=== PATIENT | male | born 1970 | race African-American/Black ===

== ENCOUNTER 2020-12-27 13:45 | Emergency (ER) | payer MEDICAID, OTHER ==
[~2020-12-27] VITALS: Ht 182.9 cm; Wt 90.7 kg
[2020-12-27 16:29] VITALS: BP 162/93
== END 2020-12-27 16:58 | disposition home or self-care (01) ==
LOC: ER 13:45
DX: E11.9 Type 2 diabetes mellitus without complications (principal); I10 Essential (primary) hypertension; Z76.0 Encounter for issue of repeat prescription
CPT/HCPCS: 82962

== ENCOUNTER 2023-02-09 07:21 | Emergency (ER) | payer MEDICAID ==
[~2023-02-09] VITALS: Ht 182.9 cm; Wt 95.5 kg
[2023-02-09] MEDS ORDERED: IPRATROPIUM BROM 0.5 MG/2.5ML INH SOL NEB ONE (07:45)
[2023-02-09] MEDS ORDERED: ALBUTEROL SULF 2.5 MG/0.5ML(0.5%) NEB SOLN NEB ONE (07:45)
[2023-02-09 08:21] VITALS: BP 149/98
[2023-02-09] MEDS ORDERED: DexAMETHasone SOD PHOS 10MG/1ML VIAL INJ IM ONE (08:30)
[2023-02-09] MEDS ORDERED: PRED20TA2 PO (08:33)
[2023-02-09] MEDS ORDERED: ALBU108A5 IN (08:33)
[2023-02-09] MEDS ORDERED: AZITTAB PO (08:33)
== END 2023-02-09 09:18 | disposition home or self-care (01) ==
LOC: ER 07:21
DX: J45.901 Unspecified asthma with (acute) exacerbation (principal); J18.9 Pneumonia, unspecified organism; E11.9 Type 2 diabetes mellitus without complications; I10 Essential (primary) hypertension
CPT/HCPCS: 71046; 94640; 96372; 99283; J1100; J7644

== ENCOUNTER 2023-04-28 08:35 | Emergency (ER) | payer MEDICAID ==
[~2023-04-28] VITALS: Ht 182.9 cm; Wt 79.6 kg
[~2023-04-28 08:35] MED LIST: ALBU108A5 IN; AZITTAB PO; PRED20TA2 PO
[2023-04-28 08:47] VITALS: BP 118/76; PULSE 73; RESP 16; TEMP 98.4; O2SAT 99
[2023-04-28] MEDS ORDERED: FURO20TA3 PO (09:28)
[2023-04-28] MEDS ORDERED: CARV25TA55 PO (09:28)
[2023-04-28] MEDS ORDERED: ATOR40TA52 PO (09:28)
[2023-04-28] MEDS ORDERED: HYDR-4298 PO (09:28)
[2023-04-28] MEDS ORDERED: AMLO1TAB22 PO (09:28)
[2023-04-28] MEDS ORDERED: DAPA1TAB4 PO (09:28)
== END 2023-04-28 10:09 | disposition home or self-care (01) ==
LOC: ER 08:35
DX: I10 Essential (primary) hypertension (principal); E11.9 Type 2 diabetes mellitus without complications; Z86.73 Personal history of transient ischemic attack (TIA), and cerebral infarction without residual deficits; Z76.0 Encounter for issue of repeat prescription
CPT/HCPCS: 82962

== ENCOUNTER 2023-06-02 09:24 | Emergency (ER) | payer MEDICAID ==
[~2023-06-02] VITALS: Ht 182.9 cm; Wt 84.8 kg
[~2023-06-02 09:24] MED LIST changes: +AMLO1TAB22 PO; +ATOR40TA52 PO; +CARV25TA55 PO; +DAPA1TAB4 PO; +FURO20TA3 PO; +HYDR-4298 PO
[2023-06-02 12:05] VITALS: BP 161/96; PULSE 68; RESP 18; TEMP 98.7; O2SAT 99
[2023-06-02] MEDS ORDERED: AMLO1TAB22 PO (12:52)
[2023-06-02] MEDS ORDERED: CARV25TA55 PO (12:52)
[2023-06-02] MEDS ORDERED: FURO20TA3 PO (12:52)
[2023-06-02] MEDS ORDERED: DAPA1TAB4 PO (12:52)
[2023-06-02] MEDS ORDERED: ATOR40TA52 PO (12:52)
== END 2023-06-02 12:59 | disposition home or self-care (01) ==
LOC: ER 09:24
DX: I10 Essential (primary) hypertension (principal); E11.9 Type 2 diabetes mellitus without complications; Z76.0 Encounter for issue of repeat prescription; Z86.73 Personal history of transient ischemic attack (TIA), and cerebral infarction without residual deficits

== ENCOUNTER 2025-08-19 22:50 | Inpatient (IN) | payer MEDICAID ==
[~2025-08-19] VITALS: Ht 182.9 cm; Wt 78.1 kg
[~2025-08-19 22:50] MED LIST changes: -HYDR-4298 PO; +HYDR100T10 PO
--- NOTE | 2025-08-19 23:10 | ED.PDOC ---
SOB-HPI HPI Comments HPI: 55-year-old male who came to ER via EMS for shortness of breath. Per EMS, patient was picked up at a hotel room, where patient was said to be having shortness of breath for the past 3 hours. Saturating with 43% on room air on scene, was placed on non-rebreather and improved to 65%. Patient was then given a breathing treatment and was placed a oxygen at 6 lpm and it improved to 90%. Blood pressure on scene was systolic 200 Past Medical History: Hypertension, diabetes, CHF, COPD, asthma, CVA Past Surgical History: Denies Social History: Denies HPI: Poor Historian. Past Medical History: Past Surgical History: REVIEW OF SYSTEMS: CONSTITUTIONAL: Denies acute: fever, chills, HEAD: Denies acute: headache, photophobia Eyes: Denies acute: Double vision, vision loss, eye pain, eye discharge. EARS: Denies acute: tinnitus, hearing loss, ear discharge, ear pain, THROAT: Denies acute: sore throat, swelling, difficulty swallowing , pain with swallowing, change in voice. NECK: Denies acute: neck pain, neck swelling, stiff neck. HEART: Denies acute : chest pain, palpitations, LUNGS: Denies acute: wheezing, cough, hemoptysis ABDOMEN: Denies acute: abdominal pain, Nausea, Vomiting, diarrhea, melena , hematemesis, hematochezia SKIN: Denies acute: rash, redness, lesions, itchiness. EXTREMITIES: Denies acute: calf pain, numbness, tingling, weakness, denies pain in extremity. Denies acute: Low back pain. Neuro: Denies acute: focal neurological deficit, motor or sensory focal neurological deficit, tremors, seizure like activity, confusion, loss of bowel or bladder function, cauda equina like symptoms. : Denies acute: dysuria, hematuria, flank pain, increase in urinary frequency. PSYCH: Denies acute: hallucination, suicidal ideation, homicidal ideation. PHYSICAL EXAM: General: ----moderate to severe----acute distress, awake and alert. Appears in respiratory distress. Diaphoretic. Breathing treatment in process. Head: normocephalic, atraumatic. No raccoon's eyes, no aranda sign. Neck: supple, trachea is midline, no swelling. Throat: Normal phonation. Eyes:, no erythema, no purulent discharge, no proptosis, no icterus. Heart: regular tachycardia,, no significant murmur appreciated. Lungs: apparent respiratory distress, Bilateral rhonchi and crackles No stridors Abdomen: non tender to palpation, non distended, soft, no guarding, no rebound, + bowel sounds. Neuro: Awake, Alert, oriented to name, Skin: no petechia, no purpura, no cyanosis, non-pale, not jaundice. Lower extremities: --1/4 bilateral - Pitting edema no deformity, no focal swelling, no calf TTP. Makes eye contact. moves all four extremities. Face: no apparent facial droop. ED COURSE: DISCLAIMER: This medical document was created using an electronic medical record system with voice recognition software and computerized dictation system. Although this document has been carefully reviewed, there might still be some phonetic and typographical errors. Occasional wrong-word or "sound-alike" substitutions may have occurred due to the inherent limitations of voice recognition software. These areas are purely typographical due to imperfections of the software programs and do not reflect any compromise in the patient's medical care. Please read the chart carefully and recognize, using context, where these substitutions have occurred. 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 Was a procedure done?: No Differential Dx Differential Diagnosis: Other (DDx include ACS, unstable angina, anxiety, PE, pneumothroax, neoplasm, cardiac ischemia, COPD, asthma, CHF, pleural effusion, tobacco abuse, pneumonia, hypoxia, hypercapnia, anemia., infection/sepsis., pulmonary edema. Asthma, Cardiac tamponade, infection.) X-Ray, Labs, Meds, VS Vital Signs Date Time Temp Pulse Resp B/P (MAP) Pulse Ox O2 Delivery O2 Flow Rate FiO2 08/20/25 05:00 84 15 148/91 (110) 100 08/20/25 05:00 148/91 08/20/25 04:45 83 14 149/89 (109) 100 08/20/25 04:35 82 15 149/84 (105) 100 08/20/25 04:25 79 15 151/86 (107) 100 08/20/25 04:20 173/105 08/20/25 04:15 84 14 169/96 (120) 100 08/20/25 04:10 174/101 08/20/25 04:00 168/99 08/20/25 04:00 83 14 168/99 (122) 100 08/20/25 03:50 184/102 08/20/25 03:45 82 15 167/97 (120) 100 08/20/25 03:35 176/102 08/20/25 03:30 86 15 177/100 (125) 100 08/20/25 03:20 177/102 08/20/25 03:15 82 14 178/100 (126) 100 08/20/25 03:10 174/96 08/20/25 03:00 79 15 159/91 (113) 100 08/20/25 03:00 159/91 08/20/25 02:50 178/96 08/20/25 02:45 80 16 173/98 (123) 100 08/20/25 02:45 174/93 08/20/25 02:43 160/101 100 Facial BiPAP Mask 50 08/20/25 02:40 163/101 08/20/25 02:30 84 17 166/106 (126) 100 08/20/25 02:30 184/101 08/20/25 02:15 159/95 08/20/25 02:15 83 15 165/97 (119) 100 08/20/25 02:00 85 17 174/98 (123) 100 08/20/25 02:00 174/98 08/20/25 01:45 82 17 169/98 (121) 100 08/20/25 01:45 169/93 08/20/25 01:33 85 08/20/25 01:30 86 20 173/99 (123) 99 08/20/25 01:30 173/99 08/20/25 01:15 87 20 161/102 (121) 98 08/20/25 01:15 98.0 109 99 50 98.0 08/20/25 01:15 161/102 08/20/25 01:00 167/101 08/20/25 01:00 87 25 167/101 (123) 98 08/20/25 00:45 87 22 165/104 (124) 99 08/20/25 00:45 165/104 08/20/25 00:30 179/103 08/20/25 00:30 98 25 179/103 (128) 98 08/20/25 00:25 97.8 86 26 172/101 (124) 97 97.8 08/20/25 00:20 172/101 08/20/25 00:20 87 28 98 Bi-Pap+ 15 50 50 08/20/25 00:05 188/114 08/20/25 00:00 185/110 08/19/25 23:55 191/118 08/19/25 23:50 193/114 08/19/25 23:45 197/116 08/19/25 23:40 202/121 08/19/25 23:35 205/122 08/19/25 23:30 209/125 08/19/25 23:28 204/122 08/19/25 23:24 109 217/129 Facial BiPAP Mask 50 08/19/25 23:17 217/129 08/19/25 23:13 106 08/19/25 22:50 98.0 100 30 228/134 90 98.0 Lab Test 08/20/25 01:53 08/20/25 01:21 08/20/25 00:22 08/20/25 00:20 Range/Units Troponin I High Sensitivity 242 *H </=54 ng/L Lactic Acid Level 1.5 0.4-2.0 mmol/L POC Glucose 176 H 70-106 mg/dl Blood Gas Specimen Type Venous Blood Gas Sample Site Vbg - n/a Blood Gas Patient Temperature 37.0 Arterial Blood Date Drawn [id number] Mike Test Yes Venous Blood pH 7.259 L 7.320-7.430 Venous Blood pCO2 at Patient Temp 38.1 38.0-54.0 mmHg Venous Blood pO2 at Patient Temp 41.8 23.0-48.0 mmHg Venous Blood HCO3 16.7 L 22.0-29.0 mmol/L Venous Blood Base Excess -9.7 L -2.0-3.0 mmol/L Blood Gas Modality Mask - bipap FiO2 % 50.0 Blood Gas EPAP 5 Blood Gas IPAP 15 Test 08/20/25 00:11 08/20/25 00:06 08/19/25 23:05 Range/Units Troponin I High Sensitivity 231 *H 241 *H </=54 ng/L Urine Color Colorless Yellow Urine Clarity Clear Clear Urine pH 6.5 5.0-9.[address] 1.009 1.001-1.035 Urine Protein 2+ H Negative Urine Ketones Negative Negative Urine Blood 2+ H Negative /uL Urine Nitrite Negative Negative Urine Bilirubin Negative Negative Urine Urobilinogen Normal Negative mg/dL Urine Leukocyte Esterase Negative Negative /uL Urine RBC 2 0 - 3 /hpf Urine Microscopic WBC 1 0-3 /HPF Urine Squamous Epithelial Cells None seen <5 /hpf Urine Bacteria None seen None Seen /hpf Urine Glucose 3+ H Normal mg/dL Urine Opiates Screen Neg NEGATIVE Urine Fentanyl Screen Neg NEGATIVE Urine Barbiturates Screen Neg NEGATIVE Urine Phencyclidine Screen Neg NEGATIVE Urine Amphetamines Screen Neg NEGATIVE Urine Benzodiazepines Screen Neg NEGATIVE Urine Cocaine Screen Neg NEGATIVE Urine Cannabinoids Screen Neg NEGATIVE White Blood Count 8.8 4.4-10.8 10^3/uL Red Blood Count 3.09 L 4.5-5.90 10^6/uL Hemoglobin 9.5 L 13.5-17.5 g/dL Hematocrit 29.7 L 41.0-53.0 % Mean Corpuscular Volume 96.3 80.0-100.0 fL Mean Corpuscular Hemoglobin 30.7 28.0-32.0 pg Mean Corpuscular Hemoglobin Concent 31.9 L 32.0-36.0 g/dL Red Cell Distribution Width 15.6 H 11.8-14.3 % Platelet Count 173 140-450 10^3/uL Mean Platelet Volume 8.7 6.9-10.8 fL Neutrophils (%) (Auto) 61.7 37.0-80.0 % Lymphocytes (%) (Auto) 30.8 10.0-50.0 % Monocytes (%) (Auto) 2.3 0.0-12.0 % Eosinophils (%) (Auto) 4.3 0.0-7.0 % Basophils (%) (Auto) 0.9 0.0-2.0 % Neutrophils # (Auto) 5.4 1.6-8.6 10 ^3/uL Lymphocytes # (Auto) 2.7 0.4-5.4 10 ^3/uL Monocytes # (Auto) 0.2 0-1.3 10 ^3/uL Eosinophils # (Auto) 0.4 0-0.8 10 ^3/uL Basophils # (Auto) 0.1 0-0.2 10 ^3/uL Nucleated Red Blood Cells 0.1 % Sodium Level 143 136-145 mmol/L Potassium Level 4.7 3.5-5.1 mmol/L Chloride Level 108 H 98-107 mmol/L Carbon Dioxide Level 18 L 20-31 mmol/L Anion Gap 17 H 5-15 Blood Urea Nitrogen 49 H 9-23 mg/dL Creatinine 9.09 H 0.700-1.30 mg/dL Glomerular Filtration Rate Calc 6 >90 mL/min BUN/Creatinine Ratio 5.4 L 10.0-20.0 Serum Glucose 170 H 74-106 mg/dL Lactic Acid Level 5.3 *H 0.4-2.0 mmol/L Calcium Level 8.4 L 8.7-10.4 mg/dL Total Bilirubin 0.4 0.2-1.0 mg/dL Aspartate Amino Transferase (AST) 43 H 13-40 U/L Alanine Aminotransferase (ALT) 33 7-40 U/L Alkaline Phosphatase 43 L 46-116 U/L B-Type Natriuretic Peptide 2127.06 0-100 pg/mL Total Protein 7.1 5.7-8.2 g/dL Albumin 4.3 3.2-4.8 g/dL Microbiology Date/Time Source Procedure Growth Status 08/19/25 23:30 Blood Blood Culture - Preliminary NO GROWTH AFTER 24 HOURS OF INCUBATION. Resulted 08/19/25 23:05 Blood Blood Culture - Preliminary Resulted [address] [address] Ph: [phone] DIAGNOSTIC IMAGING Diagnostic Imaging Report : [id number] Signed PATIENT: PERICO MCDONOUGH ACCT: [id number] UNIT: [id number] : 1970 LOC: ER ROOM / BED: / AGE / SEX: 55 / M ADM STATUS: REG ER SERVICE 2303 ORDERING PHYSICIAN: KEIRY LEVY DO PROCEDURE(s): CXRP - CHEST PORTABLE REASON: SOB ORDER NUMBER(s): [id number], ACCESSION NUMBER(s): [id number] CHEST RADIOGRAPH Indication: SOB Technique: Single frontal view of the chest was obtained COMPARISON: XR CHEST 1 VIEW on DOS: 05/15/23, XY CHEST TWO VIEWS ROUTINE on DOS: 02/09/23 FINDINGS: Lines and Tubes: None Lungs: Multifocal pneumonia throughout both lungs. Pleura: No effusion. No pneumothorax. Cardiomediastinal contours: Unremarkable Bones: Unremarkable IMPRESSION: 1. Multifocal pneumonia throughout both lungs. ATED BY: STIVEN GONG MD DICTATED DATE/TIME: 08/19/252348 SIGNED BY: STIVEN GONG MD SIGNED DATE/TIME: 08/19/252348 CC: Time of 1ST Reevaluation: 23:05 Reevaluation 1ST: Unchanged Time of 2ND Reevaluation: 02:05 Reevaluation 2ND: Improved Patient Education/Counseling: Diagnosis, Treatment Family Education/Counseling: No Family Present Comments MDM: patient presented with the above HPI.---respiratory failure---workup was initiated. patient was found with the above mentioned diagnosis. the following medications were ordered: please refer to order lists of meds and tests obtained by myself Dr. Levy. Patient ED course and VS have been stabilized. Patient has been reassessed in the ED and remained in a stable condition. Pertinent incidental findings were discussed with the patient and/or family. Patient/family voices understanding and is agreeable with plan. Patient has been observed in the ED adequate length of time to insure improvement/stability. Escalation of care considered: Consideration of escalation to observation or admission Patient was evaluated immediately upon arrival. Patient was given aspirin, Zosyn four pneumonia, Rocephin, sepsis protocol was initiated. Patient was given DuoNeb treatment and magnesium for his tachycardia. Patient was given s teroids. Patient was given Lasix. Patient was started nitroglycerin drip for flash pulmonary edema. Patient was placed on BiPAP immediately upon arrival. Patient was reassessed numerous times and he started to show improvement. Patient was ADMITTED to the medicine team for further evaluation and treatment of their presentation. All the reports of any imaging studies that were ordered by myself were reviewed by myself. SEPSIS Sepsis Screen Date sepsis recognized/suspect: Aug 19, 2025 Time Sepsis recognized/suspect: 2249 Recent Procedure: No On Antibiotic Therapy: No Respiratory Rate >20: No Heart Rate >90: No Temp<36 C (96.8 F) or >38.3 C: No SBP <90 or MAP <65 mmHG: No New Acute Mental Status Change: No Is the patient on CPAP, BIPAP,: Yes Physician Orders Chest Portable (08/19/25 23:03) Nitroglycerin 50mg/250ml (Tridil) (08/19/25 23:15) Blood Culture (08/19/25 23:13) BIPAP (08/19/25 23:32) Venous Blood Gas (08/20/25 00:56) Vital Signs Date Time Temp Pulse Resp B/P (MAP) Pulse Ox O2 Delivery O2 Flow Rate FiO2 08/20/25 05:00 84 15 148/91 (110) 100 08/20/25 05:00 148/91 08/20/25 04:45 83 14 149/89 (109) 100 08/20/25 04:35 82 15 149/84 (105) 100 08/20/25 04:25 79 15 151/86 (107) 100 08/20/25 04:20 173/105 08/20/25 04:15 84 14 169/96 (120) 100 08/20/25 04:10 174/101 08/20/25 04:00 168/99 08/20/25 04:00 83 14 168/99 (122) 100 08/20/25 03:50 184/102 08/20/25 03:45 82 15 167/97 (120) 100 08/20/25 03:35 176/102 08/20/25 03:30 86 15 177/100 (125) 100 08/20/25 03:20 177/102 08/20/25 03:15 82 14 178/100 (126) 100 08/20/25 03:10 174/96 08/20/25 03:00 79 15 159/91 (113) 100 08/20/25 03:00 159/91 08/20/25 02:50 178/96 08/20/25 02:45 80 16 173/98 (123) 100 08/20/25 02:45 174/93 08/20/25 02:43 160/101 100 Facial BiPAP Mask 50 08/20/25 02:40 163/101 08/20/25 02:30 84 17 166/106 (126) 100 08/20/25 02:30 184/101 08/20/25 02:15 159/95 08/20/25 02:15 83 15 165/97 (119) 100 08/20/25 02:00 85 17 174/98 (123) 100 08/20/25 02:00 174/98 08/20/25 01:45 82 17 169/98 (121) 100 08/20/25 01:45 169/93 08/20/25 01:33 85 08/20/25 01:30 86 20 173/99 (123) 99 08/20/25 01:30 173/99 08/20/25 01:15 87 20 161/102 (121) 98 08/20/25 01:15 98.0 109 99 50 98.0 08/20/25 01:15 161/102 08/20/25 01:00 167/101 08/20/25 01:00 87 25 167/101 (123) 98 08/20/25 00:45 87 22 165/104 (124) 99 08/20/25 00:45 165/104 08/20/25 00:30 179/103 08/20/25 00:30 98 25 179/103 (128) 98 08/20/25 00:25 97.8 86 26 172/101 (124) 97 97.8 08/20/25 00:20 172/101 08/20/25 00:20 87 28 98 Bi-Pap+ 15 50 50 08/20/25 00:05 188/114 08/20/25 00:00 185/110 08/19/25 23:55 191/118 08/19/25 23:50 193/114 08/19/25 23:45 197/116 08/19/25 23:40 202/121 08/19/25 23:35 205/122 08/19/25 23:30 209/125 08/19/25 23:28 204/122 08/19/25 23:24 109 217/129 Facial BiPAP Mask 50 08/19/25 23:17 217/129 08/19/25 23:13 106 08/19/25 22:50 98.0 100 30 228/134 90 98.0 Laboratory Tests Test 08/19/25 23:05 08/20/25 01:21 Lactic Acid Level 5.3 mmol/L (0.4-2.0) *H 1.5 mmol/L (0.4-2.0) White Blood Count 8.8 10^3/uL (4.4-10.8) Departure 1 Departure Time of Disposition: 00:00 Impression: Primary Impression: CHF exacerbation Additional Impressions: Pulmonary edema Acute respiratory failure Elevated lactic acid level Elevated troponin level Multifocal pneumonia Anemia Disposition: ADMITTED INPATIENT Admit to: ICU Condition: Critical Discharged With: Self Critical Care Note Critical Care Time?: Yes (1 hr-critical care time only) Heart Score Heart Score: Heart Score Response (Comments) Value History Highly Suspicious 2 EKG Repolarization Disturb 1 Age 45-64 1 Risk Factors >3 or Hx ASHD 2 Troponin Normal limit 0 Total 6 I personally scribed for KEIRY LEVY DO ([email or web address]) on 08/19/25 at 23:10. Electronically submitted by Jesse Ramos ([email or web address]). I personally scribed for KEIRY LEVY DO ([email or web address]) on 08/20/25 at 00:18. Electronically submitted by Jesse Ramos ([email or web address]). I personally scribed for KEIRY LEVY DO ([email or web address]) on 08/20/25 at 02:01. Electronically submitted by Jesse Ramos ([email or web address]). I personally scribed for KEIRY LEVY J DO ([email or web address]) on 08/20/25 at 02:04. Electronically submitted by Jesse Ramos ([email or web address]). I personally scribed for KEIRY LEVY DO ([email or web address]) on 08/20/25 at 02:05. Electronically submitted by Jesse Ramos ([email or web address]). I personally scribed for KEIRY LEVY J DO ([email or web address]) on 08/21/25 at 04:38. Electronically submitted by Jerry Cruz ([email or web address]). KEIRY LEVY DO Aug 19, 2025 23:10
[2025-08-19] MEDS: FUROSEMIDE 100 MG/10ML VIAL IV ONE (23:17)
[2025-08-19] MEDS: methylPREDNISolone SOD SUCC 125 MG/2 ML VL IV ONE (23:20)
[2025-08-19] MEDS: ALBUTEROL SULF 2.5 MG/0.5ML(0.5%) NEB SOLN NEB ONE (23:24)
[2025-08-19] MEDS: NITROGLYCERIN 50MG/250ML 250 ML IV SCH (23:28)
[2025-08-19] MEDS: MAGNESIUM SULFATE 1GM/100ML 100 ML IV ONE (23:33)
[2025-08-19 23:48] LABS: Hematocrit 29.7 % (41.0-53.0); Hemoglobin 9.5 g/dL (13.5-17.5); Mean Corpuscular Hemoglobin 30.7 pg (28.0-32.0); Mean Corpuscular Volume 96.3 fL (80.0-100.0); Nucleated Red Blood Cells % 0.1 %
--- NOTE | 2025-08-19 23:51 | DVH ---
CHEST RADIOGRAPH Indication: SOB Technique: Single frontal view of the chest was obtained COMPARISON: XR CHEST 1 VIEW on DOS: 05/15/23, XY CHEST TWO VIEWS ROUTINE on DOS: 02/09/23 FINDINGS: Lines and Tubes: None Lungs: Multifocal pneumonia throughout both lungs. Pleura: No effusion. No pneumothorax. Cardiomediastinal contours: Unremarkable Bones: Unremarkable IMPRESSION: 1. Multifocal pneumonia throughout both lungs.
[2025-08-20] VITALS (7 sets, daily range): BP systolic 160; BP diastolic 101; PULSE 87–109; RESP 14–28; TEMP 98; O2SAT 98–100
[2025-08-20 00:03] LABS: Alanine Aminotransferase 33 U/L (7-40); Albumin 4.3 g/dL (3.2-4.8); Anion Gap 17 (5-15); BUN/Creatinine Ratio 5.4 (10.0-20.0); Potassium 4.7 mmol/L (3.5-5.1); Sodium 143 mmol/L (136-145); Total Protein 7.1 g/dL (5.7-8.2)
[2025-08-20 00:04] LABS: Bilirubin, Total 0.4 mg/dL (0.2-1.0)
[2025-08-20 00:05] LABS: Alkaline Phosphatase 43 U/L (46-116); Blood Urea Nitrogen 49 mg/dL (9-23); Calcium 8.4 mg/dL (8.7-10.4); Carbon Dioxide 18 mmol/L (20-31); Chloride 108 mmol/L (98-107); Glucose 170 mg/dL (74-106)
[2025-08-20 01:06] LABS: Lactic Acid w/Reflex 5.3 mmol/L (0.4-2.0)
[2025-08-20] MEDS: PIPERACILLIN-TAZOB 3.375GM 100 ML IV ONE (02:11)
[2025-08-20 02:30] LABS: Urine Protein, UAD 2+ (Negative)
[2025-08-20 03:05] LABS: Cannabinoid Screen, Urine Neg (NEGATIVE)
[2025-08-20 03:07] LABS: Amphetamine Screen, Urine Neg (NEGATIVE); Barbiturate Scree,Urine Neg (NEGATIVE); Benzodiazephine Screen, Urine Neg (NEGATIVE); Cocaine Screen, Urine Neg (NEGATIVE); Opiate Scree,Urine Neg (NEGATIVE); Phencyclidine Screen, Urine Neg (NEGATIVE)
--- NOTE | 2025-08-20 04:42 | ECG ---
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
--- NOTE | 2025-08-20 05:14 | DVHHP2 ---
History of Present Illness Reason for Visit: Acute respiratory failure History of Present Illness The patient is a 55-year-old male with past medical history of DM, hypertension, CHF, COPD, CVA, and asthma who presented to [facility] ED with complaint of shortness of breaths.Patient reports that he has been experiencing difficulty breathing, increased work of breathing, getting worse that EMS were called. When EMS arrived on the scene, patient was desaturating at 43% on air, placed on non-rebreather and improved to 65%, was then given breathing treatment and placed on oxygen at 6 L/min and O2 saturation improved to 90% EN route to our facility ED. Patient was seen and evaluated in the ED, laboratory data shows WBC 8.8, hemoglobin 9.5, hematocrit 29.7, platelets 173, sodium 143, potassium 4.7, BUN 49, creatinine 9.09, GFR 6, glucose 170, calcium 8.4, BNP 2127.06, troponin 241, AST 43, ALT 33, blood pressure 228/134 trending down to 149/97, heart rate 82, temperature 98.0 F, O2 saturation 99% on BiPAP. Chest x-ray revealing multifocal pneumonia throughout both lungs. Patient was started on IV antibiotic regimen azithromycin, started on nitroglycerin drip, please see medication orders section in the computer. On my assessment, patient denied chest pain, no headache, dizziness, diaphoresis, currently on BiPAP, no diarrhea , nausea, vomiting, fever, no chills. Patient was admitted for further evaluation and medical management. Past Medical History Hypertension, diabetes, CHF, COPD, asthma, CVA Past Surgical History Denies all surgeries Review of Systems Constitutional: No: Fever, Chills, Sweats, Weakness, Malaise, Other Eyes: No: Pain, Vision change, Conjunctivae inflammation, Eyelid inflammation, Other, Redness ENT: No: Ear pain, Ear discharge, Nose pain, Nose discharge, Nose congestion, Mouth pain, Mouth swelling, Throat pain, Throat swelling, Other Respiratory: Shortness of breath, Other (SOB at rest); No: Cough, Dry, SOB with excertion, Wheezing, Hemoptysis, Pleuritic Pain, Sputum, Wheezing Cardiovascular: No: Chest Pain, Palpitations, Orthopnea, Paroxysmal Noc. Dyspnea, Edema, Lt Headedness, Other Gastrointestinal: No: Nausea, Vomiting, Abdominal Pain, Diarrhea, Constipation, Melena, Hematochezia, Other Genitourinary: No Dysuria, No Frequency, No Incontinence, No Hematuria, No Retention, No Other Musculoskeletal: No: other, neck pain, shoulder pain, arm pain, back pain, hand pain, leg pain, foot pain Skin: No: Rash, Lesions, Jaundice, Bruising, Other Neurological: No: Weakness, Numbness, Incoordination, Change in speech, Confusion, Seizures, Other Allergies: Coded Allergies: NO KNOWN ALLERGIES (Unverified , 12/27/20) Medications Current Medications Medications Dose Ordered Sig/Britta Route Start Time Stop Time Status Last Admin Dose Admin Nitroglycerin 250 ml @ 1.5 mls/hr Q24H IV 08/19/25 23:15 08/19/25 23:28 1.5 MLS/HR Exam Vital Signs Vital Signs Date Time Temp Pulse Resp B/P (MAP) Pulse Ox O2 Delivery O2 Flow Rate FiO2 08/20/25 03:00 159/91 08/20/25 02:43 100 Facial BiPAP Mask 50 08/20/25 02:15 83 15 08/20/25 01:15 98.0 98.0 08/20/25 00:20 15 General Appearance: Alert, Oriented X3, Cooperative, No acute distress HEENT: Atraumatic, PERRLA, EOMI, Mucous membr. moist/pink Respiratory: Normal air movement Cardiovascular: Regular rate, Normal S1, Normal S2, No murmurs Abdominal: Normal bowel sounds, Soft, No tenderness, No hepatospenomegaly, No masses Extremities: No clubbing, No cyanosis, No edema, Normal pulses, No tenderness/swelling Skin: No rashes, No significant lesion Neuro: Normal speech, Normal tone, Sensation intact, Cranial nerves 3-12 NL, Reflexes 2+, Other (Generalized weakness) Psych/Mental Status: Mental status NL, Mood NL Labs/Xrays Labs Test 08/20/25 01:53 08/20/25 01:21 08/20/25 00:22 08/20/25 00:20 Range/Units Troponin I High Sensitivity 242 *H </=54 ng/L Lactic Acid Level 1.5 0.4-2.0 mmol/L POC Glucose 176 H 70-106 mg/dl Blood Gas Specimen Type Venous Blood Gas Sample Site Vbg - n/a Blood Gas Patient Temperature 37.0 Arterial Blood Date Drawn [id number] Mike Test Yes Venous Blood pH 7.259 L 7.320-7.430 Venous Blood pCO2 at Patient Temp 38.1 38.0-54.0 mmHg Venous Blood pO2 at Patient Temp 41.8 23.0-48.0 mmHg Venous Blood HCO3 16.7 L 22.0-29.0 mmol/L Venous Blood Base Excess -9.7 L -2.0-3.0 mmol/L Blood Gas Modality Mask - bipap FiO2 % 50.0 Blood Gas EPAP 5 Blood Gas IPAP 15 Test 08/20/25 00:06 08/19/25 23:05 Range/Units Urine Color Colorless Yellow Urine Clarity Clear Clear Urine pH 6.5 5.0-9.0 Urine Specific [place] 1.009 1.001-1.035 Urine Protein 2+ H Negative Urine Ketones Negative Negative Urine Blood 2+ H Negative /uL Urine Nitrite Negative Negative Urine Bilirubin Negative Negative Urine Urobilinogen Normal Negative mg/dL Urine Leukocyte Esterase Negative Negative /uL Urine RBC 2 0 - 3 /hpf Urine Microscopic WBC 1 0-3 /HPF Urine Squamous Epithelial Cells None seen <5 /hpf Urine Bacteria None seen None Seen /hpf Urine Glucose 3+ H Normal mg/dL Urine Opiates Screen Neg NEGATIVE Urine Fentanyl Screen Neg NEGATIVE Urine Barbiturates Screen Neg NEGATIVE Urine Phencyclidine Screen Neg NEGATIVE Urine Amphetamines Screen Neg NEGATIVE Urine Benzodiazepines Screen Neg NEGATIVE Urine Cocaine Screen Neg NEGATIVE Urine Cannabinoids Screen Neg NEGATIVE White Blood Count 8.8 4.4-10.8 10^3/uL Red Blood Count 3.09 L 4.5-5.90 10^6/uL Hemoglobin 9.5 L 13.5-17.5 g/dL Hematocrit 29.7 L 41.0-53.0 % Mean Corpuscular Volume 96.3 80.0-100.0 fL Mean Corpuscular Hemoglobin 30.7 28.0-32.0 pg Mean Corpuscular Hemoglobin Concent 31.9 L 32.0-36.0 g/dL Red Cell Distribution Width 15.6 H 11.8-14.3 % Platelet Count 173 140-450 10^3/uL Mean Platelet Volume 8.7 6.9-10.8 fL Neutrophils (%) (Auto) 61.7 37.0-80.0 % Lymphocytes (%) (Auto) 30.8 10.0-50.0 % Monocytes (%) (Auto) 2.3 0.0-12.0 % Eosinophils (%) (Auto) 4.3 0.0-7.0 % Basophils (%) (Auto) 0.9 0.0-2.0 % Neutrophils # (Auto) 5.4 1.6-8.6 10 ^3/uL Lymphocytes # (Auto) 2.7 0.4-5.4 10 ^3/uL Monocytes # (Auto) 0.2 0-1.3 10 ^3/uL Eosinophils # (Auto) 0.4 0-0.8 10 ^3/uL Basophils # (Auto) 0.1 0-0.2 10 ^3/uL Nucleated Red Blood Cells 0.1 % Sodium Level 143 136-145 mmol/L Potassium Level 4.7 3.5-5.1 mmol/L Chloride Level 108 H 98-107 mmol/L Carbon Dioxide Level 18 L 20-31 mmol/L Anion Gap 17 H 5-15 Blood Urea Nitrogen 49 H 9-23 mg/dL Creatinine 9.09 H 0.700-1.30 mg/dL Glomerular Filtration Rate Calc 6 >90 mL/min BUN/Creatinine Ratio 5.4 L 10.0-20.0 Serum Glucose 170 H 74-106 mg/dL Calcium Level 8.4 L 8.7-10.4 mg/dL Total Bilirubin 0.4 0.2-1.0 mg/dL Aspartate Amino Transferase (AST) 43 H 13-40 U/L Alanine Aminotransferase (ALT) 33 7-40 U/L Alkaline Phosphatase 43 L 46-116 U/L B-Type Natriuretic Peptide 2127.06 0-100 pg/mL Total Protein 7.1 5.7-8.2 g/dL Albumin 4.3 3.2-4.8 g/dL PATIENT: PERICO MCDONOUGH ACCT: [id number] UNIT: [id number] : 1970 LOC: ER ROOM / BED: / AGE / SEX: 55 / M ADM STATUS: REG ER SERVICE 2303 ORDERING PHYSICIAN: KEIRY LEVY DO PROCEDURE(s): CXRP - CHEST PORTABLE REASON: SOB ORDER NUMBER(s): [id number], ACCESSION NUMBER(s): [id number] CHEST RADIOGRAPH Indication: SOB Technique: Single frontal view of the chest was obtained COMPARISON: XR CHEST 1 VIEW on DOS: 05/15/23, XY CHEST TWO VIEWS ROUTINE on DOS: 02/09/23 FINDINGS: Lines and Tubes: None Lungs: Multifocal pneumonia throughout both lungs. Pleura: No effusion. No pneumothorax. Cardiomediastinal contours: Unremarkable Bones: Unremarkable IMPRESSION: 1. Multifocal pneumonia throughout both lungs. SEPSIS Sepsis Screen Date sepsis recognized/suspect: Aug 20, 2025 Time Sepsis recognized/suspect: 230 Recent Procedure: No On Antibiotic Therapy: Yes Respiratory Rate >20: No Heart Rate >90: No Temp<36 C (96.8 F) or >38.3 C: No SBP <90 or MAP <65 mmHG: No New Acute Mental Status Change: No Is the patient on CPAP, BIPAP,: Yes Physician Orders Chest Portable (08/19/25 23:03) Nitroglycerin 50mg/250ml (Tridil) (08/19/25 23:15) Blood Culture (08/19/25 23:13) BIPAP (08/19/25 23:32) Venous Blood Gas (08/20/25 00:56) Complete Blood Count (08/20/25 05:02) Comprehensive Metabolic Panel (08/20/25 05:02) Ceftriaxone Ivpb Rocephin (08/20/25 09:00) Azithromycin 500mg/ 250ml (Zithromax 50 (08/20/25 10:00) Famotidine Injection (Pepcid Injection) (08/20/25 10:00) Methylprednisolone Sod Succ (Solu Medrol (08/20/25 06:00) *[facility] (08/20/25 05:02) Glucose Blood (Accu-Chek Comfort Curve T (08/20/25 08:00) Mild Sliding Scale (08/20/25 08:00) Dextrose 50% Syringe (08/20/25 05:15) Admit (08/20/25 05:02) Allergies (08/20/25 05:02) Code Status (08/20/25 05:02) Sodium Chloride Lock (Saline Lock Ns) (08/20/25 06:00) Oxygen Per Hour (08/20/25 05:02) Ondansetron Hcl (Zofran) (08/20/25 05:15) Fall Risk Precautions In Place QSHIFT (08/20/25 05:02) Complete Blood Count (08/21/25 04:00) Comprehensive Metabolic Panel (08/21/25 04:00) Npo (Nothing By Mouth) Diet (08/20/25 Breakfast) Echo 2d Mode Cardiac Dop (08/20/25 05:02) Condition: Critical (08/20/25 05:02) Maintain Bed Rest (08/20/25 05:02) Sequential Compression Device (08/20/25 ) Nitroglycerin Sublingual (Ntrostat Subli (08/20/25 05:15) Vital Signs Date Time Temp Pulse Resp B/P (MAP) Pulse Ox O2 Delivery O2 Flow Rate FiO2 08/20/25 03:00 159/91 08/20/25 02:50 178/96 08/20/25 02:45 174/93 08/20/25 02:43 160/101 100 Facial BiPAP Mask 50 08/20/25 02:40 163/101 08/20/25 02:30 184/101 08/20/25 02:15 159/95 08/20/25 02:15 83 15 165/97 (119) 100 08/20/25 02:00 85 17 174/98 (123) 100 08/20/25 02:00 174/98 08/20/25 01:45 82 17 169/98 (121) 100 08/20/25 01:45 169/93 08/20/25 01:33 85 08/20/25 01:30 86 20 173/99 (123) 99 08/20/25 01:30 173/99 08/20/25 01:15 87 20 161/102 (121) 98 08/20/25 01:15 98.0 109 99 50 98.0 08/20/25 01:15 161/102 08/20/25 01:00 167/101 08/20/25 01:00 87 25 167/101 (123) 98 08/20/25 00:45 87 22 165/104 (124) 99 08/20/25 00:45 165/104 08/20/25 00:30 179/103 08/20/25 00:30 98 25 179/103 (128) 98 08/20/25 00:25 97.8 86 26 172/101 (124) 97 97.8 08/20/25 00:20 172/101 08/20/25 00:20 87 28 98 Bi-Pap+ 15 50 50 08/20/25 00:05 188/114 08/20/25 00:00 185/110 08/19/25 23:55 191/118 08/19/25 23:50 193/114 08/19/25 23:45 197/116 08/19/25 23:40 202/121 08/19/25 23:35 205/122 08/19/25 23:30 209/125 08/19/25 23:28 204/122 08/19/25 23:24 109 217/129 Facial BiPAP Mask 50 08/19/25 23:17 217/129 08/19/25 23:13 106 08/19/25 22:50 98.0 100 30 228/134 90 98.0 Laboratory Tests Test 08/19/25 23:05 08/20/25 01:21 Lactic Acid Level 5.3 mmol/L (0.4-2.0) *H 1.5 mmol/L (0.4-2.0) White Blood Count 8.8 10^3/uL (4.4-10.8) Medications Medications Dose Ordered Sig/Britta Route Start Time Stop Time Status Last Admin Dose Admin Albuterol 20 mg ONCE ONCE NEB 08/19/25 23:15 08/19/25 23:16 DC 08/19/25 23:24 20 MG Aspirin 325 mg ONCE ONCE PO 08/20/25 03:00 08/20/25 03:01 DC 08/20/25 02:56 325 MG Ceftriaxone Sodium 50 ml @ 100 mls/hr ONCE ONCE IV 08/20/25 00:30 08/20/25 00:59 DC 08/20/25 00:30 100 MLS/HR Furosemide 60 mg ONCE ONCE IV 08/19/25 23:15 08/19/25 23:16 DC 08/19/25 23:17 60 MG Magnesium Sulfate/ Dextrose 100 ml @ 100 mls/hr ONCE ONCE IV 08/19/25 23:15 08/20/25 00:14 DC 08/19/25 23:33 100 MLS/HR Methylprednisolone Sodium Succinate 125 mg ONCE ONCE IV 08/19/25 23:15 08/19/25 23:16 DC 08/19/25 23:20 125 MG Nitroglycerin 250 ml @ 1.5 mls/hr Q24H IV 08/19/25 23:15 08/19/25 23:28 1.5 MLS/HR Piperacillin Sod/ Tazobactam Sod 100 ml @ 100 mls/hr ONCE ONCE IV 08/20/25 02:00 08/20/25 02:59 DC 08/20/25 02:11 100 MLS/HR Assessment/Plan Assessment/Plan Acute respiratory failure Pulmonary edema Elevated troponin level Multifocal pneumonia Elevated lactic acid level Anemia, unspecified Acute exacerbation of congestive heart failure Plan 1. Admit to intensive care unit 2. Breathing treatment 3. Pain control management 4. IV antibiotic management 5. Management of fluids and electrolytes 6. Consultation for Nephrology/Cardiology 7. Diagnostic test chest x-ray 8. DVT prophylaxis-on heparin 9. Repeat labs CBC, CMP in a.m. 10. Home medication reviewed and reconciled 11. Continue with current medical management 12. Treatment plan discussed with patient and RN. Patient will need reinstatement of information given mental status. Plan discussed with: Patient, Other (RN) My Orders Orders - BRIANA ALVARADO DNP Procedure Category Date Status Time Complete Blood Count LAB 08/20/25 Verified 05:02 Comprehensive LAB 08/20/25 Verified Metabolic Panel 05:02 Ceftriaxone Ivpb PHA 08/20/25 Verified Rocephin 09:00 Azithromycin 500mg/ PHA 08/20/25 Verified 250ml (Zithromax 50 10:00 Famotidine Injection PHA 08/20/25 Verified (Pepcid Injection) 10:00 Methylprednisolone PHA 08/20/25 Verified Sod Succ (Solu Medrol 06:00 *[facility] CONS 08/20/25 Verified -[place] 05:02 Glucose Blood PHA 08/20/25 Verified (Accu-Chek Comfort 08:00 Mild Sliding Scale PHA 08/20/25 Verified 08:00 Dextrose 50% Syringe PHA 08/20/25 Verified 05:15 Admit ADMIT 08/20/25 Verified 05:02 Allergies LINNETTE 08/20/25 Verified 05:02 Code Status CODE 08/20/25 Verified 05:02 Sodium Chloride Lock PHA 08/20/25 Verified (Saline Lock Ns) 06:00 Oxygen Per Hour RT 08/20/25 Verified 05:02 Ondansetron Hcl PHA 08/20/25 Verified (Zofran) 05:15 Fall Risk Precautions LINNETTE 08/20/[address] 05:02 Complete Blood Count LAB 08/21/25 Verified 04:00 Comprehensive LAB 08/21/25 Verified Metabolic Panel 04:00 Npo (Nothing By DIET 08/20/25 Verified Mouth) Diet Breakfast Echo 2d Mode Cardiac US 08/20/25 Verified DOP 05:02 Condition: Critical LINNETTE 08/20/25 Verified 05:02 Maintain Bed Rest LINNETTE 08/20/25 Verified 05:02 Sequential LINNETTE 08/20/25 Verified Compression Device Nitroglycerin PHA 08/20/25 Verified Sublingual (Ntrostat 05:15 Problem List: (1) Acute respiratory failure (2) Pulmonary edema (3) Anemia, unspecified (4) Multifocal pneumonia (5) Elevated lactic acid level (6) Elevated troponin level (7) Acute exacerbation of congestive heart failure Date of Service: Aug 20, 2025 Billing Provider: BRIANA ALVARADO DNP Common Visit Codes: [id number] INP/OBS CARE (HIGH) BRIANA ALVARADO DNP Aug 20, 2025 05:14
[2025-08-20] MEDS ORDERED: ONDANSETRON HCL 4 MG/2 ML VIAL IV PRN (05:15)
[2025-08-20] MEDS ORDERED: NITROGLYCERIN 0.4 MG SL TAB SL PRN (05:15)
[2025-08-20] MEDS ORDERED: DEXTROSE (50%) 50ML SYRG IV PRN (05:15)
[2025-08-20] MEDS ORDERED: MORPHINE SULFATE INJ 2 MG/ml SYRG IV PRN (05:15)
[2025-08-20] MEDS: SODIUM CHLOR 0.9% PF (SALINE LOCK) 10ML VIAL/SYR IV SCH (05:52)
[2025-08-20] MEDS: methylPREDNISolone SOD SUCC 40 MG/ML VL IV SCH (05:59)
[2025-08-20] MEDS: ALBUTEROL SULF 2.5 MG/0.5ML(0.5%) NEB SOLN NEB ONE (06:22)
[2025-08-20] MEDS: IPRATROPIUM BROM 0.5 MG/2.5ML INH SOL NEB ONE (06:22)
[2025-08-20 06:31] LABS: Hematocrit 23.9 % (41.0-53.0); Hemoglobin 8.2 g/dL (13.5-17.5); Nucleated Red Blood Cells % 0.0 %
[2025-08-20 06:37] LABS: Mean Corpuscular Hemoglobin 31.4 pg (28.0-32.0); Mean Corpuscular Volume 91.6 fL (80.0-100.0)
[2025-08-20 06:45] LABS: Alanine Aminotransferase 27 U/L (7-40); Albumin 3.8 g/dL (3.2-4.8); Anion Gap 14 (5-15); BUN/Creatinine Ratio 6.2 (10.0-20.0); Bilirubin, Total 0.4 mg/dL (0.2-1.0); Chloride 107 mmol/L (98-107); Sodium 140 mmol/L (136-145); Total Protein 6.4 g/dL (5.7-8.2)
[2025-08-20 06:46] LABS: Alkaline Phosphatase 34 U/L (46-116); Blood Urea Nitrogen 56 mg/dL (9-23); Calcium 8.1 mg/dL (8.7-10.4); Carbon Dioxide 19 mmol/L (20-31); Glucose 207 mg/dL (74-106); Potassium 5.3 mmol/L (3.5-5.1)
[2025-08-20] MEDS: ACCU-CHEK COMFORT CURVE STRIP VI SCH (09:47)
[2025-08-20] MEDS: InsuLIN REG 1unit/0.01ml Soln (100units/ml) SC SCH (09:47)
[2025-08-20] MEDS: FAMOTIDINE (10MG/ML) 2ML VL IV SCH (10:13)
[2025-08-20] MEDS: FUROSEMIDE 40 MG/4 ML VIAL IV SCH (10:13)
[2025-08-20] MEDS: AZITHROMYCIN 500MG/250ML 250 ML IV SCH (10:13)
[2025-08-20] MEDS: CARVEDILOL 12.5 MG TAB NG SCH (10:14)
[2025-08-20] MEDS: HEPARIN SODIUM (PORCINE) 5000 UNITS/ML 1ML VIAL SC SCH (10:16)
--- NOTE | 2025-08-20 11:46 | DVHINCON2 ---
Date Seen: Aug 20, 2025 Referring Physician Jorge A Reason for Consultation CHF History of Present Illness 55-year-old male with PMH for HTN, HLD, CHF on as needed Lasix at home, CVA in the past, CKD presents to the hospital with worsening shortness of breath and lightheadedness. Patient states he has been having increased shortness of breath especially with exertion, feeling generalized weak the patient states attributed to not eating the day before. Patient states symptoms continued therefore decided to come to the hospital and called EMS. Upon EMS arrival on scene patient was found to be hypoxic on room air L placed on O2 supplementation, initial workup in the ER showed patient with a potassium 4.7, BUN 49, creatinine 9.09, GFR 6. BNP 2126. Troponin elevated to 141 trending 231, 242. Denies any chest pain palpitations. Patient does endorse that he has not taken his meds in the last 2 days has been on and off being compliant. States usually his blood pressures in the 130s 140s but started to note that his blood pressure was significantly elevated as well in the 180s systolic. Upon evaluation in the ER initial blood pressure was 220/134. CXR reviewed and shows multifocal pneumonia. EKG reviewed and shows sinus tachycardia 106 beats per minute, no significant ST and T-wave abnormalities, LVH. Past Medical History As stated above Past Surgical History Denies previous cardiac surgeries Social History Occasional alcoholic beverage, denies tobacco use, occasional marijuana use, no other illicit drug use. Allergies: Coded Allergies: NO KNOWN ALLERGIES (Unverified , 12/27/20) Home Meds Active Scripts Carvedilol (Carvedilol) 25 Mg Tab, 25 MG PO BID for 60 Days, #120 TAB 0 Refills Prov:JAMILA BOLIVAR NP 06/02/23 Atorvastatin Calcium (ATORVASTATIN CALCIUM) 40 Mg Tab, 40 MG PO DAILY for 60 Days, #60 TAB 0 Refills Prov:JAMILA BOLIVAR NP 06/02/23 Furosemide (Furosemide) 20 Mg Tab, 20 MG PO DAILY for 60 Days, #60 TAB 0 Refills Prov:JAMILA BOLIVAR NP 06/02/23 Dapagliflozin Propanediol (Farxiga) 10 Mg Tab, 10 MG PO DAILY for 60 Days, #60 TAB 0 Refills Prov:JAMILA BOLIVAR NP 06/02/23 Amlodipine Besylate (Amlodipine Besylate) 5 Mg Tab, 5 MG PO DAILY for 60 Days, #60 TAB 0 Refills Prov:JAMILA BOLIVAR LEADERSHIP DEVELOPMENT MANAGER 06/02/23 Hydralazine Hcl (Hydralazine Hcl) 100 Mg Tab, 100 MG PO TID for 60 Days, #180 TAB 0 Refills Prov:JAMILA BOLIVAR LEADERSHIP DEVELOPMENT MANAGER 04/28/23 Albuterol Sulfate (Albuterol Sulfate Hfa) 108 Mcg/Act Aer, 2 PUFF IN Q4HPRN PRN, #1 INHALER 1 Refill Prov:ANISH [facility]AY[facility]OR [facility] 02/09/23 Prednisone (Prednisone) 20 Mg Tab, 60 MG PO DAILY for 5 Days, #15 TAB 0 Refills Prov:JAEL TAYLORRA [place] [facility] 02/09/23 Azithromycin (Zithromax Z-Osmany) 250 Mg Tab, 250 MG PO DAILY for 5 Days, #6 TAB 0 Refills As directed Prov:JAEL TAYLORRA [place] [facility] 02/09/23 Current Medications Current Medications Medications (Trade) Dose Ordered Sig/Britta Route PRN Reason Start Time Stop Time Status Last Admin Nitroglycerin 250 ml @ 1.5 mls/hr Q24H IV 08/19/25 23:15 08/19/25 23:28 Ceftriaxone Sodium 50 ml @ 100 mls/hr Q24H IV 08/21/25 00:30 Azithromycin 250 ml @ 125 mls/hr DAILY IV 08/20/25 10:00 08/20/25 10:13 Famotidine (Pepcid Injection) 10 mg DAILY IV 08/20/25 10:00 08/20/25 10:13 Methylprednisolone Sodium Succinate (Solu Medrol) 40 mg Q8HR IV 08/20/25 06:00 08/20/25 05:59 Diagnostic Test (Pha) (Accu-Chek Comfort Curve T) 1 strip IQ4HR 08/20/25 08:00 08/20/25 09:47 Insulin Human Regular (InsuLIN R) IQ4HR SC 08/20/25 08:00 Dextrose 50 ml UD PRN IV Blood Sugar LESS THAN 60 08/20/25 05:15 Sodium Chloride (Saline Lock Ns) 10 ml Q8HR IV 08/20/25 06:00 08/20/25 05:52 Ondansetron HCl (Zofran) 4 mg Q4HP PRN IV NAUSEA / VOMITING 08/20/25 05:15 Nitroglycerin (Ntrostat Sublingual) 0.4 mg Q5MINP PRN SL FOR CHEST PAIN 08/20/25 05:15 Morphine Sulfate 2 mg Q30M PRN IV FOR CHEST PAIN 08/20/25 05:15 Furosemide (Lasix Injection) 40 mg DAILY IV 08/20/25 10:00 08/20/25 10:13 Hydralazine HCl (Apresoline Injection) 10 mg Q6HP PRN IV SBP>150 08/20/25 05:15 Carvedilol (Coreg Tablet) 12.5 mg Q12HR NG 08/20/25 10:00 08/20/25 10:14 Heparin Sodium (Porcine) 5,000 units Q12HR SC 08/20/25 10:00 08/20/25 10:16 Amlodipine Besylate (Norvasc Tablet) 10 mg DAILY PO 08/20/25 10:00 08/20/25 10:14 Review of Systems Constitutional: No: Fever, Chills, Sweats, Weakness, Malaise, Other Eyes: No: Pain, Vision change, Conjunctivae inflammation, Eyelid inflammation, Other, Redness ENT: No: Ear pain, Ear discharge, Nose pain, Nose discharge, Nose congestion, Mouth pain, Mouth swelling, Throat pain, Throat swelling, Other Respiratory: No: Cough, Dry, Shortness of breath, SOB with exertion, Wheezing, Hemoptysis, Pleuritic Pain, Sputum, Wheezing, Other Cardiovascular: ; No: Chest Pain Palpitations, Orthopnea, Paroxysmal Noc. Dyspnea, Edema, Lt Headedness, Other Gastrointestinal: No: Nausea, Vomiting, Abdominal Pain, Diarrhea, Constipation, Melena, Hematochezia, Other Genitourinary: No Dysuria, No Frequency, No Incontinence, No Hematuria, No Retention, No Other Musculoskeletal: neck pain; No: other, shoulder pain, arm pain, back pain, hand pain, leg pain, foot pain Skin: No: Rash, Lesions, Jaundice, Bruising, Other Neurological: Other (Dizziness, headache.); No: Weakness, Numbness, Incoordination, Change in speech, Confusion, Seizures Vital Signs Vital Signs Date Time Temp Pulse Resp B/P (MAP) Pulse Ox O2 Delivery O2 Flow Rate FiO2 08/20/25 11:15 165/99 08/20/25 10:14 86 08/20/25 10:00 14 100 08/20/25 07:15 Nasal Cannula* 2 28 08/20/25 07:15 98.0 98.0 Physical Exam General appearance: Patient is well-developed, well-nourished, in no acute distress. HEENT: Exam shows: Normocephalic, atraumatic, PERRLA, EOMI Neck: Supple, no bruits Chest: Equal chest excursion bilaterally. Breath sounds rhonchi/diminished Heart: Rhythm: Regular rate; no murmur or gallop Abdomen: Exam shows: Soft, nontender, nondistended Musculoskeletal: No clubbing, no cyanosis, no lower extremity edema Dermatology: Skin warm, moist. Neurological: Exam shows: Alert and oriented x4, normal speech Available prior records, labs, EKG, rhythm strips reviewed and interpreted Labs/Diagnostic Data Labs Test 08/20/25 09:41 08/20/25 05:58 08/20/25 01:53 08/20/25 01:21 Range/Units POC Glucose 204 H 70-106 mg/dl White Blood Count 6.6 4.4-10.8 10^3/uL Red Blood Count 2.62 L 4.5-5.90 10^6/uL Hemoglobin 8.2 L 13.5-17.5 g/dL Hematocrit 23.9 #L 41.0-53.0 % Mean Corpuscular Volume 91.6 # 80.0-100.0 fL Mean Corpuscular Hemoglobin 31.4 28.0-32.0 pg Mean Corpuscular Hemoglobin Concent 34.3 32.0-36.0 g/dL Red Cell Distribution Width 15.4 H 11.8-14.3 % Platelet Count 129 L 140-450 10^3/uL Mean Platelet Volume 8.7 6.9-10.8 fL Neutrophils (%) (Auto) 93.2 H 37.0-80.0 % Lymphocytes (%) (Auto) 3.3 L 10.0-50.0 % Monocytes (%) (Auto) 3.3 0.0-12.0 % Eosinophils (%) (Auto) 0.0 0.0-7.0 % Basophils (%) (Auto) 0.2 0.0-2.0 % Neutrophils # (Auto) 6.1 1.6-8.6 10 ^3/uL Lymphocytes # (Auto) 0.2 L 0.4-5.4 10 ^3/uL Monocytes # (Auto) 0.2 0-1.3 10 ^3/uL Eosinophils # (Auto) 0 0-0.8 10 ^3/uL Basophils # (Auto) 0 0-0.2 10 ^3/uL Nucleated Red Blood Cells 0.0 % Sodium Level 140 136-145 mmol/L Potassium Level 5.3 H 3.5-5.1 mmol/L Chloride Level 107 98-107 mmol/L Carbon Dioxide Level 19 L 20-31 mmol/L Anion Gap 14 5-15 Blood Urea Nitrogen 56 H 9-23 mg/dL Creatinine 9.02 H 0.700-1.30 mg/dL Glomerular Filtration Rate Calc 6 >90 mL/min BUN/Creatinine Ratio 6.2 L 10.0-20.0 Serum Glucose 207 H 74-106 mg/dL Calcium Level 8.1 L 8.7-10.4 mg/dL Total Bilirubin 0.4 0.2-1.0 mg/dL Aspartate Amino Transferase (AST) 28 13-40 U/L Alanine Aminotransferase (ALT) 27 7-40 U/L Alkaline Phosphatase 34 L 46-116 U/L Total Protein 6.4 5.7-8.2 g/dL Albumin 3.8 3.2-4.8 g/dL Troponin I High Sensitivity 242 *H </=54 ng/L Lactic Acid Level 1.5 0.4-2.0 mmol/L Test 08/20/25 00:20 08/20/25 00:06 08/19/25 23:05 Range/Units Blood Gas Specimen Type Venous Blood Gas Sample Site Vbg - n/a Blood Gas Patient Temperature 37.0 Arterial Blood Date Drawn [id number] Mike Test Yes Venous Blood pH 7.259 L 7.320-7.430 Venous Blood pCO2 at Patient Temp 38.1 38.0-54.0 mmHg Venous Blood pO2 at Patient Temp 41.8 23.0-48.0 mmHg Venous Blood HCO3 16.7 L 22.0-29.0 mmol/L Venous Blood Base Excess -9.7 L -2.0-3.0 mmol/L Blood Gas Modality Mask - bipap FiO2 % 50.0 Blood Gas EPAP 5 Blood Gas IPAP 15 Urine Color Colorless Yellow Urine Clarity Clear Clear Urine pH 6.5 5.0-9.0 Urine Specific [place] 1.009 1.001-1.035 Urine Protein 2+ H Negative Urine Ketones Negative Negative Urine Blood 2+ H Negative /uL Urine Nitrite Negative Negative Urine Bilirubin Negative Negative Urine Urobilinogen Normal Negative mg/dL Urine Leukocyte Esterase Negative Negative /uL Urine RBC 2 0 - 3 /hpf Urine Microscopic WBC 1 0-3 /HPF Urine Squamous Epithelial Cells None seen <5 /hpf Urine Bacteria None seen None Seen /hpf Urine Glucose 3+ H Normal mg/dL Urine Opiates Screen Neg NEGATIVE Urine Fentanyl Screen Neg NEGATIVE Urine Barbiturates Screen Neg NEGATIVE Urine Phencyclidine Screen Neg NEGATIVE Urine Amphetamines Screen Neg NEGATIVE Urine Benzodiazepines Screen Neg NEGATIVE Urine Cocaine Screen Neg NEGATIVE Urine Cannabinoids Screen Neg NEGATIVE B-Type Natriuretic Peptide 2127.06 0-100 pg/mL Assessment * Acute on chronic CHF- being diuresis with Lasix 40 mg IV daily. Check echocardiogram. Defer continue diuresis to Nephrology given poor kidney function. * NSTEMI likely type 2 [place].- denies chest pain. EKG negative for acute ischemic changes. Continue on aspirin. Check echocardiogram. Likely demand ischemia in setting of hyperintensity emergency, CHF exacerbation. Patient not a good candidate for ischemic workup given medication noncompliance and poor kidney function at this time. Recommend outpatient cardiology follow up. * Hypertensive emergency - on nitro drip, continue carvedilol 12.5 mg p.o. twice daily, on amlodipine started at 10 mg p.o. daily. * GISSELL on CKD - nephrology on board, follow up recs. * Medication noncompliance - advised compliance. * Acute hypoxic respiratory failure, multifocal pneumonia - on IV antibiotics, management per primary team. Case Discussed with Dr Bolanos. Given active infection with pneumonia, poor kidney function at this time, medication noncompliance, we will continue medical management for now. Recommend close outpatient cardiology follow up. BP control, titrate nitro as tolerated. Follow up echocardiogram. Critical care, time spent: 45 minutes This medical document was created using an electronic medical record system with voice recognition software and computerized dictation system. Although this document has been carefully reviewed, there might still be some phonetic and typographical errors. Occasional wrong-word or ``sound-alike substitutions may have occurred due to the inherent limitations of voice recognition software. These areas are purely typographical due to imperfections of the software programs and do not reflect any compromise in the patient's medical care. Please read the chart carefully and recognize, using context, where these substitutions have occurred. Thank you for allowing me to participate in the management of this patient. The treatment plan was discussed with and agreed upon by patient/family including requesting consultants and ordering of imaging/procedures. Plan discussed with: Patient NYHA Physical activity limitations: Class3(Marked) ordinary Date of Service: Aug 20, 2025 Billing Provider: GUSTAVO MORA Cardiology Common Codes: [id number] INP/OBS CARE (High), 32612-[id number] CARE 30-74 MIN GUSTAVO MORA Aug 20, 2025 11:46
[2025-08-20 13:19] LABS: Triglycerides 42 mg/dL (< 150)
[2025-08-20 13:21] LABS: HDL Cholesterol 45 mg/dL (40-59)
[2025-08-20 13:22] LABS: Cholesterol 141 mg/dL (< 200)
[2025-08-20] MEDS: BUMETANIDE INJECTION 12.5 MG in GIVE UN-DILUTED 0 ML IV SCH (13:47)
--- NOTE | 2025-08-20 13:53 | DVHINCON2 ---
Date Seen: Aug 20, 2025 Referring Physician Jorge A Reason for Consultation CHF History of Present Illness This is a 55-year-old male with a PMH of HTN, HLD, CHF on as needed Lasix at home, CVA in the past, CKD presents to the hospital with worsening shortness of breath and lightheadedness. Patient states he has been having increased shortness of breath especially with exertion, feeling generalized weak the patient states attributed to not eating the day before. Patient states symptoms continued therefore decided to come to the hospital and called EMS. Upon EMS arrival on scene patient was found to be hypoxic on room air L placed on O2 supplementation, initial workup in the ED showed patient with a potassium 4.7, BUN 49, creatinine 9.09, GFR 6. BNP 2126. Troponin elevated to 141 trending 231, 242. Denies any chest pain palpitations. Patient does endorse that he has not taken his meds in the last 2 days has been on and off being compliant. States usually his blood pressures in the 130s 140s but started to note that his blood pressure was significantly elevated as well in the 180s systolic. Upon evaluation in the ER initial blood pressure was 220/134. Chest x-ray shows multifocal pneumonia. EKG reviewed and shows sinus tachycardia 106 beats per minute, no significant ST and T-wave abnormalities, LVH. Patient was admitted to the hospital. I am asked to consult on this patient. Past Medical History As stated above Past Surgical History Denies previous cardiac surgeries Allergies: Coded Allergies: NO KNOWN ALLERGIES (Unverified , 12/27/20) Home Meds Active Scripts Carvedilol (Carvedilol) 25 Mg Tab, 25 MG PO BID for 60 Days, #120 TAB 0 Refills Prov:JAMILA BOLIVAR NP 06/02/23 Atorvastatin Calcium (ATORVASTATIN CALCIUM) 40 Mg Tab, 40 MG PO DAILY for 60 Days, #60 TAB 0 Refills Prov:JAMILA BOLIVAR NP 06/02/23 Furosemide (Furosemide) 20 Mg Tab, 20 MG PO DAILY for 60 Days, #60 TAB 0 Refills Prov:JAMILA BOLIVAR NP 06/02/23 Dapagliflozin Propanediol (Farxiga) 10 Mg Tab, 10 MG PO DAILY for 60 Days, #60 TAB 0 Refills Prov:JAMILA BOLIVAR NP 06/02/23 Amlodipine Besylate (Amlodipine Besylate) 5 Mg Tab, 5 MG PO DAILY for 60 Days, #60 TAB 0 Refills Prov:JAMILA BOLIVAR OLIVING MACHINE OPERATOR 06/02/23 Hydralazine Hcl (Hydralazine Hcl) 100 Mg Tab, 100 MG PO TID for 60 Days, #180 TAB 0 Refills Prov:JAMILA BOLIVAR OLIVING MACHINE OPERATOR 04/28/23 Albuterol Sulfate (Albuterol Sulfate Hfa) 108 Mcg/Act Aer, 2 PUFF IN Q4HPRN PRN, #1 INHALER 1 Refill Prov:[facility] 02/09/23 Prednisone (Prednisone) 20 Mg Tab, 60 MG PO DAILY for 5 Days, #15 TAB 0 Refills Prov:[facility] 02/09/23 Azithromycin (Zithromax Z-Osmany) 250 Mg Tab, 250 MG PO DAILY for 5 Days, #6 TAB 0 Refills As directed Prov:[facility] 02/09/23 Current Medications Current Medications Medications (Trade) Dose Ordered Sig/Britta Route PRN Reason Start Time Stop Time Status Last Admin Nitroglycerin 250 ml @ 1.5 mls/hr Q24H IV 08/19/25 23:15 08/19/25 23:28 Ceftriaxone Sodium 50 ml @ 100 mls/hr Q24H IV 08/21/25 00:30 Azithromycin 250 ml @ 125 mls/hr DAILY IV 08/20/25 10:00 08/20/25 10:13 Famotidine (Pepcid Injection) 10 mg DAILY IV 08/20/25 10:00 08/20/25 10:13 Methylprednisolone Sodium Succinate (Solu Medrol) 40 mg Q8HR IV 08/20/25 06:00 08/20/25 05:59 Diagnostic Test (Pha) (Accu-Chek Comfort Curve T) 1 strip IQ4HR 08/20/25 08:00 08/20/25 09:47 Insulin Human Regular (InsuLIN R) IQ4HR SC 08/20/25 08:00 Dextrose 50 ml UD PRN IV Blood Sugar LESS THAN 60 08/20/25 05:15 Sodium Chloride (Saline Lock Ns) 10 ml Q8HR IV 08/20/25 06:00 08/20/25 05:52 Ondansetron HCl (Zofran) 4 mg Q4HP PRN IV NAUSEA / VOMITING 08/20/25 05:15 Nitroglycerin (Ntrostat Sublingual) 0.4 mg Q5MINP PRN SL FOR CHEST PAIN 08/20/25 05:15 Morphine Sulfate 2 mg Q30M PRN IV FOR CHEST PAIN 08/20/25 05:15 Furosemide (Lasix Injection) 40 mg DAILY IV 08/20/25 10:00 08/20/25 10:13 Hydralazine HCl (Apresoline Injection) 10 mg Q6HP PRN IV SBP>150 08/20/25 05:15 Carvedilol (Coreg Tablet) 12.5 mg Q12HR NG 08/20/25 10:00 08/20/25 10:14 Heparin Sodium (Porcine) 5,000 units Q12HR SC 08/20/25 10:00 08/20/25 10:16 Amlodipine Besylate (Norvasc Tablet) 10 mg DAILY PO 08/20/25 10:00 08/20/25 10:14 Review of Systems Constitutional: No: Fever, Chills, Sweats, Weakness, Malaise, Other Eyes: No: Pain, Vision change, Conjunctivae inflammation, Eyelid inflammation, Other, Redness ENT: No: Ear pain, Ear discharge, Nose pain, Nose discharge, Nose congestion, Mouth pain, Mouth swelling, Throat pain, Throat swelling, Other Respiratory: No: Cough, Dry, Shortness of breath, SOB with exertion, Wheezing, Hemoptysis, Pleuritic Pain, Sputum, Wheezing, Other Cardiovascular: ; No: Chest Pain Palpitations, Orthopnea, Paroxysmal Noc. Dyspnea, Edema, Lt Headedness, Other Gastrointestinal: No: Nausea, Vomiting, Abdominal Pain, Diarrhea, Constipation, Melena, Hematochezia, Other Genitourinary: No Dysuria, No Frequency, No Incontinence, No Hematuria, No Retention, No Other Musculoskeletal: neck pain; No: other, shoulder pain, arm pain, back pain, hand pain, leg pain, foot pain Skin: No: Rash, Lesions, Jaundice, Bruising, Other Neurological: Other (Dizziness, headache.); No: Weakness, Numbness, Incoordination, Change in speech, Confusion, Seizures Vital Signs Vital Signs Date Time Temp Pulse Resp B/P (MAP) Pulse Ox O2 Delivery O2 Flow Rate FiO2 08/20/25 11:45 87 14 156/98 (117) 99 08/20/25 07:15 Nasal Cannula* 2 28 08/20/25 07:15 98.0 98.0 Physical Exam GENERAL: Alert and oriented x 3. No acute distress. EYES: PERRL, EOMI. Anicteric. HENT: Moist mucous membranes. LUNGS: Diminished breath sounds. CARDIOVASCULAR: Regular rate and rhythm. ABDOMEN: Soft, nontender and nondistended. EXTREMITIES: No edema. NEUROLOGIC: No focal neurological deficits. SKIN: Warm, dry. Labs/Diagnostic Data Labs Test 08/20/25 09:41 08/20/25 05:58 08/20/25 01:53 08/20/25 01:21 Range/Units POC Glucose 204 H 70-106 mg/dl White Blood Count 6.6 4.4-10.8 10^3/uL Red Blood Count 2.62 L 4.5-5.90 10^6/uL Hemoglobin 8.2 L 13.5-17.5 g/dL Hematocrit 23.9 #L 41.0-53.0 % Mean Corpuscular Volume 91.6 # 80.0-100.0 fL Mean Corpuscular Hemoglobin 31.4 28.0-32.0 pg Mean Corpuscular Hemoglobin Concent 34.3 32.0-36.0 g/dL Red Cell Distribution Width 15.4 H 11.8-14.3 % Platelet Count 129 L 140-450 10^3/uL Mean Platelet Volume 8.7 6.9-10.8 fL Neutrophils (%) (Auto) 93.2 H 37.0-80.0 % Lymphocytes (%) (Auto) 3.3 L 10.0-50.0 % Monocytes (%) (Auto) 3.3 0.0-12.0 % Eosinophils (%) (Auto) 0.0 0.0-7.0 % Basophils (%) (Auto) 0.2 0.0-2.0 % Neutrophils # (Auto) 6.1 1.6-8.6 10 ^3/uL Lymphocytes # (Auto) 0.2 L 0.4-5.4 10 ^3/uL Monocytes # (Auto) 0.2 0-1.3 10 ^3/uL Eosinophils # (Auto) 0 0-0.8 10 ^3/uL Basophils # (Auto) 0 0-0.2 10 ^3/uL Nucleated Red Blood Cells 0.0 % Sodium Level 140 136-145 mmol/L Potassium Level 5.3 H 3.5-5.1 mmol/L Chloride Level 107 98-107 mmol/L Carbon Dioxide Level 19 L 20-31 mmol/L Anion Gap 14 5-15 Blood Urea Nitrogen 56 H 9-23 mg/dL Creatinine 9.02 H 0.700-1.30 mg/dL Glomerular Filtration Rate Calc 6 >90 mL/min BUN/Creatinine Ratio 6.2 L 10.0-20.0 Serum Glucose 207 H 74-106 mg/dL Calcium Level 8.1 L 8.7-10.4 mg/dL Total Bilirubin 0.4 0.2-1.0 mg/dL Aspartate Amino Transferase (AST) 28 13-40 U/L Alanine Aminotransferase (ALT) 27 7-40 U/L Alkaline Phosphatase 34 L 46-116 U/L Total Protein 6.4 5.7-8.2 g/dL Albumin 3.8 3.2-4.8 g/dL Troponin I High Sensitivity 242 *H </=54 ng/L Lactic Acid Level 1.5 0.4-2.0 mmol/L Test 08/20/25 00:20 08/20/25 00:06 08/19/25 23:05 Range/Units Blood Gas Specimen Type Venous Blood Gas Sample Site Vbg - n/a Blood Gas Patient Temperature 37.0 Arterial Blood Date Drawn [id number] Mike Test Yes Venous Blood pH 7.259 L 7.320-7.430 Venous Blood pCO2 at Patient Temp 38.1 38.0-54.0 mmHg Venous Blood pO2 at Patient Temp 41.8 23.0-48.0 mmHg Venous Blood HCO3 16.7 L 22.0-29.0 mmol/L Venous Blood Base Excess -9.7 L -2.0-3.0 mmol/L Blood Gas Modality Mask - bipap FiO2 % 50.0 Blood Gas EPAP 5 Blood Gas IPAP 15 Urine Color Colorless Yellow Urine Clarity Clear Clear Urine pH 6.5 5.0-9.0 Urine Specific [place] 1.009 1.001-1.035 Urine Protein 2+ H Negative Urine Ketones Negative Negative Urine Blood 2+ H Negative /uL Urine Nitrite Negative Negative Urine Bilirubin Negative Negative Urine Urobilinogen Normal Negative mg/dL Urine Leukocyte Esterase Negative Negative /uL Urine RBC 2 0 - 3 /hpf Urine Microscopic WBC 1 0-3 /HPF Urine Squamous Epithelial Cells None seen <5 /hpf Urine Bacteria None seen None Seen /hpf Urine Glucose 3+ H Normal mg/dL Urine Opiates Screen Neg NEGATIVE Urine Fentanyl Screen Neg NEGATIVE Urine Barbiturates Screen Neg NEGATIVE Urine Phencyclidine Screen Neg NEGATIVE Urine Amphetamines Screen Neg NEGATIVE Urine Benzodiazepines Screen Neg NEGATIVE Urine Cocaine Screen Neg NEGATIVE Urine Cannabinoids Screen Neg NEGATIVE B-Type Natriuretic Peptide 2127.06 0-100 pg/mL Assessment Acute on chronic CHF. NSTEMI likely type 2 [place]. Hypertensive emergency. GISSELL on CKD. Medication noncompliance. Acute hypoxic respiratory failure, multifocal pneumonia. Plan/Recommendation I agree with your ongoing assessment and care of plan. Patient has been seen by Yovanny Hitchcock NP on my behalf, him and I discussed the plan with the patient. Given active infection with pneumonia, poor kidney function at this time, medication noncompliance, we will continue medical management for now. Recommend close outpatient cardiology follow up. BP control, titrate nitro as tolerated. On nitro drip, continue carvedilol 12.5 mg p.o. twice daily, on amlodipine started at 10 mg p.o. daily. Follow up echocardiogram. IV antibiotics as ordered. Additional plan as per the hospital course. Plan discussed with: Patient NYHA Physical activity limitations: Class3(Marked) ordinary Date of Service: Aug 20, 2025 Billing Provider: RAMIN OLIVIER MD Cardiology Common Codes: [id number] INP/OBS CARE (High) Cardiology Consultation Codes: [id number] CONSULT <45MIN RAMIN OLIVIER MD Aug 20, 2025 12:24
--- NOTE | 2025-08-20 14:16 | DVHINCON2 ---
Date of service: Aug 20, 2025 Reason for Consultation oscar History of Present Illness 55 years old male with past medical history of diabetes, hypertension, Congestive heart failure, COPD, saline presented with chief complaints of shortness of breath and was found to be hypoxic currently needed BiPAP on admission Denies any urinary complaints On arrival blood pressure found to be SBP greater than 200 and diastolic greater than 130 needed nicardipine drip Past Medical History As per HPI Past Surgical History As per HPI Allergies: Coded Allergies: NO KNOWN ALLERGIES (Unverified , 12/27/20) Home Meds Active Scripts Carvedilol (Carvedilol) 25 Mg Tab, 25 MG PO BID for 60 Days, #120 TAB 0 Refills Prov:JAMILA BOLIVAR NP 06/02/23 Atorvastatin Calcium (ATORVASTATIN CALCIUM) 40 Mg Tab, 40 MG PO DAILY for 60 Days, #60 TAB 0 Refills Prov:JAMILA BOLIVAR NP 06/02/23 Furosemide (Furosemide) 20 Mg Tab, 20 MG PO DAILY for 60 Days, #60 TAB 0 Refills Prov:JAMILA BOLIVAR NP 06/02/23 Dapagliflozin Propanediol (Farxiga) 10 Mg Tab, 10 MG PO DAILY for 60 Days, #60 TAB 0 Refills Prov:JAMILA BOLIVAR NP 06/02/23 Amlodipine Besylate (Amlodipine Besylate) 5 Mg Tab, 5 MG PO DAILY for 60 Days, #60 TAB 0 Refills Prov:JAMILA BOLIVAR NP 06/02/23 Hydralazine Hcl (Hydralazine Hcl) 100 Mg Tab, 100 MG PO TID for 60 Days, #180 TAB 0 Refills Prov:JAMILA BOLIVAR NP 04/28/23 Albuterol Sulfate (Albuterol Sulfate Hfa) 108 Mcg/Act Aer, 2 PUFF IN Q4HPRN PRN, #1 INHALER 1 Refill Prov:[facility] 02/09/23 Prednisone (Prednisone) 20 Mg Tab, 60 MG PO DAILY for 5 Days, #15 TAB 0 Refills Prov:[facility] [employer] 02/09/23 Azithromycin (Zithromax Z-Osmany) 250 Mg Tab, 250 MG PO DAILY for 5 Days, #6 TAB 0 Refills As directed Prov:[facility] [employer] 02/09/23 Current Medications Current Medications Medications (Trade) Dose Ordered Sig/Britta Route PRN Reason Start Time Stop Time Status Last Admin Ceftriaxone Sodium 50 ml @ 100 mls/hr Q24H IV 08/21/25 00:30 08/21/25 00:49 Linezolid 300 ml @ 150 mls/hr Q12HR IV 08/20/25 19:30 08/21/25 10:30 Carvedilol (Coreg Tablet) 25 mg Q12HR NG 08/21/25 10:00 08/21/25 10:03 Azithromycin 250 ml @ 125 mls/hr DAILY@1200 IV 08/21/25 12:00 08/21/25 12:33 Aspirin 81 mg DAILY PO 08/22/25 10:00 Atorvastatin Calcium (Lipitor) 40 mg HS PO 08/21/25 22:00 Bumetanide (Bumex Injection) 1 mg BIDD IV 08/21/25 18:00 08/21/25 18:28 Docusate Sodium (Colace Capsule) 100 mg BID PO 08/21/25 22:00 Diagnostic Test (Pha) (Accu-Chek Comfort Curve T) 1 strip Q6HR 08/21/25 18:00 08/21/25 18:28 Insulin Human Regular (InsuLIN R) Q6HR SC 08/21/25 18:00 08/21/25 18:29 Review of Systems HEENT-denies headache, denies vision changes, no hearing issue, denies neck complaints, denies throat issues Respiratory system-denies cough, + shortness of breath Cardiovascular system-denies chest pain, denies palpitations Abdomen-denies abdominal pain, denies nausea, denies vomiting, denies constipation or diarrhea Musculoskeletal-denies swelling in the legs, denies pain in the extremities Genitourinary-denies urinary symptoms like dysuria, stream issues Neuro-denies dizziness, denies seizures Psychiatric-denies psychiatric history H&P Exam Vital Signs/I&O Vital Sign Date Time Temp Pulse Resp B/P (MAP) Pulse Ox O2 Delivery O2 Flow Rate FiO2 08/21/25 18:28 155/82 08/21/25 18:00 82 08/21/25 18:00 13 100 Room Air* 0 21 08/21/25 16:00 97.8 97.8 Intake and Output 08/20/25 08/21/25 19:00 07:00 Intake Total 250 ml 350 ml Output Total 450 ml Balance -200 ml 350 ml IV Total 250 ml 350 ml Output Urine Total 450 ml Physical Exam General-not in any distress HEENT-normocephalic, no icterus, no pallor, neck supple Respiratory-fair air entry bilateral, no rhonchi, no wheeze [id number] heard, no murmurs appreciated Abdominal-soft, nontender, nondistended Musculoskeletal-no pedal edema, no calf tenderness Genitourinary-deferred Neuro-awake alert oriented x3, Psychiatric-not agitated, cooperative, Labs/Diagnostic Data Labs/Diagnostic Data Laboratory Tests Test 08/21/25 18:21 08/21/25 14:59 08/21/25 12:36 08/21/25 08:36 Range/Units POC Glucose 173 H 287 H 185 H 70-106 mg/dl Prothrombin Time 11.4 9.3-11.8 sec Prothrombin Time INR 1.08 0.9-1.15 Activated Partial Thromboplast Time 28.8 24.5-34.5 SEC Test 08/21/25 04:50 08/21/25 00:00 08/20/25 20:03 08/20/25 18:49 Range/Units White Blood Count 8.3 # 4.4-10.8 10^3/uL Red Blood Count 2.30 L 4.5-5.90 10^6/uL Hemoglobin 7.3 L 13.5-17.5 g/dL Hematocrit 20.9 #L 41.0-53.0 % Mean Corpuscular Volume 91.0 80.0-100.0 fL Mean Corpuscular Hemoglobin 31.6 28.0-32.0 pg Mean Corpuscular Hemoglobin Concent 34.7 32.0-36.0 g/dL Red Cell Distribution Width 15.1 H 11.8-14.3 % Platelet Count 115 L 140-450 10^3/uL Mean Platelet Volume 9.4 6.9-10.8 fL Neutrophils (%) (Auto) 90.2 H 37.0-80.0 % Lymphocytes (%) (Auto) 6.0 L 10.0-50.0 % Monocytes (%) (Auto) 3.7 0.0-12.0 % Eosinophils (%) (Auto) 0.0 0.0-7.0 % Basophils (%) (Auto) 0.1 0.0-2.0 % Neutrophils # (Auto) 7.5 1.6-8.6 10 ^3/uL Lymphocytes # (Auto) 0.5 0.4-5.4 10 ^3/uL Monocytes # (Auto) 0.3 0-1.3 10 ^3/uL Eosinophils # (Auto) 0 0-0.8 10 ^3/uL Basophils # (Auto) 0 0-0.2 10 ^3/uL Nucleated Red Blood Cells 0.0 % Sodium Level 139 136-145 mmol/L Potassium Level 5.0 3.5-5.1 mmol/L Chloride Level 106 98-107 mmol/L Carbon Dioxide Level 20 20-31 mmol/L Anion Gap 13 5-15 Blood Urea Nitrogen 65 H 9-23 mg/dL Creatinine 9.36 H 0.700-1.30 mg/dL Glomerular Filtration Rate Calc 6 >90 mL/min BUN/Creatinine Ratio 6.9 L 10.0-20.0 Serum Glucose 156 H 74-106 mg/dL Calcium Level 8.3 L 8.7-10.4 mg/dL Magnesium Level 2.1 1.6-2.6 mg/dL Total Bilirubin 0.4 0.2-1.0 mg/dL Aspartate Amino Transferase (AST) 18 13-40 U/L Alanine Aminotransferase (ALT) 22 7-40 U/L Alkaline Phosphatase 30 L 46-116 U/L Total Protein 6.3 5.7-8.2 g/dL Albumin 3.8 3.2-4.8 g/dL POC Glucose 224 H 178 H 70-106 mg/dl Influenza Type A Antigen Negative Negative Influenza Type B Antigen Negative Negative SARS-CoV-2 Antigen (Rapid) Negative NEGATIVE Test 08/20/25 17:13 08/20/25 16:15 08/20/25 12:20 08/20/25 09:41 Range/Units Sodium Level 139 136-145 mmol/L Potassium Level 5.0 3.5-5.1 mmol/L Chloride Level 106 98-107 mmol/L Carbon Dioxide Level 19 L 20-31 mmol/L Anion Gap 14 5-15 Blood Urea Nitrogen 74 #H 9-23 mg/dL Creatinine 9.21 H 0.700-1.30 mg/dL Glomerular Filtration Rate Calc 6 >90 mL/min BUN/Creatinine Ratio 8.0 L 10.0-20.0 Serum Glucose 201 H 74-106 mg/dL Calcium Level 8.3 L 8.7-10.4 mg/dL POC Glucose 203 H 180 H 204 H 70-106 mg/dl Test 08/20/25 05:58 08/20/25 01:53 08/20/25 01:21 08/20/25 00:22 Range/Units White Blood Count 6.6 4.4-10.8 10^3/uL Red Blood Count 2.62 L 4.5-5.90 10^6/uL Hemoglobin 8.2 L 13.5-17.5 g/dL Hematocrit 23.9 #L 41.0-53.0 % Mean Corpuscular Volume 91.6 # 80.0-100.0 fL Mean Corpuscular Hemoglobin 31.4 28.0-32.0 pg Mean Corpuscular Hemoglobin Concent 34.3 32.0-36.0 g/dL Red Cell Distribution Width 15.4 H 11.8-14.3 % Platelet Count 129 L 140-450 10^3/uL Mean Platelet Volume 8.7 6.9-10.8 fL Neutrophils (%) (Auto) 93.2 H 37.0-80.0 % Lymphocytes (%) (Auto) 3.3 L 10.0-50.0 % Monocytes (%) (Auto) 3.3 0.0-12.0 % Eosinophils (%) (Auto) 0.0 0.0-7.0 % Basophils (%) (Auto) 0.2 0.0-2.0 % Neutrophils # (Auto) 6.1 1.6-8.6 10 ^3/uL Lymphocytes # (Auto) 0.2 L 0.4-5.4 10 ^3/uL Monocytes # (Auto) 0.2 0-1.3 10 ^3/uL Eosinophils # (Auto) 0 0-0.8 10 ^3/uL Basophils # (Auto) 0 0-0.2 10 ^3/uL Nucleated Red Blood Cells 0.0 % Sodium Level 140 136-145 mmol/L Potassium Level 5.3 H 3.5-5.1 mmol/L Chloride Level 107 98-107 mmol/L Carbon Dioxide Level 19 L 20-31 mmol/L Anion Gap 14 5-15 Blood Urea Nitrogen 56 H 9-23 mg/dL Creatinine 9.02 H 0.700-1.30 mg/dL Glomerular Filtration Rate Calc 6 >90 mL/min BUN/Creatinine Ratio 6.2 L 10.0-20.0 Serum Glucose 207 H 74-106 mg/dL Calcium Level 8.1 L 8.7-10.4 mg/dL Total Bilirubin 0.4 0.2-1.0 mg/dL Aspartate Amino Transferase (AST) 28 13-40 U/L Alanine Aminotransferase (ALT) 27 7-40 U/L Alkaline Phosphatase 34 L 46-116 U/L Total Protein 6.4 5.7-8.2 g/dL Albumin 3.8 3.2-4.8 g/dL Triglycerides Level 42 < 150 mg/dL Cholesterol Level 141 < 200 mg/dL LDL Cholesterol 86 < 100 mg/dL HDL Cholesterol 45 40-59 mg/dL Troponin I High Sensitivity 242 *H </=54 ng/L Lactic Acid Level 1.5 0.4-2.0 mmol/L POC Glucose 176 H 70-106 mg/dl Test 08/20/25 00:20 08/20/25 00:11 08/20/25 00:06 08/19/25 23:05 Range/Units Blood Gas Specimen Type Venous Blood Gas Sample Site Vbg - n/a Blood Gas Patient Temperature 37.0 Arterial Blood Date Drawn [id number] Mike Test Yes Venous Blood pH 7.259 L 7.320-7.430 Venous Blood pCO2 at Patient Temp 38.1 38.0-54.0 mmHg Venous Blood pO2 at Patient Temp 41.8 23.0-48.0 mmHg Venous Blood HCO3 16.7 L 22.0-29.0 mmol/L Venous Blood Base Excess -9.7 L -2.0-3.0 mmol/L Blood Gas Modality Mask - bipap FiO2 % 50.0 Blood Gas EPAP 5 Blood Gas IPAP 15 Troponin I High Sensitivity 231 *H 241 *H </=54 ng/L Urine Color Colorless Yellow Urine Clarity Clear Clear Urine pH 6.5 5.0-9.0 Urine Specific [place] 1.009 1.001-1.035 Urine Protein 2+ H Negative Urine Ketones Negative Negative Urine Blood 2+ H Negative /uL Urine Nitrite Negative Negative Urine Bilirubin Negative Negative Urine Urobilinogen Normal Negative mg/dL Urine Leukocyte Esterase Negative Negative /uL Urine RBC 2 0 - 3 /hpf Urine Microscopic WBC 1 0-3 /HPF Urine Squamous Epithelial Cells None seen <5 /hpf Urine Bacteria None seen None Seen /hpf Urine Glucose 3+ H Normal mg/dL Urine Opiates Screen Neg NEGATIVE Urine Fentanyl Screen Neg NEGATIVE Urine Barbiturates Screen Neg NEGATIVE Urine Phencyclidine Screen Neg NEGATIVE Urine Amphetamines Screen Neg NEGATIVE Urine Benzodiazepines Screen Neg NEGATIVE Urine Cocaine Screen Neg NEGATIVE Urine Cannabinoids Screen Neg NEGATIVE White Blood Count 8.8 4.4-10.8 10^3/uL Red Blood Count 3.09 L 4.5-5.90 10^6/uL Hemoglobin 9.5 L 13.5-17.5 g/dL Hematocrit 29.7 L 41.0-53.0 % Mean Corpuscular Volume 96.3 80.0-100.0 fL Mean Corpuscular Hemoglobin 30.7 28.0-32.0 pg Mean Corpuscular Hemoglobin Concent 31.9 L 32.0-36.0 g/dL Red Cell Distribution Width 15.6 H 11.8-14.3 % Platelet Count 173 140-450 10^3/uL Mean Platelet Volume 8.7 6.9-10.8 fL Neutrophils (%) (Auto) 61.7 37.0-80.0 % Lymphocytes (%) (Auto) 30.8 10.0-50.0 % Monocytes (%) (Auto) 2.3 0.0-12.0 % Eosinophils (%) (Auto) 4.3 0.0-7.0 % Basophils (%) (Auto) 0.9 0.0-2.0 % Neutrophils # (Auto) 5.4 1.6-8.6 10 ^3/uL Lymphocytes # (Auto) 2.7 0.4-5.4 10 ^3/uL Monocytes # (Auto) 0.2 0-1.3 10 ^3/uL Eosinophils # (Auto) 0.4 0-0.8 10 ^3/uL Basophils # (Auto) 0.1 0-0.2 10 ^3/uL Nucleated Red Blood Cells 0.1 % Sodium Level 143 136-145 mmol/L Potassium Level 4.7 3.5-5.1 mmol/L Chloride Level 108 H 98-107 mmol/L Carbon Dioxide Level 18 L 20-31 mmol/L Anion Gap 17 H 5-15 Blood Urea Nitrogen 49 H 9-23 mg/dL Creatinine 9.09 H 0.700-1.30 mg/dL Glomerular Filtration Rate Calc 6 >90 mL/min BUN/Creatinine Ratio 5.4 L 10.0-20.0 Serum Glucose 170 H 74-106 mg/dL Lactic Acid Level 5.3 *H 0.4-2.0 mmol/L Calcium Level 8.4 L 8.7-10.4 mg/dL Total Bilirubin 0.4 0.2-1.0 mg/dL Aspartate Amino Transferase (AST) 43 H 13-40 U/L Alanine Aminotransferase (ALT) 33 7-40 U/L Alkaline Phosphatase 43 L 46-116 U/L B-Type Natriuretic Peptide 2127.06 0-100 pg/mL Total Protein 7.1 5.7-8.2 g/dL Albumin 4.3 3.2-4.8 g/dL Microbiology Date/Time Source Procedure Growth Status 08/20/25 18:49 Nose MRSA Screen - Final Complete Assessment Acute kidney injury in the setting of hypertensive emergency Acute hypoxic respiratory failure Uncontrolled hypertension Recommendations Blood pressure control Diuretics IV as ordered We will follow closely Plan discussed with: Patient CHARLES HERNANDES MD Aug 20, 2025 14:16
--- NOTE | 2025-08-20 16:06 | DVHSR ---
APPROVED REPORT EXAM: Two-dimensional and M-mode echocardiogram with Doppler and color Doppler. Blood Pressure: 162/94 mmHg INDICATION CHF Exacerbation unspecified RISK FACTORS Height: 5' 9", Weight: 178 DIMENSIONS LVDd 5.4 (3.8-5.7cm) LA (2D) 4.3 (1.9-4.0cm) Aortic Root 3.6 (2.0-3.7cm) LVDs 4.8 (2.5-4.0cm) LA (MM) (1.9-4.0cm) Aortic Cusp Exc 1.9 (1.5-2.0cm) EF (%) 25.0 (55-70%) Rt. Atrium 4.3 (1.9-4.0cm) Asc. Aorta cm IVSd 1.2 (0.7-1.1cm) RV (D) (1.8-2.4cm) PWd 1.2 (0.7-1.1cm) Mitral Valve Mitral Mitral Stenosis E wave 0.80m/s MV Mean GR. mmHg A wave 1.20m/s MV Peak GR. mmHg E/A ratio 0.7 2D MVA cm2 Aortic Valve Aortic Valve Aortic Stenosis V1 0.70m/s AO Mean GR. 3mmHg V2 1.00m/s AO Peak GR. 5mmHg LVOT Diameter 2.4 (1.8-2.4cm) Doppler VOLODYMYR 3.17cm2 Pulmonic Valve V2 0.70m/s Tricuspid Valve TR Velocity 3.20m/s RVSP 45mmHg Conclusion DILATED LV AND IS MODERATELY HYPOKINETIC LV EF IS ONLT 25% DYSKINESIS OF IVS NORMAL VALVES MODERATE DEGREE PULMONARY HYPERTENSION RVSP IS 45 MM OF HG AND IS MODERATELY HIGH NO EFFUSION
--- NOTE | 2025-08-20 17:08 | DVHPNRES ---
Progress Note Date Seen: Aug 20, 2025 Resident Creating Document: KIMBER MAY RESIDENT Medical Necessity Reason Pt with a Central, PICC or Fol: No Subjective Review of Systems History of Present Illness The patient is a 55-year-old male with past medical history of DM, hypertension, CHF, COPD, CVA, and asthma who presented to [facility] ED with complaint of shortness of breaths.Patient reports that he has been experiencing difficulty breathing, increased work of breathing, getting worse that EMS were called. When EMS arrived on the scene, patient was desaturating at 43% on air, placed on non-rebreather and improved to 65%, was then given breathing treatment and placed on oxygen at 6 L/min and O2 saturation improved to 90% EN route to our facility ED. Patient was seen and evaluated in the ED, laboratory data shows WBC 8.8, hemoglobin 9.5, hematocrit 29.7, platelets 173, sodium 143, potassium 4.7, BUN 49, creatinine 9.09, GFR 6, glucose 170, calcium 8.4, BNP 2127.06, troponin 241, AST 43, ALT 33, blood pressure 228/134 trending down to 149/97, heart rate 82, temperature 98.0 F, O2 saturation 99% on BiPAP. Chest x-ray revealing multifocal pneumonia throughout both lungs. Patient was started on IV antibiotic regimen azithromycin, started on nitroglycerin drip, please see medication orders section in the computer. On my assessment, patient denied chest pain, no headache, dizziness, diaphoresis, currently on BiPAP, no diarrhea, nausea, vomiting, fever, no chills. Patient was admitted for further evaluation and medical management. Past Medical History Hypertension, diabetes, CHF, COPD, asthma, CVA Past Surgical History Denies all surgeries Interval events 08/20/25 currently on 2L o2 through nasal canula still on nitroglycerine drip mentions improvement in the symptoms Objective vital signs Vital Sign Date Time Temp Pulse Resp B/P (MAP) Pulse Ox O2 Delivery O2 Flow Rate FiO2 08/20/25 16:00 88 14 151/88 (109) 98 08/20/25 12:00 98.3 98.3 08/20/25 07:15 Nasal Cannula* 2 28 medications Current Medications Medications Dose Ordered Sig/Britta Route Start Time Stop Time Status Last Admin Dose Admin Nitroglycerin 250 ml @ 1.5 mls/hr Q24H IV 08/19/25 23:15 08/20/25 13:46 49.5 MLS/HR Ceftriaxone Sodium 50 ml @ 100 mls/hr Q24H IV 08/21/25 00:30 Azithromycin 250 ml @ 125 mls/hr DAILY IV 08/20/25 10:00 08/20/25 10:13 125 MLS/HR Famotidine 10 mg DAILY IV 08/20/25 10:00 08/20/25 10:13 10 MG Methylprednisolone Sodium Succinate 40 mg Q8HR IV 08/20/25 06:00 08/20/25 13:57 40 MG Diagnostic Test (Pha) 1 strip IQ4HR 08/20/25 08:00 08/20/25 16:17 1 STRIP Insulin Human Regular IQ4HR SC 08/20/25 08:00 08/20/25 16:19 4 UNITS Dextrose 50 ml UD PRN IV 08/20/25 05:15 Sodium Chloride 10 ml Q8HR IV 08/20/25 06:00 08/20/25 13:57 10 ML Ondansetron HCl 4 mg Q4HP PRN IV 08/20/25 05:15 Nitroglycerin 0.4 mg Q5MINP PRN SL 08/20/25 05:15 Morphine Sulfate 2 mg Q30M PRN IV 08/20/25 05:15 Hydralazine HCl 10 mg Q6HP PRN IV 08/20/25 05:15 Carvedilol 12.5 mg Q12HR NG 08/20/25 10:00 08/20/25 10:14 12.5 MG Heparin Sodium (Porcine) 5,000 units Q12HR SC 08/20/25 10:00 08/20/25 10:16 5,000 UNITS Amlodipine Besylate 10 mg DAILY PO 08/20/25 10:00 08/20/25 10:14 10 MG Bumetanide 12.5 mg/Miscellaneous 50 ml @ 2 mls/hr Q24H IV 08/20/25 12:30 08/20/25 13:47 2 MLS/HR Examination Examination General Appearance: Alert, Oriented X3, Cooperative, No acute distress HEENT: EOMI Respiratory: Clear to auscultation, Normal air movement Cardiovascular: Regular rate, Normal S1, Normal S2 Abdominal: Normal bowel sounds Extremities: No cyanosis, No edema, Normal pulses, No tenderness/swelling Skin: No rashes, No breakdown Neuro: Normal gait, Normal speech, Strength at 5/5 X4 ext, Normal tone, Sensation intact, Cranial nerves 3-12 NL, Reflexes 2+ Psych/Mental Status: Mental status NL, Mood NL laboratory and microbiology Laboratory Tests 08/20/25 05:58 Test 08/20/25 05:58 Range/Units Serum Glucose 207 H 74-106 mg/dL Labs and/or images reviewed: Labs reviewed by me, Image(s) reviewed by me Problem List/Assessment/Plan Problem List/Assessment/Plan Assessment/plan # acute hypoxic respiratory failure, currently on 2 L was on BiPAP -chest x-ray Breathing treatment # ? Community-acquired pneumonia, Gram-positive/Gram-negative -on antibiotics Chest x-ray shows IMPRESSION: 1. Multifocal pneumonia throughout both lungs # acute HFrEF exacerbation # NSTEMI likely type 2 # hypertensive emergency Currently on nitroglycerin drip Lasix Cardiology on board Echo shows ejection fraction 25% # pulmonary hypertension likely group two and three Seen on echo # GISSELL -Renal diet -Avod nephrotoxic drugs # COPD, asthma, ?exacerbation on methylprednisolone # normocytic anemia Monitor # thrombocytopenia Monitor # hyperkalemia -on bicarb drip DVT prophylaxis Heparin Critical care time excluding procedures greater than 65 minutes Case discussion with Dr Ugalde Code status discussed with the patient for greater than 21 minutes, full code Plan discussed with: Patient, Other KIMBER MAY RESIDENT Aug 20, 2025 17:08
[2025-08-20 17:39] LABS: Chloride 106 mmol/L (98-107); Potassium 5.0 mmol/L (3.5-5.1); Sodium 139 mmol/L (136-145)
[2025-08-20 17:40] LABS: Anion Gap 14 (5-15)
[2025-08-20 17:44] LABS: Calcium 8.3 mg/dL (8.7-10.4); Carbon Dioxide 19 mmol/L (20-31)
[2025-08-20 17:45] LABS: BUN/Creatinine Ratio 8.0 (10.0-20.0)
[2025-08-20 17:47] LABS: Blood Urea Nitrogen 74 mg/dL (9-23); Glucose 201 mg/dL (74-106)
[2025-08-20 19:29] LABS: COVID19 ANTIGEN SOFIA FIA NEGATIVE (NEGATIVE)
[2025-08-20] MEDS: LINEZOLID 600MG/300ML 300 ML IV SCH (20:55)
[2025-08-21] VITALS (51 sets, daily range): BP systolic 112–167; BP diastolic 57–113; PULSE 68–95; RESP 10–19; TEMP 97.8–98.2; O2SAT 96–100
[2025-08-21 05:33] LABS: Nucleated Red Blood Cells % 0.0 %
[2025-08-21 05:36] LABS: Hematocrit 20.9 % (41.0-53.0); Hemoglobin 7.3 g/dL (13.5-17.5); Mean Corpuscular Hemoglobin 31.6 pg (28.0-32.0); Mean Corpuscular Volume 91.0 fL (80.0-100.0)
[2025-08-21 05:50] LABS: Alanine Aminotransferase 22 U/L (7-40); Albumin 3.8 g/dL (3.2-4.8); Anion Gap 13 (5-15); BUN/Creatinine Ratio 6.9 (10.0-20.0); Chloride 106 mmol/L (98-107); Magnesium 2.1 mg/dL (1.6-2.6); Potassium 5.0 mmol/L (3.5-5.1); Sodium 139 mmol/L (136-145); Total Protein 6.3 g/dL (5.7-8.2)
[2025-08-21 05:52] LABS: Bilirubin, Total 0.4 mg/dL (0.2-1.0)
[2025-08-21 06:02] LABS: Alkaline Phosphatase 30 U/L (46-116); Blood Urea Nitrogen 65 mg/dL (9-23); Calcium 8.3 mg/dL (8.7-10.4); Carbon Dioxide 20 mmol/L (20-31); Glucose 156 mg/dL (74-106)
--- NOTE | 2025-08-21 06:43 | DVH ---
MEDICAL RECORDS NUMBER: [id number] PROCEDURE: XY CHEST PORTABLE DATE: 08/21/2025 05:41 AM HISTORY: sob Views:1 COMPARISON: XY CHEST PORTABLE on DOS: 08/19/25, XR CHEST 1 VIEW on DOS: 05/15/23, XY CHEST TWO VIEWS ROUTINE on DOS: 02/09/23 FINDINGS/IMPRESSION: Lungs: Diffuse minor chronic changes of the lungs are noted. No acute lung pathology is seen. Mediastinum: Mediastinal structures appear unremarkable... Skeletal: The skeletal structures appear unremarkable.
[2025-08-21] MEDS: CARVEDILOL 12.5 MG TAB NG SCH (10:03)
--- NOTE | 2025-08-21 11:22 | DVHPN2 ---
Consult Progress Note Subjective Review of Systems: CVS:Normal (Denies CP, Palipations, SOB) Objective vital signs Vital Sign Date Time Temp Pulse Resp B/P (MAP) Pulse Ox O2 Delivery O2 Flow Rate FiO2 08/21/25 10:45 84 11 140/82 (101) 99 08/21/25 10:00 Room Air* 0 21 08/21/25 08:00 98.2 98.2 Total Intake and Output 08/20/25 08/20/25 08/21/25 15:00 23:00 07:00 Intake Total 250 ml 300 ml 50 ml Output Total 450 ml Balance 250 ml -150 ml 50 ml medications Current Medications Medications Dose Ordered Sig/Britta Route Start Time Stop Time Status Last Admin Dose Admin Nitroglycerin 250 ml @ 1.5 mls/hr Q24H IV 08/19/25 23:15 08/21/25 09:55 70.5 MLS/HR Ceftriaxone Sodium 50 ml @ 100 mls/hr Q24H IV 08/21/25 00:30 08/21/25 00:49 100 MLS/HR Famotidine 10 mg DAILY IV 08/20/25 10:00 08/21/25 10:03 10 MG Methylprednisolone Sodium Succinate 40 mg Q8HR IV 08/20/25 06:00 08/21/25 05:47 40 MG Diagnostic Test (Pha) 1 strip IQ4HR 08/20/25 08:00 08/21/25 08:44 1 STRIP Insulin Human Regular IQ4HR SC 08/20/25 08:00 08/21/25 08:42 3 UNITS Dextrose 50 ml UD PRN IV 08/20/25 05:15 Sodium Chloride 10 ml Q8HR IV 08/20/25 06:00 08/21/25 05:47 10 ML Ondansetron HCl 4 mg Q4HP PRN IV 08/20/25 05:15 Nitroglycerin 0.4 mg Q5MINP PRN SL 08/20/25 05:15 Morphine Sulfate 2 mg Q30M PRN IV 08/20/25 05:15 Hydralazine HCl 10 mg Q6HP PRN IV 08/20/25 05:15 Heparin Sodium (Porcine) 5,000 units Q12HR SC 08/20/25 10:00 08/21/25 10:06 5,000 UNITS Amlodipine Besylate 10 mg DAILY PO 08/20/25 10:00 08/21/25 10:04 10 MG Bumetanide 12.5 mg/Miscellaneous 50 ml @ 2 mls/hr Q24H IV 08/20/25 12:30 08/20/25 13:47 2 MLS/HR Linezolid 300 ml @ 150 mls/hr Q12HR IV 08/20/25 19:30 08/21/25 10:30 150 MLS/HR Carvedilol 25 mg Q12HR NG 08/21/25 10:00 08/21/25 10:03 25 MG Azithromycin 250 ml @ 125 mls/hr DAILY@1200 IV 08/21/25 12:00 Examination: CVS:Normal (Telemetry reviewed and consistent with sinus rhythm at 84 bpm.) laboratory and microbiology Laboratory Tests 08/21/25 04:50 Test 08/21/25 04:50 Range/Units Serum Glucose 156 H 74-106 mg/dL Problem List/Assessment/Plan Problem List/Assessment/Plan Assessment * Acute systolic HF- being diuresis with Lasix 40 mg IV daily. Echo with EF 25 %. Defer continue diuresis to Nephrology given poor kidney function. * NSTEMI likely type 2 NH.- denies chest pain. EKG negative for acute ischemic changes. Continue on aspirin. Likely demand ischemia in setting of hyperintensity emergency. EF 25%. Patient not a good candidate for ischemic workup given medication noncompliance and poor kidney function at this time. Recommend close outpatient cardiology follow up. Plan of care discussed with the patient does not want any invasive procedures as well at this time. * Hypertensive emergency - on nitro drip wean as tolerated, continue carvedilol increased to 25 mg p.o. twice daily, on amlodipine started at 10 mg p.o. daily. * GISSELL on CKD - nephrology on board, follow up recs. * Medication noncompliance - advised compliance. * Acute hypoxic respiratory failure, multifocal pneumonia - on IV antibiotics, management per primary team. * HX CVA - Continue on aspirin and statin * Cardiomyopathy - unable to start on full GDMT due to poor kidney function at this time. Continue on Coreg 25 mg p.o. twice daily. Case Discussed with Dr Bolanos. Given active infection with pneumonia, poor kidney function at this time, medication noncompliance, we will continue medical management for now. Patient also does not want any invasive procedures at this time states he has had full cardiac workup when he had stroke approximately 2 years ago that was negative though at that time only underwent stress test. Recommend close outpatient cardiology follow up. BP control, titrate nitro as tolerated. Critical care, time spent: 38 minutes This medical document was created using an electronic medical record system with voice recognition software and computerized dictation system. Although this document has been carefully reviewed, there might still be some phonetic and typographical errors. Occasional wrong-word or ``sound-alike substitutions may have occurred due to the inherent limitations of voice recognition software. These areas are purely typographical due to imperfections of the software programs and do not reflect any compromise in the patient's medical care. Please read the chart carefully and recognize, using context, where these substitutions have occurred. Thank you for allowing me to participate in the management of this patient. The treatment plan was discussed with and agreed upon by patient/family including requesting consultants and ordering of imaging/procedures. Plan discussed with: Patient Date of Service: Aug 21, 2025 Billing Provider: GUSTAVO MORA Common Visit Codes: [id number] INP/OBS CARE(HIGH) GUSTAVO MORA Aug 21, 2025 11:21
[2025-08-21] MEDS: AZITHROMYCIN 500MG/250ML 250 ML IV SCH (12:33)
--- NOTE | 2025-08-21 12:48 | DVHPN2 ---
Subjective In bed feeling well Reviewed: H&P Changes from previous H/P or p: No Changes Eyes: No Pain, No Vision change, No Conjunctivae inflammation, No Eyelid inflammation, No Other, No Redness ENT: No Ear pain, No Ear discharge, No Nose pain, No Nose discharge, No Nose congestion, No Mouth pain, No Mouth swelling, No Throat pain, No Throat swelling, No Other Cardiovascular: No Chest Pain, No Palpitations, No Orthopnea, No Paroxysmal Noc. Dyspnea, No Edema, No Lt Headedness, No Other Respiratory: No Cough, No Dry; Shortness of breath; No SOB with excertion, No Wheezing, No Hemoptysis, No Pleuritic Pain, No Sputum; Other (SOB at rest) Gastrointestinal: No Nausea, No Vomiting, No Abdominal Pain, No Diarrhea, No Constipation, No Melena, No Hematochezia, No Other Genitourinary: No Dysuria, No Frequency, No Incontinence, No Hematuria, No Retention, No Other Musculoskeletal: No other, No neck pain, No shoulder pain, No arm pain, No back pain, No hand pain, No leg pain, No foot pain Skin: No Rash, No Lesions, No Jaundice, No Bruising, No Other Objective Vitals Vital Signs Date Time Temp Pulse Resp B/P (MAP) Pulse Ox O2 Delivery O2 Flow Rate FiO2 08/21/25 12:00 80 08/21/25 11:00 133/80 08/21/25 10:45 11 99 08/21/25 10:00 Room Air* 0 21 08/21/25 08:00 98.2 98.2 Intake/Output Intake and Output 08/21/25 07:00 Intake Total 600 ml Output Total 450 ml Balance 150 ml IV Total 600 ml Output Urine Total 450 ml General Appearance: Alert, Oriented X3 Lungs: Clear to auscultation Cardiovascular: Regular rate, Normal S1, Normal S2 Abdomen: Normal bowel sounds Medications Current Medications Medications Dose Ordered Sig/Britta Route Start Time Stop Time Status Last Admin Dose Admin Nitroglycerin 250 ml @ 1.5 mls/hr Q24H IV 08/19/25 23:15 08/21/25 09:55 70.5 MLS/HR Ceftriaxone Sodium 50 ml @ 100 mls/hr Q24H IV 08/21/25 00:30 08/21/25 00:49 100 MLS/HR Famotidine 10 mg DAILY IV 08/20/25 10:00 08/21/25 10:03 10 MG Methylprednisolone Sodium Succinate 40 mg Q8HR IV 08/20/25 06:00 08/21/25 05:47 40 MG Diagnostic Test (Pha) 1 strip IQ4HR 08/20/25 08:00 08/21/25 12:34 1 STRIP Insulin Human Regular IQ4HR SC 08/20/25 08:00 08/21/25 12:40 6 UNITS Dextrose 50 ml UD PRN IV 08/20/25 05:15 Sodium Chloride 10 ml Q8HR IV 08/20/25 06:00 08/21/25 05:47 10 ML Ondansetron HCl 4 mg Q4HP PRN IV 08/20/25 05:15 Nitroglycerin 0.4 mg Q5MINP PRN SL 08/20/25 05:15 Morphine Sulfate 2 mg Q30M PRN IV 08/20/25 05:15 Hydralazine HCl 10 mg Q6HP PRN IV 08/20/25 05:15 Heparin Sodium (Porcine) 5,000 units Q12HR SC 08/20/25 10:00 08/21/25 10:06 5,000 UNITS Amlodipine Besylate 10 mg DAILY PO 08/20/25 10:00 08/21/25 10:04 10 MG Linezolid 300 ml @ 150 mls/hr Q12HR IV 08/20/25 19:30 08/21/25 10:30 150 MLS/HR Carvedilol 25 mg Q12HR NG 08/21/25 10:00 08/21/25 10:03 25 MG Azithromycin 250 ml @ 125 mls/hr DAILY@1200 IV 08/21/25 12:00 08/21/25 12:33 125 MLS/HR Aspirin 81 mg DAILY PO 08/22/25 10:00 Atorvastatin Calcium 40 mg HS PO 08/21/25 22:00 Bumetanide 1 mg BIDD IV 08/21/25 18:00 Laboratory Results Laboratory Tests 08/21/25 04:50 Chemistry Test 08/20/25 17:13 08/21/25 04:50 Calcium Level 8.3 mg/dL (8.7-10.4) L 8.3 mg/dL (8.7-10.4) L Albumin 3.8 g/dL (3.2-4.8) Magnesium Level 2.1 mg/dL (1.6-2.6) Total Protein 6.3 g/dL (5.7-8.2) LFT Test 08/21/25 04:50 Alanine Aminotransferase (ALT) 22 U/L (7-40) Alkaline Phosphatase 30 U/L (46-116) L Aspartate Amino Transferase (AST) 18 U/L (13-40) Total Bilirubin 0.4 mg/dL (0.2-1.0) Urinalysis Test 08/20/25 00:06 Urine Color Colorless (Yellow) Urine Clarity Clear (Clear) Urine pH 6.5 (5.0-9.0) Urine Specific [place] 1.009 (1.001-1.035) Urine Protein 2+ (Negative) H Urine Ketones Negative (Negative) Urine Blood 2+ /uL (Negative) H Urine Nitrite Negative (Negative) Urine Bilirubin Negative (Negative) Urine Urobilinogen Normal mg/dL (Negative) Urine Leukocyte Esterase Negative /uL (Negative) Urine RBC 2 /hpf (0 - 3) Urine Microscopic WBC 1 /HPF (0-3) Urine Squamous Epithelial Cells None seen /hpf (<5) Urine Bacteria None seen /hpf (None Seen) Urine Glucose 3+ mg/dL (Normal) H Microbiology Microbiology Date/Time Source Procedure Growth Status 08/19/25 23:30 Blood Blood Culture - Preliminary NO GROWTH AFTER 24 HOURS OF INCUBATION. Resulted Assessment/Plan Assessment/Plan Acute respiratory failure Pulmonary edema Elevated troponin level Multifocal pneumonia Elevated lactic acid level Anemia, unspecified Acute exacerbation of congestive heart failure Continue IV abx wean off oxygen IV abx azithromycin and ceftriaxone IV bumex nephrology and cardiology on consult Plan discussed with: Patient Date of Service: Aug 21, 2025 Billing Provider: EDMUNDO REYNA MD Common Visit Codes: [id number] INP/OBS CARE(HIGH) EDMUNDO REYNA MD Aug 21, 2025 12:48
[2025-08-21 15:27] LABS: INR 1.08 (0.9-1.15); Partial Thromboplastin Time 28.8 SEC (24.5-34.5); Prothrombin Time 11.4 sec (9.3-11.8)
[2025-08-21] MEDS: BUMETANIDE 1mg/4ml VIAL (0.25mg/ml) IV SCH (18:28)
[2025-08-21] MEDS: ACCU-CHEK COMFORT CURVE STRIP VI SCH (18:28)
[2025-08-21] MEDS: InsuLIN REG 1unit/0.01ml Soln (100units/ml) SC SCH (18:29)
--- NOTE | 2025-08-21 19:09 | DVHPN2 ---
Progress Note Date Seen: Aug 21, 2025 Medical Necessity Reason Pt with a Central, PICC or Fol: No Subjective Patient reports: No new complaints Review of Systems: HEENT:Normal, CVS:Normal, RESPIRATORY:Normal, GI:Normal, :Normal, MSK:Normal, NEURO:Normal Objective vital signs Vital Sign Date Time Temp Pulse Resp B/P (MAP) Pulse Ox O2 Delivery O2 Flow Rate FiO2 08/21/25 18:28 155/82 08/21/25 18:00 82 08/21/25 18:00 13 100 Room Air* 0 21 08/21/25 16:00 97.8 97.8 Total Intake and Output 08/20/25 08/20/25 08/21/25 15:00 23:00 07:00 Intake Total 250 ml 300 ml 50 ml Output Total 450 ml Balance 250 ml -150 ml 50 ml medications Current Medications Medications Dose Ordered Sig/Britta Route Start Time Stop Time Status Last Admin Dose Admin Nitroglycerin 250 ml @ 1.5 mls/hr Q24H IV 08/19/25 23:15 08/21/25 13:40 Ceftriaxone Sodium 50 ml @ 100 mls/hr Q24H IV 08/21/25 00:30 08/21/25 00:49 Famotidine 10 mg DAILY IV 08/20/25 10:00 08/21/25 10:03 Methylprednisolone Sodium Succinate 40 mg Q8HR IV 08/20/25 06:00 08/21/25 14:48 Dextrose 50 ml UD PRN IV 08/20/25 05:15 Sodium Chloride 10 ml Q8HR IV 08/20/25 06:00 08/21/25 14:48 Ondansetron HCl 4 mg Q4HP PRN IV 08/20/25 05:15 Nitroglycerin 0.4 mg Q5MINP PRN SL 08/20/25 05:15 Morphine Sulfate 2 mg Q30M PRN IV 08/20/25 05:15 Hydralazine HCl 10 mg Q6HP PRN IV 08/20/25 05:15 Heparin Sodium (Porcine) 5,000 units Q12HR SC 08/20/25 10:00 08/21/25 10:06 Amlodipine Besylate 10 mg DAILY PO 08/20/25 10:00 08/21/25 10:04 Linezolid 300 ml @ 150 mls/hr Q12HR IV 08/20/25 19:30 08/21/25 10:30 Carvedilol 25 mg Q12HR NG 08/21/25 10:00 08/21/25 10:03 Azithromycin 250 ml @ 125 mls/hr DAILY@1200 IV 08/21/25 12:00 08/21/25 12:33 Aspirin 81 mg DAILY PO 08/22/25 10:00 Atorvastatin Calcium 40 mg HS PO 08/21/25 22:00 Bumetanide 1 mg BIDD IV 08/21/25 18:00 08/21/25 18:28 Docusate Sodium 100 mg BID PO 08/21/25 22:00 Diagnostic Test (Pha) 1 strip Q6HR 08/21/25 18:00 08/21/25 18:28 Insulin Human Regular Q6HR SC 08/21/25 18:00 08/21/25 18:29 laboratory and microbiology Laboratory Tests 08/21/25 04:50 Test 08/21/25 04:50 Range/Units Serum Glucose 156 H 74-106 mg/dL Microbiology Date/Time Source Procedure Growth Status 08/20/25 18:49 Nose MRSA Screen - Final Complete 08/19/25 23:30 Blood Blood Culture - Preliminary NO GROWTH AFTER 24 HOURS OF INCUBATION. Resulted Problem List/Assessment/Plan Problem List/Assessment/Plan Acute kidney injury in the setting of hypertensive emergency Acute hypoxic respiratory failure Uncontrolled hypertension Recommendations Nicardipine drip Kidney ultrasound urine workup as ordered Blood pressure control Diuretics IV as ordered We will follow closely Plan discussed with: Patient My Orders My Orders Orders - CHARLES HERNANDES MD Procedure Category Date Status Time Bumetanide Injection PHA 08/21/25 In Process (Bumex Injection) 18:00 Communication Order ORDERS 08/21/25 Transmitted 18:43 CHARLES HERNANDES MD Aug 21, 2025 19:09
--- NOTE | 2025-08-21 19:59 | DVH ---
CT STROKE CTH INDICATION: Stroke EXAM DATE: 08/21/2025 06:58 PM COMPARISON: None TECHNIQUE: CT of the head without intravenous contrast. RADIATION DOSE: CTDIvol: 66.25 mGy, DLP: 1305.25 mGy*cm FINDINGS: Evaluation is degraded by motion artifact. There is tissue loss with gliosis/ encephalomalacia within the left parietal lobe suggesting chronic infarct. No acute territorial infarct, intracranial hemorrhage, or mass effect. There are global involutional changes with compensatory prominence of the ventricles and sulci. Patchy periventricular and subcortical white matter hypoattenuation is nonspecific but may be related to small vessel ischemic disease. Tiny chronic deep cerebral lacunar infarcts. The orbits are normal. Polyp versus retention cyst within the left sphenoid sinus. Paranasal sinuses and mastoid air cells are otherwise clear. The osseous structures are unremarkable. IMPRESSION: 1. No acute territorial infarct, intracranial hemorrhage, or mass effect. 2. Age-related involutional changes. Chronic ischemic changes as detailed. 3. If clinical symptoms persist, MRI may be beneficial in further evaluation. Critical Result: Stroke Alert Findings discussed with CRISTINE Palma at 08/21/2025 07:56 PM, and acknowledged receipt and understanding of the findings.
--- NOTE | 2025-08-21 20:51 | DVH ---
INDICATION: Acute kidney injury TECHNIQUE: Multiple real-time sonographic images of the kidneys and bladder were obtained. COMPARISON: None FINDINGS: The right kidney measures 9.1 cm in length, which is normal in size. There is normal echogenicity of the right kidney. No hydronephrosis. The left kidney measures 9.0 cm in length, which is normal in size. There is normal echogenicity of the left kidney. No hydronephrosis. No intraluminal mass is seen in the bladder. At the time of the examination, the bladder volume is approximately 316 cc. The prostate measures 4.0 x 3.6 x 4.1 cm (approximately 30 cc). IMPRESSION: Unremarkable sonographic appearance of the kidneys. No hydronephrosis of either kidney. The urinary bladder is distended at the time of the examination with volume approximately 316 cc.
--- NOTE | 2025-08-21 21:31 | DVHPN2 ---
Consult Progress Note Subjective Review of Systems: CVS:Normal (Denies CP, Palipations, SOB) Other Systems: Patient was seen and evaluated in follow up. Patient reprts feeling better since admission. HGB 7.3, HCT 20.9, BUN 65, [employer] 9.36, GLUC 287, CA 8.3. Chest x-ray shows diffuse minor chronic changes of the lungs are noted. No acute lung pathology is seen. Objective vital signs Vital Sign Date Time Temp Pulse Resp B/P (MAP) Pulse Ox O2 Delivery O2 Flow Rate FiO2 08/21/25 13:40 144/85 08/21/25 13:00 79 13 98 08/21/25 12:00 98.2 98.2 08/21/25 12:00 Room Air* 0 21 Total Intake and Output 08/20/25 08/20/25 08/21/25 15:00 23:00 07:00 Intake Total 250 ml 300 ml 50 ml Output Total 450 ml Balance 250 ml -150 ml 50 ml medications Current Medications Medications Dose Ordered Sig/Britta Route Start Time Stop Time Status Last Admin Dose Admin Nitroglycerin 250 ml @ 1.5 mls/hr Q24H IV 08/19/25 23:15 08/21/25 13:40 72 MLS/HR Ceftriaxone Sodium 50 ml @ 100 mls/hr Q24H IV 08/21/25 00:30 08/21/25 00:49 100 MLS/HR Famotidine 10 mg DAILY IV 08/20/25 10:00 08/21/25 10:03 10 MG Methylprednisolone Sodium Succinate 40 mg Q8HR IV 08/20/25 06:00 08/21/25 05:47 40 MG Diagnostic Test (Pha) 1 strip IQ4HR 08/20/25 08:00 08/21/25 12:34 1 STRIP Insulin Human Regular IQ4HR SC 08/20/25 08:00 08/21/25 12:40 6 UNITS Dextrose 50 ml UD PRN IV 08/20/25 05:15 Sodium Chloride 10 ml Q8HR IV 08/20/25 06:00 08/21/25 05:47 10 ML Ondansetron HCl 4 mg Q4HP PRN IV 08/20/25 05:15 Nitroglycerin 0.4 mg Q5MINP PRN SL 08/20/25 05:15 Morphine Sulfate 2 mg Q30M PRN IV 08/20/25 05:15 Hydralazine HCl 10 mg Q6HP PRN IV 08/20/25 05:15 Heparin Sodium (Porcine) 5,000 units Q12HR SC 08/20/25 10:00 08/21/25 10:06 5,000 UNITS Amlodipine Besylate 10 mg DAILY PO 08/20/25 10:00 08/21/25 10:04 10 MG Linezolid 300 ml @ 150 mls/hr Q12HR IV 08/20/25 19:30 08/21/25 10:30 150 MLS/HR Carvedilol 25 mg Q12HR NG 08/21/25 10:00 08/21/25 10:03 25 MG Azithromycin 250 ml @ 125 mls/hr DAILY@1200 IV 08/21/25 12:00 08/21/25 12:33 125 MLS/HR Aspirin 81 mg DAILY PO 08/22/25 10:00 Atorvastatin Calcium 40 mg HS PO 08/21/25 22:00 Bumetanide 1 mg BIDD IV 08/21/25 18:00 Examination: GENERAL:Normal, HEENT:Normal, NECK:Normal, LUNGS:Normal, CVS:Normal, ABDOMEN:Normal, MSK:Normal laboratory and microbiology Laboratory Tests 08/21/25 04:50 Test 08/21/25 04:50 Range/Units Serum Glucose 156 H 74-106 mg/dL Problem List/Assessment/Plan Problem List/Assessment/Plan Assessment Acute on chronic CHF. NSTEMI likely type 2 MS. Hypertensive emergency. GISSELL on CKD. Medication noncompliance. Acute hypoxic respiratory failure, multifocal pneumonia. HX CVA. Cardiomyopathy. Plan/Recommendation Continued all current supportive medical care. Patient has been seen by Yovanny Hitchcock NP on my behalf, him and I discussed the plan with the patient. Given active infection with pneumonia, poor kidney function at this time, medication noncompliance, we will continue medical management for now. Patient also does not want any invasive procedures at this time states he has had full cardiac workup when he had stroke approximately 2 years ago that was negative though at that time only underwent stress test. Recommend close outpatient cardiology follow up. BP control, titrate nitro as tolerated. IV antibiotics as ordered. On nitro drip wean as tolerated, continue carvedilol increased to 25 mg p.o. twice daily, on amlodipine started at 10 mg p.o. daily. EKG negative for acute ischemic changes. Continue on aspirin. Likely demand ischemia in setting of hyperintensity emergency. EF 25%. Being diuresis with Lasix 40 mg IV daily. Additional plan as per the hospital course. Plan discussed with: Patient Date of Service: Aug 21, 2025 Billing Provider: RAMIN OLIVIER MD Cardiology Common Codes: [id number] HOSP CARE(High RAMIN OLIVIER MD Aug 21, 2025 13:53
[2025-08-21] MEDS: DOCUSATE SOD 100 MG CAP PO SCH (22:05)
[2025-08-21] MEDS: ATORVASTATIN 20 MG TAB PO SCH (22:06)
[2025-08-22] VITALS (45 sets, daily range): BP systolic 145–182; BP diastolic 76–104; PULSE 69–88; RESP 11–18; TEMP 98.3–98.9; O2SAT 93–100
--- NOTE | 2025-08-22 10:38 | DVHPN2 ---
Progress Note Date Seen: Aug 22, 2025 Medical Necessity Reason Pt with a Central, PICC or Fol: No Subjective Changes from previous H/P or p: Changes (refused labs, SBP 180s) Objective vital signs Vital Sign Date Time Temp Pulse Resp B/P (MAP) Pulse Ox O2 Delivery O2 Flow Rate FiO2 08/22/25 10:00 Room Air* 0 21 08/22/25 10:00 77 12 178/100 (126) 96 08/22/25 08:15 98.3 98.3 Total Intake and Output 08/21/25 08/21/25 08/22/25 15:00 23:00 07:00 Intake Total 1105 ml 1147.5 ml 352.5 ml Output Total 675 ml Balance 1105 ml 472.5 ml 352.5 ml medications Current Medications Medications Dose Ordered Sig/Britta Route Start Time Stop Time Status Last Admin Dose Admin Nitroglycerin 250 ml @ 1.5 mls/hr Q24H IV 08/19/25 23:15 08/21/25 13:40 72 MLS/HR Ceftriaxone Sodium 50 ml @ 100 mls/hr Q24H IV 08/21/25 00:30 08/22/25 01:51 100 MLS/HR Famotidine 10 mg DAILY IV 08/20/25 10:00 08/21/25 10:03 10 MG Methylprednisolone Sodium Succinate 40 mg Q8HR IV 08/20/25 06:00 08/21/25 22:06 40 MG Dextrose 50 ml UD PRN IV 08/20/25 05:15 Sodium Chloride 10 ml Q8HR IV 08/20/25 06:00 08/21/25 22:11 10 ML Ondansetron HCl 4 mg Q4HP PRN IV 08/20/25 05:15 Nitroglycerin 0.4 mg Q5MINP PRN SL 08/20/25 05:15 Morphine Sulfate 2 mg Q30M PRN IV 08/20/25 05:15 Hydralazine HCl 10 mg Q6HP PRN IV 08/20/25 05:15 Heparin Sodium (Porcine) 5,000 units Q12HR SC 08/20/25 10:00 08/21/25 22:09 5,000 UNITS Amlodipine Besylate 10 mg DAILY PO 08/20/25 10:00 08/22/25 09:26 10 MG Linezolid 300 ml @ 150 mls/hr Q12HR IV 08/20/25 19:30 08/21/25 22:05 150 MLS/HR Carvedilol 25 mg Q12HR NG 08/21/25 10:00 08/22/25 09:26 25 MG Azithromycin 250 ml @ 125 mls/hr DAILY@1200 IV 08/21/25 12:00 08/21/25 12:33 125 MLS/HR Atorvastatin Calcium 40 mg HS PO 08/21/25 22:00 08/21/25 22:06 40 MG Bumetanide 1 mg BIDD IV 08/21/25 18:00 08/21/25 18:28 1 MG Docusate Sodium 100 mg BID PO 08/21/25 22:00 08/22/25 09:26 100 MG Diagnostic Test (Pha) 1 strip Q6HR 08/21/25 18:00 08/22/25 00:25 1 STRIP Insulin Human Regular Q6HR SC 08/21/25 18:00 08/22/25 00:24 3 UNITS Hydralazine HCl 25 mg Q6HR PO 08/22/25 10:30 UNV Examination: GENERAL:Abnormal, CVS:Abnormal, NEURO:Abnormal laboratory and microbiology Laboratory Tests 08/21/25 04:50 Test 08/21/25 04:50 Range/Units Serum Glucose 156 H 74-106 mg/dL Microbiology Date/Time Source Procedure Growth Status 08/20/25 18:49 Nose MRSA Screen - Final Complete 08/19/25 23:30 Blood Blood Culture - Preliminary NO GROWTH AFTER 48 HOURS OF INCUBATION. 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 Change diet to renal diet We will continue to require daily monitoring Outside records obtained from [facility] in February and April showed a GFR of 8-9% with a creatinine > 6.0 this indicates patient has chronic kidney disease stage 5 Hypertension with hypertensive emergency; uncontrolled P.o. medications Coreg, amlodipine, start p.o. hydralazine today Metabolic acidosis secondary to kidney disease Start p.o. sodium bicarbonate, renal diet Anemia due to chronic kidney disease we will obtain iron panel and start ALEXANDRU agents NSTEMI with congestive heart failure EF of 25% pulm htn Diuretic therapy Cardiology Recommend obtain negative daily fluid balance, fluid and sodium restriction Facial asymmetry with left-sided weakness indicative of previous cerebral event Baseline is unclear to me, recommend stroke precautions and continue management as per primary medical team Patient is high-risk for morbidity mortality due to refusal medical therapy Rest of care as per primary medical physician and recommend case management involvement Plan discussed with: Patient My Orders My Orders Orders - CYNTHIA ORDAZ MD Procedure Category Date Status Time Hydralazine Hcl PHA 08/22/25 Logged Tablet (Apresoline 10:30 Cardiac DIET 08/22/25 Verified Diet-2gna,Lofat,Lochol Lunch Sodium Bicarb Tab PHA 08/22/25 Verified 14:00 Iron Panel LAB 08/22/25 Verified 10:25 Ferritin LAB 08/22/25 Verified 10:25 Basic Metabolic Panel LAB 08/22/25 Verified 10:25 Phosphorus LAB 08/22/25 Verified 10:25 CYNTHIA ORDAZ MD Aug 22, 2025 10:38
--- NOTE | 2025-08-22 11:57 | DVH ---
PROCEDURE: MRI BRAIN HEAD WO CONTRAST Indication: CHANGE IN MENTATION COMPARISON: 08/21/2025 TECHNIQUE: Multiplanar multisequence images of the brain are obtained. FINDINGS: There is diffusion restriction within the right kuldip measuring 1.6 x 2.1 cm. Mild periventricular and subcortical white matter T2 and FLAIR hyperintense changes. Left parietal encephalomalacia. There is no intracranial hemorrhage. No extra-axial fluid collection, mass effect or midline shift. The ventricles are midline and normal in size. The cisterns are patent. Normal intracranial flow voids are preserved. Susceptibility signal within the old left parietal infarct consistent with old hemorrhage changes. Small bilateral mastoid effusions. Mucosal thickening of the ethmoids The visualized orbits are unremarkable. IMPRESSION: Acute infarct right kuldip measuring 2.1 cm[address] Findings communicated to Dr. Holloway at 11:55 a.m. on 08/22/2025. Mild chronic microvascular ischemic changes. Left parietal encephalomalacia.
--- NOTE | 2025-08-22 12:51 | DVHPN2 ---
Subjective I am assuming the care of the patient from today onwards who was under the care of the hospitalist team. Chart reviewed consultants notes reviewed. This is a follow up on 55-year-old male who is homeless with a known history of diabetes mellitus type 2, hypertension, congestive heart failure, previous history of CVA with a mild weakness on the left side presented to the hospital with a initially with the increasing shortness of breaths found to have 43% saturation on room air, eventually requiring BiPAP currently off of O2 supplementation. Yesterday patient's has a change in mental status CT head was done which shows no evidence of acute infarct, MRI showed evidence of infarct in the right kuldip. Patient is currently denies any weakness. Reviewed: H&P Changes from previous H/P or p: Changes (Patient's has a mental status change, MRI showed evidence of right kuldip infarct.) Eyes: No Pain, No Vision change, No Conjunctivae inflammation, No Eyelid inflammation, No Other, No Redness ENT: No Ear pain, No Ear discharge, No Nose pain, No Nose discharge, No Nose congestion, No Mouth pain, No Mouth swelling, No Throat pain, No Throat swelling, No Other Cardiovascular: No Chest Pain, No Palpitations, No Orthopnea, No Paroxysmal Noc. Dyspnea, No Edema, No Lt Headedness, No Other Respiratory: No Cough, No Dry; Shortness of breath; No SOB with excertion, No Wheezing, No Hemoptysis, No Pleuritic Pain, No Sputum; Other (SOB at rest) Gastrointestinal: No Nausea, No Vomiting, No Abdominal Pain, No Diarrhea, No Constipation, No Melena, No Hematochezia, No Other Genitourinary: No Dysuria, No Frequency, No Incontinence, No Hematuria, No Retention, No Other Musculoskeletal: No other, No neck pain, No shoulder pain, No arm pain, No back pain, No hand pain, No leg pain, No foot pain Skin: No Rash, No Lesions, No Jaundice, No Bruising, No Other Objective Vitals Vital Signs Date Time Temp Pulse Resp B/P (MAP) Pulse Ox O2 Delivery O2 Flow Rate FiO2 08/22/25 10:26 78 170/89 08/22/25 10:00 Room Air* 0 21 08/22/25 10:00 12 96 08/22/25 08:15 98.3 98.3 Intake/Output Intake and Output 08/22/25 07:00 Intake Total 2605.0 ml Output Total 675 ml Balance 1930.0 ml Intake Oral 1200 ml IV Total 1405.0 ml Output Urine Total 675 ml # Voids 2 Exam HEENT pupils are reactive Neck is supple CV is S1-S2 regular rate and rhythm Respiratory diminished breath sounds bilateral bases GI positive bowel sound Extremity no edema [employer] no motor deficit General Appearance: Alert, Oriented X3 Lungs: Clear to auscultation Cardiovascular: Regular rate, Normal S1, Normal S2 Abdomen: Normal bowel sounds Medications Current Medications Medications Dose Ordered Sig/Britta Route Start Time Stop Time Status Last Admin Dose Admin Nitroglycerin 250 ml @ 1.5 mls/hr Q24H IV 08/19/25 23:15 08/21/25 13:40 72 MLS/HR Ceftriaxone Sodium 50 ml @ 100 mls/hr Q24H IV 08/21/25 00:30 08/22/25 01:51 100 MLS/HR Famotidine 10 mg DAILY IV 08/20/25 10:00 08/21/25 10:03 10 MG Methylprednisolone Sodium Succinate 40 mg Q8HR IV 08/20/25 06:00 08/21/25 22:06 40 MG Dextrose 50 ml UD PRN IV 08/20/25 05:15 Sodium Chloride 10 ml Q8HR IV 08/20/25 06:00 08/21/25 22:11 10 ML Ondansetron HCl 4 mg Q4HP PRN IV 08/20/25 05:15 Nitroglycerin 0.4 mg Q5MINP PRN SL 08/20/25 05:15 Morphine Sulfate 2 mg Q30M PRN IV 08/20/25 05:15 Hydralazine HCl 10 mg Q6HP PRN IV 08/20/25 05:15 Heparin Sodium (Porcine) 5,000 units Q12HR SC 08/20/25 10:00 08/22/25 12:12 5,000 UNITS Amlodipine Besylate 10 mg DAILY PO 08/20/25 10:00 08/22/25 09:26 10 MG Linezolid 300 ml @ 150 mls/hr Q12HR IV 08/20/25 19:30 08/21/25 22:05 150 MLS/HR Carvedilol 25 mg Q12HR NG 08/21/25 10:00 08/22/25 09:26 25 MG Azithromycin 250 ml @ 125 mls/hr DAILY@1200 IV 08/21/25 12:00 08/21/25 12:33 125 MLS/HR Atorvastatin Calcium 40 mg HS PO 08/21/25 22:00 08/21/25 22:06 40 MG Bumetanide 1 mg BIDD IV 08/21/25 18:00 08/21/25 18:28 1 MG Docusate Sodium 100 mg BID PO 08/21/25 22:00 08/22/25 09:26 100 MG Diagnostic Test (Pha) 1 strip Q6HR 08/21/25 18:00 08/22/25 12:13 1 STRIP Insulin Human Regular Q6HR SC 08/21/25 18:00 08/22/25 12:13 3 UNITS Hydralazine HCl 25 mg Q6HR PO 08/22/25 10:30 UNV Sodium Bicarbonate 650 mg TID PO 08/22/25 14:00 UNV Ferrous Sulfate 325 mg BIDWM PO 08/22/25 18:00 UNV Epoetin Andrew-epbx 10,000 unit MWF [place] 08/22/25 13:00 Aspirin 81 mg DAILY PO 08/23/25 10:00 Clopidogrel Bisulfate 75 mg DAILY PO 08/22/25 12:00 Laboratory Results Laboratory Tests 08/21/25 04:50 Coagulation Test 08/21/25 14:59 Prothrombin Time 11.4 sec (9.3-11.8) Prothrombin Time INR 1.08 (0.9-1.15) Activated Partial Thromboplast Time 28.8 SEC (24.5-34.5) Urinalysis Test 08/20/25 00:06 08/22/25 12:21 Urine Color Colorless (Yellow) Urine Clarity Clear (Clear) Urine pH 6.5 (5.0-9.0) Urine Specific [place] 1.009 (1.001-1.035) Urine Protein 2+ (Negative) H Urine Ketones Negative (Negative) Urine Blood 2+ /uL (Negative) H Urine Nitrite Negative (Negative) Urine Bilirubin Negative (Negative) Urine Urobilinogen Normal mg/dL (Negative) Urine Leukocyte Esterase Negative /uL (Negative) Urine RBC 2 /hpf (0 - 3) Urine Microscopic WBC 1 /HPF (0-3) Urine Squamous Epithelial Cells None seen /hpf (<5) Urine Bacteria None seen /hpf (None Seen) Urine Glucose 3+ mg/dL (Normal) H Urine Creatinine Pending Urine Sodium Pending Urine Total Protein Pending Microbiology Microbiology Date/Time Source Procedure Growth Status 08/20/25 18:49 Nose MRSA Screen - Final Complete 08/19/25 23:30 Blood Blood Culture - Preliminary NO GROWTH AFTER 48 HOURS OF INCUBATION. Resulted Assessment/Plan Assessment/Plan 55-year-old male with a known history of congestive heart failure with systolic dysfunction, diabetes mellitus type 2, hypertension, dyslipidemia, homelessness who initially presented to the hospital with a respiratory distress found to have acute hypoxic respiratory failure suspected secondary to congestive heart failure with systolic dysfunction/multifocal pneumonia. Patient's hospital course was eventful for acute CVA with a MRI evidence of infarct in the right kuldip. 1. Acute hypoxic respiratory failure secondary to acute CHF exacerbation with systolic dysfunction as well as multifocal pneumonia 2. Acute CHF exacerbation with systolic dysfunction with the EF of 25% 3. Multifocal pneumonia 4. Moderate/severe pulmonary hypertension 5. Acute CVA with a evidence infarct in the right-sided kuldip 6. AKA with a underlying CKD 7. Previous history of CVA with a mild left residual deficit 8. NSTEMI type 2 suspect secondary to acute CHF exacerbation 9. 1/2 Gram-negative bacteremia with coag-negative staph, suspect contamination 10. Hypertensive urgency, currently off of nitroglycerin drip -and aspirin, Plavix, continue IV diuretics, continue IV antibiotics, discontinue Zyvox -repeat blood cultures, strict I&Os, daily weight. Plan discussed with: Patient, Other (Patient's bedside RN.) My Orders Orders - HIRAL AUSTIN MD Procedure Category Date Status Time Blood Culture JOSE 08/22/25 Logged 11:48 Aspirin Tablet PHA 08/23/25 In Process 10:00 Clopidogrel Bisulfate PHA 08/22/25 In Process (Plavix) 12:00 Date of Service: Aug 22, 2025 Billing Provider: HIRAL AUSTIN MD Common Visit Codes: [id number] INP/OBS CARE(HIGH) HIRAL AUSTIN MD Aug 22, 2025 12:51
[2025-08-22] MEDS: CLOPIDOGREL BISULFATE 75 MG TAB PO SCH (13:00)
[2025-08-22 13:07] LABS: Protein, Urine 229.4 mg/dL (1-14)
[2025-08-22] MEDS: EPOETIN ALFA-EPBX 10,000 UNIT/1ML VIAL SC SCH (13:10)
[2025-08-22 14:12] LABS: Chloride 103 mmol/L (98-107); Potassium 4.6 mmol/L (3.5-5.1); Sodium 138 mmol/L (136-145)
[2025-08-22 14:13] LABS: Anion Gap 15 (5-15); Calcium 8.8 mg/dL (8.7-10.4)
[2025-08-22 14:18] LABS: BUN/Creatinine Ratio 9.8 (10.0-20.0); Carbon Dioxide 20 mmol/L (20-31); Glucose 199 mg/dL (74-106); Iron 127.0 ug/dL (65-175)
[2025-08-22 14:20] LABS: Blood Urea Nitrogen 94 mg/dL (9-23)
[2025-08-22 14:25] LABS: Total Iron Binding Capacity 243.0 ug/dL (250-425)
[2025-08-22] MEDS: SODIUM BICARBONATE 650 MG TAB PO SCH (14:38)
[2025-08-22] MEDS ORDERED: EPOETIN ALFA-EPBX 10,000 UNIT/1ML VIAL SC SCH (15:45)
[2025-08-22] MEDS: FERROUS SULFATE 325mg EC TAB PO SCH (18:07)
[2025-08-22] MEDS: SEVELAMER 800 MG TAB PO SCH (18:07)
[2025-08-23] VITALS (12 sets, daily range): BP systolic 149–171; BP diastolic 85–101; PULSE 68–79; RESP 16–20; TEMP 97.8–98.9; O2SAT 95–99
--- NOTE | 2025-08-23 00:29 | DVHPN2 ---
Progress Note - Dictate Date Seen: Aug 22, 2025 Medical Necessity Reason Pt with a Central, PICC or Fol: No Subjective Patient was seen and evaluated in follow up. No overnight events. The patient is resting in bed. HGB 7.3, HCT 20.9. Hepatitis B antigen is negative. MRSA is negative. Telemetry reviewed. vital signs Vital Sign Date Time Temp Pulse Resp B/P (MAP) Pulse Ox O2 Delivery O2 Flow Rate FiO2 08/22/25 22:35 78 179/89 08/22/25 20:59 98.3 17 98 98.3 08/22/25 19:30 Room Air* 0 21 Total Intake and Output 08/22/25 08/22/25 08/23/25 15:00 23:00 07:00 Output Total 420 ml Balance -420 ml medications Current Medications Medications Dose Ordered Sig/Britta Route Start Time Stop Time Status Last Admin Dose Admin Ceftriaxone Sodium 50 ml @ 100 mls/hr Q24H IV 08/21/25 00:30 08/22/25 01:51 100 MLS/HR Famotidine 10 mg DAILY IV 08/20/25 10:00 08/21/25 10:03 10 MG Methylprednisolone Sodium Succinate 40 mg Q8HR IV 08/20/25 06:00 08/22/25 22:34 40 MG Dextrose 50 ml UD PRN IV 08/20/25 05:15 Sodium Chloride 10 ml Q8HR IV 08/20/25 06:00 08/22/25 22:48 10 ML Ondansetron HCl 4 mg Q4HP PRN IV 08/20/25 05:15 Nitroglycerin 0.4 mg Q5MINP PRN SL 08/20/25 05:15 Morphine Sulfate 2 mg Q30M PRN IV 08/20/25 05:15 Hydralazine HCl 10 mg Q6HP PRN IV 08/20/25 05:15 Heparin Sodium (Porcine) 5,000 units Q12HR SC 08/20/25 10:00 08/22/25 22:37 5,000 UNITS Amlodipine Besylate 10 mg DAILY PO 08/20/25 10:00 08/22/25 09:26 10 MG Carvedilol 25 mg Q12HR NG 08/21/25 10:00 08/22/25 22:35 25 MG Azithromycin 250 ml @ 125 mls/hr DAILY@1200 IV 08/21/25 12:00 08/21/25 12:33 125 MLS/HR Atorvastatin Calcium 40 mg HS PO 08/21/25 22:00 08/22/25 22:34 40 MG Bumetanide 1 mg BIDD IV 08/21/25 18:00 08/22/25 18:07 1 MG Docusate Sodium 100 mg BID PO 08/21/25 22:00 08/22/25 22:33 100 MG Diagnostic Test (Pha) 1 strip Q6HR 08/21/25 18:00 08/22/25 18:08 1 STRIP Insulin Human Regular Q6HR SC 08/21/25 18:00 08/22/25 18:09 3 UNITS Hydralazine HCl 25 mg Q6HR PO 08/22/25 12:00 08/22/25 18:08 25 MG Sodium Bicarbonate 650 mg TID PO 08/22/25 14:00 08/22/25 22:34 650 MG Ferrous Sulfate 325 mg BIDWM PO 08/22/25 18:00 08/22/25 18:07 325 MG Epoetin Andrew-epbx 10,000 unit MWF [place] 08/22/25 13:00 08/22/25 13:10 10,000 UNIT Aspirin 81 mg DAILY PO 08/23/25 10:00 Clopidogrel Bisulfate 75 mg DAILY PO 08/22/25 12:00 08/22/25 13:00 75 MG Epoetin Andrew-epbx 10,000 unit MWF [place] 08/22/25 15:45 UNV Sevelamer HCl 800 mg TIDWM PO 08/22/25 18:00 08/22/25 18:07 800 MG objective GENERAL: Alert and oriented x 3. No acute distress. EYES: PERRL, EOMI. Anicteric. HENT: Moist mucous membranes. LUNGS: Clear to auscultation bilaterally. CARDIOVASCULAR: Regular rate and rhythm. ABDOMEN: Soft, non-tender and non-distended. EXTREMITIES: No edema. NEUROLOGIC: No focal neurological deficits. SKIN: Warm, dry. laboratory and microbiology Laboratory Tests 08/22/25 13:29 08/21/25 04:50 Test 08/22/25 13:29 Range/Units Serum Glucose 199 H 74-106 mg/dL Problem List Acute on chronic CHF. NSTEMI likely type 2 UT. Hypertensive emergency. GISSELL on CKD. Medication noncompliance. Acute hypoxic respiratory failure, multifocal pneumonia. HX CVA. Cardiomyopathy. Assessment/Plan Continued all current supportive medical care. Continue medical management for now. Patient also does not want any invasive procedures at this time states he has had full cardiac workup when he had stroke approximately 2 years ago that was negative though at that time only underwent stress test. Amlodipine, Coreg. Aspirin, Lipitor, Plavix. IV antibiotics as ordered. Diuretics with Bumex. IV Hydralazine for SBP >150. Hydralazine. Morphine for pain management. Additional plan as per the hospital course. Plan discussed with: Patient RAMIN OLIVIER MD Aug 23, 2025 00:29
[2025-08-23] MEDS: hydrALAZINE HCL 20 MG/ML VL IV PRN (02:10)
[2025-08-23 07:31] LABS: Hematocrit 24.7 % (41.0-53.0); Hemoglobin 8.6 g/dL (13.5-17.5); Mean Corpuscular Hemoglobin 31.3 pg (28.0-32.0); Mean Corpuscular Volume 90.2 fL (80.0-100.0); Nucleated Red Blood Cells % 0.1 %
--- NOTE | 2025-08-23 07:33 | ECG ---
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
[2025-08-23 07:45] LABS: Anion Gap 16 (5-15); Chloride 105 mmol/L (98-107); Potassium 4.5 mmol/L (3.5-5.1); Sodium 140 mmol/L (136-145)
[2025-08-23 07:46] LABS: Calcium 8.5 mg/dL (8.7-10.4); Carbon Dioxide 19 mmol/L (20-31)
[2025-08-23 07:51] LABS: BUN/Creatinine Ratio 9.5 (10.0-20.0)
[2025-08-23 08:05] LABS: Glucose 128 mg/dL (74-106)
[2025-08-23 08:10] LABS: Blood Urea Nitrogen 93 mg/dL (9-23)
--- NOTE | 2025-08-23 12:18 | DVHPN2 ---
Progress Note Date Seen: Aug 23, 2025 Medical Necessity Reason Pt with a Central, PICC or Fol: No Objective vital signs Vital Sign Date Time Temp Pulse Resp B/P (MAP) Pulse Ox O2 Delivery O2 Flow Rate FiO2 08/23/25 09:30 98.0 74 18 159/85 (109) 98 98.0 08/23/25 06:00 Room Air* 0 21 Total Intake and Output 08/22/25 08/22/25 08/23/25 14:59 22:59 06:59 Intake Total 300 ml Output Total 420 ml 600 ml Balance -420 ml -300 ml medications Current Medications Medications Dose Ordered Sig/Britta Route Start Time Stop Time Status Last Admin Dose Admin Ceftriaxone Sodium 50 ml @ 100 mls/hr Q24H IV 08/21/25 00:30 08/23/25 00:42 100 MLS/HR Famotidine 10 mg DAILY IV 08/20/25 10:00 08/23/25 09:13 10 MG Methylprednisolone Sodium Succinate 40 mg Q8HR IV 08/20/25 06:00 08/23/25 06:19 40 MG Dextrose 50 ml UD PRN IV 08/20/25 05:15 Sodium Chloride 10 ml Q8HR IV 08/20/25 06:00 08/23/25 06:20 10 ML Ondansetron HCl 4 mg Q4HP PRN IV 08/20/25 05:15 Nitroglycerin 0.4 mg Q5MINP PRN SL 08/20/25 05:15 Morphine Sulfate 2 mg Q30M PRN IV 08/20/25 05:15 Hydralazine HCl 10 mg Q6HP PRN IV 08/20/25 05:15 08/23/25 02:10 10 MG Heparin Sodium (Porcine) 5,000 units Q12HR SC 08/20/25 10:00 08/23/25 09:16 5,000 UNITS Amlodipine Besylate 10 mg DAILY PO 08/20/25 10:00 08/23/25 09:09 10 MG Carvedilol 25 mg Q12HR NG 08/21/25 10:00 08/22/25 22:35 25 MG Azithromycin 250 ml @ 125 mls/hr DAILY@1200 IV 08/21/25 12:00 08/21/25 12:33 125 MLS/HR Atorvastatin Calcium 40 mg HS PO 08/21/25 22:00 08/22/25 22:34 40 MG Bumetanide 1 mg BIDD IV 08/21/25 18:00 08/23/25 06:19 1 MG Docusate Sodium 100 mg BID PO 08/21/25 22:00 08/23/25 09:10 100 MG Diagnostic Test (Pha) 1 strip Q6HR 08/21/25 18:00 08/23/25 06:20 1 STRIP Insulin Human Regular Q6HR SC 08/21/25 18:00 08/23/25 06:12 2 UNITS Hydralazine HCl 25 mg Q6HR PO 08/22/25 12:00 08/23/25 06:19 25 MG Sodium Bicarbonate 650 mg TID PO 08/22/25 14:00 08/23/25 06:20 650 MG Ferrous Sulfate 325 mg BIDWM PO 08/22/25 18:00 08/23/25 09:11 325 MG Epoetin Andrew-epbx 10,000 unit MWF [place] 08/22/25 13:00 08/22/25 13:10 10,000 UNIT Aspirin 81 mg DAILY PO 08/23/25 10:00 08/23/25 09:12 81 MG Clopidogrel Bisulfate 75 mg DAILY PO 08/22/25 12:00 08/23/25 09:07 75 MG Epoetin Andrew-epbx 10,000 unit MWF [place] 08/22/25 15:45 UNV Sevelamer HCl 800 mg TIDWM PO 08/22/25 18:00 08/23/25 09:05 800 MG Examination: GENERAL:Abnormal, CVS:Normal, NEURO:Abnormal laboratory and microbiology Laboratory Tests 08/23/25 04:40 Test 08/23/25 04:40 Range/Units Serum Glucose 128 H 74-106 mg/dL Microbiology Date/Time Source Procedure Growth Status 08/20/25 18:49 Nose MRSA Screen - Final Complete 08/19/25 23:30 Blood Blood Culture - Preliminary NO GROWTH AFTER 72 HOURS OF INCUBATION. 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 renal diet We will continue to require daily monitoring Outside records obtained from [employer] [facility] in February and April showed a GFR of 8-9% with a creatinine > 6.0 this indicates patient has chronic kidney disease stage 5 Hypertension with hypertensive emergency; uncontrolled P.o. medications Coreg, amlodipine, start p.o. hydralazine today Metabolic acidosis secondary to kidney disease increase p.o. sodium bicarbonate, renal diet Anemia due to chronic kidney disease we will obtain iron panel and start ALEXANDRU agents NSTEMI with congestive heart failure EF of 25% pulm htn Diuretic therapy Cardiology Recommend obtain negative daily fluid balance, fluid and sodium restriction Facial asymmetry with left-sided weakness indicative of previous cerebral event Baseline is unclear to me, recommend stroke precautions and continue management as per primary medical team Patient is high-risk for morbidity mortality due to refusal medical therapy SW case management to determine placement Rest of care as per primary medical physician and recommend case management involvement Plan discussed with: Patient My Orders My Orders Orders - CYNTHIA ORDAZ MD Procedure Category Date Status Time Communication Order ORDERS 08/22/25 Transmitted 15:34 Sevelamer (Renagel) PHA 08/22/25 In Process 18:00 CYNTHIA ORDAZ MD Aug 23, 2025 12:18
--- NOTE | 2025-08-23 14:06 | DVHPN2 ---
Subjective This is a follow up on 55-year-old male who is homeless with a known history of diabetes mellitus type 2, hypertension, congestive heart failure, previous history of CVA with a mild weakness on the left side presented to the hospital with a initially with the increasing shortness of breaths found to have 43% saturation on room air, eventually requiring BiPAP currently off of O2 supplementation. Yesterday patient's has a change in mental status CT head was done which shows no evidence of acute infarct, MRI showed evidence of infarct in the right kuldip. Patient's has a left-sided weakness. Reviewed: H&P Changes from previous H/P or p: No Changes Eyes: No Pain, No Vision change, No Conjunctivae inflammation, No Eyelid inflammation, No Other, No Redness ENT: No Ear pain, No Ear discharge, No Nose pain, No Nose discharge, No Nose congestion, No Mouth pain, No Mouth swelling, No Throat pain, No Throat swelling, No Other Cardiovascular: No Chest Pain, No Palpitations, No Orthopnea, No Paroxysmal Noc. Dyspnea, No Edema, No Lt Headedness, No Other Respiratory: No Cough, No Dry; Shortness of breath; No SOB with excertion, No Wheezing, No Hemoptysis, No Pleuritic Pain, No Sputum; Other (SOB at rest) Gastrointestinal: No Nausea, No Vomiting, No Abdominal Pain, No Diarrhea, No Constipation, No Melena, No Hematochezia, No Other Genitourinary: No Dysuria, No Frequency, No Incontinence, No Hematuria, No Retention, No Other Musculoskeletal: No other, No neck pain, No shoulder pain, No arm pain, No back pain, No hand pain, No leg pain, No foot pain Skin: No Rash, No Lesions, No Jaundice, No Bruising, No Other Objective Vitals Vital Signs Date Time Temp Pulse Resp B/P (MAP) Pulse Ox O2 Delivery O2 Flow Rate FiO2 08/23/25 12:42 98.0 72 20 171/97 (121) 99 98.0 08/23/25 08:00 Room Air* 0 21 Intake/Output Intake and Output 08/23/25 07:00 Intake Total 300 ml Output Total 1020 ml Balance -720 ml Intake Oral 250 ml IV Total 50 ml Output Urine Total 1020 ml Exam HEENT pupils are reactive Neck is supple CV is S1-S2 regular rate and rhythm Respiratory diminished breath sounds bilateral bases GI positive bowel sound Extremity no edema [employer] left-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 General Appearance: Alert, Oriented X3 Lungs: Clear to auscultation Cardiovascular: Regular rate, Normal S1, Normal S2 Abdomen: Normal bowel sounds Medications Current Medications Medications Dose Ordered Sig/Britta Route Start Time Stop Time Status Last Admin Dose Admin Ceftriaxone Sodium 50 ml @ 100 mls/hr Q24H IV 08/21/25 00:30 08/23/25 00:42 100 MLS/HR Famotidine 10 mg DAILY IV 08/20/25 10:00 08/23/25 09:13 10 MG Dextrose 50 ml UD PRN IV 08/20/25 05:15 Sodium Chloride 10 ml Q8HR IV 08/20/25 06:00 08/23/25 06:20 10 ML Ondansetron HCl 4 mg Q4HP PRN IV 08/20/25 05:15 Nitroglycerin 0.4 mg Q5MINP PRN SL 08/20/25 05:15 Morphine Sulfate 2 mg Q30M PRN IV 08/20/25 05:15 Hydralazine HCl 10 mg Q6HP PRN IV 08/20/25 05:15 08/23/25 12:35 10 MG Heparin Sodium (Porcine) 5,000 units Q12HR SC 08/20/25 10:00 08/23/25 09:16 5,000 UNITS Amlodipine Besylate 10 mg DAILY PO 08/20/25 10:00 08/23/25 09:09 10 MG Carvedilol 25 mg Q12HR NG 08/21/25 10:00 08/22/25 22:35 25 MG Azithromycin 250 ml @ 125 mls/hr DAILY@1200 IV 08/21/25 12:00 08/21/25 12:33 125 MLS/HR Atorvastatin Calcium 40 mg HS PO 08/21/25 22:00 08/22/25 22:34 40 MG Bumetanide 1 mg BIDD IV 08/21/25 18:00 08/23/25 06:19 1 MG Docusate Sodium 100 mg BID PO 08/21/25 22:00 08/23/25 09:10 100 MG Diagnostic Test (Pha) 1 strip Q6HR 08/21/25 18:00 08/23/25 12:25 1 STRIP Insulin Human Regular Q6HR SC 08/21/25 18:00 08/23/25 12:33 4 UNITS Hydralazine HCl 25 mg Q6HR PO 08/22/25 12:00 08/23/25 06:19 25 MG Ferrous Sulfate 325 mg BIDWM PO 08/22/25 18:00 08/23/25 09:11 325 MG Epoetin Andrew-epbx 10,000 unit MWF [place] 08/22/25 13:00 08/22/25 13:10 10,000 UNIT Aspirin 81 mg DAILY PO 08/23/25 10:00 08/23/25 09:12 81 MG Clopidogrel Bisulfate 75 mg DAILY PO 08/22/25 12:00 08/23/25 09:07 75 MG [facility]etin [facility] [place] 08/22/25 15:45 UNV Sevelamer HCl 800 mg TIDWM PO 08/22/25 18:00 08/23/25 12:00 800 MG Sodium Bicarbonate 1,300 mg TID PO 08/23/25 14:00 Laboratory Results Laboratory Tests 08/23/25 04:40 Chemistry Test 08/23/25 04:40 Calcium Level 8.5 mg/dL (8.7-10.4) L Urinalysis Test 08/20/25 00:06 08/22/25 12:21 Urine Color Colorless (Yellow) Urine Clarity Clear (Clear) Urine pH 6.5 (5.0-9.0) Urine Specific [place] 1.009 (1.001-1.035) Urine Protein 2+ (Negative) H Urine Ketones Negative (Negative) Urine Blood 2+ /uL (Negative) H Urine Nitrite Negative (Negative) Urine Bilirubin Negative (Negative) Urine Urobilinogen Normal mg/dL (Negative) Urine Leukocyte Esterase Negative /uL (Negative) Urine RBC 2 /hpf (0 - 3) Urine Microscopic WBC 1 /HPF (0-3) Urine Squamous Epithelial Cells None seen /hpf (<5) Urine Bacteria None seen /hpf (None Seen) Urine Glucose 3+ mg/dL (Normal) H Urine Creatinine 91.09 mg/dL (30.0-125.0) Urine Sodium 34 mmol/L (40-220) L Urine Total Protein 229.4 mg/dL (1-14) H Microbiology Microbiology Date/Time Source Procedure Growth Status 08/22/25 13:29 Blood Blood Culture - Preliminary NO GROWTH AFTER 24 HOURS OF INCUBATION. Resulted 08/20/25 18:49 Nose MRSA Screen - Final Complete Assessment/Plan Assessment/Plan 55-year-old male with a known history of congestive heart failure with systolic dysfunction, diabetes mellitus type 2, hypertension, dyslipidemia, homelessness who initially presented to the hospital with a respiratory distress found to have acute hypoxic respiratory failure suspected secondary to congestive heart failure with systolic dysfunction/multifocal pneumonia. Patient's hospital course was eventful for acute CVA with a MRI evidence of infarct in the right kuldip. 1. Acute hypoxic respiratory failure secondary to acute CHF exacerbation with systolic dysfunction as well as multifocal pneumonia 2. Acute CHF exacerbation with systolic dysfunction with the EF of 25% 3. Multifocal pneumonia 4. Moderate/severe pulmonary hypertension 5. Acute CVA with a evidence infarct in the right-sided kuldip, with a left-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 6. AKA with a underlying CKD 7. Previous history of CVA with a mild left residual deficit 8. NSTEMI type 2 suspect secondary to acute CHF exacerbation 9. 1/2 Gram-negative bacteremia with coag-negative staph, suspect contamination 10. Hypertensive urgency, currently off of nitroglycerin drip -and aspirin, Plavix, statin, continue IV diuretics, continue IV antibiotics, discontinue Zyvox -repeat blood cultures, strict I&Os, daily weight. Plan discussed with: Patient My Orders Orders - HIRAL AUSTIN MD Procedure Category Date Status Time Transfer Orders XFER 08/22/25 Transmitted 14:59 Date of Service: Aug 23, 2025 Billing Provider: HIRAL AUSTIN MD Common Visit Codes: [id number] INP/OBS CARE(HIGH) HIRAL AUSTIN MD Aug 23, 2025 14:06
[2025-08-23] MEDS: SODIUM BICARBONATE 650 MG TAB PO SCH (14:42)
[2025-08-23] MEDS: CARVEDILOL 12.5 MG TAB PO SCH (22:35)
--- NOTE | 2025-08-23 23:39 | DVHPN2 ---
Progress Note - Dictate Date Seen: Aug 23, 2025 Medical Necessity Reason Pt with a Central, PICC or Fol: No Subjective Patient was seen and evaluated in follow up. Patient complains of left-sided weakness. The patient had a change in mental status CT head was done which shows no evidence of acute infarct, MRI showed evidence of infarct in the right kuldip. HGB 8.6, HCT 24.7, BUN 93, SECURITY SERVICES SPECIALIST 9.80, CA 8.5. Telemetry reviewed. vital signs Vital Sign Date Time Temp Pulse Resp B/P (MAP) Pulse Ox O2 Delivery O2 Flow Rate FiO2 08/23/25 12:42 98.0 72 20 171/97 (121) 99 98.0 08/23/25 08:00 Room Air* 0 21 Total Intake and Output 08/22/25 08/22/25 08/23/25 15:00 23:00 07:00 Intake Total 300 ml Output Total 420 ml 600 ml Balance -420 ml -300 ml medications Current Medications Medications Dose Ordered Sig/Britta Route Start Time Stop Time Status Last Admin Dose Admin Ceftriaxone Sodium 50 ml @ 100 mls/hr Q24H IV 08/21/25 00:30 08/23/25 00:42 100 MLS/HR Famotidine 10 mg DAILY IV 08/20/25 10:00 08/23/25 09:13 10 MG Dextrose 50 ml UD PRN IV 08/20/25 05:15 Sodium Chloride 10 ml Q8HR IV 08/20/25 06:00 08/23/25 14:23 10 ML Ondansetron HCl 4 mg Q4HP PRN IV 08/20/25 05:15 Nitroglycerin 0.4 mg Q5MINP PRN SL 08/20/25 05:15 Morphine Sulfate 2 mg Q30M PRN IV 08/20/25 05:15 Hydralazine HCl 10 mg Q6HP PRN IV 08/20/25 05:15 08/23/25 12:35 10 MG Heparin Sodium (Porcine) 5,000 units Q12HR SC 08/20/25 10:00 08/23/25 09:16 5,000 UNITS Amlodipine Besylate 10 mg DAILY PO 08/20/25 10:00 08/23/25 09:09 10 MG Azithromycin 250 ml @ 125 mls/hr DAILY@1200 IV 08/21/25 12:00 08/23/25 12:00 125 MLS/HR Atorvastatin Calcium 40 mg HS PO 08/21/25 22:00 08/22/25 22:34 40 MG Bumetanide 1 mg BIDD IV 08/21/25 18:00 08/23/25 06:19 1 MG Docusate Sodium 100 mg BID PO 08/21/25 22:00 08/23/25 09:10 100 MG Diagnostic Test (Pha) 1 strip Q6HR 08/21/25 18:00 08/23/25 12:25 1 STRIP Insulin Human Regular Q6HR SC 08/21/25 18:00 08/23/25 12:33 4 UNITS Hydralazine HCl 25 mg Q6HR PO 08/22/25 12:00 08/23/25 06:19 25 MG Ferrous Sulfate 325 mg BIDWM PO 08/22/25 18:00 08/23/25 09:11 325 MG Epoetin Andrew-epbx 10,000 unit MWF [place] 08/22/25 13:00 08/22/25 13:10 10,000 UNIT Aspirin 81 mg DAILY PO 08/23/25 10:00 08/23/25 09:12 81 MG Clopidogrel Bisulfate 75 mg DAILY PO 08/22/25 12:00 08/23/25 09:07 75 MG Epoetin Andrew-epbx 10,000 unit MWF [place] 08/22/25 15:45 UNV Sevelamer HCl 800 mg TIDWM PO 08/22/25 18:00 08/23/25 12:00 800 MG Sodium Bicarbonate 1,300 mg TID PO 08/23/25 14:00 Carvedilol 25 mg Q12HR PO 08/23/25 22:00 UNV objective GENERAL: Alert and oriented x 3. No acute distress. EYES: PERRL, EOMI. Anicteric. HENT: Moist mucous membranes. LUNGS: Clear to auscultation bilaterally. CARDIOVASCULAR: Regular rate and rhythm. ABDOMEN: Soft, non-tender and non-distended. EXTREMITIES: No edema. NEUROLOGIC: No focal neurological deficits. SKIN: Warm, dry. laboratory and microbiology Laboratory Tests 08/23/25 04:40 Test 08/23/25 04:40 Range/Units Serum Glucose 128 H 74-106 mg/dL Problem List Acute on chronic CHF. NSTEMI likely type 2 [place]. Hypertensive emergency. GISSELL on CKD. Medication noncompliance. Acute hypoxic respiratory failure, multifocal pneumonia. HX CVA. Cardiomyopathy. Assessment/Plan Continued all current supportive medical care. Amlodipine. Aspirin, Plavix. IV antibiotics as ordered. Diuretics with Bumex. IV Hydralazine for SBP >150. Hydralazine. Morphine for pain management. Additional plan as per the hospital course. Plan discussed with: Patient RAMIN OLIVIER MD Aug 23, 2025 14:31
[2025-08-24] VITALS (8 sets, daily range): BP systolic 137–176; BP diastolic 71–99; PULSE 65–112; RESP 18–20; TEMP 97.9–98.9; O2SAT 91–100
[2025-08-24 10:55] LABS: Chloride 105 mmol/L (98-107); Potassium 4.1 mmol/L (3.5-5.1); Sodium 140 mmol/L (136-145)
[2025-08-24 10:57] LABS: Anion Gap 15 (5-15)
[2025-08-24 11:02] LABS: BUN/Creatinine Ratio 9.5 (10.0-20.0)
[2025-08-24 11:09] LABS: Carbon Dioxide 20 mmol/L (20-31); Glucose 139 mg/dL (74-106)
[2025-08-24 11:11] LABS: Calcium 8.4 mg/dL (8.7-10.4)
[2025-08-24 11:19] LABS: Blood Urea Nitrogen 95 mg/dL (9-23)
--- NOTE | 2025-08-24 14:50 | DVHPN2 ---
Progress Note Date Seen: Aug 24, 2025 Medical Necessity Reason Pt with a Central, PICC or Fol: No Objective vital signs Vital Sign Date Time Temp Pulse Resp B/P (MAP) Pulse Ox O2 Delivery O2 Flow Rate FiO2 08/24/25 13:00 98.9 71 20 176/96 (122) 98 98.9 08/24/25 08:00 Room Air* 0 21 Total Intake and Output 08/23/25 08/23/25 08/24/25 15:00 23:00 07:00 Intake Total 250 ml 0 ml 950 ml Output Total 200 ml 400 ml Balance 250 ml -200 ml 550 ml medications Current Medications Medications Dose Ordered Sig/Britta Route Start Time Stop Time Status Last Admin Dose Admin Ceftriaxone Sodium 50 ml @ 100 mls/hr Q24H IV 08/21/25 00:30 08/24/25 00:35 100 MLS/HR Famotidine 10 mg DAILY IV 08/20/25 10:00 08/24/25 09:07 10 MG Dextrose 50 ml UD PRN IV 08/20/25 05:15 Sodium Chloride 10 ml Q8HR IV 08/20/25 06:00 08/24/25 13:38 10 ML Ondansetron HCl 4 mg Q4HP PRN IV 08/20/25 05:15 Nitroglycerin 0.4 mg Q5MINP PRN SL 08/20/25 05:15 Morphine Sulfate 2 mg Q30M PRN IV 08/20/25 05:15 Hydralazine HCl 10 mg Q6HP PRN IV 08/20/25 05:15 08/24/25 09:07 10 MG Heparin Sodium (Porcine) 5,000 units Q12HR SC 08/20/25 10:00 08/24/25 09:06 5,000 UNITS Amlodipine Besylate 10 mg DAILY PO 08/20/25 10:00 08/24/25 09:08 10 MG Azithromycin 250 ml @ 125 mls/hr DAILY@1200 IV 08/21/25 12:00 08/24/25 11:17 125 MLS/HR Atorvastatin Calcium 40 mg HS PO 08/21/25 22:00 08/23/25 22:34 40 MG Bumetanide 1 mg BIDD IV 08/21/25 18:00 08/24/25 05:40 1 MG Docusate Sodium 100 mg BID PO 08/21/25 22:00 08/24/25 09:09 100 MG Diagnostic Test (Pha) 1 strip Q6HR 08/21/25 18:00 08/24/25 11:08 1 STRIP Insulin Human Regular Q6HR SC 08/21/25 18:00 08/24/25 11:08 2 UNITS Hydralazine HCl 25 mg Q6HR PO 08/22/25 12:00 08/24/25 11:16 25 MG Ferrous Sulfate 325 mg BIDWM PO 08/22/25 18:00 08/24/25 08:00 325 MG Epoetin Andrew-epbx 10,000 unit MWF [place] 08/22/25 13:00 08/24/25 12:00 10,000 UNIT Aspirin 81 mg DAILY PO 08/23/25 10:00 08/24/25 09:09 81 MG Clopidogrel Bisulfate 75 mg DAILY PO 08/22/25 12:00 08/24/25 09:09 75 MG Epoetin Andrew-epbx 10,000 unit [facility] [place] 08/22/25 15:45 UNV Sevelamer HCl 800 mg TIDWM PO 08/22/25 18:00 08/24/25 11:16 800 MG Sodium Bicarbonate 1,300 mg TID PO 08/23/25 14:00 08/24/25 13:38 1,300 MG Carvedilol 25 mg Q12HR PO 08/23/25 22:00 08/24/25 09:10 25 MG Examination: GENERAL:Abnormal, CVS:Normal, NEURO:Abnormal laboratory and microbiology Laboratory Tests 08/24/25 10:10 08/23/25 04:40 Test 08/24/25 10:10 Range/Units Serum Glucose 139 H 74-106 mg/dL Microbiology Date/Time Source Procedure Growth Status 08/22/25 13:29 Blood Blood Culture - Preliminary NO GROWTH AFTER 48 HOURS OF INCUBATION. Resulted 08/20/25 18:49 Nose MRSA Screen - Final Complete Problem List/Assessment/Plan Problem List/Assessment/Plan Acute kidney injury hemodynamically mediated in the setting of hypertensive emergency CKD 5 with progression to ESRD agrees to dialysis, will order tunnel HD catheter HD after placement of catheter Hypertension with hypertensive emergency; uncontrolled P.o. medications Coreg, amlodipine, start p.o. hydralazine Metabolic acidosis secondary to kidney disease increase p.o. sodium bicarbonate, renal diet phosphate binder with each meal Anemia due to chronic kidney disease we will obtain iron panel and start ALEXANDRU agents NSTEMI with congestive heart failure EF of 25% pulm htn Diuretic therapy Cardiology Recommend obtain negative daily fluid balance, fluid and sodium restriction Facial asymmetry with left-sided weakness indicative of previous cerebral event Baseline is unclear to me, recommend stroke precautions and continue management as per primary medical team SW case management to determine placement Rest of care as per primary medical physician and recommend case management involvement Plan discussed with: Patient My Orders My Orders Orders - CYNTHIA ORDAZ MD Procedure Category Date Status Time * Radiologist Consult CONS 08/24/25 Verified 14:46 Complete Blood Count LAB 08/25/25 Verified 04:00 Phosphorus LAB 08/25/25 Verified 04:00 CYNTHIA ORDAZ MD Aug 24, 2025 14:50
--- NOTE | 2025-08-24 16:24 | DVHPN2 ---
Subjective This is a follow up on 55-year-old male who is homeless with a known history of diabetes mellitus type 2, hypertension, congestive heart failure, previous history of CVA with a mild weakness on the left side presented to the hospital with a initially with the increasing shortness of breaths found to have 43% saturation on room air, eventually requiring BiPAP currently off of O2 supplementation. Yesterday patient's has a change in mental status CT head was done which shows no evidence of acute infarct, MRI showed evidence of infarct in the right kuldip. Patient's has a left-sided weakness. Patient is agreeable to have tunneled dialysis catheter placement. Reviewed: H&P Changes from previous H/P or p: No Changes Eyes: No Pain, No Vision change, No Conjunctivae inflammation, No Eyelid inflammation, No Other, No Redness ENT: No Ear pain, No Ear discharge, No Nose pain, No Nose discharge, No Nose congestion, No Mouth pain, No Mouth swelling, No Throat pain, No Throat swelling, No Other Cardiovascular: No Chest Pain, No Palpitations, No Orthopnea, No Paroxysmal Noc. Dyspnea, No Edema, No Lt Headedness, No Other Respiratory: No Cough, No Dry; Shortness of breath; No SOB with excertion, No Wheezing, No Hemoptysis, No Pleuritic Pain, No Sputum; Other (SOB at rest) Gastrointestinal: No Nausea, No Vomiting, No Abdominal Pain, No Diarrhea, No Constipation, No Melena, No Hematochezia, No Other Genitourinary: No Dysuria, No Frequency, No Incontinence, No Hematuria, No Retention, No Other Musculoskeletal: No other, No neck pain, No shoulder pain, No arm pain, No back pain, No hand pain, No leg pain, No foot pain Skin: No Rash, No Lesions, No Jaundice, No Bruising, No Other Objective Vitals Vital Signs Date Time Temp Pulse Resp B/P (MAP) Pulse Ox O2 Delivery O2 Flow Rate FiO2 08/24/25 13:00 98.0 65 20 158/75 (102) 99 98.0 08/24/25 08:00 Room Air* 0 21 Intake/Output Intake and Output 08/24/25 07:00 Intake Total 1200 ml Output Total 600 ml Balance 600 ml Intake Oral 900 ml IV Total 300 ml Output Urine Total 600 ml # Voids 1 Exam HEENT pupils are reactive Neck is supple CV is S1-S2 regular rate and rhythm Respiratory diminished breath sounds bilateral bases GI positive bowel sound Extremity no edema HR INTERN left-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 General Appearance: Alert, Oriented X3 Lungs: Clear to auscultation Cardiovascular: Regular rate, Normal S1, Normal S2 Abdomen: Normal bowel sounds Medications Current Medications Medications Dose Ordered Sig/Britta Route Start Time Stop Time Status Last Admin Dose Admin Ceftriaxone Sodium 50 ml @ 100 mls/hr Q24H IV 08/21/25 00:30 08/24/25 00:35 100 MLS/HR Famotidine 10 mg DAILY IV 08/20/25 10:00 08/24/25 09:07 10 MG Dextrose 50 ml UD PRN IV 08/20/25 05:15 Sodium Chloride 10 ml Q8HR IV 08/20/25 06:00 08/24/25 13:38 10 ML Ondansetron HCl 4 mg Q4HP PRN IV 08/20/25 05:15 Nitroglycerin 0.4 mg Q5MINP PRN SL 08/20/25 05:15 Morphine Sulfate 2 mg Q30M PRN IV 08/20/25 05:15 Hydralazine HCl 10 mg Q6HP PRN IV 08/20/25 05:15 08/24/25 09:07 10 MG Heparin Sodium (Porcine) 5,000 units Q12HR SC 08/20/25 10:00 08/24/25 09:06 5,000 UNITS Amlodipine Besylate 10 mg DAILY PO 08/20/25 10:00 08/24/25 09:08 10 MG Azithromycin 250 ml @ 125 mls/hr DAILY@1200 IV 08/21/25 12:00 08/24/25 11:17 125 MLS/HR Atorvastatin Calcium 40 mg HS PO 08/21/25 22:00 08/23/25 22:34 40 MG Bumetanide 1 mg BIDD IV 08/21/25 18:00 08/24/25 05:40 1 MG Docusate Sodium 100 mg BID PO 08/21/25 22:00 08/24/25 09:09 100 MG Diagnostic Test (Pha) 1 strip Q6HR 08/21/25 18:00 08/24/25 11:08 1 STRIP Insulin Human Regular Q6HR SC 08/21/25 18:00 08/24/25 11:08 2 UNITS Hydralazine HCl 25 mg Q6HR PO 08/22/25 12:00 08/24/25 11:16 25 MG Ferrous Sulfate 325 mg BIDWM PO 08/22/25 18:00 08/24/25 08:00 325 MG Epoetin Andrew-epbx 10,000 unit MWF [place] 08/22/25 13:00 08/24/25 12:00 10,000 UNIT Aspirin 81 mg DAILY PO 08/23/25 10:00 08/24/25 09:09 81 MG Clopidogrel Bisulfate 75 mg DAILY PO 08/22/25 12:00 08/24/25 09:09 75 MG Epoetin Andrew-epbx 10,000 unit [facility] [place] 08/22/25 15:45 UNV Sevelamer HCl 800 mg TIDWM PO 08/22/25 18:00 08/24/25 11:16 800 MG Sodium Bicarbonate 1,300 mg TID PO 08/23/25 14:00 08/24/25 13:38 1,300 MG Carvedilol 25 mg Q12HR PO 08/23/25 22:00 08/24/25 09:10 25 MG Laboratory Results Laboratory Tests 08/23/25 04:40 08/24/25 10:10 Chemistry Test 08/24/25 10:10 Calcium Level 8.4 mg/dL (8.7-10.4) L Urinalysis Test 08/20/25 00:06 08/22/25 12:21 Urine Color Colorless (Yellow) Urine Clarity Clear (Clear) Urine pH 6.5 (5.0-9.0) Urine Specific [place] 1.009 (1.001-1.035) Urine Protein 2+ (Negative) H Urine Ketones Negative (Negative) Urine Blood 2+ /uL (Negative) H Urine Nitrite Negative (Negative) Urine Bilirubin Negative (Negative) Urine Urobilinogen Normal mg/dL (Negative) Urine Leukocyte Esterase Negative /uL (Negative) Urine RBC 2 /hpf (0 - 3) Urine Microscopic WBC 1 /HPF (0-3) Urine Squamous Epithelial Cells None seen /hpf (<5) Urine Bacteria None seen /hpf (None Seen) Urine Glucose 3+ mg/dL (Normal) H Urine Creatinine 91.09 mg/dL (30.0-125.0) Urine Sodium 34 mmol/L (40-220) L Urine Total Protein 229.4 mg/dL (1-14) H Microbiology Microbiology Date/Time Source Procedure Growth Status 08/22/25 13:29 Blood Blood Culture - Preliminary NO GROWTH AFTER 48 HOURS OF INCUBATION. Resulted 08/20/25 18:49 Nose MRSA Screen - Final Complete Assessment/Plan Assessment/Plan 55-year-old male with a known history of congestive heart failure with systolic dysfunction, diabetes mellitus type 2, hypertension, dyslipidemia, homelessness who initially presented to the hospital with a respiratory distress found to have acute hypoxic respiratory failure suspected secondary to congestive heart failure with systolic dysfunction/multifocal pneumonia. Patient's hospital course was eventful for acute CVA with a MRI evidence of infarct in the right kuldip. 1. Acute hypoxic respiratory failure secondary to acute CHF exacerbation with systolic dysfunction as well as multifocal pneumonia 2. Acute CHF exacerbation with systolic dysfunction with the EF of 25% 3. Multifocal pneumonia 4. Moderate/severe pulmonary hypertension 5. Acute CVA with a evidence infarct in the right-sided kuldip, with a left-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 6. AKA with a underlying CKD, progressing to end-stage renal disease, tunneled dialysis catheter will be placed 7. Previous history of CVA with a mild left residual deficit 8. NSTEMI type 2 suspect secondary to acute CHF exacerbation 9. 1/2 Gram-negative bacteremia with coag-negative staph, suspect contamination 10. Hypertensive urgency, currently off of nitroglycerin drip -and aspirin, Plavix, statin, continue IV diuretics, continue IV antibiotics, discontinue Zyvox -repeat blood cultures, strict I&Os, daily weight. -please place tunneled dialysis catheter for starting hemodialysis as per Nephrology recommendations. Plan discussed with: Patient My Orders Orders - HIRAL AUSTIN MD Procedure Category Date Status Time Pt Request For Service PT 08/23/25 Logged 18:18 Date of Service: Aug 24, 2025 Billing Provider: HIRAL AUSTIN MD Common Visit Codes: [id number] INP/OBS CARE(HIGH) HIRAL AUSTIN MD Aug 24, 2025 16:24
--- NOTE | 2025-08-24 16:29 | DVHPN2 ---
Progress Note - Dictate Date Seen: Aug 24, 2025 Medical Necessity Reason Pt with a Central, PICC or Fol: No Subjective Patient was seen and evaluated in follow up. Patient complains of left-sided weakness. BUN 95, MAIL OPENER 10.2, CA 8.4. Telemetry reviewed. vital signs Vital Sign Date Time Temp Pulse Resp B/P (MAP) Pulse Ox O2 Delivery O2 Flow Rate FiO2 08/24/25 11:16 154/82 08/24/25 09:15 98.9 71 20 98 98.9 08/23/25 20:00 Room Air* 0 21 Total Intake and Output 08/23/25 08/23/25 08/24/25 15:00 23:00 07:00 Intake Total 250 ml 0 ml 950 ml Output Total 200 ml 400 ml Balance 250 ml -200 ml 550 ml medications Current Medications Medications Dose Ordered Sig/Britta Route Start Time Stop Time Status Last Admin Dose Admin Ceftriaxone Sodium 50 ml @ 100 mls/hr Q24H IV 08/21/25 00:30 08/24/25 00:35 100 MLS/HR Famotidine 10 mg DAILY IV 08/20/25 10:00 08/24/25 09:07 10 MG Dextrose 50 ml UD PRN IV 08/20/25 05:15 Sodium Chloride 10 ml Q8HR IV 08/20/25 06:00 08/24/25 05:41 10 ML Ondansetron HCl 4 mg Q4HP PRN IV 08/20/25 05:15 Nitroglycerin 0.4 mg Q5MINP PRN SL 08/20/25 05:15 Morphine Sulfate 2 mg Q30M PRN IV 08/20/25 05:15 Hydralazine HCl 10 mg Q6HP PRN IV 08/20/25 05:15 08/24/25 09:07 10 MG Heparin Sodium (Porcine) 5,000 units Q12HR SC 08/20/25 10:00 08/24/25 09:06 5,000 UNITS Amlodipine Besylate 10 mg DAILY PO 08/20/25 10:00 08/24/25 09:08 10 MG Azithromycin 250 ml @ 125 mls/hr DAILY@1200 IV 08/21/25 12:00 08/24/25 11:17 125 MLS/HR Atorvastatin Calcium 40 mg HS PO 08/21/25 22:00 08/23/25 22:34 40 MG Bumetanide 1 mg BIDD IV 08/21/25 18:00 08/24/25 05:40 1 MG Docusate Sodium 100 mg BID PO 08/21/25 22:00 08/24/25 09:09 100 MG Diagnostic Test (Pha) 1 strip Q6HR 08/21/25 18:00 08/24/25 11:08 1 STRIP Insulin Human Regular Q6HR SC 08/21/25 18:00 08/24/25 11:08 2 UNITS Hydralazine HCl 25 mg Q6HR PO 08/22/25 12:00 08/24/25 11:16 25 MG Ferrous Sulfate 325 mg BIDWM PO 08/22/25 18:00 08/24/25 08:00 325 MG Epoetin Andrew-epbx 10,000 unit MWF [place] 08/22/25 13:00 08/24/25 12:00 10,000 UNIT Aspirin 81 mg DAILY PO 08/23/25 10:00 08/24/25 09:09 81 MG Clopidogrel Bisulfate 75 mg DAILY PO 08/22/25 12:00 08/24/25 09:09 75 MG Epoetin Andrew-epbx 10,000 unit MWF [place] 08/22/25 15:45 UNV Sevelamer HCl 800 mg TIDWM PO 08/22/25 18:00 08/24/25 11:16 800 MG Sodium Bicarbonate 1,300 mg TID PO 08/23/25 14:00 08/24/25 05:40 1,300 MG Carvedilol 25 mg Q12HR PO 08/23/25 22:00 08/24/25 09:10 25 MG objective GENERAL: Alert and oriented x 3. No acute distress. EYES: PERRL, EOMI. Anicteric. HENT: Moist mucous membranes. LUNGS: Clear to auscultation bilaterally. CARDIOVASCULAR: Regular rate and rhythm. ABDOMEN: Soft, non-tender and non-distended. EXTREMITIES: No edema. NEUROLOGIC: No focal neurological deficits. SKIN: Warm, dry. laboratory and microbiology Laboratory Tests 08/24/25 10:10 08/23/25 04:40 Test 08/24/25 10:10 Range/Units Serum Glucose 139 H 74-106 mg/dL Problem List Acute on chronic CHF. NSTEMI likely type 2 [place]. Hypertensive emergency. GISSELL on CKD. Medication noncompliance. Acute hypoxic respiratory failure, multifocal pneumonia. HX CVA. Cardiomyopathy. Assessment/Plan Continued all current supportive medical care. Amlodipine,Coreg. Aspirin, Plavix. IV antibiotics as ordered. Diuretics with Bumex. IV Hydralazine for SBP >150. Hydralazine. Morphine for pain management. Additional plan as per the hospital course. Plan discussed with: Patient RAMIN OLIVIER MD Aug 24, 2025 13:06
[2025-08-25] VITALS (8 sets, daily range): BP systolic 147–169; BP diastolic 75–104; PULSE 62–78; RESP 16–20; TEMP 98.2–98.5; O2SAT 95–100
[2025-08-25 05:27] LABS: Hematocrit 28.4 % (41.0-53.0); Hemoglobin 9.5 g/dL (13.5-17.5); Mean Corpuscular Hemoglobin 30.6 pg (28.0-32.0); Mean Corpuscular Volume 91.4 fL (80.0-100.0); Nucleated Red Blood Cells % 0.2 %
[2025-08-25 05:40] LABS: Anion Gap 16 (5-15); Carbon Dioxide 22 mmol/L (20-31); Chloride 106 mmol/L (98-107); Potassium 4.1 mmol/L (3.5-5.1); Sodium 144 mmol/L (136-145)
[2025-08-25 05:46] LABS: BUN/Creatinine Ratio 11.1 (10.0-20.0)
[2025-08-25 05:47] LABS: Calcium 8.3 mg/dL (8.7-10.4); Glucose 118 mg/dL (74-106)
[2025-08-25 05:52] LABS: Blood Urea Nitrogen 106 mg/dL (9-23)
--- NOTE | 2025-08-25 15:33 | DVHPN2 ---
Progress Note Date Seen: Aug 25, 2025 Medical Necessity Reason Pt with a Central, PICC or Fol: No Subjective Changes from previous H/P or p: No Changes Objective vital signs Vital Sign Date Time Temp Pulse Resp B/P (MAP) Pulse Ox O2 Delivery O2 Flow Rate FiO2 08/25/25 14:06 75 165/84 (111) 08/25/25 09:00 98.4 20 98 98.4 08/24/25 20:00 Room Air* 0 21 Total Intake and Output 08/24/25 08/24/25 08/25/25 15:00 23:00 07:00 Intake Total 250 ml 700 ml 500 ml Output Total 850 ml 350 ml Balance 250 ml -150 ml 150 ml medications Current Medications Medications Dose Ordered Sig/Britta Route Start Time Stop Time Status Last Admin Dose Admin Ceftriaxone Sodium 50 ml @ 100 mls/hr Q24H IV 08/21/25 00:30 08/24/25 23:31 100 MLS/HR Famotidine 10 mg DAILY IV 08/20/25 10:00 08/25/25 09:59 10 MG Dextrose 50 ml UD PRN IV 08/20/25 05:15 Sodium Chloride 10 ml Q8HR IV 08/20/25 06:00 08/25/25 12:24 10 ML Ondansetron HCl 4 mg Q4HP PRN IV 08/20/25 05:15 Nitroglycerin 0.4 mg Q5MINP PRN SL 08/20/25 05:15 Morphine Sulfate 2 mg Q30M PRN IV 08/20/25 05:15 Hydralazine HCl 10 mg Q6HP PRN IV 08/20/25 05:15 08/25/25 12:26 10 MG Amlodipine Besylate 10 mg DAILY PO 08/20/25 10:00 08/25/25 10:00 10 MG Azithromycin 250 ml @ 125 mls/hr DAILY@1200 IV 08/21/25 12:00 08/25/25 12:22 125 MLS/HR Atorvastatin Calcium 40 mg HS PO 08/21/25 22:00 08/24/25 21:32 40 MG Bumetanide 1 mg BIDD IV 08/21/25 18:00 08/25/25 05:31 1 MG Docusate Sodium 100 mg BID PO 08/21/25 22:00 08/24/25 21:30 100 MG Diagnostic Test (Pha) 1 strip Q6HR 08/21/25 18:00 08/25/25 12:23 1 STRIP Insulin Human Regular Q6HR SC 08/21/25 18:00 08/24/25 16:47 2 UNITS Hydralazine HCl 25 mg Q6HR PO 08/22/25 12:00 08/25/25 12:23 25 MG Ferrous Sulfate 325 mg BIDWM PO 08/22/25 18:00 08/24/25 17:11 325 MG Epoetin Andrew-epbx 10,000 unit MWF [place] 08/22/25 13:00 08/24/25 12:00 10,000 UNIT Aspirin 81 mg DAILY PO 08/23/25 10:00 08/24/25 09:09 81 MG Epoetin Andrew-epbx 10,000 unit MWF [place] 08/22/25 15:45 UNV Sevelamer HCl 800 mg TIDWM PO 08/22/25 18:00 08/25/25 12:23 800 MG Sodium Bicarbonate 1,300 mg TID PO 08/23/25 14:00 08/25/25 05:31 1,300 MG Carvedilol 25 mg Q12HR PO 08/23/25 22:00 08/25/25 10:00 25 MG Enoxaparin Sodium 90 mg BID SC 08/25/25 22:00 UNV Clonidine HCl 0.1 mg BID PO 08/25/25 22:00 UNV Examination: GENERAL:Abnormal, NECK:Normal, CVS:Normal, ABDOMEN:Normal, NEURO:Abnormal laboratory and microbiology Laboratory Tests 08/25/25 04:55 Test 08/25/25 04:55 Range/Units Serum Glucose 118 H 74-106 mg/dL Microbiology Date/Time Source Procedure Growth Status 08/22/25 13:29 Blood Blood Culture - Preliminary NO GROWTH AFTER 72 HOURS OF INCUBATION. Resulted 08/20/25 18:49 Nose MRSA Screen - Final Complete Problem List/Assessment/Plan Problem List/Assessment/Plan Acute kidney injury hemodynamically mediated in the setting of hypertensive emergency CKD 5 with progression to ESRD Acute CVA w/ new deficits hypertensive emergency HTN NSTEMI with congestive heart failure EF of 25% Anemia due to chronic kidney disease HD after placement of catheter P.o. medications Coreg, amlodipine, start p.o. hydralazine ALEXANDRU agents Diuretic therapy Cardiology will need tunnel HD catheter after IR Alonzo cruz ordered for today SW case management to determine placement Rest of care as per primary medical physician and recommend case management involvement Plan discussed with: Patient My Orders My Orders Orders - CYNTHIA ORDAZ MD Procedure Category Date Status Time Renal DIET 08/25/25 Transmitted Standard(2gna,3gk,Lopho) Breakfast * Neurology Consult CONS 08/25/25 Transmitted 13:10 * Batter Out CONS 08/25/25 Transmitted Consult CYNTHIA ORDAZ MD Aug 25, 2025 15:33
[2025-08-25] MEDS: HEPARIN 1,000 UNITS/ml 1ML VIAL IV ONE (15:45)
--- NOTE | 2025-08-25 15:53 | DVHPN2 ---
Subjective This is a follow up on 55-year-old male who is homeless with a known history of diabetes mellitus type 2, hypertension, congestive heart failure, previous history of CVA with a mild weakness on the left side presented to the hospital with a initially with the increasing shortness of breaths found to have 43% saturation on room air, eventually requiring BiPAP currently off of O2 supplementation. Yesterday patient's has a change in mental status CT head was done which shows no evidence of acute infarct, MRI showed evidence of infarct in the right kuldip. Patient's has a left-sided weakness. Patient is agreeable to have tunneled dialysis catheter placement. Reviewed: H&P Changes from previous H/P or p: No Changes Eyes: No Pain, No Vision change, No Conjunctivae inflammation, No Eyelid inflammation, No Other, No Redness ENT: No Ear pain, No Ear discharge, No Nose pain, No Nose discharge, No Nose congestion, No Mouth pain, No Mouth swelling, No Throat pain, No Throat swelling, No Other Cardiovascular: No Chest Pain, No Palpitations, No Orthopnea, No Paroxysmal Noc. Dyspnea, No Edema, No Lt Headedness, No Other Respiratory: No Cough, No Dry; Shortness of breath; No SOB with excertion, No Wheezing, No Hemoptysis, No Pleuritic Pain, No Sputum; Other (SOB at rest) Gastrointestinal: No Nausea, No Vomiting, No Abdominal Pain, No Diarrhea, No Constipation, No Melena, No Hematochezia, No Other Genitourinary: No Dysuria, No Frequency, No Incontinence, No Hematuria, No Retention, No Other Musculoskeletal: No other, No neck pain, No shoulder pain, No arm pain, No back pain, No hand pain, No leg pain, No foot pain Skin: No Rash, No Lesions, No Jaundice, No Bruising, No Other Objective Vitals Vital Signs Date Time Temp Pulse Resp B/P (MAP) Pulse Ox O2 Delivery O2 Flow Rate FiO2 08/25/25 14:06 75 165/84 (111) 08/25/25 09:00 98.4 20 98 98.4 08/24/25 20:00 Room Air* 0 21 Intake/Output Intake and Output 08/25/25 07:00 Intake Total 1450 ml Output Total 1200 ml Balance 250 ml Intake Oral 1150 ml IV Total 300 ml Output Urine Total 1200 ml Exam HEENT pupils are reactive Neck is supple CV is S1-S2 regular rate and rhythm Respiratory diminished breath sounds bilateral bases GI positive bowel sound 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 no 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 General Appearance: Alert, Oriented X3 Lungs: Clear to auscultation Cardiovascular: Regular rate, Normal S1, Normal S2 Abdomen: Normal bowel sounds Medications Current Medications Medications Dose Ordered Sig/Britta Route Start Time Stop Time Status Last Admin Dose Admin Ceftriaxone Sodium 50 ml @ 100 mls/hr Q24H IV 08/21/25 00:30 08/24/25 23:31 100 MLS/HR Famotidine 10 mg DAILY IV 08/20/25 10:00 08/25/25 09:59 10 MG Dextrose 50 ml UD PRN IV 08/20/25 05:15 Sodium Chloride 10 ml Q8HR IV 08/20/25 06:00 08/25/25 12:24 10 ML Ondansetron HCl 4 mg Q4HP PRN IV 08/20/25 05:15 Nitroglycerin 0.4 mg Q5MINP PRN SL 08/20/25 05:15 Morphine Sulfate 2 mg Q30M PRN IV 08/20/25 05:15 Hydralazine HCl 10 mg Q6HP PRN IV 08/20/25 05:15 08/25/25 12:26 10 MG Amlodipine Besylate 10 mg DAILY PO 08/20/25 10:00 08/25/25 10:00 10 MG Azithromycin 250 ml @ 125 mls/hr DAILY@1200 IV 08/21/25 12:00 08/25/25 12:22 125 MLS/HR Atorvastatin Calcium 40 mg HS PO 08/21/25 22:00 08/24/25 21:32 40 MG Bumetanide 1 mg BIDD IV 08/21/25 18:00 08/25/25 05:31 1 MG Docusate Sodium 100 mg BID PO 08/21/25 22:00 08/24/25 21:30 100 MG Diagnostic Test (Pha) 1 strip Q6HR 08/21/25 18:00 08/25/25 12:23 1 STRIP Insulin Human Regular Q6HR SC 08/21/25 18:00 08/24/25 16:47 2 UNITS Hydralazine HCl 25 mg Q6HR PO 08/22/25 12:00 08/25/25 12:23 25 MG Ferrous Sulfate 325 mg BIDWM PO 08/22/25 18:00 08/24/25 17:11 325 MG Epoetin Andrew-epbx 10,000 unit MWF SC 08/22/25 13:00 08/24/25 12:00 10,000 UNIT Aspirin 81 mg DAILY PO 08/23/25 10:00 08/24/25 09:09 81 MG Epoetin Andrew-epbx 10,000 unit MWF [place] 08/22/25 15:45 UNV Sevelamer HCl 800 mg TIDWM PO 08/22/25 18:00 08/25/25 12:23 800 MG Sodium Bicarbonate 1,300 mg TID PO 08/23/25 14:00 08/25/25 05:31 1,300 MG Carvedilol 25 mg Q12HR PO 08/23/25 22:00 08/25/25 10:00 25 MG Enoxaparin Sodium 90 mg BID SC 08/25/25 22:00 UNV Clonidine HCl 0.1 mg BID PO 08/25/25 22:00 UNV Laboratory Results Laboratory Tests 08/25/25 04:55 Chemistry Test 08/25/25 04:55 Calcium Level 8.3 mg/dL (8.7-10.4) L Phosphorus Level 5.8 mg/dL (2.4-5.1) H Urinalysis Test 08/20/25 00:06 08/22/25 12:21 Urine Color Colorless (Yellow) Urine Clarity Clear (Clear) Urine pH 6.5 (5.0-9.0) Urine Specific [place] 1.009 (1.001-1.035) Urine Protein 2+ (Negative) H Urine Ketones Negative (Negative) Urine Blood 2+ /uL (Negative) H Urine Nitrite Negative (Negative) Urine Bilirubin Negative (Negative) Urine Urobilinogen Normal mg/dL (Negative) Urine Leukocyte Esterase Negative /uL (Negative) Urine RBC 2 /hpf (0 - 3) Urine Microscopic WBC 1 /HPF (0-3) Urine Squamous Epithelial Cells None seen /hpf (<5) Urine Bacteria None seen /hpf (None Seen) Urine Glucose 3+ mg/dL (Normal) H Urine Creatinine 91.09 mg/dL (30.0-125.0) Urine Sodium 34 mmol/L (40-220) L Urine Total Protein 229.4 mg/dL (1-14) H Microbiology Microbiology Date/Time Source Procedure Growth Status 08/22/25 13:29 Blood Blood Culture - Preliminary NO GROWTH AFTER 72 HOURS OF INCUBATION. Resulted 08/20/25 18:49 Nose MRSA Screen - Final Complete Assessment/Plan Assessment/Plan 55-year-old male with a known history of congestive heart failure with systolic dysfunction, diabetes mellitus type 2, hypertension, dyslipidemia, homelessness who initially presented to the hospital with a respiratory distress found to have acute hypoxic respiratory failure suspected secondary to congestive heart failure with systolic dysfunction/multifocal pneumonia. Patient's hospital course was eventful for acute CVA with a MRI evidence of infarct in the right kuldip. 1. Acute hypoxic respiratory failure secondary to acute CHF exacerbation with systolic dysfunction as well as multifocal pneumonia 2. Acute CHF exacerbation with systolic dysfunction with the EF of 25% 3. Multifocal pneumonia 4. Moderate/severe pulmonary hypertension 5. Acute CVA with a evidence infarct in the right-sided kuldip, with a left-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 6. AKA with a underlying CKD, progressing to end-stage renal disease, tunneled dialysis catheter will be placed 7. Previous history of CVA with a mild left residual deficit 8. NSTEMI type 2 suspect secondary to acute CHF exacerbation 9. 1/2 Gram-negative bacteremia with coag-negative staph, suspect contamination 10. Hypertension, stable - consult Dr. Mckinley for dialysis catheter placement -aspirin, Plavix, statin, continue IV diuretics, continue IV antibiotics, hemodialysis catheter placement -repeat blood cultures, strict I&Os, daily weight. - Plan discussed with: Patient My Orders Orders - HIRAL AUSTIN MD Procedure Category Date Status Time Enoxaparin Sodium PHA 08/25/25 Logged (Lovenox) 22:00 Clonidine Hcl Tablet PHA 08/25/25 Logged (Catapres Tablet) 14:45 Clonidine Hcl Tablet PHA 08/25/25 Logged (Catapres Tablet) 22:00 Date of Service: Aug 25, 2025 Billing Provider: HIRAL AUSTIN MD Common Visit Codes: [id number] INP/OBS CARE(HIGH) HIRAL AUSTIN MD Aug 25, 2025 15:53
--- NOTE | 2025-08-25 16:52 | DVHNC2 ---
Procedure - ULTRASOUND-GUIDED RIGHT INTERNAL JUGULAR CENTRAL VENOUS CANNULATION for Alonzo (Large Bore) Catheter placement CPT Codes: 26907 (ultrasound guidance) 23932 (insertion of non-tunneled centrally inserted central venous catheter) 15486 (CXR interpretation) DATE: August 25, 2025 Time out: Assistance: CRISTINE Mota PHYSICIAN: Vitaliy Mckinley PREOPERATIVE DIAGNOSIS: Acute renal failure, requiring hemodialysis POSTOPERATIVE DIAGNOSIS: Acute renal failure, requiring hemodialysis PROCEDURE PERFORMED: Limited Ultrasound-guided Right internal jugular large-bore central line (Alonzo) placement. ANESTHESIA: 2 mL of 1% lidocaine plain. ESTIMATED BLOOD LOSS: less than 5 mL. SPECIMENS: None. COMPLICATIONS: None. INDICATIONS FOR PROCEDURE: The patient is in need of large bore IV access for hemodialysis due to acute renal failure DESCRIPTION OF PROCEDURE IN DETAIL: The patient was lying in the Trendelenburg position with head turned 30 degrees away from the insertion site. The skin was thoroughly sponged with chlorhexidine and allowed to dry. All persons involved were shielded with hair nets, face masks and sterile gowns. With sterile-gloved hands the right neck area was draped with the large disposable sterile field provided in the pre-manufactured kit. The skin and subcutaneous tissues superficial to the RIGHT internal jugular vein were anesthetized with 2 mL of 1% lidocaine. The RIGHT internal jugular vein was identified on ultrasound from the angle of the mandible down into the supraclavicular fossa using the linear ultrasound probe in the transverse orientation. The carotid artery was identified and avoided utilizing color-flow. The internal jugular vein was then placed in the center of the ultrasound field and compressed for patency. A movement artifact was identified as the needle was advanced through the skin and advanced toward the vessel. A real time hyperechoic signal revealed visualization of vascular needle entry into the lumen as blood was noted to flashback in the syringe. The needle was then held in place while the guide wire was advanced. The needle was then removed. Direct visualization of guide wire location within the vein was noted on ultrasound indicating proper placement and was documented in the [facility] medical record chart. A skin dilator was advanced over the guidewire and removed. A larger bore skin dilator was advanced over the guidewire and removed. The double-lumen Alonzo catheter was then advanced over the guide wire into proper position. The guide wire was removed and discarded. The ports were aspirated which showed good blood return and then carefully flushed with normal saline. Heparin 1.2 mL were placed into each port. The catheter was stabilized and sutured to the skin with 2-0 Prolene at 2 anchor points. A sterile bio-patch and dressing was placed over the catheter, including the insertion site. The patient tolerated the procedure well. A chest x-ray was ordered for position confirmation. It is pending at the time of writing this note. An image print out of the guidewire within the lumen of the right internal jugular vein accompanies the chart. Visit Coding Pulmonary Billing Provider: VITALIY MCKINLEY MD Date of Service if different f: Aug 25, 2025 Common Visit Codes: PROCEDURE ONLY Procedure Codes: [id number] NON-TUNNEL CV CATH, 66805-HC GUIDE VASCULAR ACCESS VITALIY MCKINLEY MD Aug 25, 2025 16:52
--- NOTE | 2025-08-25 17:35 | DVH ---
CHEST RADIOGRAPH Indication: Status post right IJ Alonzo catheter placement rule out ptx Technique: XY CHEST XRAY 1 VIEW Comparison: None FINDINGS: Right IJ Alonzo catheter tip projects over the SVC. The cardiac silhouette is unremarkable. The lungs demonstrate patchy right lung airspace opacities. The pulmonary vasculature is prominent. There is no pleural effusion. There is no pneumothorax. IMPRESSION: As above
[2025-08-25 18:24] LABS: Hematocrit 31.0 % (41.0-53.0); Hemoglobin 10.5 g/dL (13.5-17.5); Mean Corpuscular Hemoglobin 30.6 pg (28.0-32.0); Mean Corpuscular Volume 91.0 fL (80.0-100.0); Nucleated Red Blood Cells % 0.3 %
[2025-08-25 18:48] LABS: INR 0.99 (0.9-1.15); Partial Thromboplastin Time 27.4 SEC (24.5-34.5); Prothrombin Time 10.5 sec (9.3-11.8)
[2025-08-25] MEDS: HEPARIN DRIP/D5W 100UNITS/ML 250 ML IV SCH (21:14)
--- NOTE | 2025-08-25 21:56 | DVHPN2 ---
Progress Note - Dictate Date Seen: Aug 25, 2025 Medical Necessity Reason Pt with a Central, PICC or Fol: No Subjective Patient was seen and evaluated in follow up. Patient complains of left-sided weakness. 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 Telemetry reviewed. vital signs Vital Sign Date Time Temp Pulse Resp B/P (MAP) Pulse Ox O2 Delivery O2 Flow Rate FiO2 08/25/25 10:00 69 162/96 08/25/25 09:00 98.4 20 98 98.4 08/24/25 20:00 Room Air* 0 21 Total Intake and Output 08/24/25 08/24/25 08/25/25 15:00 23:00 07:00 Intake Total 250 ml 700 ml 500 ml Output Total 850 ml 350 ml Balance 250 ml -150 ml 150 ml medications Current Medications Medications Dose Ordered Sig/Britta Route Start Time Stop Time Status Last Admin Dose Admin Ceftriaxone Sodium 50 ml @ 100 mls/hr Q24H IV 08/21/25 00:30 08/24/25 23:31 100 MLS/HR Famotidine 10 mg DAILY IV 08/20/25 10:00 08/25/25 09:59 10 MG Dextrose 50 ml UD PRN IV 08/20/25 05:15 Sodium Chloride 10 ml Q8HR IV 08/20/25 06:00 08/25/25 05:31 10 ML Ondansetron HCl 4 mg Q4HP PRN IV 08/20/25 05:15 Nitroglycerin 0.4 mg Q5MINP PRN SL 08/20/25 05:15 Morphine Sulfate 2 mg Q30M PRN IV 08/20/25 05:15 Hydralazine HCl 10 mg Q6HP PRN IV 08/20/25 05:15 08/24/25 09:07 10 MG Heparin Sodium (Porcine) 5,000 units Q12HR SC 08/20/25 10:00 08/24/25 21:37 5,000 UNITS Amlodipine Besylate 10 mg DAILY PO 08/20/25 10:00 08/25/25 10:00 10 MG Azithromycin 250 ml @ 125 mls/hr DAILY@1200 IV 08/21/25 12:00 08/24/25 11:17 125 MLS/HR Atorvastatin Calcium 40 mg HS PO 08/21/25 22:00 08/24/25 21:32 40 MG Bumetanide 1 mg BIDD IV 08/21/25 18:00 08/25/25 05:31 1 MG Docusate Sodium 100 mg BID PO 08/21/25 22:00 08/24/25 21:30 100 MG Diagnostic Test (Pha) 1 strip Q6HR 08/21/25 18:00 08/25/25 05:32 1 STRIP Insulin Human Regular Q6HR SC 08/21/25 18:00 08/24/25 16:47 2 UNITS Hydralazine HCl 25 mg Q6HR PO 08/22/25 12:00 08/25/25 05:31 25 MG Ferrous Sulfate 325 mg BIDWM PO 08/22/25 18:00 08/24/25 17:11 325 MG Epoetin Andrew-epbx 10,000 unit MWF [place] 08/22/25 13:00 08/24/25 12:00 10,000 UNIT Aspirin 81 mg DAILY PO 08/23/25 10:00 08/24/25 09:09 81 MG Clopidogrel Bisulfate 75 mg DAILY PO 08/22/25 12:00 08/24/25 09:09 75 MG Epoetin Andrew-epbx 10,000 unit MWF [place] 08/22/25 15:45 UNV Sevelamer HCl 800 mg TIDWM PO 08/22/25 18:00 08/25/25 10:02 800 MG Sodium Bicarbonate 1,300 mg TID PO 08/23/25 14:00 08/25/25 05:31 1,300 MG Carvedilol 25 mg Q12HR PO 08/23/25 22:00 08/25/25 10:00 25 MG objective GENERAL: Alert and oriented x 3. No acute distress. EYES: PERRL, EOMI. Anicteric. HENT: Moist mucous membranes. LUNGS: Clear to auscultation bilaterally. CARDIOVASCULAR: Regular rate and rhythm. ABDOMEN: Soft, non-tender and non-distended. EXTREMITIES: No edema. NEUROLOGIC: No focal neurological deficits. SKIN: Warm, dry. laboratory and microbiology Laboratory Tests 08/25/25 04:55 Test 08/25/25 04:55 Range/Units Serum Glucose 118 H 74-106 mg/dL Problem List Acute on chronic CHF. NSTEMI likely type 2 ME. Hypertensive emergency. GISSELL on CKD. Medication noncompliance. Acute hypoxic respiratory failure, multifocal pneumonia. HX CVA. Cardiomyopathy. Assessment/Plan Continued all current supportive medical care. Amlodipine, Coreg. IV antibiotics as ordered. Diuretics with Bumex. Hydralazine. Morphine for pain management. Additional plan as per the hospital course. Plan discussed with: Patient RAMIN OLIVIER MD Aug 25, 2025 12:13
[2025-08-25] MEDS ORDERED: ENOXAPARIN SOD 100 MG/1 ML SYRINGE SC SCH (22:00)
--- NOTE | 2025-08-25 23:34 | DVHINCON2 ---
Date of service: Aug 25, [address] Lizarraga Reason for Consultation Stroke History of Present Illness Mr. Thomas is a 55 years old right-handed gentleman with a history of hypertension, diabetes, congestive heart failure, COPD, asthma, the patient was admitted on 08/19/2025 with a chief complaint of shortness breath, but he was has other complaints Around 08/18/2025, he developed slurred speech, left-sided weakness, his MR brain scan obtained on 08/22 25 confirmed acute right pontine stroke In 2021, he developed mild right-sided weakness, the patient was seen in the local hospital and was said to have acute stroke, the patient is discharged with aspirin but he discontinue sometimes later He has had loud snoring, but his sleep is refreshing, he denies excessive daytime sleepiness, has not had sleep medicine evaluation yet UDS, 08/20/2025: Negative WBC/HB/PLT/MCV, 08/25/2025: 5.2/10.5/160/91 BUN/CR, 08/19/2025: 49/9.09, 08/21/2025: 65/9.36, 08/25/2025: 106/9.55 HCO3, 08/19/2025:18 , 08/20/2025: 19. Lactic acid, 08/19/2025: 5.3 Liver function tests, 08/21/2025: Unremarkable TG/HDL/LDL/HDL, 08/20/2025: 42/141/86/35 Chest x-ray, 08/19/2025: Multifocal pneumonia throughout both lungs CT head, 08/21/2025: 1. No acute territorial infarct, intracranial hemorrhage, or mass effect. 2. Age-related involutional changes. Chronic ischemic changes as detailed. 3. If clinical symptoms persist, MRI may be beneficial in further evaluation MRI head, 08/22/2025: Acute infarct right kuldip measuring 2.1 cm. Left parietal encephalomalacia Past Medical History Hypertension, diabetes, congestive heart failure, stroke, COPD, asthma Past Surgical History None Family History Diabetes Social History He smokes marijuana, but no history of tobacco smoking, alcohol or drug abuse Allergies: Coded Allergies: NO KNOWN ALLERGIES (Unverified , 12/27/20) Home Meds Active Scripts Carvedilol (Carvedilol) 25 Mg Tab, 25 MG PO BID for 60 Days, #120 TAB 0 Refills Prov:[employer] 06/02/23 Atorvastatin Calcium (ATORVASTATIN CALCIUM) 40 Mg Tab, 40 MG PO DAILY for 60 Days, #60 TAB 0 Refills Prov:J[employer] 06/02/23 Furosemide (Furosemide) 20 Mg Tab, 20 MG PO DAILY for 60 Days, #60 TAB 0 Refills Prov:J[employer] 06/02/23 Dapagliflozin Propanediol (Farxiga) 10 Mg Tab, 10 MG PO DAILY for 60 Days, #60 TAB 0 Refills Prov:J[employer] 06/02/23 Amlodipine Besylate (Amlodipine Besylate) 5 Mg Tab, 5 MG PO DAILY for 60 Days, #60 TAB 0 Refills Prov:[employer] 06/02/23 Hydralazine Hcl (Hydralazine Hcl) 100 Mg Tab, 100 MG PO TID for 60 Days, #180 TAB 0 Refills Prov:JAM[employer] 04/28/23 Albuterol Sulfate (Albuterol Sulfate Hfa) 108 Mcg/Act Aer, 2 PUFF IN Q4HPRN PRN, #1 INHALER 1 Refill Prov:[facility] 02/09/23 Prednisone (Prednisone) 20 Mg Tab, 60 MG PO DAILY for 5 Days, #15 TAB 0 Refills Prov:[facility] 02/09/23 Azithromycin (Zithromax Z-Osmany) 250 Mg Tab, 250 MG PO DAILY for 5 Days, #6 TAB 0 Refills As directed Prov:[facility] 02/09/23 Current Medications Current Medications Medications (Trade) Dose Ordered Sig/Britta Route PRN Reason Start Time Stop Time Status Last Admin Enoxaparin Sodium (Lovenox) 90 mg BID SC 08/25/25 22:00 08/25/25 17:33 DC Clonidine HCl (Catapres Tablet) 0.1 mg BID PO 08/25/25 22:00 08/25/25 16:57 DC Clonidine HCl (Catapres Tablet) 0.1 mg BID PRN PO SBP>160 or DBP>105 08/25/25 22:00 Heparin Sodium/ Dextrose 250 ml @ 10 mls/hr Q24H IV 08/25/25 17:30 08/25/25 21:14 Review of Systems As above, the other systems are negative Vital Signs Vital Signs Date Time Temp Pulse Resp B/P (MAP) Pulse Ox O2 Delivery O2 Flow Rate FiO2 08/25/25 23:00 149/69 08/25/25 22:57 78 08/25/25 21:00 98.2 18 100 98.2 08/25/25 08:00 Room Air* 0 21 Physical Exam GENERAL EXAM: General: the patient is well developed and nourished. No acute distress. HEENT: Normocephalic, neck is supple, no carotid bruits. No mass. RESPIRATORY: Normal respiratory effort with symmetrical lung expansion. Lungs clear to auscultation. CARDIOVASCULAR: Regular rate and rhythm with no murmurs. S1, S2. ABDOMEN: Soft, nontender, normal bowel sound NEUROLOGICAL: MENTAL STATUS: Awake and alert. Oriented to person, place, time and general circumstances. Able to give personal history SPEECH, LANGUAGE, HIGHER CORTICAL FUNCTION: no aphasia he has has mild dysarthria CRANIAL NERVES: #2: Intact visual alex to confrontation. The optic discs were sharp. #3,4,6: Pupils are equal, round and reactive. EOMs full and conjugate. #5: Facial sensation intact in all three divisions bilaterally. Mandibular strength intact. #7: Left facial weakness of upper motor neuron pattern #8: Hearing grossly normal to voice. #9,10: Uvula and soft palate rise in the midline. Swallow and voice are normal. #11: Trapezius and sternomastoid strength intact bilaterally. #12: Tongue midline. No fasciculations or atrophy. SENSATION: Sensation to touch and pinprick is normal. MOTOR: Normal tone in the upper and lower extremity. Normal muscle bulk. No fasciculations. No abnormal movements or posturing. Muscle strength of the major groups in the right extremities is 5/5. Muscle strength of the major groups in the lower extremities is: Arm: 0/5, le/5. REFLEXES: Deep tendon reflexes are symmetrical. No pathological reflexes. CEREBELLAR/COORDINATION: Finger to nose is normal in the right hand GAIT/STATION: deferred. Labs/Diagnostic Data Labs Test 08/25/25 23:03 08/25/25 18:06 08/25/25 04:55 08/22/25 13:29 Range/Units POC Glucose 202 H 70-106 mg/dl White Blood Count 5.2 4.4-10.8 10^3/uL Red Blood Count 3.41 L 4.5-5.90 10^6/uL Hemoglobin 10.5 L 13.5-17.5 g/dL Hematocrit 31.0 L 41.0-53.0 % Mean Corpuscular Volume 91.0 80.0-100.0 fL Mean Corpuscular Hemoglobin 30.6 28.0-32.0 pg Mean Corpuscular Hemoglobin Concent 33.7 32.0-36.0 g/dL Red Cell Distribution Width 14.9 H 11.8-14.3 % Platelet Count 160 140-450 10^3/uL Mean Platelet Volume 8.6 6.9-10.8 fL Neutrophils (%) (Auto) 71.8 37.0-80.0 % Lymphocytes (%) (Auto) 16.7 10.0-50.0 % Monocytes (%) (Auto) 10.2 0.0-12.0 % Eosinophils (%) (Auto) 0.8 0.0-7.0 % Basophils (%) (Auto) 0.5 0.0-2.0 % Neutrophils # (Auto) 3.7 1.6-8.6 10 ^3/uL Lymphocytes # (Auto) 0.9 0.4-5.4 10 ^3/uL Monocytes # (Auto) 0.5 0-1.3 10 ^3/uL Eosinophils # (Auto) 0 0-0.8 10 ^3/uL Basophils # (Auto) 0 0-0.2 10 ^3/uL Nucleated Red Blood Cells 0.3 % Prothrombin Time 10.5 9.3-11.8 sec Prothrombin Time INR 0.99 0.9-1.15 Activated Partial Thromboplast Time 27.4 24.5-34.5 SEC Sodium Level 144 136-145 mmol/L Potassium Level 4.1 3.5-5.1 mmol/L Chloride Level 106 98-107 mmol/L Carbon Dioxide Level 22 20-31 mmol/L Anion Gap 16 H 5-15 Blood Urea Nitrogen 106 #*H 9-23 mg/dL Creatinine 9.55 H 0.700-1.30 mg/dL Glomerular Filtration Rate Calc 6 >90 mL/min BUN/Creatinine Ratio 11.1 10.0-20.0 Serum Glucose 118 H 74-106 mg/dL Calcium Level 8.3 L 8.7-10.4 mg/dL Phosphorus Level 5.8 H 2.4-5.1 mg/dL Iron Level 127 65-175 ug/dL Total Iron Binding Capacity 243 L 250-425 ug/dL Percent Iron Saturation 52.3 20-55 % Ferritin 192.5 22-322 ng/mL Hepatitis B Surface Antigen Negative Negative Test 08/22/25 12:21 08/21/25 04:50 08/20/25 18:49 08/20/25 05:58 Range/Units Urine Creatinine 91.09 30.0-125.0 mg/dL Urine Sodium 34 L 40-220 mmol/L Urine Total Protein 229.4 H 1-14 mg/dL Magnesium Level 2.1 1.6-2.6 mg/dL Total Bilirubin 0.4 0.2-1.0 mg/dL Aspartate Amino Transferase (AST) 18 13-40 U/L Alanine Aminotransferase (ALT) 22 7-40 U/L Alkaline Phosphatase 30 L 46-116 U/L Total Protein 6.3 5.7-8.2 g/dL Albumin 3.8 3.2-4.8 g/dL Influenza Type A Antigen Negative Negative Influenza Type B Antigen Negative Negative SARS-CoV-2 Antigen (Rapid) Negative NEGATIVE Triglycerides Level 42 < 150 mg/dL Cholesterol Level 141 < 200 mg/dL LDL Cholesterol 86 < 100 mg/dL HDL Cholesterol 45 40-59 mg/dL Test 08/20/25 01:53 08/20/25 01:21 08/20/25 00:20 08/20/25 00:06 Range/Units Troponin I High Sensitivity 242 *H </=54 ng/L Lactic Acid Level 1.5 0.4-2.0 mmol/L Blood Gas Specimen Type Venous Blood Gas Sample Site Vbg - n/a Blood Gas Patient Temperature 37.0 Arterial Blood Date Drawn [id number] Mike Test Yes Venous Blood pH 7.259 L 7.320-7.430 Venous Blood pCO2 at Patient Temp 38.1 38.0-54.0 mmHg Venous Blood pO2 at Patient Temp 41.8 23.0-48.0 mmHg Venous Blood HCO3 16.7 L 22.0-29.0 mmol/L Venous Blood Base Excess -9.7 L -2.0-3.0 mmol/L Blood Gas Modality Mask - bipap FiO2 % 50.0 Blood Gas EPAP 5 Blood Gas IPAP 15 Urine Color Colorless Yellow Urine Clarity Clear Clear Urine pH 6.5 5.0-9.0 Urine Specific [place] 1.009 1.001-1.035 Urine Protein 2+ H Negative Urine Ketones Negative Negative Urine Blood 2+ H Negative /uL Urine Nitrite Negative Negative Urine Bilirubin Negative Negative Urine Urobilinogen Normal Negative mg/dL Urine Leukocyte Esterase Negative Negative /uL Urine RBC 2 0 - 3 /hpf Urine Microscopic WBC 1 0-3 /HPF Urine Squamous Epithelial Cells None seen <5 /hpf Urine Bacteria None seen None Seen /hpf Urine Glucose 3+ H Normal mg/dL Urine Opiates Screen Neg NEGATIVE Urine Fentanyl Screen Neg NEGATIVE Urine Barbiturates Screen Neg NEGATIVE Urine Phencyclidine Screen Neg NEGATIVE Urine Amphetamines Screen Neg NEGATIVE Urine Benzodiazepines Screen Neg NEGATIVE Urine Cocaine Screen Neg NEGATIVE Urine Cannabinoids Screen Neg NEGATIVE Test 08/19/25 23:05 Range/Units B-Type Natriuretic Peptide 2127.06 0-100 pg/mL Microbiology Date/Time Source Procedure Growth Status 08/22/25 13:29 Blood Blood Culture - Preliminary NO GROWTH AFTER 72 HOURS OF INCUBATION. Resulted 08/20/25 18:49 Nose MRSA Screen - Final Complete Assessment Acute pontine stroke with dysarthria, left facial weakness, left hemiplegia Chronic left hemispheres stroke Sleep-related breathing disorder Kidney failure Acute respiratory failure Plan/Recommendation Monitoring Supportive treatment Telemetry AMANDA Carotid Doppler Aspirin 81 mg daily Plavix 75 mg daily for 21 days Lipitor 40 mg daily Oxygen Nephrology on case Cardiology on case Address sleep-related breathing disorder later I have discussed with him about stroke risk facts, secondary stroke prevention Prognosis: poor This medical document was created using an electronic medical record system with [employer] dictation system. Although this document has been carefully reviewed, there may still be some phonetic and typographical errors. These areas are purely typographical due to imperfections of the software programs, and do not reflect any compromise in the patient's medical care. Plan discussed with: Patient, Other CORAZON ALVARADO MD Aug 25, 2025 23:34
[2025-08-26] VITALS (8 sets, daily range): BP systolic 159–173; BP diastolic 86–97; PULSE 68–77; RESP 18–20; TEMP 97.4–98; O2SAT 96–99
[2025-08-26] MEDS: CLOPIDOGREL BISULFATE 75 MG TAB PO ONE
[2025-08-26 04:02] LABS: Hematocrit 27.9 % (41.0-53.0); Hemoglobin 9.7 g/dL (13.5-17.5)
[2025-08-26 04:22] LABS: INR 1.03 (0.9-1.15); Partial Thromboplastin Time 39.3 SEC (24.5-34.5); Prothrombin Time 10.9 sec (9.3-11.8)
[2025-08-26 04:23] LABS: Anion Gap 15 (5-15); Carbon Dioxide 23 mmol/L (20-31); Chloride 106 mmol/L (98-107); Potassium 4.1 mmol/L (3.5-5.1); Sodium 144 mmol/L (136-145)
[2025-08-26 04:29] LABS: BUN/Creatinine Ratio 11.5 (10.0-20.0)
[2025-08-26 04:30] LABS: Calcium 8.2 mg/dL (8.7-10.4); Glucose 145 mg/dL (74-106)
[2025-08-26 04:33] LABS: Blood Urea Nitrogen 109 mg/dL (9-23); Iron 48.0 ug/dL (65-175)
[2025-08-26 04:36] LABS: Total Iron Binding Capacity 211.0 ug/dL (250-425)
[2025-08-26] MEDS: HEPARIN DRIP/D5W 100UNITS/ML 250 ML IV SCH ×2 (05:23→13:26)
--- NOTE | 2025-08-26 08:57 | DVH ---
LEFT Upper Extremity Venous Duplex Clinical History: left arm swelling Comparison: None Findings: Duplex Doppler evaluation of the venous system of the LEFT lower neck and upper extremity including color Doppler and spectral/pulsed waveform analysis was performed. The internal jugular vein demonstrates appropriate compressibility and waveform variability. The subclavian vein is patent on color Doppler evaluation without intraluminal thrombus and demonstrates waveform variability. The visualized portion of the brachiocephalic vein is patent on color Doppler evaluation without intraluminal thrombus and demonstrates waveform variability. The axillary vein demonstrates appropriate compressibility and waveform variability. The brachial veins demonstrate appropriate compressibility and patency on Doppler evaluation. The basilic vein demonstrates thrombus. The cephalic vein demonstartes thrombus. Impression: Thrombus basilic vein and cephalic vein. If clinical concern/symptoms persist or worsen, short-interval follow-up study is suggested.
--- NOTE | 2025-08-26 09:03 | DVH ---
CLINICAL HISTORY: cva TECHNIQUE: Burrows-scale, Color and Duplex Doppler imaging of the bilateral carotid systems was performed. COMPARISON: None Findings: Right Carotid system: Can not be evaluated due to overlying bandaging and line. Left Carotid system: There is plaque present in the left carotid system. The following flow velocities were obtained (cm/sec). Right Carotid System: Not seen due to bandaging and IJ line. Left Carotid System: ICA PSV: 51 cm/sec ICA PDV: 18 cm/sec ICA/CCA Ratio: 5 The left common carotid and external carotid arteries are patent. There is antegrade flow in the left vertebral and external carotid arteries. IMPRESSION: Right carotid system not evaluated due to overlying bandaging and IJ line. Left carotid system demonstrates no hemodynamically significant stenosis.
[2025-08-26] MEDS: CLOPIDOGREL BISULFATE 75 MG TAB PO SCH (10:00)
[2025-08-26 11:57] LABS: INR 1.03 (0.9-1.15); Prothrombin Time 10.9 sec (9.3-11.8)
[2025-08-26 12:09] LABS: Partial Thromboplastin Time 116.1 SEC (24.5-34.5)
[2025-08-26] MEDS ORDERED: HEPARIN DRIP/D5W 100UNITS/ML 250 ML IV SCH (12:15)
--- NOTE | 2025-08-26 12:18 | CONS ---
Pharmacy Clinical Information: DECREASE HEPARIN RATE TO 9 ML/HR DUE TO APTT OF 116.1 PER RX PROTOCOL. NEXT APTT ON 08/26 AT 1830. CRISTINE MENDOSA CONFIRMED AND READ BACK HERMILA ORTIZ PHARMACIST Aug 26, 2025 12:18
--- NOTE | 2025-08-26 14:11 | DVHPN2 ---
Progress Note - Dictate Date Seen: Aug 26, 2025 Medical Necessity Reason Pt with a Central, PICC or Fol: No Subjective Patient was seen and evaluated in follow up. Patient is complaining of left- sided weakness. Per RN, patient is refusing to eat. HGB 9.7, HCT 27.9, BUN 109, MSWS 9.44. Cartoid Doppler showed right carotid system not evaluated due to overlying bandaging and IJ line. Left carotid system demonstrates no hemodynamically significant stenosis. LUE Duplex showed a thrombus basilic vein and cephalic vein, patient was started on Heparin drip. Telemetry reviewed. vital signs Vital Sign Date Time Temp Pulse Resp B/P (MAP) Pulse Ox O2 Delivery O2 Flow Rate FiO2 08/26/25 12:29 167/96 08/26/25 11:51 70 08/26/25 08:56 97.5 20 97 97.5 08/25/25 20:20 Room Air* 0 21 Total Intake and Output 08/25/25 08/25/25 08/26/25 15:00 23:00 07:00 Intake Total 800 ml 480 ml Output Total 950 ml 450 ml Balance -150 ml 30 ml medications Current Medications Medications Dose Ordered Sig/Britta Route Start Time Stop Time Status Last Admin Dose Admin Ceftriaxone Sodium 50 ml @ 100 mls/hr Q24H IV 08/21/25 00:30 08/24/25 23:31 100 MLS/HR Famotidine 10 mg DAILY IV 08/20/25 10:00 08/26/25 10:47 10 MG Dextrose 50 ml UD PRN IV 08/20/25 05:15 Sodium Chloride 10 ml Q8HR IV 08/20/25 06:00 08/26/25 05:38 10 ML Ondansetron HCl 4 mg Q4HP PRN IV 08/20/25 05:15 Nitroglycerin 0.4 mg Q5MINP PRN SL 08/20/25 05:15 Morphine Sulfate 2 mg Q30M PRN IV 08/20/25 05:15 Hydralazine HCl 10 mg Q6HP PRN IV 08/20/25 05:15 08/26/25 06:58 10 MG Amlodipine Besylate 10 mg DAILY PO 08/20/25 10:00 08/26/25 10:51 10 MG Azithromycin 250 ml @ 125 mls/hr DAILY@1200 IV 08/21/25 12:00 08/26/25 12:29 125 MLS/HR Atorvastatin Calcium 40 mg HS PO 08/21/25 22:00 08/25/25 22:56 40 MG Bumetanide 1 mg BIDD IV 08/21/25 18:00 08/26/25 05:37 1 MG Docusate Sodium 100 mg BID PO 08/21/25 22:00 08/26/25 10:49 100 MG Diagnostic Test (Pha) 1 strip Q6HR 08/21/25 18:00 08/26/25 12:34 1 STRIP Insulin Human Regular Q6HR SC 08/21/25 18:00 08/26/25 05:38 2 UNITS Hydralazine HCl 25 mg Q6HR PO 08/22/25 12:00 08/26/25 12:29 25 MG Ferrous Sulfate 325 mg BIDWM PO 08/22/25 18:00 08/26/25 09:14 325 MG Epoetin Andrew-epbx 10,000 unit MWF LA 08/22/25 13:00 08/26/25 11:10 10,000 UNIT Aspirin 81 mg DAILY PO 08/23/25 10:00 08/26/25 10:48 81 MG Epoetin Andrew-epbx 10,000 unit MWF LA 08/22/25 15:45 UNV Sevelamer HCl 800 mg TIDWM PO 08/22/25 18:00 08/26/25 12:29 800 MG Sodium Bicarbonate 1,300 mg TID PO 08/23/25 14:00 08/26/25 05:36 1,300 MG Carvedilol 25 mg Q12HR PO 08/23/25 22:00 08/26/25 10:51 25 MG Clonidine HCl 0.1 mg BID PRN PO 08/25/25 22:00 08/26/25 02:10 0.1 MG Clopidogrel Bisulfate 75 mg DAILY PO 08/26/25 10:00 09/14/25 23:00 Heparin Sodium/ Dextrose 250 ml @ 9 mls/hr Q24H IV 08/26/25 12:15 objective GENERAL: Alert and oriented x 3. No acute distress. EYES: PERRL, EOMI. Anicteric. HENT: Moist mucous membranes. LUNGS: Clear to auscultation bilaterally. CARDIOVASCULAR: Regular rate and rhythm. ABDOMEN: Soft, non-tender and non-distended. EXTREMITIES: No edema. NEUROLOGIC: No focal neurological deficits. SKIN: Warm, dry. laboratory and microbiology Laboratory Tests 08/26/25 02:55 08/25/25 18:06 Test 08/26/25 02:55 Range/Units Serum Glucose 145 H 74-106 mg/dL Problem List Acute on chronic CHF. NSTEMI likely type 2 NE. Hypertensive emergency. GISSELL on CKD. Medication noncompliance. Acute hypoxic respiratory failure, multifocal pneumonia. Cardiomyopathy. Acute pontine stroke with dysarthria, left facial weakness, left hemiplegia. Chronic left hemispheres stroke. Assessment/Plan Continued all current supportive medical care. Amlodipine, Coreg, Clonidine, Hydralazine. Aspirin, Lipitor, Plavix. IV antibiotics as ordered. Diuretics with Bumex. Heparin drip per pharmacy. Morphine for pain management. Additional plan as per the hospital course. Plan discussed with: Patient RAMIN OLIVIER MD Aug 26, 2025 12:39
--- NOTE | 2025-08-26 15:58 | DVHPN2 ---
Subjective This is a follow up on 55-year-old male who is homeless with a known history of diabetes mellitus type 2, hypertension, congestive heart failure, previous history of CVA with a mild weakness on the left side presented to the hospital with a initially with the increasing shortness of breaths found to have 43% saturation on room air, eventually requiring BiPAP currently off of O2 supplementation. Yesterday patient's has a change in mental status CT head was done which shows no evidence of acute infarct, MRI showed evidence of infarct in the right kuldip. Patient's has a left-sided weakness. Patient is agreeable to have tunneled dialysis catheter placement. Reviewed: H&P Changes from previous H/P or p: No Changes Eyes: No Pain, No Vision change, No Conjunctivae inflammation, No Eyelid inflammation, No Other, No Redness ENT: No Ear pain, No Ear discharge, No Nose pain, No Nose discharge, No Nose congestion, No Mouth pain, No Mouth swelling, No Throat pain, No Throat swelling, No Other Cardiovascular: No Chest Pain, No Palpitations, No Orthopnea, No Paroxysmal Noc. Dyspnea, No Edema, No Lt Headedness, No Other Respiratory: No Cough, No Dry; Shortness of breath; No SOB with excertion, No Wheezing, No Hemoptysis, No Pleuritic Pain, No Sputum; Other (SOB at rest) Gastrointestinal: No Nausea, No Vomiting, No Abdominal Pain, No Diarrhea, No Constipation, No Melena, No Hematochezia, No Other Genitourinary: No Dysuria, No Frequency, No Incontinence, No Hematuria, No Retention, No Other Musculoskeletal: No other, No neck pain, No shoulder pain, No arm pain, No back pain, No hand pain, No leg pain, No foot pain Skin: No Rash, No Lesions, No Jaundice, No Bruising, No Other Objective Vitals Vital Signs Date Time Temp Pulse Resp B/P (MAP) Pulse Ox O2 Delivery O2 Flow Rate FiO2 08/26/25 12:38 97.8 68 20 167/96 (119) 98 97.8 08/25/25 20:20 Room Air* 0 21 Intake/Output Intake and Output 08/26/25 07:00 Intake Total 1280 ml Output Total 1400 ml Balance -120 ml Intake Oral 1200 ml IV Total 80 ml Output Urine Total 1400 ml # Voids 1 Exam HEENT pupils are reactive Neck is supple CV is S1-S2 regular rate and rhythm Respiratory diminished breath sounds bilateral bases GI positive bowel sound Extremity no edema PICKER/PULLER left-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 General Appearance: Alert, Oriented X3 Lungs: Clear to auscultation Cardiovascular: Regular rate, Normal S1, Normal S2 Abdomen: Normal bowel sounds Medications Current Medications Medications Dose Ordered Sig/Britta Route Start Time Stop Time Status Last Admin Dose Admin Ceftriaxone Sodium 50 ml @ 100 mls/hr Q24H IV 08/21/25 00:30 08/24/25 23:31 100 MLS/HR Famotidine 10 mg DAILY IV 08/20/25 10:00 08/26/25 10:47 10 MG Dextrose 50 ml UD PRN IV 08/20/25 05:15 Sodium Chloride 10 ml Q8HR IV 08/20/25 06:00 08/26/25 13:54 10 ML Ondansetron HCl 4 mg Q4HP PRN IV 08/20/25 05:15 Nitroglycerin 0.4 mg Q5MINP PRN SL 08/20/25 05:15 Morphine Sulfate 2 mg Q30M PRN IV 08/20/25 05:15 Hydralazine HCl 10 mg Q6HP PRN IV 08/20/25 05:15 08/26/25 06:58 10 MG Amlodipine Besylate 10 mg DAILY PO 08/20/25 10:00 08/26/25 10:51 10 MG Azithromycin 250 ml @ 125 mls/hr DAILY@1200 IV 08/21/25 12:00 08/26/25 12:29 125 MLS/HR Atorvastatin Calcium 40 mg HS PO 08/21/25 22:00 08/25/25 22:56 40 MG Bumetanide 1 mg BIDD IV 08/21/25 18:00 08/26/25 05:37 1 MG Docusate Sodium 100 mg BID PO 08/21/25 22:00 08/26/25 10:49 100 MG Diagnostic Test (Pha) 1 strip Q6HR 08/21/25 18:00 08/26/25 12:34 1 STRIP Insulin Human Regular Q6HR SC 08/21/25 18:00 08/26/25 05:38 2 UNITS Hydralazine HCl 25 mg Q6HR PO 08/22/25 12:00 08/26/25 12:29 25 MG Ferrous Sulfate 325 mg BIDWM PO 08/22/25 18:00 08/26/25 09:14 325 MG Epoetin Andrew-epbx 10,000 unit MWF SC 08/22/25 13:00 08/26/25 11:10 10,000 UNIT Aspirin 81 mg DAILY PO 08/23/25 10:00 08/26/25 10:48 81 MG Epoetin Andrew-epbx 10,000 unit MWF SC 08/22/25 15:45 UNV Sevelamer HCl 800 mg TIDWM PO 08/22/25 18:00 08/26/25 12:29 800 MG Sodium Bicarbonate 1,300 mg TID PO 08/23/25 14:00 08/26/25 13:50 1,300 MG Carvedilol 25 mg Q12HR PO 08/23/25 22:00 08/26/25 10:51 25 MG Clonidine HCl 0.1 mg BID PRN PO 08/25/25 22:00 08/26/25 02:10 0.1 MG Clopidogrel Bisulfate 75 mg DAILY PO 08/26/25 10:00 09/14/25 23:00 Heparin Sodium/ Dextrose 250 ml @ 9 mls/hr Q24H IV 08/26/25 13:00 08/26/25 13:26 9 MLS/HR Laboratory Results Laboratory Tests 08/25/25 18:06 08/26/25 02:55 Chemistry Test 08/26/25 02:55 Calcium Level 8.2 mg/dL (8.7-10.4) L Coagulation Test 08/25/25 18:06 08/26/25 02:55 08/26/25 10:53 Prothrombin Time 10.5 sec (9.3-11.8) 10.9 sec (9.3-11.8) 10.9 sec (9.3-11.8) Prothrombin Time INR 0.99 (0.9-1.15) 1.03 (0.9-1.15) 1.03 (0.9-1.15) Activated Partial Thromboplast Time 27.4 SEC (24.5-34.5) 39.3 SEC (24.5-34.5) H 116.1 SEC (24.5-34.5) *H Urinalysis Test 08/20/25 00:06 08/22/25 12:21 Urine Color Colorless (Yellow) Urine Clarity Clear (Clear) Urine pH 6.5 (5.0-9.0) Urine Specific Bunn 1.009 (1.001-1.035) Urine Protein 2+ (Negative) H Urine Ketones Negative (Negative) Urine Blood 2+ /uL (Negative) H Urine Nitrite Negative (Negative) Urine Bilirubin Negative (Negative) Urine Urobilinogen Normal mg/dL (Negative) Urine Leukocyte Esterase Negative /uL (Negative) Urine RBC 2 /hpf (0 - 3) Urine Microscopic WBC 1 /HPF (0-3) Urine Squamous Epithelial Cells None seen /hpf (<5) Urine Bacteria None seen /hpf (None Seen) Urine Glucose 3+ mg/dL (Normal) H Urine Creatinine 91.09 mg/dL (30.0-125.0) Urine Sodium 34 mmol/L (40-220) L Urine Total Protein 229.4 mg/dL (1-14) H Microbiology Microbiology Date/Time Source Procedure Growth Status 08/22/25 13:29 Blood Blood Culture - Preliminary NO GROWTH AFTER 72 HOURS OF INCUBATION. Resulted 08/20/25 18:49 Nose MRSA Screen - Final Complete Assessment/Plan Assessment/Plan 55-year-old male with a known history of congestive heart failure with systolic dysfunction, diabetes mellitus type 2, hypertension, dyslipidemia, homelessness who initially presented to the hospital with a respiratory distress found to have acute hypoxic respiratory failure suspected secondary to congestive heart failure with systolic dysfunction/multifocal pneumonia. Patient's hospital course was eventful for acute CVA with a MRI evidence of infarct in the right kuldip. 1. Acute hypoxic respiratory failure secondary to acute CHF exacerbation with systolic dysfunction as well as multifocal pneumonia 2. Acute CHF exacerbation with systolic dysfunction with the EF of 25% 3. Multifocal pneumonia 4. Moderate/severe pulmonary hypertension 5. Acute CVA with a evidence infarct in the right-sided kuldip, with a left-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 6. AKA with a underlying CKD, progressing to end-stage renal disease, tunneled dialysis catheter will be placed 7. Previous history of CVA with a mild left residual deficit 8. NSTEMI type 2 suspect secondary to acute CHF exacerbation 9. 1/2 Gram-negative bacteremia with coag-negative staph, suspect contamination 10. Hypertension, stable - consult Dr. Mckinley for dialysis catheter placement -aspirin, statin, continue IV diuretics, continue IV antibiotics, hemodialysis catheter placement -repeat blood cultures, strict I&Os, daily weight. --hold Plavix, continue heparin drip for bridging until the dialysis catheter is done. Plan discussed with: Patient My Orders Orders - HIRAL AUSTIN MD Procedure Category Date Status Time Clonidine Hcl Tablet [facility] 08/25/25 In Process (Catapres Tablet) 22:00 Platelet Monitoring [facility] 08/25/25 In Process 17:29 Heparin Per [facility] 08/25/25 In Process Standardized Proce 17:29 Discontinue All Im [facility] 08/25/25 In Process Injections 17:29 Stat Ekg For Chest [facility] 08/25/25 In Process Pain 17:29 Lt Upper Dvt US 08/25/25 Resulted 19:20 Heparin Per Pharmacy [facility] 08/25/25 In Process Protocol 21:27 PTPTT LAB 08/26/25 Logged 18:30 Heparin Drip/D5w PHA 08/26/25 In Process 100units/Ml 13:00 Heparin Per Pharmacy [facility] 08/26/25 In Process Protocol 12:40 Date of Service: Aug 26, 2025 Billing Provider: HIRAL AUSTIN MD Common Visit Codes: [id number] INP/OBS CARE(HIGH) HIRAL AUSTIN MD Aug 26, 2025 15:57
--- NOTE | 2025-08-26 16:50 | DVHPN2 ---
Progress Note - Dictate Date Seen: Aug 26, 2025 Medical Necessity Reason Pt with a Central, PICC or Fol: No Subjective Patient awake and alert, sitter at bedside vital signs Vital Sign Date Time Temp Pulse Resp B/P (MAP) Pulse Ox O2 Delivery O2 Flow Rate FiO2 08/26/25 12:38 97.8 68 20 167/96 (119) 98 97.8 08/25/25 20:20 Room Air* 0 21 Total Intake and Output 08/25/25 08/25/25 08/26/25 15:00 23:00 07:00 Intake Total 800 ml 480 ml Output Total 950 ml 450 ml Balance -150 ml 30 ml medications Current Medications Medications Dose Ordered Sig/Britta Route Start Time Stop Time Status Last Admin Dose Admin Ceftriaxone Sodium 50 ml @ 100 mls/hr Q24H IV 08/21/25 00:30 08/24/25 23:31 100 MLS/HR Famotidine 10 mg DAILY IV 08/20/25 10:00 08/26/25 10:47 10 MG Dextrose 50 ml UD PRN IV 08/20/25 05:15 Sodium Chloride 10 ml Q8HR IV 08/20/25 06:00 08/26/25 13:54 10 ML Ondansetron HCl 4 mg Q4HP PRN IV 08/20/25 05:15 Nitroglycerin 0.4 mg Q5MINP PRN SL 08/20/25 05:15 Morphine Sulfate 2 mg Q30M PRN IV 08/20/25 05:15 Hydralazine HCl 10 mg Q6HP PRN IV 08/20/25 05:15 08/26/25 06:58 10 MG Amlodipine Besylate 10 mg DAILY PO 08/20/25 10:00 08/26/25 10:51 10 MG Azithromycin 250 ml @ 125 mls/hr DAILY@1200 IV 08/21/25 12:00 08/26/25 12:29 125 MLS/HR Atorvastatin Calcium 40 mg HS PO 08/21/25 22:00 08/25/25 22:56 40 MG Bumetanide 1 mg BIDD IV 08/21/25 18:00 08/26/25 05:37 1 MG Docusate Sodium 100 mg BID PO 08/21/25 22:00 08/26/25 10:49 100 MG Diagnostic Test (Pha) 1 strip Q6HR 08/21/25 18:00 08/26/25 12:34 1 STRIP Insulin Human Regular Q6HR SC 08/21/25 18:00 08/26/25 05:38 2 UNITS Hydralazine HCl 25 mg Q6HR PO 08/22/25 12:00 08/26/25 12:29 25 MG Ferrous Sulfate 325 mg BIDWM PO 08/22/25 18:00 08/26/25 09:14 325 MG Epoetin Andrew-epbx 10,000 unit MWF SC 08/22/25 13:00 08/26/25 11:10 10,000 UNIT Aspirin 81 mg DAILY PO 08/23/25 10:00 08/26/25 10:48 81 MG Epoetin Andrew-epbx 10,000 unit MWF SC 08/22/25 15:45 UNV Sevelamer HCl 800 mg TIDWM PO 08/22/25 18:00 08/26/25 12:29 800 MG Sodium Bicarbonate 1,300 mg TID PO 08/23/25 14:00 08/26/25 13:50 1,300 MG Carvedilol 25 mg Q12HR PO 08/23/25 22:00 08/26/25 10:51 25 MG Clonidine HCl 0.1 mg BID PRN PO 08/25/25 22:00 08/26/25 02:10 0.1 MG Clopidogrel Bisulfate 75 mg DAILY PO 08/26/25 10:00 09/14/25 23:00 Heparin Sodium/ Dextrose 250 ml @ 9 mls/hr Q24H IV 08/26/25 13:00 08/26/25 13:26 9 MLS/HR objective Gen: nad heent: nc/at, mmm lungs: cta anteriorly cvs: no rub abd: soft, bowel sounds audible ext: no edema skin: no rash neuro: alert and oriented laboratory and microbiology Laboratory Tests 08/26/25 02:55 08/25/25 18:06 Test 08/26/25 02:55 Range/Units Serum Glucose 145 H 74-106 mg/dL Assessment/Plan Acute kidney injury hemodynamically mediated in the setting of hypertensive emergency CKD 5 with progression to ESRD Acute CVA w/ new deficits hypertensive emergency HTN NSTEMI with congestive heart failure EF of 25% Anemia due to chronic kidney disease - we will continue to evaluate daily for kidney replacement therapy needs - discussed with Mr. Thomas Plan discussed with: Patient KIM WARNER MD Aug 26, 2025 16:50
[2025-08-26 20:35] LABS: INR 1.02 (0.9-1.15); Prothrombin Time 10.8 sec (9.3-11.8)
[2025-08-26 20:51] LABS: Partial Thromboplastin Time 75.7 SEC (24.5-34.5)
--- NOTE | 2025-08-26 21:41 | DVHPN2 ---
Progress Note - Dictate Date Seen: Aug 26, 2025 Medical Necessity Reason Pt with a Central, PICC or Fol: No Subjective Mr. Thomas is a 55 years old right-handed gentleman with a history of hypertension, diabetes, congestive heart failure, COPD, asthma, the patient was admitted on 08/19/2025 with a chief complaint of shortness breath, but he was has other complaints I have seen and examined the patient, talked to his nurse, he is doing better, voices better, hemiparesis is improving UDS, 08/20/2025: Negative WBC/HB/PLT/MCV, 08/25/2025: 5.2/10.5/160/91 BUN/CR, 08/19/2025: 49/9.09, 08/21/2025: 65/9.36, 08/25/2025: 106/9.55 HCO3, 08/19/2025:18 , 08/20/2025: 19. Lactic acid, 08/19/2025: 5.3 Liver function tests, 08/21/2025: Unremarkable TG/HDL/LDL/HDL, 08/20/2025: 42/141/86/35 Extremity Venous study, 08/25/2025: Thrombus basilic vein and cephalic vein. Carotid Doppler, 08/25/2025: Right carotid system not evaluated due to overlying bandaging and IJ line. Left carotid system demonstrates no hemodynamically significant stenosis. Chest x-ray, 08/19/2025: Multifocal pneumonia throughout both lungs CT head, 08/21/2025: 1. No acute territorial infarct, intracranial hemorrhage, or mass effect. 2. Age-related involutional changes. Chronic ischemic changes as detailed. 3. If clinical symptoms persist, MRI may be beneficial in further evaluation MRI head, 08/22/2025: Acute infarct right kuldip measuring 2.1 cm. Left parietal encephalomalacia vital signs Vital Sign Date Time Temp Pulse Resp B/P (MAP) Pulse Ox O2 Delivery O2 Flow Rate FiO2 08/26/25 17:39 148/80 08/26/25 16:50 97.4 70 20 97 97.4 08/26/25 08:00 Room Air* 0 21 Total Intake and Output 08/25/25 08/25/25 08/26/25 15:00 23:00 07:00 Intake Total 800 ml 480 ml Output Total 950 ml 450 ml Balance -150 ml 30 ml medications Current Medications Medications Dose Ordered Sig/Britta Route Start Time Stop Time Status Last Admin Dose Admin Ceftriaxone Sodium 50 ml @ 100 mls/hr Q24H IV 08/21/25 00:30 08/24/25 23:31 100 MLS/HR Famotidine 10 mg DAILY IV 08/20/25 10:00 08/26/25 10:47 10 MG Dextrose 50 ml UD PRN IV 08/20/25 05:15 Sodium Chloride 10 ml Q8HR IV 08/20/25 06:00 08/26/25 13:54 10 ML Ondansetron HCl 4 mg Q4HP PRN IV 08/20/25 05:15 Nitroglycerin 0.4 mg Q5MINP PRN SL 08/20/25 05:15 Morphine Sulfate 2 mg Q30M PRN IV 08/20/25 05:15 Hydralazine HCl 10 mg Q6HP PRN IV 08/20/25 05:15 08/26/25 06:58 10 MG Amlodipine Besylate 10 mg DAILY PO 08/20/25 10:00 08/26/25 10:51 10 MG Azithromycin 250 ml @ 125 mls/hr DAILY@1200 IV 08/21/25 12:00 08/26/25 12:29 125 MLS/HR Atorvastatin Calcium 40 mg HS PO 08/21/25 22:00 08/25/25 22:56 40 MG Bumetanide 1 mg BIDD IV 08/21/25 18:00 08/26/25 17:38 1 MG Docusate Sodium 100 mg BID PO 08/21/25 22:00 08/26/25 10:49 100 MG Diagnostic Test (Pha) 1 strip Q6HR 08/21/25 18:00 08/26/25 17:39 1 STRIP Insulin Human Regular Q6HR SC 08/21/25 18:00 08/26/25 05:38 2 UNITS Hydralazine HCl 25 mg Q6HR PO 08/22/25 12:00 08/26/25 17:39 25 MG Ferrous Sulfate 325 mg BIDWM PO 08/22/25 18:00 08/26/25 17:38 325 MG Epoetin Andrew-epbx 10,000 unit MWF SC 08/22/25 13:00 08/26/25 11:10 10,000 UNIT Aspirin 81 mg DAILY PO 08/23/25 10:00 08/26/25 10:48 81 MG Epoetin Andrew-epbx 10,000 unit MWF NC 08/22/25 15:45 UNV Sevelamer HCl 800 mg TIDWM PO 08/22/25 18:00 08/26/25 17:39 800 MG Sodium Bicarbonate 1,300 mg TID PO 08/23/25 14:00 08/26/25 13:50 1,300 MG Carvedilol 25 mg Q12HR PO 08/23/25 22:00 08/26/25 10:51 25 MG Clonidine HCl 0.1 mg BID PRN PO 08/25/25 22:00 08/26/25 02:10 0.1 MG Clopidogrel Bisulfate 75 mg DAILY PO 08/26/25 10:00 09/14/25 23:00 Heparin Sodium/ Dextrose 250 ml @ 9 mls/hr Q24H IV 08/26/25 13:00 08/26/25 13:26 9 MLS/HR objective General: the patient is well developed and nourished. No acute distress. MENTAL STATUS: Awake and alert. Oriented to person, place, time and general circumstances. Able to give personal history SPEECH, LANGUAGE, HIGHER CORTICAL FUNCTION: no aphasia he has has mild dysarthria CRANIAL NERVES: Pupils are equal, round and reactive. EOMs full and conjugate. Facial sensation intact in all three divisions bilaterally. Mandibular strength intact. Left facial weakness of upper motor neuron pattern SENSATION: Sensation to touch and pinprick is normal. MOTOR: Normal tone in the upper and lower extremity. Normal muscle bulk. No fasciculations. No abnormal movements or posturing. Muscle strength of the major groups in the right extremities is 5/5. Muscle strength of the major groups in the lower extremities is: Arm: 3/5, le/5. REFLEXES: Deep tendon reflexes are symmetrical. No pathological reflexes. CEREBELLAR/COORDINATION: Finger to nose is normal in the right hand GAIT/STATION: deferred laboratory and microbiology Laboratory Tests 08/26/25 02:55 08/25/25 18:06 Test 08/26/25 02:55 Range/Units Serum Glucose 145 H 74-106 mg/dL Problem List Acute pontine stroke with dysarthria, left facial weakness, left hemiplegia Chronic left hemispheres stroke Sleep-related breathing disorder Kidney failure Acute respiratory failure Assessment/Plan Monitoring Supportive treatment Telemetry AMANDA Aspirin 81 mg daily Plavix 75 mg daily for 21 days (on hold) Lipitor 40 mg daily Oxygen Nephrology on case Cardiology on case Address sleep-related breathing disorder later I have discussed with him about stroke risk facts, secondary stroke prevention This medical document was created using an electronic medical record system with [employer] dictation system. Althoug Prognosis poor Plan discussed with: Patient, Other Total Time (mins): 38 CORAZON ALVARADO MD Aug 26, 2025 21:41
[2025-08-27] VITALS (9 sets, daily range): BP systolic 140–183; BP diastolic 81–96; PULSE 70–78; RESP 14–19; TEMP 97.5–99.3; O2SAT 92–99
[2025-08-27 06:13] LABS: INR 1.04 (0.9-1.15); Partial Thromboplastin Time 66.1 SEC (24.5-34.5); Prothrombin Time 11.0 sec (9.3-11.8)
[2025-08-27 06:15] LABS: Chloride 103 mmol/L (98-107); Potassium 4.1 mmol/L (3.5-5.1); Sodium 143 mmol/L (136-145)
[2025-08-27 06:16] LABS: Anion Gap 15 (5-15); Carbon Dioxide 25 mmol/L (20-31)
[2025-08-27 06:21] LABS: BUN/Creatinine Ratio 9.7 (10.0-20.0); Glucose 99 mg/dL (74-106)
[2025-08-27 06:23] LABS: Blood Urea Nitrogen 73 mg/dL (9-23); Calcium 8.3 mg/dL (8.7-10.4)
[2025-08-27 13:29] LABS: INR 1.03 (0.9-1.15); Partial Thromboplastin Time 26.9 SEC (24.5-34.5); Prothrombin Time 10.9 sec (9.3-11.8)
--- NOTE | 2025-08-27 14:23 | CONS ---
Pharmacy Clinical Information: 1 TIME DOSE OF HEPARIN 5000 UNITS AND INCREASE HEPARIN RATE TO 12 ML/HR DUE TO APTT OF 26.9 ON 08/27 1245 PER RX PROTOCOL. NEXT APTT 6 HOURS FROM THE START OF NEW HEPARIN RATE. CRISTINE MACDONALD CONFIRMED AND READ BACK HERMILA ORTIZ PHARMACIST Aug 27, 2025 14:23
[2025-08-27] MEDS: HEPARIN DRIP/D5W 100UNITS/ML 250 ML IV SCH (14:30)
[2025-08-27] MEDS: HEPARIN SODIUM (PORCINE) 5000 UNITS/ML 1ML VIAL IV ONE (15:07)
--- NOTE | 2025-08-27 16:05 | DVHPN2 ---
Subjective This is a follow up on 55-year-old male who is homeless with a known history of diabetes mellitus type 2, hypertension, congestive heart failure, previous history of CVA with a mild weakness on the left side presented to the hospital with a initially with the increasing shortness of breaths found to have 43% saturation on room air, eventually requiring BiPAP currently off of O2 supplementation. Yesterday patient's has a change in mental status CT head was done which shows no evidence of acute infarct, MRI showed evidence of infarct in the right kuldip. Patient's has a left-sided weakness. Patient is agreeable to have tunneled dialysis catheter placement. Reviewed: H&P Changes from previous H/P or p: No Changes Eyes: No Pain, No Vision change, No Conjunctivae inflammation, No Eyelid inflammation, No Other, No Redness ENT: No Ear pain, No Ear discharge, No Nose pain, No Nose discharge, No Nose congestion, No Mouth pain, No Mouth swelling, No Throat pain, No Throat swelling, No Other Cardiovascular: No Chest Pain, No Palpitations, No Orthopnea, No Paroxysmal Noc. Dyspnea, No Edema, No Lt Headedness, No Other Respiratory: No Cough, No Dry; Shortness of breath; No SOB with excertion, No Wheezing, No Hemoptysis, No Pleuritic Pain, No Sputum; Other (SOB at rest) Gastrointestinal: No Nausea, No Vomiting, No Abdominal Pain, No Diarrhea, No Constipation, No Melena, No Hematochezia, No Other Genitourinary: No Dysuria, No Frequency, No Incontinence, No Hematuria, No Retention, No Other Musculoskeletal: No other, No neck pain, No shoulder pain, No arm pain, No back pain, No hand pain, No leg pain, No foot pain Skin: No Rash, No Lesions, No Jaundice, No Bruising, No Other Objective Vitals Vital Signs Date Time Temp Pulse Resp B/P (MAP) Pulse Ox O2 Delivery O2 Flow Rate FiO2 08/27/25 13:09 156/82 08/27/25 10:22 75 08/27/25 09:00 99.3 18 92 99.3 08/27/25 08:00 Room Air* 0 21 Intake/Output Intake and Output 08/27/25 07:00 Intake Total 1482 ml Output Total 950 ml Balance 532 ml Intake Oral 1050 ml IV Total 432 ml Output Urine Total 950 ml Exam HEENT pupils are reactive Neck is supple CV is S1-S2 regular rate and rhythm Respiratory diminished breath sounds bilateral bases GI positive bowel sound Extremity no edema 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 General Appearance: Alert, Oriented X3 Lungs: Clear to auscultation Cardiovascular: Regular rate, Normal S1, Normal S2 Abdomen: Normal bowel sounds Medications Current Medications Medications Dose Ordered Sig/Britta Route Start Time Stop Time Status Last Admin Dose Admin Ceftriaxone Sodium 50 ml @ 100 mls/hr Q24H IV 08/21/25 00:30 08/27/25 00:40 100 MLS/HR Famotidine 10 mg DAILY IV 08/20/25 10:00 08/27/25 10:20 10 MG Dextrose 50 ml UD PRN IV 08/20/25 05:15 Sodium Chloride 10 ml Q8HR IV 08/20/25 06:00 08/27/25 14:00 10 ML Ondansetron HCl 4 mg Q4HP PRN IV 08/20/25 05:15 Nitroglycerin 0.4 mg Q5MINP PRN SL 08/20/25 05:15 Morphine Sulfate 2 mg Q30M PRN IV 08/20/25 05:15 Hydralazine HCl 10 mg Q6HP PRN IV 08/20/25 05:15 08/26/25 06:58 10 MG Amlodipine Besylate 10 mg DAILY PO 08/20/25 10:00 08/27/25 10:21 10 MG Azithromycin 250 ml @ 125 mls/hr DAILY@1200 IV 08/21/25 12:00 08/27/25 10:22 125 MLS/HR Atorvastatin Calcium 40 mg HS PO 08/21/25 22:00 08/26/25 22:20 40 MG Bumetanide 1 mg BIDD IV 08/21/25 18:00 08/27/25 05:57 1 MG Docusate Sodium 100 mg BID PO 08/21/25 22:00 08/27/25 10:20 100 MG Diagnostic Test (Pha) 1 strip Q6HR 08/21/25 18:00 08/27/25 12:00 1 STRIP Insulin Human Regular Q6HR SC 08/21/25 18:00 08/26/25 05:38 2 UNITS Hydralazine HCl 25 mg Q6HR PO 08/22/25 12:00 08/27/25 13:09 25 MG Ferrous Sulfate 325 mg BIDWM PO 08/22/25 18:00 08/27/25 10:20 325 MG Epoetin Andrew-epbx 10,000 unit MWF SC 08/22/25 13:00 08/26/25 11:10 10,000 UNIT Aspirin 81 mg DAILY PO 08/23/25 10:00 08/27/25 10:20 81 MG Epoetin Andrew-epbx 10,000 unit MWF SC 08/22/25 15:45 UNV Sevelamer HCl 800 mg TIDWM PO 08/22/25 18:00 08/27/25 13:09 800 MG Sodium Bicarbonate 1,300 mg TID PO 08/23/25 14:00 08/27/25 14:59 1,300 MG Carvedilol 25 mg Q12HR PO 08/23/25 22:00 08/27/25 10:22 25 MG Clonidine HCl 0.1 mg BID PRN PO 08/25/25 22:00 08/27/25 05:56 0.1 MG Clopidogrel Bisulfate 75 mg DAILY PO 08/26/25 10:00 09/14/25 23:00 Heparin Sodium/ Dextrose 250 ml @ 12 mls/hr [id number] IV 08/27/25 14:30 08/27/25 14:30 12 MLS/HR Laboratory Results Laboratory Tests 08/25/25 18:06 08/26/25 02:55 08/27/25 05:39 Chemistry Test 08/27/25 05:39 Calcium Level 8.3 mg/dL (8.7-10.4) L Coagulation Test 08/26/25 19:49 08/27/25 05:39 08/27/25 12:45 Prothrombin Time 10.8 sec (9.3-11.8) 11.0 sec (9.3-11.8) 10.9 sec (9.3-11.8) Prothrombin Time INR 1.02 (0.9-1.15) 1.04 (0.9-1.15) 1.03 (0.9-1.15) Activated Partial Thromboplast Time 75.7 SEC (24.5-34.5) *H 66.1 SEC (24.5-34.5) H 26.9 SEC (24.5-34.5) Urinalysis Test 08/20/25 00:06 08/22/25 12:21 Urine Color Colorless (Yellow) Urine Clarity Clear (Clear) Urine pH 6.5 (5.0-9.0) Urine Specific West 1.009 (1.001-1.035) Urine Protein 2+ (Negative) H Urine Ketones Negative (Negative) Urine Blood 2+ /uL (Negative) H Urine Nitrite Negative (Negative) Urine Bilirubin Negative (Negative) Urine Urobilinogen Normal mg/dL (Negative) Urine Leukocyte Esterase Negative /uL (Negative) Urine RBC 2 /hpf (0 - 3) Urine Microscopic WBC 1 /HPF (0-3) Urine Squamous Epithelial Cells None seen /hpf (<5) Urine Bacteria None seen /hpf (None Seen) Urine Glucose 3+ mg/dL (Normal) H Urine Creatinine 91.09 mg/dL (30.0-125.0) Urine Sodium 34 mmol/L (40-220) L Urine Total Protein 229.4 mg/dL (1-14) H Microbiology Microbiology Date/Time Source Procedure Growth Status 08/22/25 13:29 Blood Blood Culture - Final NO GROWTH AFTER 5 DAYS OF INCUBATION. Complete 08/20/25 18:49 Nose MRSA Screen - Final Complete Assessment/Plan Assessment/Plan 55-year-old male with a known history of congestive heart failure with systolic dysfunction, diabetes mellitus type 2, hypertension, dyslipidemia, homelessness who initially presented to the hospital with a respiratory distress found to have acute hypoxic respiratory failure suspected secondary to congestive heart failure with systolic dysfunction/multifocal pneumonia. Patient's hospital course was eventful for acute CVA with a MRI evidence of infarct in the right kuldip. 1. Acute hypoxic respiratory failure secondary to acute CHF exacerbation with systolic dysfunction as well as multifocal pneumonia 2. Acute CHF exacerbation with systolic dysfunction with the EF of 25% 3. Multifocal pneumonia 4. Moderate/severe pulmonary hypertension 5. Acute CVA with a evidence infarct in the right-sided kuldip, with a left-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 6. AKA with a underlying CKD, progressing to end-stage renal disease, tunneled dialysis catheter will be placed 7. Previous history of CVA with a mild left residual deficit 8. NSTEMI type 2 suspect secondary to acute CHF exacerbation 9. 1/2 Gram-negative bacteremia with coag-negative staph, suspect contamination 10. Hypertension, stable - consult Dr. Mckinley for dialysis catheter placement -aspirin, statin, continue IV diuretics, continue IV antibiotics, hemodialysis catheter placement -repeat blood cultures, strict I&Os, daily weight. --hold Plavix, continue heparin drip for bridging until the dialysis catheter is done. Plan discussed with: Patient My Orders Orders - HIRAL AUSTIN MD Procedure Category Date Status Time Heparin Drip/D5w PHA 08/27/25 In Process 100units/Ml 14:30 Heparin Per Pharmacy LINNETTE 08/27/25 In Process Protocol 14:16 PTPTT LAB 08/27/25 Logged 20:30 Communication Order ORDERS 08/27/25 Transmitted 14:25 Date of Service: Aug 27, 2025 Billing Provider: HIRAL AUSTIN MD Common Visit Codes: [id number] INP/OBS CARE(HIGH) HIRAL AUSTIN MD Aug 27, 2025 16:05
--- NOTE | 2025-08-27 16:33 | DVHPN2 ---
Progress Note Date Seen: Aug 27, 2025 Medical Necessity Reason Pt with a Central, PICC or Fol: No Subjective Review of Systems Pt states he had dialysis yesterday and tolerated well. Patient reports: No new complaints, Feels better Objective vital signs Vital Sign Date Time Temp Pulse Resp B/P (MAP) Pulse Ox O2 Delivery O2 Flow Rate FiO2 08/27/25 13:09 156/82 08/27/25 10:22 75 08/27/25 09:00 99.3 18 92 99.3 08/27/25 08:00 Room Air* 0 21 Total Intake and Output 08/26/25 08/26/25 08/27/25 15:00 23:00 07:00 Intake Total 274 ml 250 ml 958 ml Output Total 600 ml 350 ml Balance 274 ml -350 ml 608 ml medications Current Medications Medications Dose Ordered Sig/Britta Route Start Time Stop Time Status Last Admin Dose Admin Ceftriaxone Sodium 50 ml @ 100 mls/hr Q24H IV 08/21/25 00:30 08/27/25 00:40 100 MLS/HR Famotidine 10 mg DAILY IV 08/20/25 10:00 08/27/25 10:20 10 MG Dextrose 50 ml UD PRN IV 08/20/25 05:15 Sodium Chloride 10 ml Q8HR IV 08/20/25 06:00 08/27/25 14:00 10 ML Ondansetron HCl 4 mg Q4HP PRN IV 08/20/25 05:15 Nitroglycerin 0.4 mg Q5MINP PRN SL 08/20/25 05:15 Morphine Sulfate 2 mg Q30M PRN IV 08/20/25 05:15 Hydralazine HCl 10 mg Q6HP PRN IV 08/20/25 05:15 08/26/25 06:58 10 MG Amlodipine Besylate 10 mg DAILY PO 08/20/25 10:00 08/27/25 10:21 10 MG Azithromycin 250 ml @ 125 mls/hr DAILY@1200 IV 08/21/25 12:00 08/27/25 10:22 125 MLS/HR Atorvastatin Calcium 40 mg HS PO 08/21/25 22:00 08/26/25 22:20 40 MG Bumetanide 1 mg BIDD IV 08/21/25 18:00 08/27/25 05:57 1 MG Docusate Sodium 100 mg BID PO 08/21/25 22:00 08/27/25 10:20 100 MG Diagnostic Test (Pha) 1 strip Q6HR 08/21/25 18:00 08/27/25 12:00 1 STRIP Insulin Human Regular Q6HR SC 08/21/25 18:00 08/26/25 05:38 2 UNITS Hydralazine HCl 25 mg Q6HR PO 08/22/25 12:00 08/27/25 13:09 25 MG Ferrous Sulfate 325 mg BIDWM PO 08/22/25 18:00 08/27/25 10:20 325 MG Epoetin Andrew-epbx 10,000 unit MWF [place] 08/22/25 13:00 08/26/25 11:10 10,000 UNIT Aspirin 81 mg DAILY PO 08/23/25 10:00 08/27/25 10:20 81 MG Epoetin Andrew-epbx 10,000 unit MWF [place] 08/22/25 15:45 UNV Sevelamer HCl 800 mg TIDWM PO 08/22/25 18:00 08/27/25 13:09 800 MG Sodium Bicarbonate 1,300 mg TID PO 08/23/25 14:00 08/27/25 14:59 1,300 MG Carvedilol 25 mg Q12HR PO 08/23/25 22:00 08/27/25 10:22 25 MG Clonidine HCl 0.1 mg BID PRN PO 08/25/25 22:00 08/27/25 05:56 0.1 MG Clopidogrel Bisulfate 75 mg DAILY PO 08/26/25 10:00 09/14/25 23:00 Heparin Sodium/ Dextrose 250 ml @ 12 mls/hr [id number] IV 08/27/25 14:30 08/27/25 14:30 12 MLS/HR Examination Gen: Appears stated age. NAD Lungs: Bilateral air entry, no rales Heart: RRR. normal S1 and S2 Ext: No edema Neuro: Alert and oriented x 4 laboratory and microbiology Laboratory Tests 08/27/25 05:39 08/26/25 02:55 08/25/25 18:06 Test 08/27/25 05:39 Range/Units Serum Glucose 99 74-106 mg/dL Microbiology Date/Time Source Procedure Growth Status 08/22/25 13:29 Blood Blood Culture - Final NO GROWTH AFTER 5 DAYS OF INCUBATION. Complete 08/20/25 18:49 Nose MRSA Screen - Final Complete Labs and/or images reviewed: Labs reviewed by me Problem List/Assessment/Plan Problem List/Assessment/Plan IMP Acute kidney injury hemodynamically mediated in the setting of hypertensive emergency CKD 5 with progression to ESRD Acute CVA w/ new deficits hypertensive emergency HTN NSTEMI with congestive heart failure EF of 25% Anemia due to chronic kidney disease REC -BMP in am -Will reassess daily for SEAFOOD SPECIALIST needs -Blood pressure control -Strict I&Os -We will continue to follow Case discussed with Dr. Hilario Bishop Plan discussed with: Patient, Spouse LARISSA FIGUEROA CONTACT LENS TECHNICIAN Aug 27, 2025 16:33
--- NOTE | 2025-08-27 20:51 | DVHPN2 ---
Progress Note - Dictate Date Seen: Aug 27, 2025 Medical Necessity Reason Pt with a Central, PICC or Fol: No Subjective Mr. Thomas is a 55 years old right-handed gentleman with a history of hypertension, diabetes, congestive heart failure, COPD, asthma, the patient was admitted on 08/19/2025 with a chief complaint of shortness breath, but he was has other complaints I have seen and examined the patient, talked to his nurse, he is doing okay, no new complaints Talked to cardiology service Re: AMANDA UDS, 08/20/2025: Negative WBC/HB/PLT/MCV, 08/25/2025: 5.2/10.5/160/91 BUN/CR, 08/19/2025: 49/9.09, 08/21/2025: 65/9.36, 08/25/2025: 106/9.55 HCO3, 08/19/2025:18 , 08/20/2025: 19. Lactic acid, 08/19/2025: 5.3 Liver function tests, 08/21/2025: Unremarkable TG/HDL/LDL/HDL, 08/20/2025: 42/141/86/35 Echocardiogram, 08/20/2025: DILATED LV AND IS MODERATELY HYPOKINETIC LV EF IS ONLT 25% DYSKINESIS OF IVS NORMAL VALVES MODERATE DEGREE PULMONARY HYPERTENSION RVSP IS 45 MM OF HG AND IS MODERATELY HIGH NO EFFUSION Extremity Venous study, 08/25/2025: Thrombus basilic vein and cephalic vein Carotid Doppler, 08/26/2025: Right carotid system not evaluated due to overlying bandaging and IJ line. Left carotid system demonstrates no hemodynamically significant stenosis. Chest x-ray, 08/19/2025: Multifocal pneumonia throughout both lungs CT head, 08/21/2025: 1. No acute territorial infarct, intracranial hemorrhage, or mass effect. 2. Age-related involutional changes. Chronic ischemic changes as detailed. 3. If clinical symptoms persist, MRI may be beneficial in further evaluation MRI head, 08/22/2025: Acute infarct right kuldip measuring 2.1 cm. Left parietal encephalomalacia vital signs Vital Sign Date Time Temp Pulse Resp B/P (MAP) Pulse Ox O2 Delivery O2 Flow Rate FiO2 08/27/25 17:00 98.1 73 19 155/96 (115) 98 98.1 08/27/25 08:00 Room Air* 0 21 Total Intake and Output 08/26/25 08/26/25 08/27/25 15:00 23:00 07:00 Intake Total 274 ml 250 ml 958 ml Output Total 600 ml 350 ml Balance 274 ml -350 ml 608 ml medications Current Medications Medications Dose Ordered Sig/Britta Route Start Time Stop Time Status Last Admin Dose Admin Ceftriaxone Sodium 50 ml @ 100 mls/hr Q24H IV 08/21/25 00:30 08/27/25 00:40 100 MLS/HR Famotidine 10 mg DAILY IV 08/20/25 10:00 08/27/25 10:20 10 MG Dextrose 50 ml UD PRN IV 08/20/25 05:15 Sodium Chloride 10 ml Q8HR IV 08/20/25 06:00 08/27/25 14:00 10 ML Ondansetron HCl 4 mg Q4HP PRN IV 08/20/25 05:15 Nitroglycerin 0.4 mg Q5MINP PRN SL 08/20/25 05:15 Morphine Sulfate 2 mg Q30M PRN IV 08/20/25 05:15 Hydralazine HCl 10 mg Q6HP PRN IV 08/20/25 05:15 08/26/25 06:58 10 MG Amlodipine Besylate 10 mg DAILY PO 08/20/25 10:00 08/27/25 10:21 10 MG Azithromycin 250 ml @ 125 mls/hr DAILY@1200 IV 08/21/25 12:00 08/27/25 10:22 125 MLS/HR Atorvastatin Calcium 40 mg HS PO 08/21/25 22:00 08/26/25 22:20 40 MG Bumetanide 1 mg BIDD IV 08/21/25 18:00 08/27/25 05:57 1 MG Docusate Sodium 100 mg BID PO 08/21/25 22:00 08/27/25 10:20 100 MG Diagnostic Test (Pha) 1 strip Q6HR 08/21/25 18:00 08/27/25 12:00 1 STRIP Insulin Human Regular Q6HR SC 08/21/25 18:00 08/26/25 05:38 2 UNITS Hydralazine HCl 25 mg Q6HR PO 08/22/25 12:00 08/27/25 13:09 25 MG Ferrous Sulfate 325 mg BIDWM PO 08/22/25 18:00 08/27/25 10:20 325 MG Epoetin Andrew-epbx 10,000 unit MWF [place] 08/22/25 13:00 08/26/25 11:10 10,000 UNIT Aspirin 81 mg DAILY PO 08/23/25 10:00 08/27/25 10:20 81 MG Epoetin Andrew-epbx 10,000 unit MWF [place] 08/22/25 15:45 UNV Sevelamer HCl 800 mg TIDWM PO 08/22/25 18:00 08/27/25 13:09 800 MG Sodium Bicarbonate 1,300 mg TID PO 08/23/25 14:00 08/27/25 14:59 1,300 MG Carvedilol 25 mg Q12HR PO 08/23/25 22:00 08/27/25 10:22 25 MG Clonidine HCl 0.1 mg BID PRN PO 08/25/25 22:00 08/27/25 05:56 0.1 MG Clopidogrel Bisulfate 75 mg DAILY PO 08/26/25 10:00 09/14/25 23:00 Heparin Sodium/ Dextrose 250 ml @ 12 mls/hr [id number] IV 08/27/25 14:30 08/27/25 14:30 12 MLS/HR objective General: the patient is well developed and nourished. No acute distress. MENTAL STATUS: Awake and alert. Oriented to person, place, time and general circumstances. Able to give personal history SPEECH, LANGUAGE, HIGHER CORTICAL FUNCTION: no aphasia he has has mild dysarthria CRANIAL NERVES: Pupils are equal, round and reactive. EOMs full and conjugate. Facial sensation intact in all three divisions bilaterally. Mandibular strength intact. Left facial weakness of upper motor neuron pattern SENSATION: Sensation to touch and pinprick is normal. MOTOR: Normal tone in the upper and lower extremity. Normal muscle bulk. No fasciculations. No abnormal movements or posturing. Muscle strength of the major groups in the right extremities is 5/5. Muscle strength of the major groups in the lower extremities is: Arm: 3/5, le/5. REFLEXES: Deep tendon reflexes are symmetrical. No pathological reflexes. CEREBELLAR/COORDINATION: Finger to nose is normal in the right hand GAIT/STATION: deferred laboratory and microbiology Laboratory Tests 08/27/25 05:39 08/26/25 02:55 08/25/25 18:06 Test 08/27/25 05:39 Range/Units Serum Glucose 99 74-106 mg/dL Problem List Acute pontine stroke with dysarthria, left facial weakness, left hemiplegia Chronic left hemispheres stroke Sleep-related breathing disorder Kidney failure Acute respiratory failure Congestive heart failure Assessment/Plan Monitoring Supportive treatment Telemetry AMANDA Aspirin 81 mg daily Plavix 75 mg daily for 21 days (on hold) Lipitor 40 mg daily Oxygen Nephrology on case Cardiology on case Address sleep-related breathing disorder later I have discussed with him about stroke risk facts, secondary stroke prevention This medical document was created using an electronic medical record system with [employer] dictation system. Althoug Prognosis poor Dietary Evaluation Review Comments: Nutrition Recommendation: 1) CCHO 75gm + renal standard diet 2) Nephro-marcial 1 tab daily 3) Monitor PO intake, lab values, weight trend, and I/O Expected Outcomes/Goals: Intake to meet >75% estimated needs Lab values to improve FU 3-5 days Plan discussed with: Patient, Other Total Time (mins): 35 CORAZON ALVARADO MD Aug 27, 2025 20:51
--- NOTE | 2025-08-27 21:21 | DVHPN2 ---
Progress Note - Dictate Date Seen: Aug 27, 2025 Medical Necessity Reason Pt with a Central, PICC or Fol: No Subjective Patient was seen and evaluated in follow up. Sitter is at bedside. Patient is complaining of left-sided weakness. BUN 73, DIGITAL PHOTOGRAPHER 7.54, CA 8.3. Telemetry reviewed. vital signs Vital Sign Date Time Temp Pulse Resp B/P (MAP) Pulse Ox O2 Delivery O2 Flow Rate FiO2 08/27/25 10:22 75 156/81 08/27/25 09:00 99.3 18 92 99.3 08/27/25 08:00 Room Air* 0 21 Total Intake and Output 08/26/25 08/26/25 08/27/25 15:00 23:00 07:00 Intake Total 274 ml 250 ml 958 ml Output Total 600 ml 350 ml Balance 274 ml -350 ml 608 ml medications Current Medications Medications Dose Ordered Sig/Britta Route Start Time Stop Time Status Last Admin Dose Admin Ceftriaxone Sodium 50 ml @ 100 mls/hr Q24H IV 08/21/25 00:30 08/27/25 00:40 100 MLS/HR Famotidine 10 mg DAILY IV 08/20/25 10:00 08/27/25 10:20 10 MG Dextrose 50 ml UD PRN IV 08/20/25 05:15 Sodium Chloride 10 ml Q8HR IV 08/20/25 06:00 08/27/25 06:03 10 ML Ondansetron HCl 4 mg Q4HP PRN IV 08/20/25 05:15 Nitroglycerin 0.4 mg Q5MINP PRN SL 08/20/25 05:15 Morphine Sulfate 2 mg Q30M PRN IV 08/20/25 05:15 Hydralazine HCl 10 mg Q6HP PRN IV 08/20/25 05:15 08/26/25 06:58 10 MG Amlodipine Besylate 10 mg DAILY PO 08/20/25 10:00 08/27/25 10:21 10 MG Azithromycin 250 ml @ 125 mls/hr DAILY@1200 IV 08/21/25 12:00 08/27/25 10:22 125 MLS/HR Atorvastatin Calcium 40 mg HS PO 08/21/25 22:00 08/26/25 22:20 40 MG Bumetanide 1 mg BIDD IV 08/21/25 18:00 08/27/25 05:57 1 MG Docusate Sodium 100 mg BID PO 08/21/25 22:00 08/27/25 10:20 100 MG Diagnostic Test (Pha) 1 strip Q6HR 08/21/25 18:00 08/27/25 06:04 1 STRIP Insulin Human Regular Q6HR SC 08/21/25 18:00 08/26/25 05:38 2 UNITS Hydralazine HCl 25 mg Q6HR PO 08/22/25 12:00 08/27/25 05:57 25 MG Ferrous Sulfate 325 mg BIDWM PO 08/22/25 18:00 08/27/25 10:20 325 MG Epoetin Andrew-epbx 10,000 unit MWF SC 08/22/25 13:00 08/26/25 11:10 10,000 UNIT Aspirin 81 mg DAILY PO 08/23/25 10:00 08/27/25 10:20 81 MG Epoetin Andrew-epbx 10,000 unit MWF [place] 08/22/25 15:45 UNV Sevelamer HCl 800 mg TIDWM PO 08/22/25 18:00 08/27/25 10:20 800 MG Sodium Bicarbonate 1,300 mg TID PO 08/23/25 14:00 08/27/25 05:55 1,300 MG Carvedilol 25 mg Q12HR PO 08/23/25 22:00 08/27/25 10:22 25 MG Clonidine HCl 0.1 mg BID PRN PO 08/25/25 22:00 08/27/25 05:56 0.1 MG Clopidogrel Bisulfate 75 mg DAILY PO 08/26/25 10:00 09/14/25 23:00 Heparin Sodium/ Dextrose 250 ml @ 9 mls/hr Q24H IV 08/26/25 13:00 08/26/25 13:26 9 MLS/HR objective GENERAL: Alert and oriented x 3. No acute distress. EYES: PERRL, EOMI. Anicteric. HENT: Moist mucous membranes. LUNGS: Clear to auscultation bilaterally. CARDIOVASCULAR: Regular rate and rhythm. ABDOMEN: Soft, non-tender and non-distended. EXTREMITIES: No edema. NEUROLOGIC: No focal neurological deficits. SKIN: Warm, dry. laboratory and microbiology Laboratory Tests 08/27/25 05:39 08/26/25 02:55 08/25/25 18:06 Test 08/27/25 05:39 Range/Units Serum Glucose 99 74-106 mg/dL Problem List Acute on chronic CHF. NSTEMI likely type 2 [place]. Hypertensive emergency. GISSELL on CKD. Medication noncompliance. Acute hypoxic respiratory failure, multifocal pneumonia. Cardiomyopathy. Acute pontine stroke with dysarthria, left facial weakness, left hemiplegia. Chronic left hemispheres stroke. Assessment/Plan Continued all current supportive medical care. Amlodipine, Coreg, Clonidine, Hydralazine. Aspirin, Lipitor, Plavix. IV antibiotics as ordered. Diuretics with Bumex. Heparin drip per pharmacy. Morphine for pain management. Additional plan as per the hospital course. Plan discussed with: Patient RAMIN OLIVIER MD Aug 27, 2025 11:36
[2025-08-27 21:31] LABS: INR 1.03 (0.9-1.15); Partial Thromboplastin Time 58.7 SEC (24.5-34.5); Prothrombin Time 10.9 sec (9.3-11.8)
[2025-08-28] VITALS (8 sets, daily range): BP systolic 158–170; BP diastolic 81–96; PULSE 69–78; RESP 16–19; TEMP 97.5–98.7; O2SAT 97–100
[2025-08-28 07:44] LABS: Anion Gap 13 (5-15); Carbon Dioxide 27 mmol/L (20-31); Chloride 103 mmol/L (98-107); Potassium 3.9 mmol/L (3.5-5.1); Sodium 143 mmol/L (136-145)
[2025-08-28 07:50] LABS: BUN/Creatinine Ratio 10.0 (10.0-20.0); INR 1.02 (0.9-1.15); Prothrombin Time 10.8 sec (9.3-11.8)
[2025-08-28 07:53] LABS: Blood Urea Nitrogen 79 mg/dL (9-23); Calcium 8.6 mg/dL (8.7-10.4); Glucose 115 mg/dL (74-106)
[2025-08-28 07:59] LABS: Partial Thromboplastin Time 117.5 SEC (24.5-34.5)
--- NOTE | 2025-08-28 09:08 | CONS ---
Pharmacy Clinical Information: DECREASE HEPARIN RATE TO 9 ML/HR DUE TO APTT OF 117.5 ON 08/28 AT 0611 PER RX PROTOCOL. NEXT APTT 6 HOURS FROM THE START OF NEW HEPARIN RATE. CRISTINE MCELROY CONFIRMED AND READ BACK HERMILA ORTIZ PHARMACIST Aug 28, 2025 09:08
[2025-08-28] MEDS: HEPARIN DRIP/D5W 100UNITS/ML 250 ML IV SCH (09:28)
--- NOTE | 2025-08-28 14:16 | DVHPN2 ---
Progress Note Date Seen: Aug 28, 2025 Medical Necessity Reason Pt with a Central, PICC or Fol: No Subjective Patient reports: No new complaints, Feels better Objective vital signs Vital Sign Date Time Temp Pulse Resp B/P (MAP) Pulse Ox O2 Delivery O2 Flow Rate FiO2 08/28/25 12:26 170/96 08/28/25 12:00 98.2 69 19 97 98.2 08/28/25 08:00 Room Air* 0 21 Total Intake and Output 08/27/25 08/27/25 08/28/25 15:00 23:00 07:00 Intake Total 0 ml 1110 ml 450 ml Output Total 950 ml 650 ml Balance 0 ml 160 ml -200 ml medications Current Medications Medications Dose Ordered Sig/Britta Route Start Time Stop Time Status Last Admin Dose Admin Ceftriaxone Sodium 50 ml @ 100 mls/hr Q24H IV 08/21/25 00:30 08/28/25 00:44 100 MLS/HR Famotidine 10 mg DAILY IV 08/20/25 10:00 08/28/25 09:44 10 MG Dextrose 50 ml UD PRN IV 08/20/25 05:15 Sodium Chloride 10 ml Q8HR IV 08/20/25 06:00 08/28/25 14:12 10 ML Ondansetron HCl 4 mg Q4HP PRN IV 08/20/25 05:15 Nitroglycerin 0.4 mg Q5MINP PRN SL 08/20/25 05:15 Morphine Sulfate 2 mg Q30M PRN IV 08/20/25 05:15 Hydralazine HCl 10 mg Q6HP PRN IV 08/20/25 05:15 08/26/25 06:58 10 MG Amlodipine Besylate 10 mg DAILY PO 08/20/25 10:00 08/28/25 09:40 10 MG Azithromycin 250 ml @ 125 mls/hr DAILY@1200 IV 08/21/25 12:00 08/28/25 12:27 125 MLS/HR Atorvastatin Calcium 40 mg HS PO 08/21/25 22:00 08/27/25 22:36 40 MG Bumetanide 1 mg BIDD IV 08/21/25 18:00 08/28/25 05:54 1 MG Docusate Sodium 100 mg BID PO 08/21/25 22:00 08/28/25 09:45 100 MG Diagnostic Test (Pha) 1 strip Q6HR 08/21/25 18:00 08/28/25 12:17 1 STRIP Insulin Human Regular Q6HR SC 08/21/25 18:00 08/28/25 00:00 2 UNITS Hydralazine HCl 25 mg Q6HR PO 08/22/25 12:00 08/28/25 12:26 25 MG Ferrous Sulfate 325 mg BIDWM PO 08/22/25 18:00 08/28/25 09:37 325 MG Epoetin Andrew-epbx 10,000 unit MWF SC 08/22/25 13:00 08/26/25 11:10 10,000 UNIT Aspirin 81 mg DAILY PO 08/23/25 10:00 08/28/25 09:38 81 MG Epoetin Andrew-epbx 10,000 unit MWF [place] 08/22/25 15:45 UNV Sevelamer HCl 800 mg TIDWM PO 08/22/25 18:00 08/28/25 12:25 800 MG Sodium Bicarbonate 1,300 mg TID PO 08/23/25 14:00 08/28/25 14:12 1,300 MG Carvedilol 25 mg Q12HR PO 08/23/25 22:00 08/28/25 09:39 25 MG Clonidine HCl 0.1 mg BID PRN PO 08/25/25 22:00 08/27/25 05:56 0.1 MG Clopidogrel Bisulfate 75 mg DAILY PO 08/26/25 10:00 09/14/25 23:00 08/28/25 09:40 75 MG Heparin Sodium/ Dextrose 250 ml @ 9 mls/hr Q24H IV 08/28/25 09:15 08/28/25 09:28 9 MLS/HR Examination Gen: Appears stated age. NAD Heart: RRR, normal S1 and S2 Lungs: Bilateral air entry, no rales Ext: No edema Neuro: Alert and oriented x 4 laboratory and microbiology Laboratory Tests 08/28/25 06:11 08/26/25 02:55 08/25/25 18:06 Test 08/28/25 06:11 Range/Units Serum Glucose 115 H 74-106 mg/dL Microbiology Date/Time Source Procedure Growth Status 08/22/25 13:29 Blood Blood Culture - Final NO GROWTH AFTER 5 DAYS OF INCUBATION. Complete 08/20/25 18:49 Nose MRSA Screen - Final Complete Labs and/or images reviewed: Labs reviewed by me Problem List/Assessment/Plan Problem List/Assessment/Plan IMP Acute kidney injury hemodynamically mediated in the setting of hypertensive emergency CKD 5 with progression to ESRD Acute CVA w/ new deficits hypertensive emergency HTN NSTEMI with congestive heart failure EF of 25% Anemia due to chronic kidney disease REC -HD tentatively 08/29 -BMP in am -Blood pressure control -Strict I&Os -We will continue to follow Case discussed with Dr. Hilario Bishop Plan discussed with: Patient, Spouse Dietary Evaluation Review Comments: Nutrition Recommendation: 1) CCHO 75gm + renal standard diet 2) Nephro-marcial 1 tab daily 3) Monitor PO intake, lab values, weight trend, and I/O Expected Outcomes/Goals: Intake to meet >75% estimated needs Lab values to improve FU 3-5 days LARISSA FIGUEROA Aug 28, 2025 14:16
[2025-08-28 15:38] LABS: INR 1.04 (0.9-1.15); Partial Thromboplastin Time 61.0 SEC (24.5-34.5); Prothrombin Time 11.0 sec (9.3-11.8)
--- NOTE | 2025-08-28 15:56 | DVHPN2 ---
Subjective This is a follow up on 55-year-old male who is homeless with a known history of diabetes mellitus type 2, hypertension, congestive heart failure, previous history of CVA with a mild weakness on the left side presented to the hospital with a initially with the increasing shortness of breaths found to have 43% saturation on room air, eventually requiring BiPAP currently off of O2 supplementation. Yesterday patient's has a change in mental status CT head was done which shows no evidence of acute infarct, MRI showed evidence of infarct in the right kuldip. Patient's has a left-sided weakness. Patient is agreeable to have tunneled dialysis catheter placement. Reviewed: H&P Changes from previous H/P or p: No Changes Eyes: No Pain, No Vision change, No Conjunctivae inflammation, No Eyelid inflammation, No Other, No Redness ENT: No Ear pain, No Ear discharge, No Nose pain, No Nose discharge, No Nose congestion, No Mouth pain, No Mouth swelling, No Throat pain, No Throat swelling, No Other Cardiovascular: No Chest Pain, No Palpitations, No Orthopnea, No Paroxysmal Noc. Dyspnea, No Edema, No Lt Headedness, No Other Respiratory: No Cough, No Dry; Shortness of breath; No SOB with excertion, No Wheezing, No Hemoptysis, No Pleuritic Pain, No Sputum; Other (SOB at rest) Gastrointestinal: No Nausea, No Vomiting, No Abdominal Pain, No Diarrhea, No Constipation, No Melena, No Hematochezia, No Other Genitourinary: No Dysuria, No Frequency, No Incontinence, No Hematuria, No Retention, No Other Musculoskeletal: No other, No neck pain, No shoulder pain, No arm pain, No back pain, No hand pain, No leg pain, No foot pain Skin: No Rash, No Lesions, No Jaundice, No Bruising, No Other Objective Vitals Vital Signs Date Time Temp Pulse Resp B/P (MAP) Pulse Ox O2 Delivery O2 Flow Rate FiO2 08/28/25 12:26 170/96 08/28/25 12:00 98.2 69 19 97 98.2 08/28/25 08:00 Room Air* 0 21 Intake/Output Intake and Output 08/28/25 07:00 Intake Total 1560 ml Output Total 1600 ml Balance -40 ml Intake Oral 1200 ml IV Total 360 ml Output Urine Total 1600 ml # Bowel Movements 1 Exam HEENT pupils are reactive Neck is supple CV is S1-S2 regular rate and rhythm Respiratory diminished breath sounds bilateral bases GI positive bowel sound Extremity no edema [employer] OPER[employer] left-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 General Appearance: Alert, Oriented X3 Lungs: Clear to auscultation Cardiovascular: Regular rate, Normal S1, Normal S2 Abdomen: Normal bowel sounds Medications Current Medications Medications Dose Ordered Sig/Britta Route Start Time Stop Time Status Last Admin Dose Admin Ceftriaxone Sodium 50 ml @ 100 mls/hr Q24H IV 08/21/25 00:30 08/28/25 00:44 100 MLS/HR Famotidine 10 mg DAILY IV 08/20/25 10:00 08/28/25 09:44 10 MG Dextrose 50 ml UD PRN IV 08/20/25 05:15 Sodium Chloride 10 ml Q8HR IV 08/20/25 06:00 08/28/25 14:12 10 ML Ondansetron HCl 4 mg Q4HP PRN IV 08/20/25 05:15 Nitroglycerin 0.4 mg Q5MINP PRN SL 08/20/25 05:15 Morphine Sulfate 2 mg Q30M PRN IV 08/20/25 05:15 Hydralazine HCl 10 mg Q6HP PRN IV 08/20/25 05:15 08/26/25 06:58 10 MG Amlodipine Besylate 10 mg DAILY PO 08/20/25 10:00 08/28/25 09:40 10 MG Azithromycin 250 ml @ 125 mls/hr DAILY@1200 IV 08/21/25 12:00 08/28/25 12:27 125 MLS/HR Atorvastatin Calcium 40 mg HS PO 08/21/25 22:00 08/27/25 22:36 40 MG Bumetanide 1 mg BIDD IV 08/21/25 18:00 08/28/25 05:54 1 MG Docusate Sodium 100 mg BID PO 08/21/25 22:00 08/28/25 09:45 100 MG Diagnostic Test (Pha) 1 strip Q6HR 08/21/25 18:00 08/28/25 12:17 1 STRIP Insulin Human Regular Q6HR SC 08/21/25 18:00 08/28/25 00:00 2 UNITS Hydralazine HCl 25 mg Q6HR PO 08/22/25 12:00 08/28/25 12:26 25 MG Ferrous Sulfate 325 mg BIDWM PO 08/22/25 18:00 08/28/25 09:37 325 MG Epoetin Andrew-epbx 10,000 unit MWF SC 08/22/25 13:00 08/26/25 11:10 10,000 UNIT Aspirin 81 mg DAILY PO 08/23/25 10:00 08/28/25 09:38 81 MG Epoetin Andrew-epbx 10,000 unit MWF SC 08/22/25 15:45 UNV Sevelamer HCl 800 mg TIDWM PO 08/22/25 18:00 08/28/25 12:25 800 MG Sodium Bicarbonate 1,300 mg TID PO 08/23/25 14:00 08/28/25 14:12 1,300 MG Carvedilol 25 mg Q12HR PO 08/23/25 22:00 08/28/25 09:39 25 MG Clonidine HCl 0.1 mg BID PRN PO 08/25/25 22:00 08/27/25 05:56 0.1 MG Clopidogrel Bisulfate 75 mg DAILY PO 08/26/25 10:00 09/14/25 23:00 08/28/25 09:40 75 MG Heparin Sodium/ Dextrose 250 ml @ 9 mls/hr Q24H IV 08/28/25 09:15 08/28/25 09:28 9 MLS/HR Laboratory Results Laboratory Tests 08/25/25 18:06 08/26/25 02:55 08/28/25 06:11 Chemistry Test 08/28/25 06:11 Calcium Level 8.6 mg/dL (8.7-10.4) L Coagulation Test 08/27/25 21:00 08/28/25 06:11 08/28/25 14:50 Prothrombin Time 10.9 sec (9.3-11.8) 10.8 sec (9.3-11.8) 11.0 sec (9.3-11.8) Prothrombin Time INR 1.03 (0.9-1.15) 1.02 (0.9-1.15) 1.04 (0.9-1.15) Activated Partial Thromboplast Time 58.7 SEC (24.5-34.5) H 117.5 SEC (24.5-34.5) *H 61.0 SEC (24.5-34.5) H Urinalysis Test 08/20/25 00:06 08/22/25 12:21 Urine Color Colorless (Yellow) Urine Clarity Clear (Clear) Urine pH 6.5 (5.0-9.0) Urine Specific [place] 1.009 (1.001-1.035) Urine Protein 2+ (Negative) H Urine Ketones Negative (Negative) Urine Blood 2+ /uL (Negative) H Urine Nitrite Negative (Negative) Urine Bilirubin Negative (Negative) Urine Urobilinogen Normal mg/dL (Negative) Urine Leukocyte Esterase Negative /uL (Negative) Urine RBC 2 /hpf (0 - 3) Urine Microscopic WBC 1 /HPF (0-3) Urine Squamous Epithelial Cells None seen /hpf (<5) Urine Bacteria None seen /hpf (None Seen) Urine Glucose 3+ mg/dL (Normal) H Urine Creatinine 91.09 mg/dL (30.0-125.0) Urine Sodium 34 mmol/L (40-220) L Urine Total Protein 229.4 mg/dL (1-14) H Microbiology Microbiology Date/Time Source Procedure Growth Status 08/22/25 13:29 Blood Blood Culture - Final NO GROWTH AFTER 5 DAYS OF INCUBATION. Complete 08/20/25 18:49 Nose MRSA Screen - Final Complete Assessment/Plan Assessment/Plan 55-year-old male with a known history of congestive heart failure with systolic dysfunction, diabetes mellitus type 2, hypertension, dyslipidemia, homelessness who initially presented to the hospital with a respiratory distress found to have acute hypoxic respiratory failure suspected secondary to congestive heart failure with systolic dysfunction/multifocal pneumonia. Patient's hospital course was eventful for acute CVA with a MRI evidence of infarct in the right kuldip. 1. Acute hypoxic respiratory failure secondary to acute CHF exacerbation with systolic dysfunction as well as multifocal pneumonia 2. Acute CHF exacerbation with systolic dysfunction with the EF of 25% 3. Multifocal pneumonia 4. Moderate/severe pulmonary hypertension 5. Acute CVA with a evidence infarct in the right-sided kuldip, with a left-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 6. AKA with a underlying CKD, progressing to end-stage renal disease, tunneled dialysis catheter will be placed, currently hemodialysis via [place] catheter 7. Previous history of CVA with a mild left residual deficit 8. NSTEMI type 2 suspect secondary to acute CHF exacerbation 9. 1/2 Gram-negative bacteremia with coag-negative staph, suspect contamination 10. Hypertension, stable - consult Dr. Mckinley for dialysis catheter placement -aspirin, statin, continue IV diuretics, continue IV antibiotics, hemodialysis catheter placement -repeat blood cultures, strict I&Os, daily weight. --hold Plavix, continue heparin drip for bridging until the dialysis catheter is done. Plan discussed with: Patient My Orders Orders - HIRAL AUSTIN MD Procedure Category Date Status Time Heparin Per Pharmacy [facility] 08/27/25 In Process Protocol 22:00 Heparin Drip/D5w [facility] 08/28/25 In Process 100units/Ml 09:15 Heparin Per Pharmacy [facility] 08/28/25 In Process Protocol 09:05 Date of Service: Aug 28, 2025 Billing Provider: HIRAL AUSTIN MD Common Visit Codes: 70501-[id number] INP/OBS CARE(HIGH) HIRAL AUSTIN MD Aug 28, 2025 15:56
--- NOTE | 2025-08-28 18:33 | DVHPN2 ---
Progress Note - Dictate Date Seen: Aug 28, 2025 Medical Necessity Reason Pt with a Central, PICC or Fol: No Subjective Patient was seen and evaluated in follow up. Sitter is present at bedside. Patient is complaining of left-sided weakness. BUN 79, FAMILY ENGAGEMENT SPECIALIST 7.93, [place] 8.6. Telemetry reviewed. vital signs Vital Sign Date Time Temp Pulse Resp B/P (MAP) Pulse Ox O2 Delivery O2 Flow Rate FiO2 08/28/25 12:26 170/96 08/28/25 12:00 98.2 69 19 97 98.2 08/28/25 08:00 Room Air* 0 21 Total Intake and Output 08/27/25 08/27/25 08/28/25 14:59 22:59 06:59 Intake Total 0 ml 1110 ml 450 ml Output Total 950 ml 650 ml Balance 0 ml 160 ml -200 ml medications Current Medications Medications Dose Ordered Sig/Britta Route Start Time Stop Time Status Last Admin Dose Admin Ceftriaxone Sodium 50 ml @ 100 mls/hr Q24H IV 08/21/25 00:30 08/28/25 00:44 100 MLS/HR Famotidine 10 mg DAILY IV 08/20/25 10:00 08/28/25 09:44 10 MG Dextrose 50 ml UD PRN IV 08/20/25 05:15 Sodium Chloride 10 ml Q8HR IV 08/20/25 06:00 08/28/25 05:41 10 ML Ondansetron HCl 4 mg Q4HP PRN IV 08/20/25 05:15 Nitroglycerin 0.4 mg Q5MINP PRN SL 08/20/25 05:15 Morphine Sulfate 2 mg Q30M PRN IV 08/20/25 05:15 Hydralazine HCl 10 mg Q6HP PRN IV 08/20/25 05:15 08/26/25 06:58 10 MG Amlodipine Besylate 10 mg DAILY PO 08/20/25 10:00 08/28/25 09:40 10 MG Azithromycin 250 ml @ 125 mls/hr DAILY@1200 IV 08/21/25 12:00 08/28/25 12:27 125 MLS/HR Atorvastatin Calcium 40 mg HS PO 08/21/25 22:00 08/27/25 22:36 40 MG Bumetanide 1 mg BIDD IV 08/21/25 18:00 08/28/25 05:54 1 MG Docusate Sodium 100 mg BID PO 08/21/25 22:00 08/28/25 09:45 100 MG Diagnostic Test (Pha) 1 strip Q6HR 08/21/25 18:00 08/28/25 12:17 1 STRIP Insulin Human Regular Q6HR SC 08/21/25 18:00 08/28/25 00:00 2 UNITS Hydralazine HCl 25 mg Q6HR PO 08/22/25 12:00 08/28/25 12:26 25 MG Ferrous Sulfate 325 mg BIDWM PO 08/22/25 18:00 08/28/25 09:37 325 MG Epoetin Andrew-epbx 10,000 unit MWF SC 08/22/25 13:00 08/26/25 11:10 10,000 UNIT Aspirin 81 mg DAILY PO 08/23/25 10:00 08/28/25 09:38 81 MG Epoetin Andrew-epbx 10,000 unit MWF [place] 08/22/25 15:45 UNV Sevelamer HCl 800 mg TIDWM PO 08/22/25 18:00 08/28/25 12:25 800 MG Sodium Bicarbonate 1,300 mg TID PO 08/23/25 14:00 08/28/25 05:53 1,300 MG Carvedilol 25 mg Q12HR PO 08/23/25 22:00 08/28/25 09:39 25 MG Clonidine HCl 0.1 mg BID PRN PO 08/25/25 22:00 08/27/25 05:56 0.1 MG Clopidogrel Bisulfate 75 mg DAILY PO 08/26/25 10:00 09/14/25 23:00 08/28/25 09:40 75 MG Heparin Sodium/ Dextrose 250 ml @ 9 mls/hr Q24H IV 08/28/25 09:15 08/28/25 09:28 9 MLS/HR objective GENERAL: Alert and oriented x 3. No acute distress. EYES: PERRL, EOMI. Anicteric. HENT: Moist mucous membranes. LUNGS: Clear to auscultation bilaterally. CARDIOVASCULAR: Regular rate and rhythm. ABDOMEN: Soft, non-tender and non-distended. EXTREMITIES: No edema. NEUROLOGIC: No focal neurological deficits. SKIN: Warm, dry. laboratory and microbiology Laboratory Tests 08/28/25 06:11 08/26/25 02:55 08/25/25 18:06 Test 08/28/25 06:11 Range/Units Serum Glucose 115 H 74-106 mg/dL Problem List Acute on chronic CHF. NSTEMI likely type 2 IA. Hypertensive emergency. GISSELL on CKD. Medication noncompliance. Acute hypoxic respiratory failure, multifocal pneumonia. Cardiomyopathy. Acute pontine stroke with dysarthria, left facial weakness, left hemiplegia. Chronic left hemispheres stroke. Assessment/Plan Continued all current supportive medical care. Amlodipine, Coreg, Hydralazine. Aspirin, Plavix. IV antibiotics as ordered. Diuretics with Bumex. Heparin drip per pharmacy. Morphine for pain management. Additional plan as per the hospital course. Dietary Evaluation Review Comments: Nutrition Recommendation: 1) CCHO 75gm + renal standard diet 2) Nephro-marcial 1 tab daily 3) Monitor PO intake, lab values, weight trend, and I/O Expected Outcomes/Goals: Intake to meet >75% estimated needs Lab values to improve FU 3-5 days Plan discussed with: Patient RAMIN OLIVIER MD Aug 28, 2025 13:38
[2025-08-28 22:18] LABS: INR 1.03 (0.9-1.15); Partial Thromboplastin Time 59.0 SEC (24.5-34.5); Prothrombin Time 10.9 sec (9.3-11.8)
[2025-08-29] VITALS (12 sets, daily range): BP systolic 143–169; BP diastolic 74–96; PULSE 59–82; RESP 11–19; TEMP 97.3–99.5; O2SAT 95–100
[2025-08-29 04:17] LABS: Chloride 102 mmol/L (98-107); Hematocrit 24.7 % (41.0-53.0); Hemoglobin 8.5 g/dL (13.5-17.5); Mean Corpuscular Hemoglobin 31.6 pg (28.0-32.0); Mean Corpuscular Volume 91.4 fL (80.0-100.0); Nucleated Red Blood Cells % 0.2 %; Potassium 4.1 mmol/L (3.5-5.1); Sodium 142 mmol/L (136-145)
[2025-08-29 04:18] LABS: Anion Gap 11 (5-15); Carbon Dioxide 29 mmol/L (20-31)
[2025-08-29 04:23] LABS: BUN/Creatinine Ratio 9.4 (10.0-20.0)
[2025-08-29 04:27] LABS: Blood Urea Nitrogen 77 mg/dL (9-23); Calcium 8.4 mg/dL (8.7-10.4); Glucose 126 mg/dL (74-106)
[2025-08-29 04:45] LABS: INR 1.05 (0.9-1.15); Partial Thromboplastin Time 59.8 SEC (24.5-34.5); Prothrombin Time 11.1 sec (9.3-11.8)
--- NOTE | 2025-08-29 10:39 | DVHPN2 ---
Progress Note - Dictate Date Seen: Aug 29, 2025 Medical Necessity Reason Pt with a Central, PICC or Fol: No Subjective Mr. Thomas is a 55 years old right-handed gentleman with a history of hypertension, diabetes, congestive heart failure, COPD, asthma, the patient was admitted on 08/19/2025 with a chief complaint of shortness breath, but he was has other complaints I have seen and examined the patient, talked to his nurse, he is doing okay, no new complaints He is NPO today for Hemodialysis access UDS, 08/20/2025: Negative WBC/HB/PLT/MCV, 08/25/2025: 5.2/10.5/160/91 BUN/CR, 08/19/2025: 49/9.09, 08/21/2025: 65/9.36, 08/25/2025: 106/9.55 HCO3, 08/19/2025:18 , 08/20/2025: 19. Lactic acid, 08/19/2025: 5.3 Liver function tests, 08/21/2025: Unremarkable TG/HDL/LDL/HDL, 08/20/2025: 42/141/86/35 Echocardiogram, 08/20/2025: DILATED LV AND IS MODERATELY HYPOKINETIC LV EF IS ONLT 25% DYSKINESIS OF IVS NORMAL VALVES MODERATE DEGREE PULMONARY HYPERTENSION RVSP IS 45 MM OF HG AND IS MODERATELY HIGH NO EFFUSION Extremity Venous study, 08/25/2025: Thrombus basilic vein and cephalic vein Carotid Doppler, 08/26/2025: Right carotid system not evaluated due to overlying bandaging and IJ line. Left carotid system demonstrates no hemodynamically significant stenosis. Chest x-ray, 08/19/2025: Multifocal pneumonia throughout both lungs CT head, 08/21/2025: 1. No acute territorial infarct, intracranial hemorrhage, or mass effect. 2. Age-related involutional changes. Chronic ischemic changes as detailed. 3. If clinical symptoms persist, MRI may be beneficial in further evaluation MRI head, 08/22/2025: Acute infarct right kuldip measuring 2.1 cm. Left parietal encephalomalacia vital signs Vital Sign Date Time Temp Pulse Resp B/P (MAP) Pulse Ox O2 Delivery O2 Flow Rate FiO2 08/29/25 09:20 65 165/89 08/29/25 09:00 98.9 19 98 98.9 08/29/25 08:00 Room Air* 0 21 Total Intake and Output 08/28/25 08/28/25 08/29/25 15:00 23:00 07:00 Intake Total 150 ml 1600 ml Output Total 150 ml 700 ml Balance 0 ml 900 ml medications Current Medications Medications Dose Ordered Sig/Britta Route Start Time Stop Time Status Last Admin Dose Admin Ceftriaxone Sodium 50 ml @ 100 mls/hr Q24H IV 08/21/25 00:30 08/28/25 23:57 100 MLS/HR Famotidine 10 mg DAILY IV 08/20/25 10:00 08/29/25 09:17 10 MG Dextrose 50 ml UD PRN IV 08/20/25 05:15 Sodium Chloride 10 ml Q8HR IV 08/20/25 06:00 08/29/25 05:59 10 ML Ondansetron HCl 4 mg Q4HP PRN IV 08/20/25 05:15 Nitroglycerin 0.4 mg Q5MINP PRN SL 08/20/25 05:15 Hydralazine HCl 10 mg Q6HP PRN IV 08/20/25 05:15 08/26/25 06:58 10 MG Amlodipine Besylate 10 mg DAILY PO 08/20/25 10:00 08/29/25 09:18 10 MG Azithromycin 250 ml @ 125 mls/hr DAILY@1200 IV 08/21/25 12:00 08/28/25 12:27 125 MLS/HR Atorvastatin Calcium 40 mg HS PO 08/21/25 22:00 08/28/25 21:28 40 MG Bumetanide 1 mg BIDD IV 08/21/25 18:00 08/29/25 05:59 1 MG Docusate Sodium 100 mg BID PO 08/21/25 22:00 08/29/25 09:19 100 MG Diagnostic Test (Pha) 1 strip Q6HR 08/21/25 18:00 08/29/25 05:59 1 STRIP Insulin Human Regular Q6HR SC 08/21/25 18:00 08/29/25 00:10 4 UNITS Hydralazine HCl 25 mg Q6HR PO 08/22/25 12:00 08/29/25 05:59 25 MG Ferrous Sulfate 325 mg BIDWM PO 08/22/25 18:00 08/29/25 08:11 325 MG Epoetin Andrew-epbx 10,000 unit MWF [place] 08/22/25 13:00 08/29/25 09:21 10,000 UNIT Aspirin 81 mg DAILY PO 08/23/25 10:00 08/29/25 09:17 81 MG Epoetin Andrew-epbx 10,000 unit MWF [place] 08/22/25 15:45 UNV Sevelamer HCl 800 mg TIDWM PO 08/22/25 18:00 08/29/25 08:11 800 MG Sodium Bicarbonate 1,300 mg TID PO 08/23/25 14:00 08/29/25 05:58 1,300 MG Carvedilol 25 mg Q12HR PO 08/23/25 22:00 08/29/25 09:20 25 MG Clonidine HCl 0.1 mg BID PRN PO 08/25/25 22:00 08/27/25 05:56 0.1 MG Clopidogrel Bisulfate 75 mg DAILY PO 08/26/25 10:00 09/14/25 23:00 08/28/25 09:40 75 MG Heparin Sodium/ Dextrose 250 ml @ 9 mls/hr Q24H IV 08/28/25 09:15 08/29/25 09:31 9 MLS/HR objective General: the patient is well developed and nourished. No acute distress. MENTAL STATUS: Awake and alert. Oriented to person, place, time SPEECH, LANGUAGE, HIGHER CORTICAL FUNCTION: no aphasia he has has mild dysarthria CRANIAL NERVES: Pupils are equal, round and reactive. EOMs full and conjugate. Facial sensation intact in all three divisions bilaterally. Mandibular strength intact. Left facial weakness of upper motor neuron pattern SENSATION: Sensation to touch and pinprick is normal. MOTOR: Normal tone in the upper and lower extremity. Normal muscle bulk. No fasciculations. No abnormal movements or posturing. Muscle strength of the major groups in the right extremities is 5/5. Muscle strength of the major groups in the lower extremities is: Arm: 3/5, le/5. REFLEXES: Deep tendon reflexes are symmetrical. No pathological reflexes. CEREBELLAR/COORDINATION: Finger to nose is normal in the right hand GAIT/STATION: deferred laboratory and microbiology Laboratory Tests 08/29/25 03:54 Test 08/29/25 03:54 Range/Units Serum Glucose 126 H 74-106 mg/dL Problem List Acute pontine stroke with dysarthria, left facial weakness, left hemiplegia Chronic left hemispheres stroke Sleep-related breathing disorder Kidney failure Acute respiratory failure Congestive heart failure Assessment/Plan Monitoring Supportive treatment Telemetry AMANDA Aspirin 81 mg daily Plavix 75 mg daily for 21 days (on hold) Lipitor 40 mg daily Oxygen Nephrology on case Cardiology on case Address sleep-related breathing disorder later I have discussed with him about stroke risk facts, secondary stroke prevention This medical document was created using an electronic medical record system with [employer] dictation system. Although this document has been carefully reviewed, there may still be some phonetic and typographical errors. These areas are purely typographical due to imperfections of the software programs, and do not reflect any compromise in the patient's medical care. Prognosis poor Dietary Evaluation Review Comments: Nutrition Recommendation: 1) CCHO 75gm + renal standard diet 2) Nephro-marcial 1 tab daily 3) Monitor PO intake, lab values, weight trend, and I/O Expected Outcomes/Goals: Intake to meet >75% estimated needs Lab values to improve FU 3-5 days Plan discussed with: Patient, Other CORAZON ALVARADO MD Aug 29, 2025 10:39
--- NOTE | 2025-08-29 11:46 | DVHPN2 ---
Progress Note Date Seen: Aug 29, 2025 Medical Necessity Reason Pt with a Central, PICC or Fol: No Subjective Patient reports: No new complaints Other Systems: Patient seen and examined by myself today in follow-up Objective vital signs Vital Sign Date Time Temp Pulse Resp B/P (MAP) Pulse Ox O2 Delivery O2 Flow Rate FiO2 08/29/25 09:20 65 165/89 08/29/25 09:00 98.9 19 98 98.9 08/29/25 08:00 Room Air* 0 21 Total Intake and Output 08/28/25 08/28/25 08/29/25 15:00 23:00 07:00 Intake Total 150 ml 1600 ml Output Total 150 ml 700 ml Balance 0 ml 900 ml medications Current Medications Medications Dose Ordered Sig/Britta Route Start Time Stop Time Status Last Admin Dose Admin Ceftriaxone Sodium 50 ml @ 100 mls/hr Q24H IV 08/21/25 00:30 08/28/25 23:57 Famotidine 10 mg DAILY IV 08/20/25 10:00 08/29/25 09:17 Dextrose 50 ml UD PRN IV 08/20/25 05:15 Sodium Chloride 10 ml Q8HR IV 08/20/25 06:00 08/29/25 05:59 Ondansetron HCl 4 mg Q4HP PRN IV 08/20/25 05:15 Nitroglycerin 0.4 mg Q5MINP PRN SL 08/20/25 05:15 Hydralazine HCl 10 mg Q6HP PRN IV 08/20/25 05:15 08/26/25 06:58 Amlodipine Besylate 10 mg DAILY PO 08/20/25 10:00 08/29/25 09:18 Azithromycin 250 ml @ 125 mls/hr DAILY@1200 IV 08/21/25 12:00 08/28/25 12:27 Atorvastatin Calcium 40 mg HS PO 08/21/25 22:00 08/28/25 21:28 Bumetanide 1 mg BIDD IV 08/21/25 18:00 08/29/25 05:59 Docusate Sodium 100 mg BID PO 08/21/25 22:00 08/29/25 09:19 Diagnostic Test (Pha) 1 strip Q6HR 08/21/25 18:00 08/29/25 11:34 Insulin Human Regular Q6HR SC 08/21/25 18:00 08/29/25 00:10 Hydralazine HCl 25 mg Q6HR PO 08/22/25 12:00 08/29/25 05:59 Ferrous Sulfate 325 mg BIDWM PO 08/22/25 18:00 08/29/25 08:11 Epoetin Andrew-epbx 10,000 unit MWF [place] 08/22/25 13:00 08/29/25 09:21 Aspirin 81 mg DAILY PO 08/23/25 10:00 08/29/25 09:17 Epoetin Andrew-epbx 10,000 unit MWF [place] 08/22/25 15:45 UNV Sevelamer HCl 800 mg TIDWM PO 08/22/25 18:00 08/29/25 08:11 Sodium Bicarbonate 1,300 mg TID PO 08/23/25 14:00 08/29/25 05:58 Carvedilol 25 mg Q12HR PO 08/23/25 22:00 08/29/25 09:20 Clonidine HCl 0.1 mg BID PRN PO 08/25/25 22:00 08/27/25 05:56 Clopidogrel Bisulfate 75 mg DAILY PO 08/26/25 10:00 09/14/25 23:00 08/28/25 09:40 Heparin Sodium/ Dextrose 250 ml @ 9 mls/hr Q24H IV 08/28/25 09:15 08/29/25 09:31 Examination: LUNGS:Normal, CVS:Normal, MSK:Normal laboratory and microbiology Laboratory Tests 08/29/25 03:54 Test 08/29/25 03:54 Range/Units Serum Glucose 126 H 74-106 mg/dL Microbiology Date/Time Source Procedure Growth Status 08/22/25 13:29 Blood Blood Culture - Final NO GROWTH AFTER 5 DAYS OF INCUBATION. 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 at [facility] We will continue to follow up Plan discussed with: Patient My Orders My Orders Orders - TC AMATO MD Procedure Category Date Status Time Hemodialysis Orders ORDERS 08/30/25 Transmitted 07:00 Dialysis Nursing LINNETTE 08/30/25 In Process Message 07:00 Heparin Sodium PHA 08/30/25 Logged (Porcine) 07:00 Heparin Sodium PHA 08/30/25 Transmitted (Porcine) 07:00 Sodium Chloride 0.9% PHA 08/30/25 Transmitted 07:00 Document Fluid Input LINNETTE 08/30/25 In Process And Outpu 07:00 Retacrit 10,000unit PHA 08/30/25 Transmitted Sc Xone 21:00 * Marketing Systems Analyst CONS 08/29/25 Transmitted Consult Dietary Evaluation Review Comments: Nutrition Recommendation: 1) CCHO 75gm + renal standard diet 2) Nephro-marcial 1 tab daily 3) Monitor PO intake, lab values, weight trend, and I/O Expected Outcomes/Goals: Intake to meet >75% estimated needs Lab values to improve FU 3-5 days TC AMATO MD Aug 29, 2025 11:46
[2025-08-29] MEDS: LIDOCAINE 2%HCL (LOCAL ANESTH.) INJ 20ML MDV ONE (12:58)
[2025-08-29] MEDS: fentaNYL CITRATE 100 MCG/2 ML VL ONE (13:00)
[2025-08-29] MEDS: HEPARIN SODIUM (PORCINE) 5000 UNITS/ML 1ML VIAL ONE (13:00)
[2025-08-29] MEDS: MIDAZOLAM HCL 2MG/2ML 2ml VIAL (1mg/ml) ONE (13:00)
--- NOTE | 2025-08-29 14:20 | DVH ---
XY Insertion of Venous Cath, HISTORY: HD CATH PL PROCEDURE: Informed consent was obtained. The patient was placed supine on the interventional table. A limited localization ultrasound of the right neck base was obtained. The right neck base and upper chest were prepped with chlorhexidine which was allowed to dry and draped in the usual sterile fashion. Time out was performed. IV sedation was administered. The skin and the soft tissues were infiltrated with 1% Lidocaine. With real-time ultrasound guidance, the internal jugular vein was accessed with a micropuncture kit, and an image documenting patency was recorded to PACS. A subcutaneous tunneled tract was created from the right upper chest to the venotomy site. A 14.5 [place] Path, 23 cm long hemodialysis catheter was advanced through the tunneled tract. Fluoroscopy was used to advance a guidewire through the internal jugular vein into the inferior vena cava. Following serial dilatation, a 15 Danish peel-away sheath was introduced, though which was advanced the catheter into the right atrium. The catheter tip position was confirmed with fluoroscopy. There was satisfactory flow in both lumens. The catheter lumens were flushed with saline and heparin was left indwelling in the catheter. A post-procedure image of the chest was obtained. The neck incision site was closed with a Vicryl suture and dressed sterilely. The catheter was sutured at the skin surface and exit site also dressed sterilely. No immediate complication was identified. [id number] FLUOROSCOPY TIME: 1.8 minutes. SEDATION: Dr. Yany Luis was personally responsible for the administration of moderate sedation during the procedure performed, including the use of an independent trained observer who had no other duties during the procedure. The drugs utilized were IV fentanyl and versed (see nursing log for details). The total time of supervision by the attending physician was approximately 20 minutes. FINDINGS: Widely patent right IJV. Post procedure image demonstrates smooth course of the hemodialysis catheter with the tip in the right atrium. IMPRESSION: Successful placement of 14.5 [place] Path, 23 cm long hemodialysis catheter through right internal jugular vein. Plan: Please contact IR for removal when no longer needed.
--- NOTE | 2025-08-29 16:16 | DVHPN2 ---
Subjective This is a follow up on 55-year-old male who is homeless with a known history of diabetes mellitus type 2, hypertension, congestive heart failure, previous history of CVA with a mild weakness on the left side presented to the hospital with a initially with the increasing shortness of breaths found to have 43% saturation on room air, eventually requiring BiPAP currently off of O2 supplementation. Yesterday patient's has a change in mental status CT head was done which shows no evidence of acute infarct, MRI showed evidence of infarct in the right kuldip. Patient's has a left-sided weakness. Patient is agreeable to have tunneled dialysis catheter placement. Reviewed: H&P Changes from previous H/P or p: No Changes Eyes: No Pain, No Vision change, No Conjunctivae inflammation, No Eyelid inflammation, No Other, No Redness ENT: No Ear pain, No Ear discharge, No Nose pain, No Nose discharge, No Nose congestion, No Mouth pain, No Mouth swelling, No Throat pain, No Throat swelling, No Other Cardiovascular: No Chest Pain, No Palpitations, No Orthopnea, No Paroxysmal Noc. Dyspnea, No Edema, No Lt Headedness, No Other Respiratory: No Cough, No Dry; Shortness of breath; No SOB with excertion, No Wheezing, No Hemoptysis, No Pleuritic Pain, No Sputum; Other (SOB at rest) Gastrointestinal: No Nausea, No Vomiting, No Abdominal Pain, No Diarrhea, No Constipation, No Melena, No Hematochezia, No Other Genitourinary: No Dysuria, No Frequency, No Incontinence, No Hematuria, No Retention, No Other Musculoskeletal: No other, No neck pain, No shoulder pain, No arm pain, No back pain, No hand pain, No leg pain, No foot pain Skin: No Rash, No Lesions, No Jaundice, No Bruising, No Other Objective Vitals Vital Signs Date Time Temp Pulse Resp B/P (MAP) Pulse Ox O2 Delivery O2 Flow Rate FiO2 08/29/25 14:45 69 15 143/87 (105) 97 08/29/25 12:46 98.6 98.6 08/29/25 08:00 Room Air* 0 21 Intake/Output Intake and Output 08/29/25 07:00 Intake Total 1750 ml Output Total 850 ml Balance 900 ml Intake Oral 1750 ml Output Urine Total 850 ml # Voids 4 Exam HEENT pupils are reactive Neck is supple CV is S1-S2 regular rate and rhythm Respiratory diminished breath sounds bilateral bases GI positive bowel sound Extremity no edema 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 General Appearance: Alert, Oriented X3 Lungs: Clear to auscultation Cardiovascular: Regular rate, Normal S1, Normal S2 Abdomen: Normal bowel sounds Medications Current Medications Medications Dose Ordered Sig/Britta Route Start Time Stop Time Status Last Admin Dose Admin Ceftriaxone Sodium 50 ml @ 100 mls/hr Q24H IV 08/21/25 00:30 08/28/25 23:57 100 MLS/HR Famotidine 10 mg DAILY IV 08/20/25 10:00 08/29/25 09:17 10 MG Dextrose 50 ml UD PRN IV 08/20/25 05:15 Sodium Chloride 10 ml Q8HR IV 08/20/25 06:00 08/29/25 14:00 10 ML Ondansetron HCl 4 mg Q4HP PRN IV 08/20/25 05:15 Nitroglycerin 0.4 mg Q5MINP PRN SL 08/20/25 05:15 Hydralazine HCl 10 mg Q6HP PRN IV 08/20/25 05:15 08/26/25 06:58 10 MG Amlodipine Besylate 10 mg DAILY PO 08/20/25 10:00 08/29/25 09:18 10 MG Azithromycin 250 ml @ 125 mls/hr DAILY@1200 IV 08/21/25 12:00 08/29/25 11:41 125 MLS/HR Atorvastatin Calcium 40 mg HS PO 08/21/25 22:00 08/28/25 21:28 40 MG Bumetanide 1 mg BIDD IV 08/21/25 18:00 08/29/25 05:59 1 MG Docusate Sodium 100 mg BID PO 08/21/25 22:00 08/29/25 09:19 100 MG Diagnostic Test (Pha) 1 strip Q6HR 08/21/25 18:00 08/29/25 11:34 1 STRIP Insulin Human Regular Q6HR SC 08/21/25 18:00 08/29/25 00:10 4 UNITS Hydralazine HCl 25 mg Q6HR PO 08/22/25 12:00 08/29/25 11:41 25 MG Ferrous Sulfate 325 mg BIDWM PO 08/22/25 18:00 08/29/25 08:11 325 MG Epoetin Andrew-epbx 10,000 unit MWF [place] 08/22/25 13:00 08/29/25 09:21 10,000 UNIT Aspirin 81 mg DAILY PO 08/23/25 10:00 08/29/25 09:17 81 MG Epoetin Andrew-epbx 10,000 unit MWF [place] 08/22/25 15:45 UNV Sevelamer HCl 800 mg TIDWM PO 08/22/25 18:00 08/29/25 11:41 800 MG Sodium Bicarbonate 1,300 mg TID PO 08/23/25 14:00 08/29/25 05:58 1,300 MG Carvedilol 25 mg Q12HR PO 08/23/25 22:00 08/29/25 09:20 25 MG Clonidine HCl 0.1 mg BID PRN PO 08/25/25 22:00 08/27/25 05:56 0.1 MG Clopidogrel Bisulfate 75 mg DAILY PO 08/26/25 10:00 09/14/25 23:00 08/28/25 09:40 75 MG Heparin Sodium/ Dextrose 250 ml @ 9 mls/hr Q24H IV 08/28/25 09:15 08/29/25 09:31 9 MLS/HR Laboratory Results Laboratory Tests 08/29/25 03:54 Chemistry Test 08/29/25 03:54 Calcium Level 8.4 mg/dL (8.7-10.4) L Coagulation Test 08/28/25 21:47 08/29/25 03:54 Prothrombin Time 10.9 sec (9.3-11.8) 11.1 sec (9.3-11.8) Prothrombin Time INR 1.03 (0.9-1.15) 1.05 (0.9-1.15) Activated Partial Thromboplast Time 59.0 SEC (24.5-34.5) H 59.8 SEC (24.5-34.5) H Urinalysis Test 08/20/25 00:06 08/22/25 12:21 Urine Color Colorless (Yellow) Urine Clarity Clear (Clear) Urine pH 6.5 (5.0-9.0) Urine Specific [place] 1.009 (1.001-1.035) Urine Protein 2+ (Negative) H Urine Ketones Negative (Negative) Urine Blood 2+ /uL (Negative) H Urine Nitrite Negative (Negative) Urine Bilirubin Negative (Negative) Urine Urobilinogen Normal mg/dL (Negative) Urine Leukocyte Esterase Negative /uL (Negative) Urine RBC 2 /hpf (0 - 3) Urine Microscopic WBC 1 /HPF (0-3) Urine Squamous Epithelial Cells None seen /hpf (<5) Urine Bacteria None seen /hpf (None Seen) Urine Glucose 3+ mg/dL (Normal) H Urine Creatinine 91.09 mg/dL (30.0-125.0) Urine Sodium 34 mmol/L (40-220) L Urine Total Protein 229.4 mg/dL (1-14) H Microbiology Microbiology Date/Time Source Procedure Growth Status 08/22/25 13:29 Blood Blood Culture - Final NO GROWTH AFTER 5 DAYS OF INCUBATION. Complete 08/20/25 18:49 Nose MRSA Screen - Final Complete Assessment/Plan Assessment/Plan 55-year-old male with a known history of congestive heart failure with systolic dysfunction, diabetes mellitus type 2, hypertension, dyslipidemia, homelessness who initially presented to the hospital with a respiratory distress found to have acute hypoxic respiratory failure suspected secondary to congestive heart failure with systolic dysfunction/multifocal pneumonia. Patient's hospital course was eventful for acute CVA with a MRI evidence of infarct in the right kuldip. 1. Acute hypoxic respiratory failure secondary to acute CHF exacerbation with systolic dysfunction as well as multifocal pneumonia 2. Acute CHF exacerbation with systolic dysfunction with the EF of 25% 3. Multifocal pneumonia 4. Moderate/severe pulmonary hypertension 5. Acute CVA with a evidence infarct in the right-sided kuldip, with a left-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 6. AKA with a underlying CKD, progressing to end-stage renal disease, tunneled dialysis catheter will be placed, currently hemodialysis via [place] catheter 7. Previous history of CVA with a mild left residual deficit 8. NSTEMI type 2 suspect secondary to acute CHF exacerbation 9. 1/2 Gram-negative bacteremia with coag-negative staph, suspect contamination 10. Hypertension, stable - consult Dr. Mckinley for dialysis catheter placement -aspirin, statin, continue IV diuretics, continue IV antibiotics, hemodialysis catheter placement -repeat blood cultures, strict I&Os, daily weight. --hold Plavix, continue heparin drip for bridging until the dialysis catheter is done. Plan discussed with: Patient My Orders Orders - HIRAL AUSTIN MD Procedure Category Date Status Time PTPTT LAB 08/30/25 Verified 04:00 Complete Blood Count LAB 08/30/25 Verified 04:00 Insertion Of Venous XY 08/29/25 Resulted Cath 14:06 Date of Service: Aug 29, 2025 Billing Provider: HIRAL AUSTIN MD Common Visit Codes: [id number] INP/OBS CARE(HIGH) HIRAL AUSTIN MD Aug 29, 2025 16:16
--- NOTE | 2025-08-29 17:44 | DVHPN2 ---
Progress Note - Dictate Date Seen: Aug 29, 2025 Medical Necessity Reason Pt with a Central, PICC or Fol: No Subjective Patient was seen and evaluated in follow up. HGB 8.5, HCT 24.7, BUN 77, Electronics Tester 8.20, CA 8.4. Patient underwent successful placement of 14.5 [place] Path, 23 cm long hemodialysis catheter through right internal jugular vein. Telemetry reviewed. vital signs Vital Sign Date Time Temp Pulse Resp B/P (MAP) Pulse Ox O2 Delivery O2 Flow Rate FiO2 08/29/25 17:03 98.6 64 18 167/96 (119) 99 98.6 08/29/25 08:00 Room Air* 0 21 Total Intake and Output 08/28/25 08/28/25 08/29/25 15:00 23:00 07:00 Intake Total 150 ml 1600 ml Output Total 150 ml 700 ml Balance 0 ml 900 ml medications Current Medications Medications Dose Ordered Sig/Britta Route Start Time Stop Time Status Last Admin Dose Admin Ceftriaxone Sodium 50 ml @ 100 mls/hr Q24H IV 08/21/25 00:30 08/28/25 23:57 100 MLS/HR Famotidine 10 mg DAILY IV 08/20/25 10:00 08/29/25 09:17 10 MG Dextrose 50 ml UD PRN IV 08/20/25 05:15 Sodium Chloride 10 ml Q8HR IV 08/20/25 06:00 08/29/25 14:00 10 ML Ondansetron HCl 4 mg Q4HP PRN IV 08/20/25 05:15 Nitroglycerin 0.4 mg Q5MINP PRN SL 08/20/25 05:15 Hydralazine HCl 10 mg Q6HP PRN IV 08/20/25 05:15 08/26/25 06:58 10 MG Amlodipine Besylate 10 mg DAILY PO 08/20/25 10:00 08/29/25 09:18 10 MG Azithromycin 250 ml @ 125 mls/hr DAILY@1200 IV 08/21/25 12:00 08/29/25 11:41 125 MLS/HR Atorvastatin Calcium 40 mg HS PO 08/21/25 22:00 08/28/25 21:28 40 MG Bumetanide 1 mg BIDD IV 08/21/25 18:00 08/29/25 05:59 1 MG Docusate Sodium 100 mg BID PO 08/21/25 22:00 08/29/25 09:19 100 MG Diagnostic Test (Pha) 1 strip Q6HR 08/21/25 18:00 08/29/25 11:34 1 STRIP Insulin Human Regular Q6HR SC 08/21/25 18:00 08/29/25 00:10 4 UNITS Hydralazine HCl 25 mg Q6HR PO 08/22/25 12:00 08/29/25 11:41 25 MG Ferrous Sulfate 325 mg BIDWM PO 08/22/25 18:00 08/29/25 08:11 325 MG Epoetin Andrew-epbx 10,000 unit MWF [place] 08/22/25 13:00 08/29/25 09:21 10,000 UNIT Aspirin 81 mg DAILY PO 08/23/25 10:00 08/29/25 09:17 81 MG Epoetin Andrew-epbx 10,000 unit MWF [place] 08/22/25 15:45 UNV Sevelamer HCl 800 mg TIDWM PO 08/22/25 18:00 08/29/25 11:41 800 MG Sodium Bicarbonate 1,300 mg TID PO 08/23/25 14:00 08/29/25 05:58 1,300 MG Carvedilol 25 mg Q12HR PO 08/23/25 22:00 08/29/25 09:20 25 MG Clonidine HCl 0.1 mg BID PRN PO 08/25/25 22:00 08/27/25 05:56 0.1 MG Clopidogrel Bisulfate 75 mg DAILY PO 08/26/25 10:00 09/14/25 23:00 08/28/25 09:40 75 MG Heparin Sodium/ Dextrose 250 ml @ 9 mls/hr Q24H IV 08/28/25 09:15 08/29/25 09:31 9 MLS/HR objective GENERAL: Alert and oriented x 3. No acute distress. EYES: PERRL, EOMI. Anicteric. HENT: Moist mucous membranes. LUNGS: Clear to auscultation bilaterally. CARDIOVASCULAR: Regular rate and rhythm. ABDOMEN: Soft, non-tender and non-distended. EXTREMITIES: No edema. NEUROLOGIC: No focal neurological deficits. SKIN: Warm, dry. laboratory and microbiology Laboratory Tests 08/29/25 03:54 Test 08/29/25 03:54 Range/Units Serum Glucose 126 H 74-106 mg/dL Problem List Acute on chronic CHF. NSTEMI likely type 2 HI. Hypertensive emergency. GISSELL on CKD. Medication noncompliance. Acute hypoxic respiratory failure, multifocal pneumonia. Cardiomyopathy. Acute pontine stroke with dysarthria, left facial weakness, left hemiplegia. Chronic left hemispheres stroke. Assessment/Plan Continued all current supportive medical care. Amlodipine, Coreg, Hydralazine. Aspirin, Plavix. IV antibiotics as ordered. Diuretics with Bumex. Heparin drip per pharmacy. IV Hydralazine for SBP >150. Morphine for pain management. Additional plan as per the hospital course. Dietary Evaluation Review Comments: Nutrition Recommendation: 1) CCHO 75gm + renal standard diet 2) Nephro-marcial 1 tab daily 3) Monitor PO intake, lab values, weight trend, and I/O Expected Outcomes/Goals: Intake to meet >75% estimated needs Lab values to improve FU 3-5 days Plan discussed with: Patient RAMIN OLIVIER MD Aug 29, 2025 17:44
[2025-08-30] VITALS (8 sets, daily range): BP systolic 126–164; BP diastolic 82–88; PULSE 67–83; RESP 16–18; TEMP 97.8–98.5; O2SAT 95–99
[2025-08-30 04:28] LABS: Hematocrit 26.0 % (41.0-53.0); Hemoglobin 8.8 g/dL (13.5-17.5); Mean Corpuscular Hemoglobin 31.0 pg (28.0-32.0); Mean Corpuscular Volume 91.2 fL (80.0-100.0); Nucleated Red Blood Cells % 0.1 %
[2025-08-30 04:41] LABS: INR 1.08 (0.9-1.15); Partial Thromboplastin Time 29.1 SEC (24.5-34.5); Prothrombin Time 11.4 sec (9.3-11.8)
[2025-08-30] MEDS: HEPARIN DRIP/D5W 100UNITS/ML 250 ML IV SCH (05:15)
[2025-08-30] MEDS: HEPARIN SODIUM (PORCINE) 5000 UNITS/ML 1ML VIAL ONE (07:58)
[2025-08-30] MEDS: SODIUM CHL 0.9% 1000 ML BAG XX ONE (07:58)
[2025-08-30] MEDS: PIPERACILLIN-TAZOB 3.375GM 100 ML IV ONE (07:59)
--- NOTE | 2025-08-30 10:52 | DVHPN2 ---
Progress Note - Dictate Date Seen: Aug 30, 2025 Medical Necessity Reason Pt with a Central, PICC or Fol: No Subjective Mr. Thomas is a 55 years old right-handed gentleman with a history of hypertension, diabetes, congestive heart failure, COPD, asthma, the patient was admitted on 08/19/2025 with a chief complaint of shortness breath, but he was has other complaints I have seen and examined the patient, talked to his nurse, his ex- and daughter are in the room him. He is doing better today, happy, he is oriented, but left hemiparesis remained about the same UDS, 08/20/2025: Negative WBC/HB/PLT/MCV, 08/25/2025: 5.2/10.5/160/91 BUN/CR, 08/19/2025: 49/9.09, 08/21/2025: 65/9.36, 08/25/2025: 106/9.55 HCO3, 08/19/2025:18 , 08/20/2025: 19. Lactic acid, 08/19/2025: 5.3 Liver function tests, 08/21/2025: Unremarkable TG/HDL/LDL/HDL, 08/20/2025: 42/141/86/35 Echocardiogram, 08/20/2025: DILATED LV AND IS MODERATELY HYPOKINETIC LV EF IS ONLT 25% DYSKINESIS OF IVS NORMAL VALVES MODERATE DEGREE PULMONARY HYPERTENSION RVSP IS 45 MM OF HG AND IS MODERATELY HIGH NO EFFUSION Extremity Venous study, 08/25/2025: Thrombus basilic vein and cephalic vein Carotid Doppler, 08/26/2025: Right carotid system not evaluated due to overlying bandaging and IJ line. Left carotid system demonstrates no hemodynamically significant stenosis. Chest x-ray, 08/19/2025: Multifocal pneumonia throughout both lungs CT head, 08/21/2025: 1. No acute territorial infarct, intracranial hemorrhage, or mass effect. 2. Age-related involutional changes. Chronic ischemic changes as detailed. 3. If clinical symptoms persist, MRI may be beneficial in further evaluation MRI head, 08/22/2025: Acute infarct right kuldip measuring 2.1 cm. Left parietal encephalomalacia vital signs Vital Sign Date Time Temp Pulse Resp B/P (MAP) Pulse Ox O2 Delivery O2 Flow Rate FiO2 08/30/25 09:27 69 146/85 08/30/25 08:56 98.0 18 96 98.0 08/29/25 20:00 Room Air* 0 21 Total Intake and Output 08/29/25 08/29/25 08/30/25 15:00 23:00 07:00 Intake Total 0 ml 470 ml Output Total 0 ml 1125 ml Balance 0 ml -655 ml medications Current Medications Medications Dose Ordered Sig/Britta Route Start Time Stop Time Status Last Admin Dose Admin Ceftriaxone Sodium 50 ml @ 100 mls/hr Q24H IV 08/21/25 00:30 08/30/25 00:43 100 MLS/HR Famotidine 10 mg DAILY IV 08/20/25 10:00 08/29/25 09:17 10 MG Dextrose 50 ml UD PRN IV 08/20/25 05:15 Sodium Chloride 10 ml Q8HR IV 08/20/25 06:00 08/30/25 06:06 10 ML Ondansetron HCl 4 mg Q4HP PRN IV 08/20/25 05:15 Nitroglycerin 0.4 mg Q5MINP PRN SL 08/20/25 05:15 Hydralazine HCl 10 mg Q6HP PRN IV 08/20/25 05:15 08/29/25 20:44 10 MG Amlodipine Besylate 10 mg DAILY PO 08/20/25 10:00 08/30/25 09:27 10 MG Azithromycin 250 ml @ 125 mls/hr DAILY@1200 IV 08/21/25 12:00 08/29/25 11:41 125 MLS/HR Atorvastatin Calcium 40 mg HS PO 08/21/25 22:00 08/29/25 22:04 40 MG Bumetanide 1 mg BIDD IV 08/21/25 18:00 08/30/25 06:12 1 MG Docusate Sodium 100 mg BID PO 08/21/25 22:00 08/30/25 09:26 100 MG Diagnostic Test (Pha) 1 strip Q6HR 08/21/25 18:00 08/30/25 06:07 1 STRIP Insulin Human Regular Q6HR SC 08/21/25 18:00 08/30/25 06:12 2 UNITS Hydralazine HCl 25 mg Q6HR PO 08/22/25 12:00 08/30/25 06:07 25 MG Ferrous Sulfate 325 mg BIDWM PO 08/22/25 18:00 08/30/25 09:26 325 MG Epoetin Andrew-epbx 10,000 unit MWF MA 08/22/25 13:00 08/29/25 09:21 10,000 UNIT Aspirin 81 mg DAILY PO 08/23/25 10:00 08/30/25 09:26 81 MG Epoetin Andrew-epbx 10,000 unit MWF MA 08/22/25 15:45 UNV Sevelamer HCl 800 mg TIDWM PO 08/22/25 18:00 08/30/25 09:26 800 MG Sodium Bicarbonate 1,300 mg TID PO 08/23/25 14:00 08/30/25 06:06 1,300 MG Carvedilol 25 mg Q12HR PO 08/23/25 22:00 08/29/25 22:18 25 MG Clonidine HCl 0.1 mg BID PRN PO 08/25/25 22:00 08/29/25 22:21 0.1 MG Clopidogrel Bisulfate 75 mg DAILY PO 08/26/25 10:00 09/14/25 23:00 08/30/25 09:26 75 MG Heparin Sodium/ Dextrose 250 ml @ 12 mls/hr [id number] IV 08/30/25 05:15 objective General: the patient is well developed and nourished. No acute distress. MENTAL STATUS: Awake and alert. Oriented to person, place, time SPEECH, LANGUAGE, HIGHER CORTICAL FUNCTION: no aphasia he has has mild dysarthria CRANIAL NERVES: Pupils are equal, round and reactive. EOMs full and conjugate. Facial sensation intact in all three divisions bilaterally. Mandibular strength intact. Left facial weakness of upper motor neuron pattern SENSATION: Sensation to touch and pinprick is normal. MOTOR: Normal tone in the upper and lower extremity. Normal muscle bulk. No fasciculations. No abnormal movements or posturing. Muscle strength of the major groups in the right extremities is 5/5. Muscle strength of the major groups in the lower extremities is: Arm: 3/5, le/5. REFLEXES: Deep tendon reflexes are symmetrical. No pathological reflexes. CEREBELLAR/COORDINATION: Finger to nose is normal in the right hand GAIT/STATION: deferred laboratory and microbiology Laboratory Tests 08/30/25 04:00 08/29/25 03:54 Test 08/29/25 03:54 Range/Units Serum Glucose 126 H 74-106 mg/dL Problem List Acute pontine stroke with dysarthria, left facial weakness, left hemiplegia Chronic left hemispheres stroke Sleep-related breathing disorder Kidney failure Acute respiratory failure Congestive heart failure Assessment/Plan Monitoring Supportive treatment Telemetry AMANDA, talked to Dr. Bolanos Aspirin 81 mg daily Plavix 75 mg daily for 21 days (on hold) Lipitor 40 mg daily Oxygen Nephrology on case Cardiology on case Address sleep-related breathing disorder later I have discussed with him about stroke risk facts, secondary stroke prevention This medical document was created using an electronic medical record system with [employer] dictation system. Although this document has been carefully reviewed, there may still be some phonetic and typographical errors. These areas are purely typographical due to imperfections of the software programs, and do not reflect any compromise in the patient's medical care. Prognosis poor Dietary Evaluation Review Comments: Nutrition Recommendation: 1) CCHO 75gm + renal standard diet 2) Nephro-marcial 1 tab daily 3) Monitor PO intake, lab values, weight trend, and I/O Expected Outcomes/Goals: Intake to meet >75% estimated needs Lab values to improve FU 3-5 days Plan discussed with: Patient, Spouse, Daughter, Other CORAZON ALVARADO MD Aug 30, 2025 10:52
--- NOTE | 2025-08-30 12:21 | DVHPN2 ---
Progress Note Date Seen: Aug 30, 2025 Medical Necessity Reason Pt with a Central, PICC or Fol: No Subjective Patient reports: No new complaints Other Systems: Patient seen and examined by myself today in follow-up Patient examined hemodialysis, blood pressure stable Objective vital signs Vital Sign Date Time Temp Pulse Resp B/P (MAP) Pulse Ox O2 Delivery O2 Flow Rate FiO2 08/30/25 09:27 69 146/85 08/30/25 08:56 98.0 18 96 98.0 08/29/25 20:00 Room Air* 0 21 Total Intake and Output 08/29/25 08/29/25 08/30/25 15:00 23:00 07:00 Intake Total 0 ml 470 ml Output Total 0 ml 1125 ml Balance 0 ml -655 ml medications Current Medications Medications Dose Ordered Sig/Britta Route Start Time Stop Time Status Last Admin Dose Admin Ceftriaxone Sodium 50 ml @ 100 mls/hr Q24H IV 08/21/25 00:30 08/30/25 00:43 100 MLS/HR Famotidine 10 mg DAILY IV 08/20/25 10:00 08/30/25 10:00 10 MG Dextrose 50 ml UD PRN IV 08/20/25 05:15 Sodium Chloride 10 ml Q8HR IV 08/20/25 06:00 08/30/25 06:06 10 ML Ondansetron HCl 4 mg Q4HP PRN IV 08/20/25 05:15 Nitroglycerin 0.4 mg Q5MINP PRN SL 08/20/25 05:15 Hydralazine HCl 10 mg Q6HP PRN IV 08/20/25 05:15 08/29/25 20:44 10 MG Amlodipine Besylate 10 mg DAILY PO 08/20/25 10:00 08/30/25 09:27 10 MG Azithromycin 250 ml @ 125 mls/hr DAILY@1200 IV 08/21/25 12:00 08/30/25 11:56 125 MLS/HR Atorvastatin Calcium 40 mg HS PO 08/21/25 22:00 08/29/25 22:04 40 MG Bumetanide 1 mg BIDD IV 08/21/25 18:00 08/30/25 06:12 1 MG Docusate Sodium 100 mg BID PO 08/21/25 22:00 08/30/25 09:26 100 MG Diagnostic Test (Pha) 1 strip Q6HR 08/21/25 18:00 08/30/25 11:56 1 STRIP Insulin Human Regular Q6HR SC 08/21/25 18:00 08/30/25 11:58 2 UNITS Hydralazine HCl 25 mg Q6HR PO 08/22/25 12:00 08/30/25 06:07 25 MG Ferrous Sulfate 325 mg BIDWM PO 08/22/25 18:00 08/30/25 09:26 325 MG Epoetin Andrew-epbx 10,000 unit MWF SC 08/22/25 13:00 08/29/25 09:21 10,000 UNIT Aspirin 81 mg DAILY PO 08/23/25 10:00 08/30/25 09:26 81 MG Epoetin Andrew-epbx 10,000 unit MWF SC 08/22/25 15:45 UNV Sevelamer HCl 800 mg TIDWM PO 08/22/25 18:00 08/30/25 11:56 800 MG Sodium Bicarbonate 1,300 mg TID PO 08/23/25 14:00 08/30/25 06:06 1,300 MG Carvedilol 25 mg Q12HR PO 08/23/25 22:00 08/29/25 22:18 25 MG Clonidine HCl 0.1 mg BID PRN PO 08/25/25 22:00 08/29/25 22:21 0.1 MG Clopidogrel Bisulfate 75 mg DAILY PO 08/26/25 10:00 09/14/25 23:00 08/30/25 09:26 75 MG Heparin Sodium/ Dextrose 250 ml @ 12 mls/hr [id number] IV 08/30/25 05:15 Examination: LUNGS:Normal, CVS:Normal, MSK:Abnormal laboratory and microbiology Laboratory Tests 08/30/25 04:00 08/29/25 03:54 Test 08/29/25 03:54 Range/Units Serum Glucose 126 H 74-106 mg/dL Microbiology Date/Time Source Procedure Growth Status 08/22/25 13:29 Blood Blood Culture - Final NO GROWTH AFTER 5 DAYS OF INCUBATION. 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
--- NOTE | 2025-08-30 14:48 | DVHPN2 ---
Subjective This is a follow up on 55-year-old male who is homeless with a known history of diabetes mellitus type 2, hypertension, congestive heart failure, previous history of CVA with a mild weakness on the left side presented to the hospital with a initially with the increasing shortness of breaths found to have 43% saturation on room air, eventually requiring BiPAP currently off of O2 supplementation. Yesterday patient's has a change in mental status CT head was done which shows no evidence of acute infarct, MRI showed evidence of infarct in the right kuldip. Patient's has a left-sided weakness. Patient is agreeable to have tunneled dialysis catheter placement. Reviewed: H&P Changes from previous H/P or p: No Changes Eyes: No Pain, No Vision change, No Conjunctivae inflammation, No Eyelid inflammation, No Other, No Redness ENT: No Ear pain, No Ear discharge, No Nose pain, No Nose discharge, No Nose congestion, No Mouth pain, No Mouth swelling, No Throat pain, No Throat swelling, No Other Cardiovascular: No Chest Pain, No Palpitations, No Orthopnea, No Paroxysmal Noc. Dyspnea, No Edema, No Lt Headedness, No Other Respiratory: No Cough, No Dry; Shortness of breath; No SOB with excertion, No Wheezing, No Hemoptysis, No Pleuritic Pain, No Sputum; Other (SOB at rest) Gastrointestinal: No Nausea, No Vomiting, No Abdominal Pain, No Diarrhea, No Constipation, No Melena, No Hematochezia, No Other Genitourinary: No Dysuria, No Frequency, No Incontinence, No Hematuria, No Retention, No Other Musculoskeletal: No other, No neck pain, No shoulder pain, No arm pain, No back pain, No hand pain, No leg pain, No foot pain Skin: No Rash, No Lesions, No Jaundice, No Bruising, No Other Objective Vitals Vital Signs Date Time Temp Pulse Resp B/P (MAP) Pulse Ox O2 Delivery O2 Flow Rate FiO2 08/30/25 13:28 98.2 68 16 164/88 (113) 97 98.2 08/30/25 08:00 Room Air* 0 21 Intake/Output Intake and Output 08/30/25 07:00 Intake Total 470 ml Output Total 1125 ml Balance -655 ml Intake Oral 420 ml IV Total 50 ml Output Urine Total 1125 ml Exam HEENT pupils are reactive Neck is supple CV is S1-S2 regular rate and rhythm Respiratory diminished breath sounds bilateral bases GI positive bowel sound Extremity no edema SAMPLE EXAMINER left-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 General Appearance: Alert, Oriented X3 Lungs: Clear to auscultation Cardiovascular: Regular rate, Normal S1, Normal S2 Abdomen: Normal bowel sounds Medications Current Medications Medications Dose Ordered Sig/Britta Route Start Time Stop Time Status Last Admin Dose Admin Ceftriaxone Sodium 50 ml @ 100 mls/hr Q24H IV 08/21/25 00:30 08/30/25 00:43 100 MLS/HR Famotidine 10 mg DAILY IV 08/20/25 10:00 08/30/25 10:00 10 MG Dextrose 50 ml UD PRN IV 08/20/25 05:15 Sodium Chloride 10 ml Q8HR IV 08/20/25 06:00 08/30/25 06:06 10 ML Ondansetron HCl 4 mg Q4HP PRN IV 08/20/25 05:15 Nitroglycerin 0.4 mg Q5MINP PRN SL 08/20/25 05:15 Hydralazine HCl 10 mg Q6HP PRN IV 08/20/25 05:15 08/29/25 20:44 10 MG Amlodipine Besylate 10 mg DAILY PO 08/20/25 10:00 08/30/25 09:27 10 MG Azithromycin 250 ml @ 125 mls/hr DAILY@1200 IV 08/21/25 12:00 08/30/25 11:56 125 MLS/HR Atorvastatin Calcium 40 mg HS PO 08/21/25 22:00 08/29/25 22:04 40 MG Bumetanide 1 mg BIDD IV 08/21/25 18:00 08/30/25 06:12 1 MG Docusate Sodium 100 mg BID PO 08/21/25 22:00 08/30/25 09:26 100 MG Diagnostic Test (Pha) 1 strip Q6HR 08/21/25 18:00 08/30/25 11:56 1 STRIP Insulin Human Regular Q6HR SC 08/21/25 18:00 08/30/25 11:58 2 UNITS Hydralazine HCl 25 mg Q6HR PO 08/22/25 12:00 08/30/25 06:07 25 MG Ferrous Sulfate 325 mg BIDWM PO 08/22/25 18:00 08/30/25 09:26 325 MG Epoetin Adnrew-epbx 10,000 unit MWF [place] 08/22/25 13:00 08/29/25 09:21 10,000 UNIT Aspirin 81 mg DAILY PO 08/23/25 10:00 08/30/25 09:26 81 MG Epoetin Andrew-epbx 10,000 unit MWF [place] 08/22/25 15:45 UNV Sevelamer HCl 800 mg TIDWM PO 08/22/25 18:00 08/30/25 11:56 800 MG Sodium Bicarbonate 1,300 mg TID PO 08/23/25 14:00 08/30/25 06:06 1,300 MG Carvedilol 25 mg Q12HR PO 08/23/25 22:00 08/29/25 22:18 25 MG Clonidine HCl 0.1 mg BID PRN PO 08/25/25 22:00 08/29/25 22:21 0.1 MG Clopidogrel Bisulfate 75 mg DAILY PO 08/26/25 10:00 09/14/25 23:00 08/30/25 09:26 75 MG Laboratory Results Laboratory Tests 08/29/25 03:54 08/30/25 04:00 Coagulation Test 08/30/25 04:00 Prothrombin Time 11.4 sec (9.3-11.8) Prothrombin Time INR 1.08 (0.9-1.15) Activated Partial Thromboplast Time 29.1 SEC (24.5-34.5) Urinalysis Test 08/20/25 00:06 08/22/25 12:21 Urine Color Colorless (Yellow) Urine Clarity Clear (Clear) Urine pH 6.5 (5.0-9.0) Urine Specific Elizabeth 1.009 (1.001-1.035) Urine Protein 2+ (Negative) H Urine Ketones Negative (Negative) Urine Blood 2+ /uL (Negative) H Urine Nitrite Negative (Negative) Urine Bilirubin Negative (Negative) Urine Urobilinogen Normal mg/dL (Negative) Urine Leukocyte Esterase Negative /uL (Negative) Urine RBC 2 /hpf (0 - 3) Urine Microscopic WBC 1 /HPF (0-3) Urine Squamous Epithelial Cells None seen /hpf (<5) Urine Bacteria None seen /hpf (None Seen) Urine Glucose 3+ mg/dL (Normal) H Urine Creatinine 91.09 mg/dL (30.0-125.0) Urine Sodium 34 mmol/L (40-220) L Urine Total Protein 229.4 mg/dL (1-14) H Microbiology Microbiology Date/Time Source Procedure Growth Status 08/22/25 13:29 Blood Blood Culture - Final NO GROWTH AFTER 5 DAYS OF INCUBATION. Complete 08/20/25 18:49 Nose MRSA Screen - Final Complete Assessment/Plan Assessment/Plan 55-year-old male with a known history of congestive heart failure with systolic dysfunction, diabetes mellitus type 2, hypertension, dyslipidemia, homelessness who initially presented to the hospital with a respiratory distress found to have acute hypoxic respiratory failure suspected secondary to congestive heart failure with systolic dysfunction/multifocal pneumonia. Patient's hospital course was eventful for acute CVA with a MRI evidence of infarct in the right kuldip. 1. Acute hypoxic respiratory failure secondary to acute CHF exacerbation with systolic dysfunction as well as multifocal pneumonia 2. Acute CHF exacerbation with systolic dysfunction with the EF of 25% 3. Multifocal pneumonia 4. Moderate/severe pulmonary hypertension 5. Acute CVA with a evidence infarct in the right-sided kuldip, with a left-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 6. AKA with a underlying CKD, progressing to end-stage renal disease, tunneled dialysis catheter will be placed, currently hemodialysis via [place] catheter 7. Previous history of CVA with a mild left residual deficit 8. NSTEMI type 2 suspect secondary to acute CHF exacerbation 9. 1/2 Gram-negative bacteremia with coag-negative staph, suspect contamination 10. Hypertension, stable - consult Dr. Mckinley for dialysis catheter placement -aspirin, statin, continue IV diuretics, continue IV antibiotics, hemodialysis catheter placement -repeat blood cultures, strict I&Os, daily weight. --hold Plavix, continue heparin drip for bridging until the dialysis catheter is done. Plan discussed with: Patient My Orders Orders - HIRAL AUSTIN MD Procedure Category Date Status Time Heparin Per Pharmacy LINNETTE 08/30/25 In Process Protocol 05:07 Date of Service: Aug 30, 2025 Billing Provider: HIRAL AUSTIN MD Common Visit Codes: [id number] INP/OBS CARE(HIGH) HIRAL AUSTIN MD Aug 30, 2025 14:48
[2025-08-30] MEDS: EPOETIN ALFA-EPBX 10,000 UNIT/1ML VIAL SC ONE (21:20)
[2025-08-31] VITALS (8 sets, daily range): BP systolic 126–156; BP diastolic 76–93; PULSE 67–79; RESP 15–18; TEMP 97.7–99.2; O2SAT 94–97
--- NOTE | 2025-08-31 00:13 | DVHPN2 ---
Progress Note - Dictate Date Seen: Aug 30, 2025 Medical Necessity Reason Pt with a Central, PICC or Fol: No Subjective Patient was seen and evaluated in follow up. Patient is doing better today, happy, he is oriented, but left hemiparesis remained about the same. Patient is refusing turns/repositioning. HGB 8.8, HCT 26. Telemetry reviewed. vital signs Vital Sign Date Time Temp Pulse Resp B/P (MAP) Pulse Ox O2 Delivery O2 Flow Rate FiO2 08/30/25 13:28 98.2 68 16 164/88 (113) 97 98.2 08/29/25 20:00 Room Air* 0 21 Total Intake and Output 08/29/25 08/29/25 08/30/25 15:00 23:00 07:00 Intake Total 0 ml 470 ml Output Total 0 ml 1125 ml Balance 0 ml -655 ml medications Current Medications Medications Dose Ordered Sig/Britta Route Start Time Stop Time Status Last Admin Dose Admin Ceftriaxone Sodium 50 ml @ 100 mls/hr Q24H IV 08/21/25 00:30 08/30/25 00:43 100 MLS/HR Famotidine 10 mg DAILY IV 08/20/25 10:00 08/30/25 10:00 10 MG Dextrose 50 ml UD PRN IV 08/20/25 05:15 Sodium Chloride 10 ml Q8HR IV 08/20/25 06:00 08/30/25 06:06 10 ML Ondansetron HCl 4 mg Q4HP PRN IV 08/20/25 05:15 Nitroglycerin 0.4 mg Q5MINP PRN SL 08/20/25 05:15 Hydralazine HCl 10 mg Q6HP PRN IV 08/20/25 05:15 08/29/25 20:44 10 MG Amlodipine Besylate 10 mg DAILY PO 08/20/25 10:00 08/30/25 09:27 10 MG Azithromycin 250 ml @ 125 mls/hr DAILY@1200 IV 08/21/25 12:00 08/30/25 11:56 125 MLS/HR Atorvastatin Calcium 40 mg HS PO 08/21/25 22:00 08/29/25 22:04 40 MG Bumetanide 1 mg BIDD IV 08/21/25 18:00 08/30/25 06:12 1 MG Docusate Sodium 100 mg BID PO 08/21/25 22:00 11/25/25 09:26 100 MG Diagnostic Test (Pha) 1 strip Q6HR 08/21/25 18:00 08/30/25 11:56 1 STRIP Insulin Human Regular Q6HR SC 08/21/25 18:00 08/30/25 11:58 2 UNITS Hydralazine HCl 25 mg Q6HR PO 08/22/25 12:00 08/30/25 06:07 25 MG Ferrous Sulfate 325 mg BIDWM PO 08/22/25 18:00 08/30/25 09:26 325 MG Epoetin Andrew-epbx 10,000 unit MWF [place] 08/22/25 13:00 08/29/25 09:21 10,000 UNIT Aspirin 81 mg DAILY PO 08/23/25 10:00 08/30/25 09:26 81 MG Epoetin Andrew-epbx 10,000 unit MWF NM 08/22/25 15:45 UNV Sevelamer HCl 800 mg TIDWM PO 08/22/25 18:00 08/30/25 11:56 800 MG Sodium Bicarbonate 1,300 mg TID PO 08/23/25 14:00 08/30/25 06:06 1,300 MG Carvedilol 25 mg Q12HR PO 08/23/25 22:00 08/29/25 22:18 25 MG Clonidine HCl 0.1 mg BID PRN PO 08/25/25 22:00 08/29/25 22:21 0.1 MG Clopidogrel Bisulfate 75 mg DAILY PO 08/26/25 10:00 09/14/25 23:00 08/30/25 09:26 75 MG objective GENERAL: Alert and oriented x 3. No acute distress. EYES: PERRL, EOMI. Anicteric. HENT: Moist mucous membranes. LUNGS: Clear to auscultation bilaterally. CARDIOVASCULAR: Regular rate and rhythm. ABDOMEN: Soft, non-tender and non-distended. EXTREMITIES: No edema. NEUROLOGIC: No focal neurological deficits. SKIN: Warm, dry. laboratory and microbiology Laboratory Tests 08/30/25 04:00 08/29/25 03:54 Test 08/29/25 03:54 Range/Units Serum Glucose 126 H 74-106 mg/dL Problem List Acute on chronic CHF. NSTEMI likely type 2 DC. Hypertensive emergency. GISSELL on CKD. Medication noncompliance. Acute hypoxic respiratory failure, multifocal pneumonia. Cardiomyopathy. Acute pontine stroke with dysarthria, left facial weakness, left hemiplegia. Chronic left hemispheres stroke. Assessment/Plan Continued all current supportive medical care. Amlodipine. Aspirin, Lipitor, Plavix. IV antibiotics as ordered. Diuretics with Bumex. Morphine for pain management. Additional plan as per the hospital course. Dietary Evaluation Review Comments: Nutrition Recommendation: 1) CCHO 75gm + renal standard diet 2) Nephro-marcial 1 tab daily 3) Monitor PO intake, lab values, weight trend, and I/O Expected Outcomes/Goals: Intake to meet >75% estimated needs Lab values to improve FU 3-5 days Plan discussed with: Patient RAMIN OLIVIER MD Aug 30, 2025 14:02
--- NOTE | 2025-08-31 06:07 | DVH ---
CHEST RADIOGRAPH Indication: PRE PROCEDURE Technique: Single frontal view of the chest was obtained Comparison: XY CHEST XRAY 1 VIEW on DOS: 08/25/25. FINDINGS: Lines and Tubes: There is a right central venous catheter with its tip terminating in the superior vena cava. Lungs: No focal consolidation. Pleura: No effusion. No pneumothorax. Cardiomediastinal contours: Unremarkable Bones: No acute osseous abnormality. IMPRESSION: 1. No acute cardiopulmonary disease.
--- NOTE | 2025-08-31 15:14 | DVHPN2 ---
Subjective PATIENT ALREADY GOT TUNNELED DIALYSIS CATHETER WAS DIALYZED YESTERDAY WE WILL BE DIALYSIS AGAIN TODAY. Reviewed: H&P Changes from previous H/P or p: No Changes Eyes: No Pain, No Vision change, No Conjunctivae inflammation, No Eyelid inflammation, No Other, No Redness ENT: No Ear pain, No Ear discharge, No Nose pain, No Nose discharge, No Nose congestion, No Mouth pain, No Mouth swelling, No Throat pain, No Throat swelling, No Other Cardiovascular: No Chest Pain, No Palpitations, No Orthopnea, No Paroxysmal Noc. Dyspnea, No Edema, No Lt Headedness, No Other Respiratory: No Cough, No Dry; Shortness of breath; No SOB with excertion, No Wheezing, No Hemoptysis, No Pleuritic Pain, No Sputum; Other (SOB at rest) Gastrointestinal: No Nausea, No Vomiting, No Abdominal Pain, No Diarrhea, No Constipation, No Melena, No Hematochezia, No Other Genitourinary: No Dysuria, No Frequency, No Incontinence, No Hematuria, No Retention, No Other Musculoskeletal: No other, No neck pain, No shoulder pain, No arm pain, No back pain, No hand pain, No leg pain, No foot pain Skin: No Rash, No Lesions, No Jaundice, No Bruising, No Other Objective Vitals Vital Signs Date Time Temp Pulse Resp B/P (MAP) Pulse Ox O2 Delivery O2 Flow Rate FiO2 08/31/25 12:58 97.7 73 18 132/76 (94) 94 97.7 08/30/25 20:00 Room Air* 0 21 Intake/Output Intake and Output 08/31/25 07:00 Intake Total 1000 ml Output Total 350 ml Balance 650 ml Intake Oral 1000 ml Output Urine Total 350 ml # Voids 2 # Bowel Movements 1 Exam HEENT pupils are reactive Neck is supple CV is S1-S2 regular rate and rhythm Respiratory diminished breath sounds bilateral bases GI positive bowel sound Extremity no edema FIRING PIN GAUGER left-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 General Appearance: Alert, Oriented X3 Lungs: Clear to auscultation Cardiovascular: Regular rate, Normal S1, Normal S2 Abdomen: Normal bowel sounds Medications Current Medications Medications Dose Ordered Sig/Britta Route Start Time Stop Time Status Last Admin Dose Admin Ceftriaxone Sodium 50 ml @ 100 mls/hr Q24H IV 08/21/25 00:30 08/31/25 00:30 100 MLS/HR Famotidine 10 mg DAILY IV 08/20/25 10:00 08/30/25 10:00 10 MG Dextrose 50 ml UD PRN IV 08/20/25 05:15 Sodium Chloride 10 ml Q8HR IV 08/20/25 06:00 08/31/25 06:11 10 ML Ondansetron HCl 4 mg Q4HP PRN IV 08/20/25 05:15 Nitroglycerin 0.4 mg Q5MINP PRN SL 08/20/25 05:15 Hydralazine HCl 10 mg Q6HP PRN IV 08/20/25 05:15 08/29/25 20:44 10 MG Amlodipine Besylate 10 mg DAILY PO 08/20/25 10:00 08/31/25 11:02 10 MG Azithromycin 250 ml @ 125 mls/hr DAILY@1200 IV 08/21/25 12:00 08/31/25 12:33 125 MLS/HR Atorvastatin Calcium 40 mg HS PO 08/21/25 22:00 08/30/25 21:19 40 MG Bumetanide 1 mg BIDD IV 08/21/25 18:00 08/31/25 06:15 1 MG Docusate Sodium 100 mg BID PO 08/21/25 22:00 08/30/25 09:26 100 MG Diagnostic Test (Pha) 1 strip Q6HR 08/21/25 18:00 08/31/25 12:30 1 STRIP Insulin Human Regular Q6HR [place] 08/21/25 18:00 08/31/25 06:12 2 UNITS Hydralazine HCl 25 mg Q6HR PO 08/22/25 12:00 08/30/25 18:11 25 MG Ferrous Sulfate 325 mg BIDWM PO 08/22/25 18:00 08/31/25 11:06 325 MG Epoetin Andrew-epbx 10,000 unit MWF [place] 08/22/25 13:00 Hold 08/29/25 09:21 10,000 UNIT Aspirin 81 mg DAILY PO 08/23/25 10:00 08/31/25 11:02 81 MG Epoetin Andrew-epbx 10,000 unit MWF [place] 08/22/25 15:45 UNV Sevelamer HCl 800 mg TIDWM PO 08/22/25 18:00 08/31/25 11:01 800 MG Sodium Bicarbonate 1,300 mg TID PO 08/23/25 14:00 08/30/25 21:17 1,300 MG Carvedilol 25 mg Q12HR PO 08/23/25 22:00 08/31/25 11:03 25 MG Clonidine HCl 0.1 mg BID PRN PO 08/25/25 22:00 08/29/25 22:21 0.1 MG Clopidogrel Bisulfate 75 mg DAILY PO 08/26/25 10:00 09/14/25 23:00 08/31/25 11:01 75 MG Laboratory Results Laboratory Tests 08/29/25 03:54 08/30/25 04:00 Urinalysis Test 08/20/25 00:06 08/22/25 12:21 Urine Color Colorless (Yellow) Urine Clarity Clear (Clear) Urine pH 6.5 (5.0-9.0) Urine Specific [place] 1.009 (1.001-1.035) Urine Protein 2+ (Negative) H Urine Ketones Negative (Negative) Urine Blood 2+ /uL (Negative) H Urine Nitrite Negative (Negative) Urine Bilirubin Negative (Negative) Urine Urobilinogen Normal mg/dL (Negative) Urine Leukocyte Esterase Negative /uL (Negative) Urine RBC 2 /hpf (0 - 3) Urine Microscopic WBC 1 /HPF (0-3) Urine Squamous Epithelial Cells None seen /hpf (<5) Urine Bacteria None seen /hpf (None Seen) Urine Glucose 3+ mg/dL (Normal) H Urine Creatinine 91.09 mg/dL (30.0-125.0) Urine Sodium 34 mmol/L (40-220) L Urine Total Protein 229.4 mg/dL (1-14) H Microbiology Microbiology Date/Time Source Procedure Growth Status 08/22/25 13:29 Blood Blood Culture - Final NO GROWTH AFTER 5 DAYS OF INCUBATION. Complete 08/20/25 18:49 Nose MRSA Screen - Final Complete Assessment/Plan Assessment/Plan 55-year-old male with a known history of congestive heart failure with systolic dysfunction, diabetes mellitus type 2, hypertension, dyslipidemia, homelessness who initially presented to the hospital with a respiratory distress found to have acute hypoxic respiratory failure suspected secondary to congestive heart failure with systolic dysfunction/multifocal pneumonia. Patient's hospital course was eventful for acute CVA with a MRI evidence of infarct in the right kuldip. 1. Acute hypoxic respiratory failure secondary to acute CHF exacerbation with systolic dysfunction as well as multifocal pneumonia 2. Acute CHF exacerbation with systolic dysfunction with the EF of 25% 3. Multifocal pneumonia 4. Moderate/severe pulmonary hypertension 5. Acute CVA with PONTINE infarct in the right-sided kuldip, with a left-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 6. AKA with a underlying CKD, progressing to end-stage renal disease, tunneled dialysis catheter will be placed, currently hemodialysis via Alonzo catheter 7. Previous history of CVA with a mild left residual deficit 8. NSTEMI type 2 suspect secondary to acute CHF exacerbation 9. 1/2 Gram-negative bacteremia with coag-negative staph, suspect contamination 10. Hypertension, stable -DIALYSIS PER RENAL -aspirin, statin, continue IV diuretics, continue IV antibiotics -repeat blood cultures, strict I&Os, daily weight. --RESUME PLAVIX , [employer] CONSULTATION FOR DISPOSITION AND CHAIR TIME. Plan discussed with: Patient Date of Service: Aug 31, 2025 Billing Provider: HIRAL AUSTIN MD Common Visit Codes: [id number] INP/OBS CARE(HIGH) HIRAL AUSTIN MD Aug 31, 2025 15:14
--- NOTE | 2025-08-31 21:30 | DVHPN2 ---
Progress Note - Dictate Date Seen: Aug 31, 2025 Medical Necessity Reason Pt with a Central, PICC or Fol: No Subjective Mr. Thomas is a 55 years old right-handed gentleman with a history of hypertension, diabetes, congestive heart failure, COPD, asthma, the patient was admitted on 08/19/2025 with a chief complaint of shortness breath, but he was has other complaints I have seen and examined the patient, talked to his nurse. I have talked to Dr. Bolanos in person last nigh Re: AMANDA. Apparently, the patient refused the test (nurse note 08/31/25 [id number]) He is doing better today, happy, he is oriented, no new complaints UDS, 08/20/2025: Negative WBC/HB/PLT/MCV, 08/25/2025: 5.2/10.5/160/91 BUN/CR, 08/19/2025: 49/9.09, 08/21/2025: 65/9.36, 08/25/2025: 106/9.55 HCO3, 08/19/2025:18 , 08/20/2025: 19. Lactic acid, 08/19/2025: 5.3 Liver function tests, 08/21/2025: Unremarkable TG/HDL/LDL/HDL, 08/20/2025: 42/141/86/35 Echocardiogram, 08/20/2025: DILATED LV AND IS MODERATELY HYPOKINETIC LV EF IS ONLT 25% DYSKINESIS OF IVS NORMAL VALVES MODERATE DEGREE PULMONARY HYPERTENSION RVSP IS 45 MM OF HG AND IS MODERATELY HIGH NO EFFUSION Extremity Venous study, 08/25/2025: Thrombus basilic vein and cephalic vein Carotid Doppler, 08/26/2025: Right carotid system not evaluated due to overlying bandaging and IJ line. Left carotid system demonstrates no hemodynamically significant stenosis. Chest x-ray, 08/19/2025: Multifocal pneumonia throughout both lungs CT head, 08/21/2025: 1. No acute territorial infarct, intracranial hemorrhage, or mass effect. 2. Age-related involutional changes. Chronic ischemic changes as detailed. 3. If clinical symptoms persist, MRI may be beneficial in further evaluation MRI head, 08/22/2025: Acute infarct right kuldip measuring 2.1 cm. Left parietal encephalomalacia vital signs Vital Sign Date Time Temp Pulse Resp B/P (MAP) Pulse Ox O2 Delivery O2 Flow Rate FiO2 08/31/25 19:04 132/79 08/31/25 17:00 98.5 67 18 97 98.5 08/31/25 08:00 Room Air* 0 21 Total Intake and Output 08/30/25 08/30/25 08/31/25 15:00 23:00 07:00 Intake Total 600 ml 400 ml Output Total 350 ml Balance 250 ml 400 ml medications Current Medications Medications Dose Ordered Sig/Britta Route Start Time Stop Time Status Last Admin Dose Admin Ceftriaxone Sodium 50 ml @ 100 mls/hr Q24H IV 08/21/25 00:30 08/31/25 00:30 100 MLS/HR Famotidine 10 mg DAILY IV 08/20/25 10:00 08/30/25 10:00 10 MG Dextrose 50 ml UD PRN IV 08/20/25 05:15 Sodium Chloride 10 ml Q8HR IV 08/20/25 06:00 08/31/25 21:21 10 ML Ondansetron HCl 4 mg Q4HP PRN IV 08/20/25 05:15 Nitroglycerin 0.4 mg Q5MINP PRN SL 08/20/25 05:15 Hydralazine HCl 10 mg Q6HP PRN IV 08/20/25 05:15 08/29/25 20:44 10 MG Amlodipine Besylate 10 mg DAILY PO 08/20/25 10:00 08/31/25 11:02 10 MG Azithromycin 250 ml @ 125 mls/hr DAILY@1200 IV 08/21/25 12:00 08/31/25 12:33 125 MLS/HR Atorvastatin Calcium 40 mg HS PO 08/21/25 22:00 08/30/25 21:19 40 MG Bumetanide 1 mg BIDD IV 08/21/25 18:00 08/31/25 06:15 1 MG Docusate Sodium 100 mg BID PO 08/21/25 22:00 08/30/25 09:26 100 MG Diagnostic Test (Pha) 1 strip Q6HR 08/21/25 18:00 08/31/25 19:08 1 STRIP Insulin Human Regular Q6HR [place] 08/21/25 18:00 08/31/25 06:12 2 UNITS Hydralazine HCl 25 mg Q6HR PO 08/22/25 12:00 08/31/25 19:04 25 MG Ferrous Sulfate 325 mg BIDWM PO 08/22/25 18:00 08/31/25 19:04 325 MG Epoetin Andrew-epbx 10,000 unit MWF [place] 08/22/25 13:00 Hold 08/29/25 09:21 10,000 UNIT Aspirin 81 mg DAILY PO 08/23/25 10:00 08/31/25 11:02 81 MG Epoetin Andrew-epbx 10,000 unit MWF [place] 08/22/25 15:45 UNV Sevelamer HCl 800 mg TIDWM PO 08/22/25 18:00 08/31/25 19:04 800 MG Sodium Bicarbonate 1,300 mg TID PO 08/23/25 14:00 08/30/25 21:17 1,300 MG Carvedilol 25 mg Q12HR PO 08/23/25 22:00 08/31/25 11:03 25 MG Clonidine HCl 0.1 mg BID PRN PO 08/25/25 22:00 08/29/25 22:21 0.1 MG Clopidogrel Bisulfate 75 mg DAILY PO 08/26/25 10:00 09/14/25 23:00 08/31/25 11:01 75 MG objective General: the patient is well developed and nourished. No acute distress. MENTAL STATUS: Awake and alert. Oriented to person, place, time SPEECH, LANGUAGE, HIGHER CORTICAL FUNCTION: no aphasia he has has mild dysarthria CRANIAL NERVES: Pupils are equal, round and reactive. EOMs full and conjugate. Facial sensation intact in all three divisions bilaterally. Mandibular strength intact. Left facial weakness of upper motor neuron pattern SENSATION: Sensation to touch and pinprick is normal. MOTOR: Normal tone in the upper and lower extremity. Normal muscle bulk. No fasciculations. No abnormal movements or posturing. Muscle strength of the major groups in the right extremities is 5/5. Muscle strength of the major groups in the lower extremities is: Arm: 2-3/5, le/5. REFLEXES: Deep tendon reflexes are symmetrical. No pathological reflexes. CEREBELLAR/COORDINATION: Finger to nose is normal in the right hand GAIT/STATION: deferred laboratory and microbiology Laboratory Tests 08/30/25 04:00 08/29/25 03:54 Test 08/29/25 03:54 Range/Units Serum Glucose 126 H 74-106 mg/dL Problem List Acute pontine stroke with dysarthria, left facial weakness, left hemiplegia Chronic left hemispheres stroke Sleep-related breathing disorder Kidney failure Acute respiratory failure Congestive heart failure Assessment/Plan Monitoring Supportive treatment Telemetry AMANDA, he refused Aspirin 81 mg daily Plavix 75 mg daily for 21 days Lipitor 40 mg daily Oxygen Nephrology on case Cardiology on case Address sleep-related breathing disorder later I have discussed with him about stroke risk facts, secondary stroke prevention This medical document was created using an electronic medical record system with [employer] dictation system. Although this document has been carefully reviewed, there may still be some phonetic and typographical errors. These areas are purely typographical due to imperfections of the software programs, and do not reflect any compromise in the patient's medical care. Prognosis Poor Dietary Evaluation Review Comments: Nutrition Recommendation: 1) CCHO 75gm + renal standard diet 2) Nephro-marcial 1 tab daily 3) Monitor PO intake, lab values, weight trend, and I/O Expected Outcomes/Goals: Intake to meet >75% estimated needs Lab values to improve FU 3-5 days Plan discussed with: Patient, Other CORAZON ALVARADO MD Aug 31, 2025 21:30
--- NOTE | 2025-08-31 23:58 | DVHPN2 ---
Progress Note - Dictate Date Seen: Aug 31, 2025 Medical Necessity Reason Pt with a Central, PICC or Fol: No Subjective Patient was seen and evaluated in follow up. No overnight events. Patient received dialysis yesterday and will receive dialysis again today. Patient is refusing to undergo AMANDA. Telemetry reviewed. vital signs Vital Sign Date Time Temp Pulse Resp B/P (MAP) Pulse Ox O2 Delivery O2 Flow Rate FiO2 08/31/25 12:58 97.7 73 18 132/76 (94) 94 97.7 08/30/25 20:00 Room Air* 0 21 Total Intake and Output 08/30/25 08/30/25 08/31/25 15:00 23:00 07:00 Intake Total 600 ml 400 ml Output Total 350 ml Balance 250 ml 400 ml medications Current Medications Medications Dose Ordered Sig/Britta Route Start Time Stop Time Status Last Admin Dose Admin Ceftriaxone Sodium 50 ml @ 100 mls/hr Q24H IV 08/21/25 00:30 08/31/25 00:30 100 MLS/HR Famotidine 10 mg DAILY IV 08/20/25 10:00 08/30/25 10:00 10 MG Dextrose 50 ml UD PRN IV 08/20/25 05:15 Sodium Chloride 10 ml Q8HR IV 08/20/25 06:00 08/31/25 06:11 10 ML Ondansetron HCl 4 mg Q4HP PRN IV 08/20/25 05:15 Nitroglycerin 0.4 mg Q5MINP PRN SL 08/20/25 05:15 Hydralazine HCl 10 mg Q6HP PRN IV 08/20/25 05:15 08/29/25 20:44 10 MG Amlodipine Besylate 10 mg DAILY PO 08/20/25 10:00 08/31/25 11:02 10 MG Azithromycin 250 ml @ 125 mls/hr DAILY@1200 IV 08/21/25 12:00 08/31/25 12:33 125 MLS/HR Atorvastatin Calcium 40 mg HS PO 08/21/25 22:00 08/30/25 21:19 40 MG Bumetanide 1 mg BIDD IV 08/21/25 18:00 08/31/25 06:15 1 MG Docusate Sodium 100 mg BID PO 08/21/25 22:00 08/30/25 09:26 100 MG Diagnostic Test (Pha) 1 strip Q6HR 08/21/25 18:00 08/31/25 12:30 1 STRIP Insulin Human Regular Q6HR [place] 08/21/25 18:00 08/31/25 06:12 2 UNITS Hydralazine HCl 25 mg Q6HR PO 08/22/25 12:00 08/30/25 18:11 25 MG Ferrous Sulfate 325 mg BIDWM PO 08/22/25 18:00 08/31/25 11:06 325 MG Epoetin Andrew-epbx 10,000 unit MWF [place] 08/22/25 13:00 Hold 08/29/25 09:21 10,000 UNIT Aspirin 81 mg DAILY PO 08/23/25 10:00 08/31/25 11:02 81 MG Epoetin Andrew-epbx 10,000 unit MWF [place] 08/22/25 15:45 UNV Sevelamer HCl 800 mg TIDWM PO 08/22/25 18:00 08/31/25 11:01 800 MG Sodium Bicarbonate 1,300 mg TID PO 08/23/25 14:00 08/30/25 21:17 1,300 MG Carvedilol 25 mg Q12HR PO 08/23/25 22:00 08/31/25 11:03 25 MG Clonidine HCl 0.1 mg BID PRN PO 08/25/25 22:00 08/29/25 22:21 0.1 MG Clopidogrel Bisulfate 75 mg DAILY PO 08/26/25 10:00 09/14/25 23:00 08/31/25 11:01 75 MG objective GENERAL: Alert and oriented x 3. No acute distress. EYES: PERRL, EOMI. Anicteric. HENT: Moist mucous membranes. LUNGS: Clear to auscultation bilaterally. CARDIOVASCULAR: Regular rate and rhythm. ABDOMEN: Soft, non-tender and non-distended. EXTREMITIES: No edema. NEUROLOGIC: No focal neurological deficits. SKIN: Warm, dry. laboratory and microbiology Laboratory Tests 08/30/25 04:00 08/29/25 03:54 Test 08/29/25 03:54 Range/Units Serum Glucose 126 H 74-106 mg/dL Problem List Acute on chronic CHF. NSTEMI likely type 2 [place]. Hypertensive emergency. GISSELL on CKD. Medication noncompliance. Acute hypoxic respiratory failure, multifocal pneumonia. Cardiomyopathy. Acute pontine stroke with dysarthria, left facial weakness, left hemiplegia. Chronic left hemispheres stroke. Assessment/Plan Continued all current supportive medical care. Amlodipine. Aspirin, Lipitor, Plavix. IV antibiotics as ordered. Diuretics with Bumex. Coreg, Hydralazine. IV Hydralazine for SBP >150. Morphine for pain management. Additional plan as per the hospital course. Dietary Evaluation Review Comments: Nutrition Recommendation: 1) CCHO 75gm + renal standard diet 2) Nephro-marcial 1 tab daily 3) Monitor PO intake, lab values, weight trend, and I/O Expected Outcomes/Goals: Intake to meet >75% estimated needs Lab values to improve FU 3-5 days Plan discussed with: Patient RAMIN OLIVIER MD Aug 31, 2025 14:29
[2025-09-01] VITALS (9 sets, daily range): BP systolic 120–163; BP diastolic 71–86; PULSE 69–79; RESP 16–20; TEMP 97.8–100.6; O2SAT 96–99
[2025-09-01 11:22] LABS: Hematocrit 29.0 % (41.0-53.0); Hemoglobin 9.7 g/dL (13.5-17.5)
[2025-09-01 11:29] LABS: Chloride 99 mmol/L (98-107); Potassium 4.0 mmol/L (3.5-5.1); Sodium 142 mmol/L (136-145)
[2025-09-01 11:31] LABS: Anion Gap 13 (5-15); Calcium 8.9 mg/dL (8.7-10.4); Carbon Dioxide 30 mmol/L (20-31)
[2025-09-01 11:36] LABS: BUN/Creatinine Ratio 7.4 (10.0-20.0); Blood Urea Nitrogen 33 mg/dL (9-23); Glucose 111 mg/dL (74-106)
--- NOTE | 2025-09-01 16:35 | DVHPN2 ---
Subjective PATIENT ALREADY GOT TUNNELED DIALYSIS CATHETER WAS DIALYZED YESTERDAY WE WILL BE DIALYSIS AGAIN TODAY. Reviewed: H&P Changes from previous H/P or p: No Changes Eyes: No Pain, No Vision change, No Conjunctivae inflammation, No Eyelid inflammation, No Other, No Redness ENT: No Ear pain, No Ear discharge, No Nose pain, No Nose discharge, No Nose congestion, No Mouth pain, No Mouth swelling, No Throat pain, No Throat swelling, No Other Cardiovascular: No Chest Pain, No Palpitations, No Orthopnea, No Paroxysmal Noc. Dyspnea, No Edema, No Lt Headedness, No Other Respiratory: No Cough, No Dry; Shortness of breath; No SOB with excertion, No Wheezing, No Hemoptysis, No Pleuritic Pain, No Sputum; Other (SOB at rest) Gastrointestinal: No Nausea, No Vomiting, No Abdominal Pain, No Diarrhea, No Constipation, No Melena, No Hematochezia, No Other Genitourinary: No Dysuria, No Frequency, No Incontinence, No Hematuria, No Retention, No Other Musculoskeletal: No other, No neck pain, No shoulder pain, No arm pain, No back pain, No hand pain, No leg pain, No foot pain Skin: No Rash, No Lesions, No Jaundice, No Bruising, No Other Objective Vitals Vital Signs Date Time Temp Pulse Resp B/P (MAP) Pulse Ox O2 Delivery O2 Flow Rate FiO2 09/01/25 12:44 99.1 72 16 133/76 (95) 96 99.1 09/01/25 08:30 Room Air* 0 21 Intake/Output Intake and Output 09/01/25 07:00 Intake Total 1225 ml Output Total 1100 ml Balance 125 ml Intake Oral 975 ml IV Total 250 ml Output Urine Total 1100 ml # Voids 1 # Bowel Movements 1 Exam HEENT pupils are reactive Neck is supple CV is S1-S2 regular rate and rhythm Respiratory diminished breath sounds bilateral bases GI positive bowel sound Extremity no edema BLASTING CLAY MINER left-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 General Appearance: Alert, Oriented X3 Lungs: Clear to auscultation Cardiovascular: Regular rate, Normal S1, Normal S2 Abdomen: Normal bowel sounds Medications Current Medications Medications Dose Ordered Sig/Britat Route Start Time Stop Time Status Last Admin Dose Admin Famotidine 10 mg DAILY IV 08/20/25 10:00 09/01/25 10:51 10 MG Dextrose 50 ml UD PRN IV 08/20/25 05:15 Sodium Chloride 10 ml Q8HR IV 08/20/25 06:00 09/01/25 13:14 10 ML Ondansetron HCl 4 mg Q4HP PRN IV 08/20/25 05:15 Nitroglycerin 0.4 mg Q5MINP PRN SL 08/20/25 05:15 Hydralazine HCl 10 mg Q6HP PRN IV 08/20/25 05:15 08/29/25 20:44 10 MG Amlodipine Besylate 10 mg DAILY PO 08/20/25 10:00 09/01/25 10:51 10 MG Atorvastatin Calcium 40 mg HS PO 08/21/25 22:00 08/31/25 21:29 40 MG Bumetanide 1 mg BIDD IV 08/21/25 18:00 08/31/25 06:15 1 MG Docusate Sodium 100 mg BID PO 08/21/25 22:00 09/01/25 10:50 100 MG Diagnostic Test (Pha) 1 strip Q6HR 08/21/25 18:00 09/01/25 12:19 1 STRIP Insulin Human Regular Q6HR [place] 08/21/25 18:00 08/31/25 06:12 2 UNITS Hydralazine HCl 25 mg Q6HR PO 08/22/25 12:00 09/01/25 12:10 25 MG Ferrous Sulfate 325 mg BIDWM PO 08/22/25 18:00 08/31/25 19:04 325 MG Epoetin Andrew-epbx 10,000 unit MWF [place] 08/22/25 13:00 Hold 08/29/25 09:21 10,000 UNIT Aspirin 81 mg DAILY PO 08/23/25 10:00 09/01/25 10:50 81 MG Epoetin Andrew-epbx 10,000 unit MWF [place] 08/22/25 15:45 UNV Sevelamer HCl 800 mg TIDWM PO 08/22/25 18:00 09/01/25 12:10 800 MG Sodium Bicarbonate 1,300 mg TID PO 08/23/25 14:00 09/01/25 14:21 1,300 MG Carvedilol 25 mg Q12HR PO 08/23/25 22:00 09/01/25 10:51 25 MG Clonidine HCl 0.1 mg BID PRN PO 08/25/25 22:00 08/29/25 22:21 0.1 MG Clopidogrel Bisulfate 75 mg DAILY PO 08/26/25 10:00 09/14/25 23:00 09/01/25 10:51 75 MG Laboratory Results Laboratory Tests 08/30/25 04:00 09/01/25 11:09 Chemistry Test 09/01/25 11:09 Calcium Level 8.9 mg/dL (8.7-10.4) Urinalysis Test 08/20/25 00:06 08/22/25 12:21 Urine Color Colorless (Yellow) Urine Clarity Clear (Clear) Urine pH 6.5 (5.0-9.0) Urine Specific [place] 1.009 (1.001-1.035) Urine Protein 2+ (Negative) H Urine Ketones Negative (Negative) Urine Blood 2+ /uL (Negative) H Urine Nitrite Negative (Negative) Urine Bilirubin Negative (Negative) Urine Urobilinogen Normal mg/dL (Negative) Urine Leukocyte Esterase Negative /uL (Negative) Urine RBC 2 /hpf (0 - 3) Urine Microscopic WBC 1 /HPF (0-3) Urine Squamous Epithelial Cells None seen /hpf (<5) Urine Bacteria None seen /hpf (None Seen) Urine Glucose 3+ mg/dL (Normal) H Urine Creatinine 91.09 mg/dL (30.0-125.0) Urine Sodium 34 mmol/L (40-220) L Urine Total Protein 229.4 mg/dL (1-14) H Microbiology Microbiology Date/Time Source Procedure Growth Status 08/22/25 13:29 Blood Blood Culture - Final NO GROWTH AFTER 5 DAYS OF INCUBATION. Complete 08/20/25 18:49 Nose MRSA Screen - Final Complete Assessment/Plan Assessment/Plan 55-year-old male with a known history of congestive heart failure with systolic dysfunction, diabetes mellitus type 2, hypertension, dyslipidemia, homelessness who initially presented to the hospital with a respiratory distress found to have acute hypoxic respiratory failure suspected secondary to congestive heart failure with systolic dysfunction/multifocal pneumonia. Patient's hospital course was eventful for acute CVA with a MRI evidence of infarct in the right kuldip. 1. Acute hypoxic respiratory failure secondary to acute CHF exacerbation with systolic dysfunction as well as multifocal pneumonia 2. Acute CHF exacerbation with systolic dysfunction with the EF of 25% 3. Multifocal pneumonia 4. Moderate/severe pulmonary hypertension 5. Acute CVA with PONTINE infarct in the right-sided kuldip, with a left-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 6. AKA with a underlying CKD, progressing to end-stage renal disease, tunneled dialysis catheter will be placed, currently hemodialysis via Alonzo catheter 7. Previous history of CVA with a mild left residual deficit 8. NSTEMI type 2 suspect secondary to acute CHF exacerbation 9. 1/2 Gram-negative bacteremia with coag-negative staph, suspect contamination 10. Hypertension, stable -DIALYSIS PER RENAL -aspirin, statin, continue IV diuretics, continue IV antibiotics -repeat blood cultures, strict I&Os, daily weight. 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 Plan discussed with: Patient Date of Service: Sep 01, 2025 Billing Provider: HIRAL AUSTIN MD Common Visit Codes: [id number] INP/OBS CARE(HIGH) HIRAL AUSTIN MD Sep 01, 2025 16:35
[2025-09-01] MEDS: EPOETIN ALFA-EPBX 10,000 UNIT/1ML VIAL SC ONE ×2 (21:57→22:05)
[2025-09-02] VITALS (8 sets, daily range): BP systolic 116–148; BP diastolic 64–85; PULSE 69–76; RESP 16–20; TEMP 97.3–99.2; O2SAT 92–99
--- NOTE | 2025-09-02 00:09 | DVHPN2 ---
Progress Note - Dictate Date Seen: Sep 01, 2025 Medical Necessity Reason Pt with a Central, PICC or Fol: No Subjective Patient was seen and evaluated in follow up. Patient denies any complaints. 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 Telemetry reviewed. vital signs Vital Sign Date Time Temp Pulse Resp B/P (MAP) Pulse Ox O2 Delivery O2 Flow Rate FiO2 09/01/25 21:52 74 137/81 09/01/25 16:41 99.1 17 98 99.1 09/01/25 08:30 Room Air* 0 21 Total Intake and Output 09/01/25 09/01/25 09/02/25 15:00 23:00 07:00 Intake Total 250 ml 200 ml Balance 250 ml 200 ml medications Current Medications Medications Dose Ordered Sig/Britta Route Start Time Stop Time Status Last Admin Dose Admin Famotidine 10 mg DAILY IV 08/20/25 10:00 09/01/25 10:51 10 MG Dextrose 50 ml UD PRN IV 08/20/25 05:15 Sodium Chloride 10 ml Q8HR IV 08/20/25 06:00 09/01/25 22:04 10 ML Ondansetron HCl 4 mg Q4HP PRN IV 08/20/25 05:15 Nitroglycerin 0.4 mg Q5MINP PRN SL 08/20/25 05:15 Hydralazine HCl 10 mg Q6HP PRN IV 08/20/25 05:15 08/29/25 20:44 10 MG Amlodipine Besylate 10 mg DAILY PO 08/20/25 10:00 09/01/25 10:51 10 MG Atorvastatin Calcium 40 mg HS PO 08/21/25 22:00 09/01/25 21:52 40 MG Bumetanide 1 mg BIDD IV 08/21/25 18:00 09/01/25 17:25 1 MG Docusate Sodium 100 mg BID PO 08/21/25 22:00 09/01/25 10:50 100 MG Diagnostic Test (Pha) 1 strip Q6HR 08/21/25 18:00 09/01/25 17:29 1 STRIP Insulin Human Regular Q6HR SC 08/21/25 18:00 09/01/25 17:32 3 UNITS Hydralazine HCl 25 mg Q6HR PO 08/22/25 12:00 09/01/25 17:25 25 MG Ferrous Sulfate 325 mg BIDWM PO 08/22/25 18:00 09/01/25 17:24 325 MG Epoetin Andrew-epbx 10,000 unit MWF [place] 08/22/25 13:00 Hold 08/29/25 09:21 10,000 UNIT Aspirin 81 mg DAILY PO 08/23/25 10:00 09/01/25 10:50 81 MG Epoetin Andrew-epbx 10,000 unit MWF [place] 08/22/25 15:45 UNV Sevelamer HCl 800 mg TIDWM PO 08/22/25 18:00 09/01/25 17:24 800 MG Sodium Bicarbonate 1,300 mg TID PO 08/23/25 14:00 09/01/25 21:52 1,300 MG Carvedilol 25 mg Q12HR PO 08/23/25 22:00 09/01/25 21:52 25 MG Clonidine HCl 0.1 mg BID PRN PO 08/25/25 22:00 08/29/25 22:21 0.1 MG Clopidogrel Bisulfate 75 mg DAILY PO 08/26/25 10:00 09/14/25 23:00 09/01/25 10:51 75 MG objective GENERAL: Alert and oriented x 3. No acute distress. EYES: PERRL, EOMI. Anicteric. HENT: Moist mucous membranes. LUNGS: Clear to auscultation bilaterally. CARDIOVASCULAR: Regular rate and rhythm. ABDOMEN: Soft, non-tender and non-distended. EXTREMITIES: No edema. NEUROLOGIC: No focal neurological deficits. SKIN: Warm, dry. laboratory and microbiology Laboratory Tests 09/01/25 11:09 08/30/25 04:00 Test 09/01/25 11:09 Range/Units Serum Glucose 111 H 74-106 mg/dL Problem List Acute on chronic CHF. NSTEMI likely type 2 [place]. Hypertensive emergency. GISSELL on CKD. Medication noncompliance. Acute hypoxic respiratory failure, multifocal pneumonia. Cardiomyopathy. Acute pontine stroke with dysarthria, left facial weakness, left hemiplegia. Chronic left hemispheres stroke. Assessment/Plan Continued all current supportive medical care. Amlodipine. Aspirin, Lipitor, Plavix. IV antibiotics as ordered. Diuretics with Bumex. Coreg, Hydralazine. IV Hydralazine for SBP >150. Morphine for pain management. Additional plan as per the hospital course. Dietary Evaluation Review Comments: Nutrition Recommendation: 1) CCHO 75gm + renal standard diet 2) Nephro-marcial 1 tab daily 3) Monitor PO intake, lab values, weight trend, and I/O Expected Outcomes/Goals: Intake to meet >75% estimated needs Lab values to improve FU 3-5 days Plan discussed with: Patient RAMIN OLIVIER MD Sep 02, 2025 00:08
[2025-09-02 06:00] LABS: Anion Gap 12 (5-15); Calcium 8.8 mg/dL (8.7-10.4); Carbon Dioxide 30 mmol/L (20-31); Chloride 98 mmol/L (98-107); Potassium 4.0 mmol/L (3.5-5.1); Sodium 140 mmol/L (136-145)
[2025-09-02 06:06] LABS: BUN/Creatinine Ratio 7.2 (10.0-20.0)
[2025-09-02 06:08] LABS: Blood Urea Nitrogen 44 mg/dL (9-23); Glucose 107 mg/dL (74-106)
[2025-09-02 08:29] LABS: Hematocrit 28.0 % (41.0-53.0); Hemoglobin 9.5 g/dL (13.5-17.5); Mean Corpuscular Hemoglobin 31.0 pg (28.0-32.0); Mean Corpuscular Volume 91.8 fL (80.0-100.0); Nucleated Red Blood Cells % 0.1 %
[2025-09-02 08:33] LABS: Albumin 3.7 g/dL (3.2-4.8); Anion Gap 13 (5-15); BUN/Creatinine Ratio 7.1 (10.0-20.0); Calcium 8.9 mg/dL (8.7-10.4); Carbon Dioxide 30 mmol/L (20-31); Chloride 99 mmol/L (98-107); Glucose 104 mg/dL (74-106); Potassium 4.0 mmol/L (3.5-5.1); Sodium 142 mmol/L (136-145); Total Protein 6.2 g/dL (5.7-8.2)
[2025-09-02 08:34] LABS: Bilirubin, Total 0.8 mg/dL (0.2-1.0)
[2025-09-02 08:35] LABS: Alanine Aminotransferase 488 U/L (7-40); Alkaline Phosphatase 234 U/L (46-116); Blood Urea Nitrogen 46 mg/dL (9-23)
--- NOTE | 2025-09-02 14:27 | DVHPN2 ---
Progress Note - Dictate Date Seen: Sep 02, 2025 Medical Necessity Reason Pt with a Central, PICC or Fol: No Subjective Patient was seen and evaluated in follow up. Patient denies any complaints of pain/discomfort. 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 Telemetry reviewed. vital signs Vital Sign Date Time Temp Pulse Resp B/P (MAP) Pulse Ox O2 Delivery O2 Flow Rate FiO2 09/02/25 12:50 97.3 69 18 145/85 (105) 98 97.3 09/02/25 08:00 Room Air* 0 21 Total Intake and Output 09/01/25 09/01/25 09/02/25 15:00 23:00 07:00 Intake Total 250 ml 200 ml 300 ml Output Total 200 ml Balance 250 ml 200 ml 100 ml medications Current Medications Medications Dose Ordered Sig/Britta Route Start Time Stop Time Status Last Admin Dose Admin Famotidine 10 mg DAILY IV 08/20/25 10:00 09/02/25 08:45 10 MG Dextrose 50 ml UD PRN IV 08/20/25 05:15 Sodium Chloride 10 ml Q8HR IV 08/20/25 06:00 09/02/25 13:45 10 ML Ondansetron HCl 4 mg Q4HP PRN IV 08/20/25 05:15 Nitroglycerin 0.4 mg Q5MINP PRN SL 08/20/25 05:15 Hydralazine HCl 10 mg Q6HP PRN IV 08/20/25 05:15 08/29/25 20:44 10 MG Amlodipine Besylate 10 mg DAILY PO 08/20/25 10:00 09/02/25 08:45 10 MG Atorvastatin Calcium 40 mg HS PO 08/21/25 22:00 09/01/25 21:52 40 MG Bumetanide 1 mg BIDD IV 08/21/25 18:00 09/02/25 05:45 1 MG Docusate Sodium 100 mg BID PO 08/21/25 22:00 09/02/25 08:45 100 MG Diagnostic Test (Pha) 1 strip Q6HR 08/21/25 18:00 09/02/25 11:40 1 STRIP Insulin Human Regular Q6HR SC 08/21/25 18:00 09/02/25 11:59 2 UNITS Hydralazine HCl 25 mg Q6HR PO 08/22/25 12:00 09/02/25 11:37 25 MG Ferrous Sulfate 325 mg BIDWM PO 08/22/25 18:00 09/02/25 08:45 325 MG Epoetin Andrew-epbx 10,000 unit MWF [place] 08/22/25 13:00 Hold 08/29/25 09:21 10,000 UNIT Aspirin 81 mg DAILY PO 08/23/25 10:00 09/02/25 08:45 81 MG [facility]etin [facility] 08/22/25 15:45 UNV Sevelamer HCl 800 mg TIDWM PO 08/22/25 18:00 09/02/25 11:37 800 MG Sodium Bicarbonate 1,300 mg TID PO 08/23/25 14:00 09/02/25 13:47 1,300 MG Carvedilol 25 mg Q12HR PO 08/23/25 22:00 09/02/25 08:45 25 MG Clonidine HCl 0.1 mg BID PRN PO 08/25/25 22:00 08/29/25 22:21 0.1 MG Clopidogrel Bisulfate 75 mg DAILY PO 08/26/25 10:00 09/14/25 23:00 09/02/25 08:46 75 MG objective GENERAL: Alert and oriented x 3. No acute distress. EYES: PERRL, EOMI. Anicteric. HENT: Moist mucous membranes. LUNGS: Clear to auscultation bilaterally. CARDIOVASCULAR: Regular rate and rhythm. ABDOMEN: Soft, non-tender and non-distended. EXTREMITIES: No edema. NEUROLOGIC: No focal neurological deficits. SKIN: Warm, dry. laboratory and microbiology Laboratory Tests 09/02/25 04:59 Test 09/02/25 04:59 Range/Units Serum Glucose 104 74-106 mg/dL Problem List Acute on chronic CHF. NSTEMI likely type 2 [place]. Hypertensive emergency. GISSELL on CKD. Medication noncompliance. Acute hypoxic respiratory failure, multifocal pneumonia. Cardiomyopathy. Acute pontine stroke with dysarthria, left facial weakness, left hemiplegia. Chronic left hemispheres stroke. Assessment/Plan Continued all current supportive medical care. Amlodipine. Aspirin, Lipitor, Plavix. IV antibiotics as ordered. Diuretics with Bumex. Coreg, Hydralazine. Morphine for pain management. Additional plan as per the hospital course. Dietary Evaluation Review Comments: Nutrition Recommendation: 1) CCHO 75gm + renal standard diet 2) Nephro-marcial 1 tab daily 3) Monitor PO intake, lab values, weight trend, and I/O Expected Outcomes/Goals: Intake to meet >75% estimated needs Lab values to improve FU 3-5 days Plan discussed with: Patient RAMIN OLIVIER MD Sep 02, 2025 14:22
--- NOTE | 2025-09-02 16:42 | DVHPN2 ---
Progress Note Date Seen: Sep 02, 2025 Medical Necessity Reason Pt with a Central, PICC or Fol: No Subjective Changes from previous H/P or p: No Changes Objective vital signs Vital Sign Date Time Temp Pulse Resp B/P (MAP) Pulse Ox O2 Delivery O2 Flow Rate FiO2 09/02/25 16:31 97.6 73 16 138/83 (101) 94 97.6 09/02/25 08:00 Room Air* 0 21 Total Intake and Output 09/01/25 09/01/25 09/02/25 15:00 23:00 07:00 Intake Total 250 ml 200 ml 300 ml Output Total 200 ml Balance 250 ml 200 ml 100 ml medications Current Medications Medications Dose Ordered Sig/Britta Route Start Time Stop Time Status Last Admin Dose Admin Famotidine 10 mg DAILY IV 08/20/25 10:00 09/02/25 08:45 10 MG Dextrose 50 ml UD PRN IV 08/20/25 05:15 Sodium Chloride 10 ml Q8HR IV 08/20/25 06:00 09/02/25 13:45 10 ML Ondansetron HCl 4 mg Q4HP PRN IV 08/20/25 05:15 Nitroglycerin 0.4 mg Q5MINP PRN SL 08/20/25 05:15 Hydralazine HCl 10 mg Q6HP PRN IV 08/20/25 05:15 08/29/25 20:44 10 MG Amlodipine Besylate 10 mg DAILY PO 08/20/25 10:00 09/02/25 08:45 10 MG Atorvastatin Calcium 40 mg HS PO 08/21/25 22:00 09/01/25 21:52 40 MG Bumetanide 1 mg BIDD IV 08/21/25 18:00 09/02/25 05:45 1 MG Docusate Sodium 100 mg BID PO 08/21/25 22:00 09/02/25 08:45 100 MG Diagnostic Test (Pha) 1 strip Q6HR 08/21/25 18:00 09/02/25 11:40 1 STRIP Insulin Human Regular Q6HR SC 08/21/25 18:00 09/02/25 11:59 2 UNITS Hydralazine HCl 25 mg Q6HR PO 08/22/25 12:00 09/02/25 11:37 25 MG Ferrous Sulfate 325 mg BIDWM PO 08/22/25 18:00 09/02/25 08:45 325 MG Epoetin Andrew-epbx 10,000 unit MWF [place] 08/22/25 13:00 Hold 08/29/25 09:21 10,000 UNIT Aspirin 81 mg DAILY PO 08/23/25 10:00 09/02/25 08:45 81 MG Epoetin Andrew-epbx 10,000 unit MWF [place] 08/22/25 15:45 UNV Sevelamer HCl 800 mg TIDWM PO 08/22/25 18:00 09/02/25 11:37 800 MG Sodium Bicarbonate 1,300 mg TID PO 08/23/25 14:00 09/02/25 13:47 1,300 MG Carvedilol 25 mg Q12HR PO 08/23/25 22:00 09/02/25 08:45 25 MG Clonidine HCl 0.1 mg BID PRN PO 08/25/25 22:00 08/29/25 22:21 0.1 MG Clopidogrel Bisulfate 75 mg DAILY PO 08/26/25 10:00 09/14/25 23:00 09/02/25 08:46 75 MG Examination: GENERAL:Normal, CVS:Normal, NEURO:Abnormal laboratory and microbiology Laboratory Tests 09/02/25 04:59 Test 09/02/25 04:59 Range/Units Serum Glucose 104 74-106 mg/dL Microbiology Date/Time Source Procedure Growth Status 08/22/25 13:29 Blood Blood Culture - Final NO GROWTH AFTER 5 DAYS OF INCUBATION. 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 medications Coreg, amlodipine, p.o. hydralazine ALEXANDRU agents Diuretic therapy Cardiology SW case management to determine placement Plan discussed with: Patient Dietary Evaluation Review Comments: Nutrition Recommendation: 1) CCHO 75gm + renal standard diet 2) Nephro-marcial 1 tab daily 3) Monitor PO intake, lab values, weight trend, and I/O Expected Outcomes/Goals: Intake to meet >75% estimated needs Lab values to improve FU 3-5 days CYNTHIA ORDAZ MD Sep 02, 2025 16:42
[2025-09-03] VITALS (8 sets, daily range): BP systolic 126–150; BP diastolic 76–89; PULSE 67–76; RESP 18–20; TEMP 98–99; O2SAT 94–99
[2025-09-03 06:06] LABS: Hematocrit 27.3 % (41.0-53.0); Hemoglobin 9.5 g/dL (13.5-17.5); Mean Corpuscular Hemoglobin 31.4 pg (28.0-32.0); Mean Corpuscular Volume 90.7 fL (80.0-100.0); Nucleated Red Blood Cells % 0.1 %
[2025-09-03 06:20] LABS: Anion Gap 14 (5-15); Potassium 3.8 mmol/L (3.5-5.1); Sodium 140 mmol/L (136-145)
[2025-09-03 06:24] LABS: Calcium 8.6 mg/dL (8.7-10.4); Carbon Dioxide 31 mmol/L (20-31); Chloride 95 mmol/L (98-107)
[2025-09-03 06:26] LABS: BUN/Creatinine Ratio 7.1 (10.0-20.0); Blood Urea Nitrogen 52 mg/dL (9-23); Glucose 123 mg/dL (74-106)
[2025-09-03] MEDS: SODIUM CHL 0.9% 1000 ML BAG XX ONE ×2 (10:54→11:13)
--- NOTE | 2025-09-03 13:03 | DVHPN2 ---
Progress Note Date Seen: Sep 03, 2025 Medical Necessity Reason Pt with a Central, PICC or Fol: No Objective vital signs Vital Sign Date Time Temp Pulse Resp B/P (MAP) Pulse Ox O2 Delivery O2 Flow Rate FiO2 09/03/25 12:19 76 126/76 09/03/25 09:00 99.0 18 98 99.0 09/03/25 08:00 Room Air* 0 21 Total Intake and Output 09/02/25 09/02/25 09/03/25 15:00 23:00 07:00 Intake Total 400 ml 0 ml Output Total 450 ml Balance -50 ml 0 ml medications Current Medications Medications Dose Ordered Sig/Britta Route Start Time Stop Time Status Last Admin Dose Admin Famotidine 10 mg DAILY IV 08/20/25 10:00 09/03/25 10:34 10 MG Dextrose 50 ml UD PRN IV 08/20/25 05:15 Sodium Chloride 10 ml Q8HR IV 08/20/25 06:00 09/03/25 05:34 10 ML Ondansetron HCl 4 mg Q4HP PRN IV 08/20/25 05:15 Nitroglycerin 0.4 mg Q5MINP PRN SL 08/20/25 05:15 Hydralazine HCl 10 mg Q6HP PRN IV 08/20/25 05:15 08/29/25 20:44 10 MG Amlodipine Besylate 10 mg DAILY PO 08/20/25 10:00 09/02/25 08:45 10 MG Atorvastatin Calcium 40 mg HS PO 08/21/25 22:00 09/02/25 21:58 40 MG Bumetanide 1 mg BIDD IV 08/21/25 18:00 09/03/25 05:34 1 MG Docusate Sodium 100 mg BID PO 08/21/25 22:00 09/02/25 08:45 100 MG Diagnostic Test (Pha) 1 strip Q6HR 08/21/25 18:00 09/03/25 12:19 1 STRIP Insulin Human Regular Q6HR SC 08/21/25 18:00 09/03/25 12:24 3 UNITS Hydralazine HCl 25 mg Q6HR PO 08/22/25 12:00 09/03/25 12:19 25 MG Ferrous Sulfate 325 mg BIDWM PO 08/22/25 18:00 09/03/25 10:31 325 MG Epoetin Andrew-epbx 10,000 unit MWF [place] 08/22/25 13:00 08/29/25 09:21 10,000 UNIT Aspirin 81 mg DAILY PO 08/23/25 10:00 09/03/25 10:31 81 MG Epoetin Andrew-epbx 10,000 unit MWF [place] 08/22/25 15:45 UNV Sevelamer HCl 800 mg TIDWM PO 08/22/25 18:00 09/03/25 12:19 800 MG Sodium Bicarbonate 1,300 mg TID PO 08/23/25 14:00 09/03/25 05:34 1,300 MG Carvedilol 25 mg Q12HR PO 08/23/25 22:00 09/03/25 10:32 25 MG Clonidine HCl 0.1 mg BID PRN PO 08/25/25 22:00 08/29/25 22:21 0.1 MG Clopidogrel Bisulfate 75 mg DAILY PO 08/26/25 10:00 09/14/25 23:00 09/03/25 10:31 75 MG Examination: GENERAL:Abnormal, CVS:Normal, ABDOMEN:Normal, NEURO:Abnormal laboratory and microbiology Laboratory Tests 09/03/25 05:00 Test 09/03/25 05:00 Range/Units Serum Glucose 123 H 74-106 mg/dL Microbiology Date/Time Source Procedure Growth Status 08/22/25 13:29 Blood Blood Culture - Final NO GROWTH AFTER 5 DAYS OF INCUBATION. Complete 08/20/25 18:49 Nose MRSA Screen - Final Complete Problem List/Assessment/Plan Problem List/Assessment/Plan Acute kidney injury hemodynamically mediated in the setting of hypertensive emergency CKD 5 with progression to ESRD Acute CVA w/ new deficits hypertensive emergency HTN NSTEMI with congestive heart failure EF of 25% Anemia due to chronic kidney disease next hd tentative friday P.o. medications Coreg, amlodipine, p.o. hydralazine ALEXANDRU agents Diuretic therapy Cardiology SW case management to determine placement Plan discussed with: Patient Dietary Evaluation Review Comments: Nutrition Recommendation: 1) CCHO 75gm + renal standard diet 2) Nephro-marcial 1 tab daily 3) Monitor PO intake, lab values, weight trend, and I/O Expected Outcomes/Goals: Intake to meet >75% estimated needs Lab values to improve FU 3-5 days CYNTHIA ORDAZ MD Sep 03, 2025 13:03
--- NOTE | 2025-09-03 18:30 | DVHPN2 ---
Progress Note - Dictate Date Seen: Sep 03, 2025 Medical Necessity Reason Pt with a Central, PICC or Fol: No Subjective Patient was seen and evaluated in follow up. Patient denies any complaints of pain/discomfort. 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 Telemetry reviewed. vital signs Vital Sign Date Time Temp Pulse Resp B/P (MAP) Pulse Ox O2 Delivery O2 Flow Rate FiO2 09/03/25 12:19 76 126/76 09/03/25 09:00 99.0 18 98 99.0 09/03/25 08:00 Room Air* 0 21 Total Intake and Output 09/02/25 09/02/25 09/03/25 15:00 23:00 07:00 Intake Total 400 ml 0 ml Output Total 450 ml Balance -50 ml 0 ml medications Current Medications Medications Dose Ordered Sig/Britta Route Start Time Stop Time Status Last Admin Dose Admin Famotidine 10 mg DAILY IV 08/20/25 10:00 09/03/25 10:34 10 MG Dextrose 50 ml UD PRN IV 08/20/25 05:15 Sodium Chloride 10 ml Q8HR IV 08/20/25 06:00 09/03/25 05:34 10 ML Ondansetron HCl 4 mg Q4HP PRN IV 08/20/25 05:15 Nitroglycerin 0.4 mg Q5MINP PRN SL 08/20/25 05:15 Hydralazine HCl 10 mg Q6HP PRN IV 08/20/25 05:15 08/29/25 20:44 10 MG Amlodipine Besylate 10 mg DAILY PO 08/20/25 10:00 09/02/25 08:45 10 MG Atorvastatin Calcium 40 mg HS PO 08/21/25 22:00 09/02/25 21:58 40 MG Bumetanide 1 mg BIDD IV 08/21/25 18:00 09/03/25 05:34 1 MG Docusate Sodium 100 mg BID PO 08/21/25 22:00 09/02/25 08:45 100 MG Diagnostic Test (Pha) 1 strip Q6HR 08/21/25 18:00 09/03/25 12:19 1 STRIP Insulin Human Regular Q6HR SC 08/21/25 18:00 09/03/25 12:24 3 UNITS Hydralazine HCl 25 mg Q6HR PO 08/22/25 12:00 09/03/25 12:19 25 MG Ferrous Sulfate 325 mg BIDWM PO 08/22/25 18:00 09/03/25 10:31 325 MG Epoetin Anderw-epbx 10,000 unit MWF [place] 08/22/25 13:00 08/29/25 09:21 10,000 UNIT Aspirin 81 mg DAILY PO 08/23/25 10:00 09/03/25 10:31 81 MG Epoetin Andrew-epbx 10,000 unit MWF [place] 08/22/25 15:45 UNV Sevelamer HCl 800 mg TIDWM PO 08/22/25 18:00 09/03/25 12:19 800 MG Sodium Bicarbonate 1,300 mg TID PO 08/23/25 14:00 09/03/25 05:34 1,300 MG Carvedilol 25 mg Q12HR PO 08/23/25 22:00 09/03/25 10:32 25 MG Clonidine HCl 0.1 mg BID PRN PO 08/25/25 22:00 08/29/25 22:21 0.1 MG Clopidogrel Bisulfate 75 mg DAILY PO 08/26/25 10:00 09/14/25 23:00 09/03/25 10:31 75 MG objective GENERAL: Alert and oriented x 3. No acute distress. EYES: PERRL, EOMI. Anicteric. HENT: Moist mucous membranes. LUNGS: Clear to auscultation bilaterally. CARDIOVASCULAR: Regular rate and rhythm. ABDOMEN: Soft, non-tender and non-distended. EXTREMITIES: No edema. NEUROLOGIC: No focal neurological deficits. SKIN: Warm, dry. laboratory and microbiology Laboratory Tests 09/03/25 05:00 Test 09/03/25 05:00 Range/Units Serum Glucose 123 H 74-106 mg/dL Problem List Acute on chronic CHF. NSTEMI likely type 2 [place]. Hypertensive emergency. GISSELL on CKD. Medication noncompliance. Acute hypoxic respiratory failure, multifocal pneumonia. Cardiomyopathy. Acute pontine stroke with dysarthria, left facial weakness, left hemiplegia. Chronic left hemispheres stroke. Assessment/Plan Continued all current supportive medical care. Aspirin, Plavix. IV antibiotics as ordered. Diuretics with Bumex. Coreg, Hydralazine. Morphine for pain management. Additional plan as per the hospital course. Dietary Evaluation Review Comments: Nutrition Recommendation: 1) CCHO 75gm + renal standard diet 2) Nephro-marcial 1 tab daily 3) Monitor PO intake, lab values, weight trend, and I/O Expected Outcomes/Goals: Intake to meet >75% estimated needs Lab values to improve FU 3-5 days Plan discussed with: Patient RAMIN OLIVEIR MD Sep 03, 2025 12:40
[2025-09-04] VITALS (8 sets, daily range): BP systolic 143–162; BP diastolic 72–95; PULSE 71–89; RESP 17–20; TEMP 97.8–99.3; O2SAT 95–99
--- NOTE | 2025-09-04 10:49 | DVHPN2 ---
Progress Note Date Seen: Sep 04, 2025 Medical Necessity Reason Pt with a Central, PICC or Fol: No Subjective Changes from previous H/P or p: No Changes Objective vital signs Vital Sign Date Time Temp Pulse Resp B/P (MAP) Pulse Ox O2 Delivery O2 Flow Rate FiO2 09/04/25 08:39 98.8 75 20 146/84 (104) 99 98.8 09/03/25 20:00 Room Air* 0 21 Total Intake and Output 09/03/25 09/03/25 09/04/25 15:00 23:00 07:00 Intake Total 500 ml 300 ml Output Total 200 ml 450 ml Balance 300 ml -150 ml medications Current Medications Medications Dose Ordered Sig/Britta Route Start Time Stop Time Status Last Admin Dose Admin Famotidine 10 mg DAILY IV 08/20/25 10:00 09/03/25 10:34 10 MG Dextrose 50 ml UD PRN IV 08/20/25 05:15 Sodium Chloride 10 ml Q8HR IV 08/20/25 06:00 09/04/25 05:43 10 ML Ondansetron HCl 4 mg Q4HP PRN IV 08/20/25 05:15 Nitroglycerin 0.4 mg Q5MINP PRN SL 08/20/25 05:15 Hydralazine HCl 10 mg Q6HP PRN IV 08/20/25 05:15 08/29/25 20:44 10 MG Amlodipine Besylate 10 mg DAILY PO 08/20/25 10:00 09/02/25 08:45 10 MG Atorvastatin Calcium 40 mg HS PO 08/21/25 22:00 09/03/25 21:26 40 MG Bumetanide 1 mg BIDD IV 08/21/25 18:00 09/04/25 05:43 1 MG Docusate Sodium 100 mg BID PO 08/21/25 22:00 09/02/25 08:45 100 MG Diagnostic Test (Pha) 1 strip Q6HR 08/21/25 18:00 09/04/25 05:43 1 STRIP Insulin Human Regular Q6HR SC 08/21/25 18:00 09/04/25 00:00 2 UNITS Hydralazine HCl 25 mg Q6HR PO 08/22/25 12:00 09/04/25 05:43 25 MG Ferrous Sulfate 325 mg BIDWM PO 08/22/25 18:00 09/03/25 18:06 325 MG Epoetin Andrew-epbx 10,000 unit MWF [place] 08/22/25 13:00 08/29/25 09:21 10,000 UNIT Aspirin 81 mg DAILY PO 08/23/25 10:00 09/03/25 10:31 81 MG Epoetin Andrew-epbx 10,000 unit MWF [place] 08/22/25 15:45 UNV Sevelamer HCl 800 mg TIDWM PO 08/22/25 18:00 09/03/25 18:12 800 MG Sodium Bicarbonate 1,300 mg TID PO 08/23/25 14:00 09/04/25 05:43 1,300 MG Carvedilol 25 mg Q12HR PO 08/23/25 22:00 09/03/25 21:26 25 MG Clonidine HCl 0.1 mg BID PRN PO 08/25/25 22:00 08/29/25 22:21 0.1 MG Clopidogrel Bisulfate 75 mg DAILY PO 08/26/25 10:00 09/14/25 23:00 09/03/25 10:31 75 MG Examination: GENERAL:Normal, CVS:Normal, NEURO:Abnormal laboratory and microbiology Laboratory Tests 09/03/25 05:00 Test 09/03/25 05:00 Range/Units Serum Glucose 123 H 74-106 mg/dL Microbiology Date/Time Source Procedure Growth Status 08/22/25 13:29 Blood Blood Culture - Final NO GROWTH AFTER 5 DAYS OF INCUBATION. Complete 08/20/25 18:49 Nose MRSA Screen - Final Complete Problem List/Assessment/Plan Problem List/Assessment/Plan Acute kidney injury hemodynamically mediated in the setting of hypertensive emergency CKD 5 with progression to ESRD Acute CVA w/ new deficits hypertensive emergency HTN NSTEMI with congestive heart failure EF of 25% Anemia due to chronic kidney disease next hd now nurse at bedside P.o. medications Coreg, amlodipine, p.o. hydralazine ALEXANDRU agents Diuretic therapy Cardiology SW case management to determine placement Plan discussed with: Patient Dietary Evaluation Review Comments: Nutrition Recommendation: 1) CCHO 75gm + renal standard diet 2) Nephro-marcial 1 tab daily 3) Monitor PO intake, lab values, weight trend, and I/O Expected Outcomes/Goals: Intake to meet >75% estimated needs Lab values to improve FU 3-5 days CYNTHIA ORDAZ MD Sep 04, 2025 10:49
--- NOTE | 2025-09-04 20:47 | DVHPN2 ---
Progress Note - Dictate Date Seen: Sep 04, 2025 Medical Necessity Reason Pt with a Central, PICC or Fol: No Subjective Patient was seen and evaluated in follow up. Patient denies any complaints of pain/discomfort. Patient is working with PT. BS are WNL. Telemetry reviewed. vital signs Vital Sign Date Time Temp Pulse Resp B/P (MAP) Pulse Ox O2 Delivery O2 Flow Rate FiO2 09/04/25 12:46 98.2 71 18 162/79 (106) 97 98.2 09/03/25 20:00 Room Air* 0 21 Total Intake and Output 09/03/25 09/03/25 09/04/25 15:00 23:00 07:00 Intake Total 500 ml 300 ml Output Total 200 ml 450 ml Balance 300 ml -150 ml medications Current Medications Medications Dose Ordered Sig/Britta Route Start Time Stop Time Status Last Admin Dose Admin Famotidine 10 mg DAILY IV 08/20/25 10:00 09/04/25 10:42 10 MG Dextrose 50 ml UD PRN IV 08/20/25 05:15 Sodium Chloride 10 ml Q8HR IV 08/20/25 06:00 09/04/25 05:43 10 ML Ondansetron HCl 4 mg Q4HP PRN IV 08/20/25 05:15 Nitroglycerin 0.4 mg Q5MINP PRN SL 08/20/25 05:15 Hydralazine HCl 10 mg Q6HP PRN IV 08/20/25 05:15 08/29/25 20:44 10 MG Amlodipine Besylate 10 mg DAILY PO 08/20/25 10:00 09/02/25 08:45 10 MG Atorvastatin Calcium 40 mg HS PO 08/21/25 22:00 09/03/25 21:26 40 MG Bumetanide 1 mg BIDD IV 08/21/25 18:00 09/04/25 05:43 1 MG Docusate Sodium 100 mg BID PO 08/21/25 22:00 09/04/25 10:41 100 MG Diagnostic Test (Pha) 1 strip Q6HR 08/21/25 18:00 09/04/25 05:43 1 STRIP Insulin Human Regular Q6HR SC 08/21/25 18:00 09/04/25 00:00 2 UNITS Hydralazine HCl 25 mg Q6HR PO 08/22/25 12:00 09/04/25 05:43 25 MG Ferrous Sulfate 325 mg BIDWM PO 08/22/25 18:00 09/04/25 10:41 325 MG Epoetin Andrew-epbx 10,000 unit MWF [place] 08/22/25 13:00 08/29/25 09:21 10,000 UNIT Aspirin 81 mg DAILY PO 08/23/25 10:00 09/04/25 10:42 81 MG Epoetin Andrew-epbx 10,000 unit MWF [place] 08/22/25 15:45 UNV Sevelamer HCl 800 mg TIDWM PO 08/22/25 18:00 09/04/25 10:41 800 MG Sodium Bicarbonate 1,300 mg TID PO 08/23/25 14:00 09/04/25 05:43 1,300 MG Carvedilol 25 mg Q12HR PO 08/23/25 22:00 09/03/25 21:26 25 MG Clonidine HCl 0.1 mg BID PRN PO 08/25/25 22:00 08/29/25 22:21 0.1 MG Clopidogrel Bisulfate 75 mg DAILY PO 08/26/25 10:00 09/14/25 23:00 09/04/25 10:41 75 MG objective GENERAL: Alert and oriented x 3. No acute distress. EYES: PERRL, EOMI. Anicteric. HENT: Moist mucous membranes. LUNGS: Clear to auscultation bilaterally. CARDIOVASCULAR: Regular rate and rhythm. ABDOMEN: Soft, non-tender and non-distended. EXTREMITIES: No edema. NEUROLOGIC: No focal neurological deficits. SKIN: Warm, dry. laboratory and microbiology Laboratory Tests 09/03/25 05:00 Test 09/03/25 05:00 Range/Units Serum Glucose 123 H 74-106 mg/dL Problem List Acute on chronic CHF. NSTEMI likely type 2 VT. Hypertensive emergency. GISSELL on CKD. Medication noncompliance. Acute hypoxic respiratory failure, multifocal pneumonia. Cardiomyopathy. Acute pontine stroke with dysarthria, left facial weakness, left hemiplegia. Chronic left hemispheres stroke. Assessment/Plan Continued all current supportive medical care. Aspirin, Plavix. IV antibiotics as ordered. Diuretics with Bumex. Hydralazine. Morphine for pain management. Additional plan as per the hospital course. Dietary Evaluation Review Comments: Nutrition Recommendation: 1) [facility] + renal standard diet 2) Nephro-marcial 1 tab daily 3) Monitor PO intake, lab values, weight trend, and I/O Expected Outcomes/Goals: Intake to meet >75% estimated needs Lab values to improve FU 3-5 days Plan discussed with: Patient RAMIN OLIVIER MD Sep 04, 2025 13:49
[2025-09-05 01:00] VITALS: BP 146/92; PULSE 76; RESP 20; TEMP 99.5; O2SAT 95
--- NOTE | 2025-09-05 01:07 | DVHPN2 ---
Reviewed: Care Plan, H&P Changes from previous H/P or p: No Changes General: Per HPI Eyes: No Pain, No Vision change, No Conjunctivae inflammation, No Eyelid inflammation, No Other, No Redness ENT: No Ear pain, No Ear discharge, No Nose pain, No Nose discharge, No Nose congestion, No Mouth pain, No Mouth swelling, No Throat pain, No Throat swelling, No Other Cardiovascular: No Chest Pain, No Palpitations, No Orthopnea, No Paroxysmal Noc. Dyspnea, No Edema, No Lt Headedness, No Other Respiratory: No Cough, No Dry; Shortness of breath; No SOB with excertion, No Wheezing, No Hemoptysis, No Pleuritic Pain, No Sputum; Other (SOB at rest) Gastrointestinal: No Nausea, No Vomiting, No Abdominal Pain, No Diarrhea, No Constipation, No Melena, No Hematochezia, No Other Genitourinary: No Dysuria, No Frequency, No Incontinence, No Hematuria, No Retention, No Other Musculoskeletal: No other, No neck pain, No shoulder pain, No arm pain, No back pain, No hand pain, No leg pain, No foot pain Skin: No Rash, No Lesions, No Jaundice, No Bruising, No Other Objective Vitals Vital Signs Date Time Temp Pulse Resp B/P (MAP) Pulse Ox O2 Delivery O2 Flow Rate FiO2 09/04/25 23:34 147/82 09/04/25 21:07 89 09/04/25 21:00 99.3 17 98 99.3 09/04/25 20:10 Room Air* 0 21 Intake/Output Intake and Output 09/05/25 07:00 Intake Total 925 ml Output Total 550 ml Balance 375 ml Intake Oral 925 ml Output Urine Total 550 ml # Voids 1 General Appearance: Alert, Oriented X3 Lungs: Clear to auscultation Cardiovascular: Regular rate, Normal S1, Normal S2 Abdomen: Normal bowel sounds Medications Current Medications Medications Dose Ordered Sig/Britta Route Start Time Stop Time Status Last Admin Dose Admin Famotidine 10 mg DAILY IV 08/20/25 10:00 09/04/25 10:42 10 MG Dextrose 50 ml UD PRN IV 08/20/25 05:15 Sodium Chloride 10 ml Q8HR IV 08/20/25 06:00 09/04/25 21:10 10 ML Ondansetron HCl 4 mg Q4HP PRN IV 08/20/25 05:15 Nitroglycerin 0.4 mg Q5MINP PRN SL 08/20/25 05:15 Hydralazine HCl 10 mg Q6HP PRN IV 08/20/25 05:15 08/29/25 20:44 10 MG Amlodipine Besylate 10 mg DAILY PO 08/20/25 10:00 09/02/25 08:45 10 MG Atorvastatin Calcium 40 mg HS PO 08/21/25 22:00 09/04/25 21:09 40 MG Bumetanide 1 mg BIDD IV 08/21/25 18:00 09/04/25 18:06 1 MG Docusate Sodium 100 mg BID PO 08/21/25 22:00 09/04/25 21:06 100 MG Diagnostic Test (Pha) 1 strip Q6HR 08/21/25 18:00 09/04/25 23:30 1 STRIP Insulin Human Regular Q6HR SC 08/21/25 18:00 09/04/25 00:00 2 UNITS Hydralazine HCl 25 mg Q6HR PO 08/22/25 12:00 09/04/25 23:34 25 MG Ferrous Sulfate 325 mg BIDWM PO 08/22/25 18:00 09/04/25 18:10 325 MG Epoetin Andrew-epbx 10,000 unit MWF [place] 08/22/25 13:00 08/29/25 09:21 10,000 UNIT Aspirin 81 mg DAILY PO 08/23/25 10:00 09/04/25 10:42 81 MG Epoetin Andrew-epbx 10,000 unit MWF [place] 08/22/25 15:45 UNV Sevelamer HCl 800 mg TIDWM PO 08/22/25 18:00 09/04/25 18:10 800 MG Sodium Bicarbonate 1,300 mg TID PO 08/23/25 14:00 09/04/25 21:08 1,300 MG Carvedilol 25 mg Q12HR PO 08/23/25 22:00 09/04/25 21:07 25 MG Clonidine HCl 0.1 mg BID PRN PO 08/25/25 22:00 08/29/25 22:21 0.1 MG Clopidogrel Bisulfate 75 mg DAILY PO 08/26/25 10:00 09/14/25 23:00 09/04/25 10:41 75 MG Laboratory Results Laboratory Tests 09/03/25 05:00 Urinalysis Test 08/20/25 00:06 08/22/25 12:21 Urine Color Colorless (Yellow) Urine Clarity Clear (Clear) Urine pH 6.5 (5.0-9.0) Urine Specific [place] 1.009 (1.001-1.035) Urine Protein 2+ (Negative) H Urine Ketones Negative (Negative) Urine Blood 2+ /uL (Negative) H Urine Nitrite Negative (Negative) Urine Bilirubin Negative (Negative) Urine Urobilinogen Normal mg/dL (Negative) Urine Leukocyte Esterase Negative /uL (Negative) Urine RBC 2 /hpf (0 - 3) Urine Microscopic WBC 1 /HPF (0-3) Urine Squamous Epithelial Cells None seen /hpf (<5) Urine Bacteria None seen /hpf (None Seen) Urine Glucose 3+ mg/dL (Normal) H Urine Creatinine 91.09 mg/dL (30.0-125.0) Urine Sodium 34 mmol/L (40-220) L Urine Total Protein 229.4 mg/dL (1-14) H Microbiology Microbiology Date/Time Source Procedure Growth Status 08/22/25 13:29 Blood Blood Culture - Final NO GROWTH AFTER 5 DAYS OF INCUBATION. Complete 08/20/25 18:49 Nose MRSA Screen - Final Complete Assessment/Plan Assessment/Plan 5-year-old male with a known history of congestive heart failure with systolic dysfunction, diabetes mellitus type 2, hypertension, dyslipidemia, homelessness who initially presented to the hospital with a respiratory distress found to have acute hypoxic respiratory failure suspected secondary to congestive heart failure with systolic dysfunction/multifocal pneumonia. Patient's hospital course was eventful for acute CVA with a MRI evidence of infarct in the right kuldip. 1. Acute hypoxic respiratory failure secondary to acute CHF exacerbation with systolic dysfunction as well as multifocal pneumonia 2. Acute CHF exacerbation with systolic dysfunction with the EF of 25% 3. Multifocal pneumonia 4. Moderate/severe pulmonary hypertension 5. Acute CVA with PONTINE infarct in the right-sided kuldip, with a left-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 6. AKA with a underlying CKD, progressing to end-stage renal disease, tunneled dialysis catheter will be placed, currently hemodialysis via Alonzo catheter 7. Previous history of CVA with a mild left residual deficit 8. NSTEMI type 2 suspect secondary to acute CHF exacerbation 9. 1/2 Gram-negative bacteremia with coag-negative staph, suspect contamination 10. Hypertension, stable -DIALYSIS PER RENAL -aspirin, statin, continue IV diuretics, continue IV antibiotics -repeat blood cultures, strict I&Os, daily weight. Plan discussed with: Patient pt is homeless, pending placement Plan discussed with: Patient Date of Service: Sep 02, 2025 Billing Provider: SEB NORMAN DO Common Visit Codes: [id number] INP/OBS CARE(HIGH) SEB NORMAN DO Sep 05, 2025 01:07
[2025-09-05 05:00] VITALS: BP 134/98; PULSE 78; RESP 20; TEMP 98.3; O2SAT 97
[2025-09-05 06:02] LABS: Hematocrit 28.8 % (41.0-53.0); Hemoglobin 9.5 g/dL (13.5-17.5); Mean Corpuscular Hemoglobin 30.6 pg (28.0-32.0); Mean Corpuscular Volume 92.6 fL (80.0-100.0); Nucleated Red Blood Cells % 0.0 %
[2025-09-05 06:15] LABS: Anion Gap 11 (5-15); Carbon Dioxide 28 mmol/L (20-31); Chloride 99 mmol/L (98-107); Potassium 4.7 mmol/L (3.5-5.1); Sodium 138 mmol/L (136-145)
[2025-09-05 06:16] LABS: Calcium 8.8 mg/dL (8.7-10.4)
[2025-09-05 06:21] LABS: BUN/Creatinine Ratio 7.1 (10.0-20.0); Glucose 85 mg/dL (74-106)
[2025-09-05 06:44] LABS: Blood Urea Nitrogen 40 mg/dL (9-23)
[2025-09-05 08:00] VITALS: PULSE 84
--- NOTE | 2025-09-05 10:28 | DVHPN2 ---
Progress Note Date Seen: Sep 05, 2025 Medical Necessity Reason Pt with a Central, PICC or Fol: No Subjective Patient reports: No new complaints Other Systems: Patient seen and examined by myself today in follow-up Objective vital signs Vital Sign Date Time Temp Pulse Resp B/P (MAP) Pulse Ox O2 Delivery O2 Flow Rate FiO2 09/05/25 08:55 84 143/95 09/05/25 08:05 Room Air* 0 21 09/05/25 05:00 98.3 20 97 98.3 Total Intake and Output 09/04/25 09/04/25 09/05/25 15:00 23:00 07:00 Intake Total 325 ml 600 ml 1400 ml Output Total 550 ml 350 ml Balance 325 ml 50 ml 1050 ml medications Current Medications Medications Dose Ordered Sig/Britta Route Start Time Stop Time Status Last Admin Dose Admin Famotidine 10 mg DAILY IV 08/20/25 10:00 09/05/25 08:55 10 MG Dextrose 50 ml UD PRN IV 08/20/25 05:15 Sodium Chloride 10 ml Q8HR IV 08/20/25 06:00 09/05/25 05:04 10 ML Ondansetron HCl 4 mg Q4HP PRN IV 08/20/25 05:15 Nitroglycerin 0.4 mg Q5MINP PRN SL 08/20/25 05:15 Hydralazine HCl 10 mg Q6HP PRN IV 08/20/25 05:15 08/29/25 20:44 10 MG Amlodipine Besylate 10 mg DAILY PO 08/20/25 10:00 09/05/25 08:55 10 MG Atorvastatin Calcium 40 mg HS PO 08/21/25 22:00 09/04/25 21:09 40 MG Bumetanide 1 mg BIDD IV 08/21/25 18:00 09/05/25 05:16 1 MG Docusate Sodium 100 mg BID PO 08/21/25 22:00 09/05/25 08:51 100 MG Diagnostic Test (Pha) 1 strip Q6HR 08/21/25 18:00 09/05/25 05:03 1 STRIP Insulin Human Regular Q6HR SC 08/21/25 18:00 09/04/25 00:00 2 UNITS Hydralazine HCl 25 mg Q6HR PO 08/22/25 12:00 09/05/25 05:12 25 MG Ferrous Sulfate 325 mg BIDWM PO 08/22/25 18:00 09/05/25 08:51 325 MG Epoetin Andrew-epbx 10,000 unit MWF [place] 08/22/25 13:00 09/05/25 09:17 10,000 UNIT Aspirin 81 mg DAILY PO 08/23/25 10:00 09/05/25 08:50 81 MG Epoetin Andrew-epbx 10,000 unit MWF [place] 08/22/25 15:45 UNV Sevelamer HCl 800 mg TIDWM PO 08/22/25 18:00 09/05/25 08:50 800 MG Sodium Bicarbonate 1,300 mg TID PO 08/23/25 14:00 09/05/25 05:12 1,300 MG Carvedilol 25 mg Q12HR PO 08/23/25 22:00 09/05/25 08:55 25 MG Clonidine HCl 0.1 mg BID PRN PO 08/25/25 22:00 08/29/25 22:21 0.1 MG Clopidogrel Bisulfate 75 mg DAILY PO 08/26/25 10:00 09/14/25 23:00 09/05/25 08:51 75 MG Examination: LUNGS:Normal, CVS:Normal, MSK:Normal laboratory and microbiology Laboratory Tests 09/05/25 05:16 Test 09/05/25 05:16 Range/Units Serum Glucose 85 74-106 mg/dL Microbiology Date/Time Source Procedure Growth Status 08/22/25 13:29 Blood Blood Culture - Final NO GROWTH AFTER 5 DAYS OF INCUBATION. 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
[2025-09-05 17:01] VITALS: BP 131/67; PULSE 78; RESP 16; TEMP 97.7; O2SAT 97
--- NOTE | 2025-09-05 17:11 | DVHPN2 ---
Subjective In bed feeling well Reviewed: Care Plan, H&P Changes from previous H/P or p: No Changes General: Per HPI Eyes: No Pain, No Vision change, No Conjunctivae inflammation, No Eyelid inflammation, No Other, No Redness ENT: No Ear pain, No Ear discharge, No Nose pain, No Nose discharge, No Nose congestion, No Mouth pain, No Mouth swelling, No Throat pain, No Throat swelling, No Other Cardiovascular: No Chest Pain, No Palpitations, No Orthopnea, No Paroxysmal Noc. Dyspnea, No Edema, No Lt Headedness, No Other Respiratory: No Cough, No Dry; Shortness of breath; No SOB with excertion, No Wheezing, No Hemoptysis, No Pleuritic Pain, No Sputum; Other (SOB at rest) Gastrointestinal: No Nausea, No Vomiting, No Abdominal Pain, No Diarrhea, No Constipation, No Melena, No Hematochezia, No Other Genitourinary: No Dysuria, No Frequency, No Incontinence, No Hematuria, No Retention, No Other Musculoskeletal: No other, No neck pain, No shoulder pain, No arm pain, No back pain, No hand pain, No leg pain, No foot pain Skin: No Rash, No Lesions, No Jaundice, No Bruising, No Other Objective Vitals Vital Signs Date Time Temp Pulse Resp B/P (MAP) Pulse Ox O2 Delivery O2 Flow Rate FiO2 09/05/25 17:01 97.7 78 16 131/67 (88) 97 97.7 09/05/25 08:05 Room Air* 0 21 Intake/Output Intake and Output 09/05/25 05:00 Intake Total 1225 ml Output Total 1000 ml Balance 225 ml Intake Oral 1225 ml Output Urine Total 1000 ml # Voids 1 General Appearance: Alert, Oriented X3 Lungs: Clear to auscultation Cardiovascular: Regular rate, Normal S1, Normal S2 Abdomen: Normal bowel sounds Medications Current Medications Medications Dose Ordered Sig/Britta Route Start Time Stop Time Status Last Admin Dose Admin Famotidine 10 mg DAILY IV 08/20/25 10:00 09/05/25 08:55 10 MG Dextrose 50 ml UD PRN IV 08/20/25 05:15 Sodium Chloride 10 ml Q8HR IV 08/20/25 06:00 09/05/25 15:27 10 ML Ondansetron HCl 4 mg Q4HP PRN IV 08/20/25 05:15 Nitroglycerin 0.4 mg Q5MINP PRN SL 08/20/25 05:15 Hydralazine HCl 10 mg Q6HP PRN IV 08/20/25 05:15 08/29/25 20:44 10 MG Amlodipine Besylate 10 mg DAILY PO 08/20/25 10:00 09/05/25 08:55 10 MG Atorvastatin Calcium 40 mg HS PO 08/21/25 22:00 09/04/25 21:09 40 MG Bumetanide 1 mg BIDD IV 08/21/25 18:00 09/05/25 05:16 1 MG Docusate Sodium 100 mg BID PO 08/21/25 22:00 09/05/25 08:51 100 MG Diagnostic Test (Pha) 1 strip Q6HR 08/21/25 18:00 09/05/25 12:00 1 STRIP Insulin Human Regular Q6HR SC 08/21/25 18:00 09/04/25 00:00 2 UNITS Hydralazine HCl 25 mg Q6HR PO 08/22/25 12:00 09/05/25 12:52 25 MG Ferrous Sulfate 325 mg BIDWM PO 08/22/25 18:00 09/05/25 08:51 325 MG Epoetin Andrew-epbx 10,000 unit MWF [place] 08/22/25 13:00 09/05/25 09:17 10,000 UNIT Aspirin 81 mg DAILY PO 08/23/25 10:00 09/05/25 08:50 81 MG Epoetin Andrew-epbx 10,000 unit MWF [place] 08/22/25 15:45 UNV Sevelamer HCl 800 mg TIDWM PO 08/22/25 18:00 09/05/25 12:49 800 MG Sodium Bicarbonate 1,300 mg TID PO 08/23/25 14:00 09/05/25 15:29 1,300 MG Carvedilol 25 mg Q12HR PO 08/23/25 22:00 09/05/25 08:55 25 MG Clonidine HCl 0.1 mg BID PRN PO 08/25/25 22:00 08/29/25 22:21 0.1 MG Clopidogrel Bisulfate 75 mg DAILY PO 08/26/25 10:00 09/14/25 23:00 09/05/25 08:51 75 MG Laboratory Results Laboratory Tests 09/05/25 05:16 Chemistry Test 09/05/25 05:16 Calcium Level 8.8 mg/dL (8.7-10.4) Phosphorus Level 5.0 mg/dL (2.4-5.1) Urinalysis Test 08/20/25 00:06 08/22/25 12:21 Urine Color Colorless (Yellow) Urine Clarity Clear (Clear) Urine pH 6.5 (5.0-9.0) Urine Specific [place] 1.009 (1.001-1.035) Urine Protein 2+ (Negative) H Urine Ketones Negative (Negative) Urine Blood 2+ /uL (Negative) H Urine Nitrite Negative (Negative) Urine Bilirubin Negative (Negative) Urine Urobilinogen Normal mg/dL (Negative) Urine Leukocyte Esterase Negative /uL (Negative) Urine RBC 2 /hpf (0 - 3) Urine Microscopic WBC 1 /HPF (0-3) Urine Squamous Epithelial Cells None seen /hpf (<5) Urine Bacteria None seen /hpf (None Seen) Urine Glucose 3+ mg/dL (Normal) H Urine Creatinine 91.09 mg/dL (30.0-125.0) Urine Sodium 34 mmol/L (40-220) L Urine Total Protein 229.4 mg/dL (1-14) H Microbiology Microbiology Date/Time Source Procedure Growth Status 08/22/25 13:29 Blood Blood Culture - Final NO GROWTH AFTER 5 DAYS OF INCUBATION. Complete 08/20/25 18:49 Nose MRSA Screen - Final Complete Assessment/Plan Assessment/Plan 55-year-old male with a known history of congestive heart failure with systolic dysfunction, diabetes mellitus type 2, hypertension, dyslipidemia, homelessness who initially presented to the hospital with a respiratory distress found to have acute hypoxic respiratory failure suspected secondary to congestive heart failure with systolic dysfunction/multifocal pneumonia. Patient's hospital course was eventful for acute CVA with a MRI evidence of infarct in the right kuldip. 1. Acute hypoxic respiratory failure secondary to acute CHF exacerbation with systolic dysfunction as well as multifocal pneumonia 2. Acute CHF exacerbation with systolic dysfunction with the EF of 25% 3. Multifocal pneumonia 4. Moderate/severe pulmonary hypertension 5. Acute CVA with PONTINE infarct in the right-sided kuldip, with a left-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 6. AKA with a underlying CKD, progressing to end-stage renal disease, tunneled dialysis catheter will be placed, currently hemodialysis via Alonzo catheter 7. Previous history of CVA with a mild left residual deficit 8. NSTEMI type 2 suspect secondary to acute CHF exacerbation 9. 1/2 Gram-negative bacteremia with coag-negative staph, suspect contamination 10. Hypertension, stable -DIALYSIS PER RENAL -aspirin, statin, continue IV diuretics, continue IV antibiotics -repeat blood cultures, strict I&Os, daily weight. Plan discussed with: Patient Date of Service: Sep 05, 2025 Billing Provider: EDMUNDO REYNA MD Common Visit Codes: [id number] INP/OBS CARE(HIGH) EDMUNDO REYNA MD Sep 05, 2025 17:11
[2025-09-05 20:00] VITALS: PULSE 75
[2025-09-05 21:00] VITALS: BP 125/79; PULSE 75; RESP 18; TEMP 97.4; O2SAT 97
--- NOTE | 2025-09-05 22:49 | DVHPN2 ---
Progress Note - Dictate Date Seen: Sep 05, 2025 Medical Necessity Reason Pt with a Central, PICC or Fol: No Subjective Patient was seen and evaluated in follow up. No overnight events. Patient reports feeling well today. HGB 9.5, HCT 28.8, BUN 40, Principal Systems Architect 5.63. Telemetry reviewed. vital signs Vital Sign Date Time Temp Pulse Resp B/P (MAP) Pulse Ox O2 Delivery O2 Flow Rate FiO2 09/05/25 21:43 75 125/79 09/05/25 17:01 97.7 16 97 97.7 09/05/25 08:05 Room Air* 0 21 Total Intake and Output 09/04/25 09/04/25 09/05/25 15:00 23:00 07:00 Intake Total 325 ml 600 ml 1400 ml Output Total 550 ml 350 ml Balance 325 ml 50 ml 1050 ml medications Current Medications Medications Dose Ordered Sig/Britta Route Start Time Stop Time Status Last Admin Dose Admin Famotidine 10 mg DAILY IV 08/20/25 10:00 09/05/25 08:55 10 MG Dextrose 50 ml UD PRN IV 08/20/25 05:15 Sodium Chloride 10 ml Q8HR IV 08/20/25 06:00 09/05/25 15:27 10 ML Ondansetron HCl 4 mg Q4HP PRN IV 08/20/25 05:15 Nitroglycerin 0.4 mg Q5MINP PRN SL 08/20/25 05:15 Hydralazine HCl 10 mg Q6HP PRN IV 08/20/25 05:15 08/29/25 20:44 10 MG Amlodipine Besylate 10 mg DAILY PO 08/20/25 10:00 09/05/25 08:55 10 MG Atorvastatin Calcium 40 mg HS PO 08/21/25 22:00 09/05/25 21:42 40 MG Bumetanide 1 mg BIDD IV 08/21/25 18:00 09/05/25 18:58 1 MG Docusate Sodium 100 mg BID PO 08/21/25 22:00 09/05/25 21:41 100 MG Diagnostic Test (Pha) 1 strip Q6HR 08/21/25 18:00 09/05/25 19:05 1 STRIP Insulin Human Regular Q6HR SC 08/21/25 18:00 09/04/25 00:00 2 UNITS Hydralazine HCl 25 mg Q6HR PO 08/22/25 12:00 09/05/25 19:01 25 MG Ferrous Sulfate 325 mg BIDWM PO 08/22/25 18:00 09/05/25 19:01 325 MG Epoetin Andrew-epbx 10,000 unit MWF [place] 08/22/25 13:00 09/05/25 09:17 10,000 UNIT Aspirin 81 mg DAILY PO 08/23/25 10:00 09/05/25 08:50 81 MG Epoetin Andrew-epbx 10,000 unit [facility] 08/22/25 15:45 UNV Sevelamer HCl 800 mg TIDWM PO 08/22/25 18:00 09/05/25 19:01 800 MG Sodium Bicarbonate 1,300 mg TID PO 08/23/25 14:00 09/05/25 21:42 1,300 MG Carvedilol 25 mg Q12HR PO 08/23/25 22:00 09/05/25 21:43 25 MG Clonidine HCl 0.1 mg BID PRN PO 08/25/25 22:00 08/29/25 22:21 0.1 MG Clopidogrel Bisulfate 75 mg DAILY PO 08/26/25 10:00 09/14/25 23:00 09/05/25 08:51 75 MG objective GENERAL: Alert and oriented x 3. No acute distress. EYES: PERRL, EOMI. Anicteric. HENT: Moist mucous membranes. LUNGS: Clear to auscultation bilaterally. CARDIOVASCULAR: Regular rate and rhythm. ABDOMEN: Soft, non-tender and non-distended. EXTREMITIES: No edema. NEUROLOGIC: No focal neurological deficits. SKIN: Warm, dry. laboratory and microbiology Laboratory Tests 09/05/25 05:16 Test 09/05/25 05:16 Range/Units Serum Glucose 85 74-106 mg/dL Problem List Acute on chronic CHF. NSTEMI likely type 2 DC. Hypertensive emergency. GISSELL on CKD. Medication noncompliance. Acute hypoxic respiratory failure, multifocal pneumonia. Cardiomyopathy. Acute pontine stroke with dysarthria, left facial weakness, left hemiplegia. Chronic left hemispheres stroke. Assessment/Plan Continued all current supportive medical care. Aspirin, Plavix. IV antibiotics as ordered. Diuretics with Bumex. Hydralazine. Morphine for pain management. Additional plan as per the hospital course. Dietary Evaluation Review Comments: Nutrition Recommendation: 1) CCHO 75gm + renal standard diet 2) Nephro-marcial 1 tab daily 3) Monitor PO intake, lab values, weight trend, and I/O Expected Outcomes/Goals: Intake to meet >75% estimated needs Lab values to improve FU 3-5 days Plan discussed with: Patient RAMIN OLIVIER MD Sep 05, 2025 22:49
[2025-09-06] VITALS (8 sets, daily range): BP systolic 116–135; BP diastolic 78–89; PULSE 72–78; RESP 18–20; TEMP 97.7–98.6; O2SAT 96–99
--- NOTE | 2025-09-06 16:03 | DVHPN2 ---
Progress Note Date Seen: Sep 06, 2025 Medical Necessity Reason Pt with a Central, PICC or Fol: No Subjective Patient reports: No new complaints Other Systems: Patient seen and examined by myself Objective vital signs Vital Sign Date Time Temp Pulse Resp B/P (MAP) Pulse Ox O2 Delivery O2 Flow Rate FiO2 09/06/25 13:00 98.3 78 18 123/78 (93) 96 98.3 09/06/25 08:05 Room Air* 0 21 Total Intake and Output 09/05/25 09/05/25 09/06/25 15:00 23:00 07:00 Intake Total 200 ml 240 ml Output Total 350 ml 0 ml Balance -150 ml 240 ml medications Current Medications Medications Dose Ordered Sig/Britta Route Start Time Stop Time Status Last Admin Dose Admin Famotidine 10 mg DAILY IV 08/20/25 10:00 09/06/25 09:21 10 MG Dextrose 50 ml UD PRN IV 08/20/25 05:15 Sodium Chloride 10 ml Q8HR IV 08/20/25 06:00 09/06/25 14:01 10 ML Ondansetron HCl 4 mg Q4HP PRN IV 08/20/25 05:15 Nitroglycerin 0.4 mg Q5MINP PRN SL 08/20/25 05:15 Hydralazine HCl 10 mg Q6HP PRN IV 08/20/25 05:15 08/29/25 20:44 10 MG Amlodipine Besylate 10 mg DAILY PO 08/20/25 10:00 09/06/25 09:25 10 MG Atorvastatin Calcium 40 mg HS PO 08/21/25 22:00 09/05/25 21:42 40 MG Bumetanide 1 mg BIDD IV 08/21/25 18:00 09/06/25 05:23 1 MG Docusate Sodium 100 mg BID PO 08/21/25 22:00 09/05/25 21:41 100 MG Diagnostic Test (Pha) 1 strip Q6HR 08/21/25 18:00 09/06/25 12:00 1 STRIP Insulin Human Regular Q6HR SC 08/21/25 18:00 09/04/25 00:00 2 UNITS Hydralazine HCl 25 mg Q6HR PO 08/22/25 12:00 09/06/25 11:53 25 MG Ferrous Sulfate 325 mg BIDWM PO 08/22/25 18:00 12/2/25 09:25 325 MG Epoetin Andrew-epbx 10,000 unit MWF [place] 08/22/25 13:00 09/05/25 09:17 10,000 UNIT Aspirin 81 mg DAILY PO 08/23/25 10:00 09/06/25 09:26 81 MG Epoetin Andrew-epbx 10,000 unit MWF [place] 08/22/25 15:45 UNV Sevelamer HCl 800 mg TIDWM PO 08/22/25 18:00 09/06/25 11:53 800 MG Sodium Bicarbonate 1,300 mg TID PO 08/23/25 14:00 09/06/25 13:57 1,300 MG Carvedilol 25 mg Q12HR PO 08/23/25 22:00 09/06/25 09:25 25 MG Clonidine HCl 0.1 mg BID PRN PO 08/25/25 22:00 08/29/25 22:21 0.1 MG Clopidogrel Bisulfate 75 mg DAILY PO 08/26/25 10:00 09/14/25 23:00 09/06/25 09:26 75 MG Examination: LUNGS:Normal (today), CVS:Normal, MSK:Normal laboratory and microbiology Laboratory Tests 09/05/25 05:16 Test 09/05/25 05:16 Range/Units Serum Glucose 85 74-106 mg/dL Microbiology Date/Time Source Procedure Growth Status 08/22/25 13:29 Blood Blood Culture - Final NO GROWTH AFTER 5 DAYS OF INCUBATION. 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
--- NOTE | 2025-09-06 17:37 | DVHPN2 ---
Subjective In bed feeling well Reviewed: Care Plan, H&P Changes from previous H/P or p: No Changes General: Per HPI Eyes: No Pain, No Vision change, No Conjunctivae inflammation, No Eyelid inflammation, No Other, No Redness ENT: No Ear pain, No Ear discharge, No Nose pain, No Nose discharge, No Nose congestion, No Mouth pain, No Mouth swelling, No Throat pain, No Throat swelling, No Other Cardiovascular: No Chest Pain, No Palpitations, No Orthopnea, No Paroxysmal Noc. Dyspnea, No Edema, No Lt Headedness, No Other Respiratory: No Cough, No Dry; Shortness of breath; No SOB with excertion, No Wheezing, No Hemoptysis, No Pleuritic Pain, No Sputum; Other (SOB at rest) Gastrointestinal: No Nausea, No Vomiting, No Abdominal Pain, No Diarrhea, No Constipation, No Melena, No Hematochezia, No Other Genitourinary: No Dysuria, No Frequency, No Incontinence, No Hematuria, No Retention, No Other Musculoskeletal: No other, No neck pain, No shoulder pain, No arm pain, No back pain, No hand pain, No leg pain, No foot pain Skin: No Rash, No Lesions, No Jaundice, No Bruising, No Other Objective Vitals Vital Signs Date Time Temp Pulse Resp B/P (MAP) Pulse Ox O2 Delivery O2 Flow Rate FiO2 09/06/25 17:00 98.6 74 18 116/81 (93) 96 98.6 09/06/25 08:05 Room Air* 0 21 Intake/Output Intake and Output 09/06/25 05:00 Intake Total 1840 ml Output Total 700 ml Balance 1140 ml Intake Oral 1840 ml Output Urine Total 700 ml General Appearance: Alert, Oriented X3 Lungs: Clear to auscultation Cardiovascular: Regular rate, Normal S1, Normal S2 Abdomen: Normal bowel sounds Medications Current Medications Medications Dose Ordered Sig/Britta Route Start Time Stop Time Status Last Admin Dose Admin Famotidine 10 mg DAILY IV 08/20/25 10:00 09/06/25 09:21 10 MG Dextrose 50 ml UD PRN IV 08/20/25 05:15 Sodium Chloride 10 ml Q8HR IV 08/20/25 06:00 09/06/25 14:01 10 ML Ondansetron HCl 4 mg Q4HP PRN IV 08/20/25 05:15 Nitroglycerin 0.4 mg Q5MINP PRN SL 08/20/25 05:15 Hydralazine HCl 10 mg Q6HP PRN IV 08/20/25 05:15 08/29/25 20:44 10 MG Amlodipine Besylate 10 mg DAILY PO 08/20/25 10:00 09/06/25 09:25 10 MG Atorvastatin Calcium 40 mg HS PO 08/21/25 22:00 09/05/25 21:42 40 MG Bumetanide 1 mg BIDD IV 08/21/25 18:00 09/06/25 05:23 1 MG Docusate Sodium 100 mg BID PO 08/21/25 22:00 09/05/25 21:41 100 MG Diagnostic Test (Pha) 1 strip Q6HR 08/21/25 18:00 09/06/25 12:00 1 STRIP Insulin Human Regular Q6HR SC 08/21/25 18:00 09/04/25 00:00 2 UNITS Hydralazine HCl 25 mg Q6HR PO 08/22/25 12:00 09/06/25 11:53 25 MG Ferrous Sulfate 325 mg BIDWM PO 08/22/25 18:00 09/06/25 09:25 325 MG Epoetin Andrew-epbx 10,000 unit MWF [place] 08/22/25 13:00 09/05/25 09:17 10,000 UNIT Aspirin 81 mg DAILY PO 08/23/25 10:00 09/06/25 09:26 81 MG Epoetin Andrew-epbx 10,000 unit MWF [place] 08/22/25 15:45 UNV Sevelamer HCl 800 mg TIDWM PO 08/22/25 18:00 09/06/25 11:53 800 MG Sodium Bicarbonate 1,300 mg TID PO 08/23/25 14:00 09/06/25 13:57 1,300 MG Carvedilol 25 mg Q12HR PO 08/23/25 22:00 09/06/25 09:25 25 MG Clonidine HCl 0.1 mg BID PRN PO 08/25/25 22:00 08/29/25 22:21 0.1 MG Clopidogrel Bisulfate 75 mg DAILY PO 08/26/25 10:00 09/14/25 23:00 09/06/25 09:26 75 MG Laboratory Results Laboratory Tests 09/05/25 05:16 Urinalysis Test 08/20/25 00:06 08/22/25 12:21 Urine Color Colorless (Yellow) Urine Clarity Clear (Clear) Urine pH 6.5 (5.0-9.0) Urine Specific [place] 1.009 (1.001-1.035) Urine Protein 2+ (Negative) H Urine Ketones Negative (Negative) Urine Blood 2+ /uL (Negative) H Urine Nitrite Negative (Negative) Urine Bilirubin Negative (Negative) Urine Urobilinogen Normal mg/dL (Negative) Urine Leukocyte Esterase Negative /uL (Negative) Urine RBC 2 /hpf (0 - 3) Urine Microscopic WBC 1 /HPF (0-3) Urine Squamous Epithelial Cells None seen /hpf (<5) Urine Bacteria None seen /hpf (None Seen) Urine Glucose 3+ mg/dL (Normal) H Urine Creatinine 91.09 mg/dL (30.0-125.0) Urine Sodium 34 mmol/L (40-220) L Urine Total Protein 229.4 mg/dL (1-14) H Microbiology Microbiology Date/Time Source Procedure Growth Status 08/22/25 13:29 Blood Blood Culture - Final NO GROWTH AFTER 5 DAYS OF INCUBATION. Complete 08/20/25 18:49 Nose MRSA Screen - Final Complete Assessment/Plan Assessment/Plan 55-year-old male with a known history of congestive heart failure with systolic dysfunction, diabetes mellitus type 2, hypertension, dyslipidemia, homelessness who initially presented to the hospital with a respiratory distress found to have acute hypoxic respiratory failure suspected secondary to congestive heart failure with systolic dysfunction/multifocal pneumonia. Patient's hospital course was eventful for acute CVA with a MRI evidence of infarct in the right kuldip. 1. Acute hypoxic respiratory failure secondary to acute CHF exacerbation with systolic dysfunction as well as multifocal pneumonia 2. Acute CHF exacerbation with systolic dysfunction with the EF of 25% 3. Multifocal pneumonia 4. Moderate/severe pulmonary hypertension 5. Acute CVA with PONTINE infarct in the right-sided kuldip, with a left-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 6. AKA with a underlying CKD, progressing to end-stage renal disease, tunneled dialysis catheter will be placed, currently hemodialysis via [place] catheter 7. Previous history of CVA with a mild left residual deficit 8. NSTEMI type 2 suspect secondary to acute CHF exacerbation 9. 1/2 Gram-negative bacteremia with coag-negative staph, suspect contamination 10. Hypertension, stable -DIALYSIS PER RENAL -aspirin, statin, continue IV diuretics, continue IV antibiotics -repeat blood cultures, strict I&Os, daily weight. Dispo: Pending HD placement Plan discussed with: Patient Date of Service: Sep 06, 2025 Billing Provider: EDMUNDO REYNA MD Common Visit Codes: [id number] INP/OBS CARE(HIGH) EDMUNDO REYNA MD Sep 06, 2025 17:37
--- NOTE | 2025-09-06 22:49 | DVHPN2 ---
Progress Note - Dictate Date Seen: Sep 06, 2025 Medical Necessity Reason Pt with a Central, PICC or Fol: No Subjective Mr. Thomas is a 55 years old right-handed gentleman with a history of hypertension, diabetes, congestive heart failure, COPD, asthma, the patient was admitted on 08/19/2025 with a chief complaint of shortness breath, but he was has other complaints I have seen and examined the patient, talked to his nurse. He is doing fine, speech better, but no obvious improvement in the left hemiparesis. No new complaints UDS, 08/20/2025: Negative WBC/HB/PLT/MCV, 08/25/2025: 5.2/10.5/160/91 BUN/CR, 08/19/2025: 49/9.09, 08/21/2025: 65/9.36, 08/25/2025: 106/9.55 HCO3, 08/19/2025:18 , 08/20/2025: 19. Lactic acid, 08/19/2025: 5.3 Liver function tests, 08/21/2025: Unremarkable TG/HDL/LDL/HDL, 08/20/2025: 42/141/86/35 Echocardiogram, 08/20/2025: DILATED LV AND IS MODERATELY HYPOKINETIC LV EF IS ONLT 25% DYSKINESIS OF IVS NORMAL VALVES MODERATE DEGREE PULMONARY HYPERTENSION RVSP IS 45 MM OF HG AND IS MODERATELY HIGH NO EFFUSION Extremity Venous study, 08/25/2025: Thrombus basilic vein and cephalic vein Carotid Doppler, 08/26/2025: Right carotid system not evaluated due to overlying bandaging and IJ line. Left carotid system demonstrates no hemodynamically significant stenosis. Chest x-ray, 08/19/2025: Multifocal pneumonia throughout both lungs CT head, 08/21/2025: 1. No acute territorial infarct, intracranial hemorrhage, or mass effect. 2. Age-related involutional changes. Chronic ischemic changes as detailed. 3. If clinical symptoms persist, MRI may be beneficial in further evaluation MRI head, 08/22/2025: Acute infarct right kuldip measuring 2.1 cm. Left parietal encephalomalacia vital signs Vital Sign Date Time Temp Pulse Resp B/P (MAP) Pulse Ox O2 Delivery O2 Flow Rate FiO2 09/06/25 22:32 72 135/89 09/06/25 21:00 97.9 18 99 97.9 09/06/25 08:05 Room Air* 0 21 Total Intake and Output 09/05/25 09/05/25 09/06/25 15:00 23:00 07:00 Intake Total 580 ml 240 ml Output Total 350 ml 0 ml Balance 230 ml 240 ml medications Current Medications Medications Dose Ordered Sig/Britta Route Start Time Stop Time Status Last Admin Dose Admin Famotidine 10 mg DAILY IV 08/20/25 10:00 09/06/25 09:21 10 MG Dextrose 50 ml UD PRN IV 08/20/25 05:15 Sodium Chloride 10 ml Q8HR IV 08/20/25 06:00 09/06/25 22:32 10 ML Ondansetron HCl 4 mg Q4HP PRN IV 08/20/25 05:15 Nitroglycerin 0.4 mg Q5MINP PRN SL 08/20/25 05:15 Hydralazine HCl 10 mg Q6HP PRN IV 08/20/25 05:15 08/29/25 20:44 10 MG Amlodipine Besylate 10 mg DAILY PO 08/20/25 10:00 09/06/25 09:25 10 MG Atorvastatin Calcium 40 mg HS PO 08/21/25 22:00 09/06/25 22:31 40 MG Bumetanide 1 mg BIDD IV 08/21/25 18:00 09/06/25 17:31 1 MG Docusate Sodium 100 mg BID PO 08/21/25 22:00 09/06/25 22:31 100 MG Diagnostic Test (Pha) 1 strip Q6HR 08/21/25 18:00 09/06/25 17:41 1 STRIP Insulin Human Regular Q6HR SC 08/21/25 18:00 09/04/25 00:00 2 UNITS Hydralazine HCl 25 mg Q6HR PO 08/22/25 12:00 09/06/25 17:34 25 MG Ferrous Sulfate 325 mg BIDWM PO 08/22/25 18:00 09/06/25 17:34 325 MG Epoetin Andrew-epbx 10,000 unit MWF [place] 08/22/25 13:00 09/05/25 09:17 10,000 UNIT Aspirin 81 mg DAILY PO 08/23/25 10:00 09/06/25 09:26 81 MG Epoetin Andrew-epbx 10,000 unit MWF [place] 08/22/25 15:45 UNV Sevelamer HCl 800 mg TIDWM PO 08/22/25 18:00 09/06/25 17:34 800 MG Sodium Bicarbonate 1,300 mg TID PO 08/23/25 14:00 09/06/25 22:31 1,300 MG Carvedilol 25 mg Q12HR PO 08/23/25 22:00 09/06/25 22:32 25 MG Clonidine HCl 0.1 mg BID PRN PO 08/25/25 22:00 08/29/25 22:21 0.1 MG Clopidogrel Bisulfate 75 mg DAILY PO 08/26/25 10:00 09/14/25 23:00 09/06/25 09:26 75 MG objective General: the patient is well developed and nourished. No acute distress. MENTAL STATUS: Awake and alert. Oriented to person, place, time SPEECH, LANGUAGE, HIGHER CORTICAL FUNCTION: no aphasia he has has mild dysarthria CRANIAL NERVES: Pupils are equal, round and reactive. EOMs full and conjugate. Facial sensation intact in all three divisions bilaterally. Mandibular strength intact. Left facial weakness of upper motor neuron pattern SENSATION: Sensation to touch and pinprick is normal. MOTOR: Normal tone in the upper and lower extremity. Normal muscle bulk. No fasciculations. No abnormal movements or posturing. Muscle strength of the major groups in the right extremities is 5/5. Muscle strength of the major groups in the left extremities is: Arm: 2-3/5 with gripping stronger, le/5. REFLEXES: Deep tendon reflexes are symmetrical. No pathological reflexes. CEREBELLAR/COORDINATION: Finger to nose is normal in the right hand GAIT/STATION: deferred laboratory and microbiology Laboratory Tests 09/05/25 05:16 Test 09/05/25 05:16 Range/Units Serum Glucose 85 74-106 mg/dL Problem List Acute pontine stroke with dysarthria, left facial weakness, left hemiplegia Chronic left hemispheres stroke Sleep-related breathing disorder Kidney failure Acute respiratory failure Congestive heart failure Assessment/Plan Monitoring Supportive treatment Telemetry AMANDA, he refused Aspirin 81 mg daily Plavix 75 mg daily for 21 days Lipitor 40 mg daily Oxygen Nephrology on case Cardiology on case Address sleep-related breathing disorder later I have discussed with him about stroke risk facts, secondary stroke prevention This medical document was created using an electronic medical record system with 1Ring dictation system. Although this document has been carefully reviewed, there may still be some phonetic and typographical errors. These areas are purely typographical due to imperfections of the software programs, and do not reflect any compromise in the patient's medical care. Prognosis poor Dietary Evaluation Review Comments: Nutrition Recommendation: 1) CCHO 75gm + renal standard diet 2) Nephro-marcial 1 tab daily 3) Monitor PO intake, lab values, weight trend, and I/O Expected Outcomes/Goals: Intake to meet >75% estimated needs Lab values to improve FU 3-5 days Plan discussed with: Patient, Other CORAZON ALVARADO MD Sep 06, 2025 22:49
[2025-09-07] VITALS (8 sets, daily range): BP systolic 117–138; BP diastolic 58–80; PULSE 74–82; RESP 14–18; TEMP 97.6–98.9; O2SAT 94–100
--- NOTE | 2025-09-07 00:41 | DVHPN2 ---
Progress Note - Dictate Date Seen: Sep 06, 2025 Medical Necessity Reason Pt with a Central, PICC or Fol: No Subjective Patient was seen and evaluated in follow up. Patients speech is improving. Patient remains with left hemiparesis. Denies any complaints. BS are WNL. Telemetry reviewed. vital signs Vital Sign Date Time Temp Pulse Resp B/P (MAP) Pulse Ox O2 Delivery O2 Flow Rate FiO2 09/06/25 13:00 98.3 78 18 123/78 (93) 96 98.3 09/06/25 08:05 Room Air* 0 21 Total Intake and Output 09/05/25 09/05/25 09/06/25 15:00 23:00 07:00 Intake Total 200 ml 240 ml Output Total 350 ml 0 ml Balance -150 ml 240 ml medications Current Medications Medications Dose Ordered Sig/Britta Route Start Time Stop Time Status Last Admin Dose Admin Famotidine 10 mg DAILY IV 08/20/25 10:00 09/06/25 09:21 10 MG Dextrose 50 ml UD PRN IV 08/20/25 05:15 Sodium Chloride 10 ml Q8HR IV 08/20/25 06:00 09/06/25 14:01 10 ML Ondansetron HCl 4 mg Q4HP PRN IV 08/20/25 05:15 Nitroglycerin 0.4 mg Q5MINP PRN SL 08/20/25 05:15 Hydralazine HCl 10 mg Q6HP PRN IV 08/20/25 05:15 08/29/25 20:44 10 MG Amlodipine Besylate 10 mg DAILY PO 08/20/25 10:00 09/06/25 09:25 10 MG Atorvastatin Calcium 40 mg HS PO 08/21/25 22:00 09/05/25 21:42 40 MG Bumetanide 1 mg BIDD IV 08/21/25 18:00 09/06/25 05:23 1 MG Docusate Sodium 100 mg BID PO 08/21/25 22:00 09/05/25 21:41 100 MG Diagnostic Test (Pha) 1 strip Q6HR 08/21/25 18:00 09/06/25 12:00 1 STRIP Insulin Human Regular Q6HR SC 08/21/25 18:00 09/04/25 00:00 2 UNITS Hydralazine HCl 25 mg Q6HR PO 08/22/25 12:00 09/06/25 11:53 25 MG Ferrous Sulfate 325 mg BIDWM PO 08/22/25 18:00 09/06/25 09:25 325 MG Epoetin Andrew-epbx 10,000 unit MWF [place] 08/22/25 13:00 09/05/25 09:17 10,000 UNIT Aspirin 81 mg DAILY PO 08/23/25 10:00 09/06/25 09:26 81 MG Epoetin Andrew-epbx 10,000 unit MWF [place] 08/22/25 15:45 UNV Sevelamer HCl 800 mg TIDWM PO 08/22/25 18:00 09/06/25 11:53 800 MG Sodium Bicarbonate 1,300 mg TID PO 08/23/25 14:00 09/06/25 13:57 1,300 MG Carvedilol 25 mg Q12HR PO 08/23/25 22:00 09/06/25 09:25 25 MG Clonidine HCl 0.1 mg BID PRN PO 08/25/25 22:00 08/29/25 22:21 0.1 MG Clopidogrel Bisulfate 75 mg DAILY PO 08/26/25 10:00 09/14/25 23:00 09/06/25 09:26 75 MG objective GENERAL: Alert and oriented x 3. No acute distress. EYES: PERRL, EOMI. Anicteric. HENT: Moist mucous membranes. LUNGS: Clear to auscultation bilaterally. CARDIOVASCULAR: Regular rate and rhythm. ABDOMEN: Soft, non-tender and non-distended. EXTREMITIES: No edema. NEUROLOGIC: No focal neurological deficits. SKIN: Warm, dry. laboratory and microbiology Laboratory Tests 09/05/25 05:16 Test 09/05/25 05:16 Range/Units Serum Glucose 85 74-106 mg/dL Problem List Acute on chronic CHF. NSTEMI likely type 2 HI. Hypertensive emergency. GISSELL on CKD. Medication noncompliance. Acute hypoxic respiratory failure, multifocal pneumonia. Cardiomyopathy. Acute pontine stroke with dysarthria, left facial weakness, left hemiplegia. Chronic left hemispheres stroke. Assessment/Plan Continued all current supportive medical care. Amlodipine, Coreg, Clonidine, Hydralazine. Aspirin, Lipitor, Plavix. Diuretics with Bumex. Morphine for pain management. Additional plan as per the hospital course. Dietary Evaluation Review Comments: Nutrition Recommendation: 1) [facility] standard diet 2) Nephro-marcial 1 tab daily 3) Monitor PO intake, lab values, weight trend, and I/O Expected Outcomes/Goals: Intake to meet >75% estimated needs Lab values to improve FU 3-5 days Plan discussed with: Patient RAMIN OLIVIER MD Sep 06, 2025 15:50
--- NOTE | 2025-09-07 13:21 | DVHPN2 ---
Subjective In bed feeling well Reviewed: Care Plan, H&P Changes from previous H/P or p: No Changes General: Per HPI Eyes: No Pain, No Vision change, No Conjunctivae inflammation, No Eyelid inflammation, No Other, No Redness ENT: No Ear pain, No Ear discharge, No Nose pain, No Nose discharge, No Nose congestion, No Mouth pain, No Mouth swelling, No Throat pain, No Throat swelling, No Other Cardiovascular: No Chest Pain, No Palpitations, No Orthopnea, No Paroxysmal Noc. Dyspnea, No Edema, No Lt Headedness, No Other Respiratory: No Cough, No Dry; Shortness of breath; No SOB with excertion, No Wheezing, No Hemoptysis, No Pleuritic Pain, No Sputum; Other (SOB at rest) Gastrointestinal: No Nausea, No Vomiting, No Abdominal Pain, No Diarrhea, No Constipation, No Melena, No Hematochezia, No Other Genitourinary: No Dysuria, No Frequency, No Incontinence, No Hematuria, No Retention, No Other Musculoskeletal: No other, No neck pain, No shoulder pain, No arm pain, No back pain, No hand pain, No leg pain, No foot pain Skin: No Rash, No Lesions, No Jaundice, No Bruising, No Other Objective Vitals Vital Signs Date Time Temp Pulse Resp B/P (MAP) Pulse Ox O2 Delivery O2 Flow Rate FiO2 09/07/25 08:00 75 17 98 Room Air* 0 21 09/07/25 05:38 136/80 09/07/25 04:58 98.0 98.0 Intake/Output Intake and Output 09/07/25 07:00 Intake Total 1780 ml Output Total 930 ml Balance 850 ml Intake Oral 1780 ml Output Urine Total 930 ml # Voids 2 General Appearance: Alert, Oriented X3 Lungs: Clear to auscultation Cardiovascular: Regular rate, Normal S1, Normal S2 Abdomen: Normal bowel sounds Medications Current Medications Medications Dose Ordered Sig/Britta Route Start Time Stop Time Status Last Admin Dose Admin Famotidine 10 mg DAILY IV 08/20/25 10:00 09/07/25 10:09 10 MG Dextrose 50 ml UD PRN IV 08/20/25 05:15 Sodium Chloride 10 ml Q8HR IV 08/20/25 06:00 09/07/25 12:52 10 ML Ondansetron HCl 4 mg Q4HP PRN IV 08/20/25 05:15 Nitroglycerin 0.4 mg Q5MINP PRN SL 08/20/25 05:15 Hydralazine HCl 10 mg Q6HP PRN IV 08/20/25 05:15 08/29/25 20:44 10 MG Amlodipine Besylate 10 mg DAILY PO 08/20/25 10:00 09/06/25 09:25 10 MG Atorvastatin Calcium 40 mg HS PO 08/21/25 22:00 09/06/25 22:31 40 MG Bumetanide 1 mg BIDD IV 08/21/25 18:00 09/07/25 05:37 1 MG Docusate Sodium 100 mg BID PO 08/21/25 22:00 09/06/25 22:31 100 MG Diagnostic Test (Pha) 1 strip Q6HR 08/21/25 18:00 09/07/25 12:29 1 STRIP Insulin Human Regular Q6HR SC 08/21/25 18:00 09/04/25 00:00 2 UNITS Hydralazine HCl 25 mg Q6HR PO 08/22/25 12:00 09/07/25 05:38 25 MG Ferrous Sulfate 325 mg BIDWM PO 08/22/25 18:00 09/07/25 10:08 325 MG Epoetin Andrew-epbx 10,000 unit MWF [place] 08/22/25 13:00 09/05/25 09:17 10,000 UNIT Aspirin 81 mg DAILY PO 08/23/25 10:00 09/07/25 10:08 81 MG Epoetin Andrew-epbx 10,000 unit MWF [place] 08/22/25 15:45 UNV Sevelamer HCl 800 mg TIDWM PO 08/22/25 18:00 09/07/25 12:47 800 MG Sodium Bicarbonate 1,300 mg TID PO 08/23/25 14:00 09/07/25 05:38 1,300 MG Carvedilol 25 mg Q12HR PO 08/23/25 22:00 09/06/25 22:32 25 MG Clonidine HCl 0.1 mg BID PRN PO 08/25/25 22:00 08/29/25 22:21 0.1 MG Clopidogrel Bisulfate 75 mg DAILY PO 08/26/25 10:00 09/14/25 23:00 09/06/25 09:26 75 MG Laboratory Results Laboratory Tests 09/05/25 05:16 Urinalysis Test 08/20/25 00:06 08/22/25 12:21 Urine Color Colorless (Yellow) Urine Clarity Clear (Clear) Urine pH 6.5 (5.0-9.0) Urine Specific [place] 1.009 (1.001-1.035) Urine Protein 2+ (Negative) H Urine Ketones Negative (Negative) Urine Blood 2+ /uL (Negative) H Urine Nitrite Negative (Negative) Urine Bilirubin Negative (Negative) Urine Urobilinogen Normal mg/dL (Negative) Urine Leukocyte Esterase Negative /uL (Negative) Urine RBC 2 /hpf (0 - 3) Urine Microscopic WBC 1 /HPF (0-3) Urine Squamous Epithelial Cells None seen /hpf (<5) Urine Bacteria None seen /hpf (None Seen) Urine Glucose 3+ mg/dL (Normal) H Urine Creatinine 91.09 mg/dL (30.0-125.0) Urine Sodium 34 mmol/L (40-220) L Urine Total Protein 229.4 mg/dL (1-14) H Microbiology Microbiology Date/Time Source Procedure Growth Status 08/22/25 13:29 Blood Blood Culture - Final NO GROWTH AFTER 5 DAYS OF INCUBATION. Complete 08/20/25 18:49 Nose MRSA Screen - Final Complete Assessment/Plan Assessment/Plan 55-year-old male with a known history of congestive heart failure with systolic dysfunction, diabetes mellitus type 2, hypertension, dyslipidemia, homelessness who initially presented to the hospital with a respiratory distress found to have acute hypoxic respiratory failure suspected secondary to congestive heart failure with systolic dysfunction/multifocal pneumonia. Patient's hospital course was eventful for acute CVA with a MRI evidence of infarct in the right kuldip. 1. Acute hypoxic respiratory failure secondary to acute CHF exacerbation with systolic dysfunction as well as multifocal pneumonia 2. Acute CHF exacerbation with systolic dysfunction with the EF of 25% 3. Multifocal pneumonia 4. Moderate/severe pulmonary hypertension 5. Acute CVA with PONTINE infarct in the right-sided kuldip, with a left-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 6. AKA with a underlying CKD, progressing to end-stage renal disease, tunneled dialysis catheter will be placed, currently hemodialysis via Alonzo catheter 7. Previous history of CVA with a mild left residual deficit 8. NSTEMI type 2 suspect secondary to acute CHF exacerbation 9. 1/2 Gram-negative bacteremia with coag-negative staph, suspect contamination 10. Hypertension, stable -DIALYSIS PER RENAL -aspirin, statin, continue IV diuretics, continue IV antibiotics -repeat blood cultures, strict I&Os, daily weight. Dispo: Pending HD placement Plan discussed with: Patient Date of Service: Sep 07, 2025 Billing Provider: EDMUNDO REYNA MD Common Visit Codes: [id number] INP/OBS CARE(HIGH) EDMUNDO REYNA MD Sep 07, 2025 13:21
--- NOTE | 2025-09-07 16:51 | DVHPN2 ---
Progress Note Date Seen: Sep 07, 2025 Medical Necessity Reason Pt with a Central, PICC or Fol: No Subjective Patient reports: No new complaints Other Systems: Patient examined on HD, BP stable Objective vital signs Vital Sign Date Time Temp Pulse Resp B/P (MAP) Pulse Ox O2 Delivery O2 Flow Rate FiO2 09/07/25 13:00 98.1 79 17 136/76 (96) 99 98.1 09/07/25 08:00 Room Air* 0 21 Total Intake and Output 09/06/25 09/06/25 09/07/25 15:00 23:00 07:00 Intake Total 380 ml 1400 ml Output Total 930 ml Balance 380 ml 470 ml medications Current Medications Medications Dose Ordered Sig/Britta Route Start Time Stop Time Status Last Admin Dose Admin Famotidine 10 mg DAILY IV 08/20/25 10:00 09/07/25 10:09 10 MG Dextrose 50 ml UD PRN IV 08/20/25 05:15 Sodium Chloride 10 ml Q8HR IV 08/20/25 06:00 09/07/25 12:52 10 ML Ondansetron HCl 4 mg Q4HP PRN IV 08/20/25 05:15 Nitroglycerin 0.4 mg Q5MINP PRN SL 08/20/25 05:15 Hydralazine HCl 10 mg Q6HP PRN IV 08/20/25 05:15 08/29/25 20:44 10 MG Amlodipine Besylate 10 mg DAILY PO 08/20/25 10:00 09/06/25 09:25 10 MG Atorvastatin Calcium 40 mg HS PO 08/21/25 22:00 09/06/25 22:31 40 MG Bumetanide 1 mg BIDD IV 08/21/25 18:00 09/07/25 05:37 1 MG Docusate Sodium 100 mg BID PO 08/21/25 22:00 09/06/25 22:31 100 MG Diagnostic Test (Pha) 1 strip Q6HR 08/21/25 18:00 09/07/25 12:29 1 STRIP Insulin Human Regular Q6HR SC 08/21/25 18:00 09/04/25 00:00 2 UNITS Hydralazine HCl 25 mg Q6HR PO 08/22/25 12:00 09/07/25 05:38 25 MG Ferrous Sulfate 325 mg BIDWM PO 08/22/25 18:00 09/07/25 10:08 325 MG Aspirin 81 mg DAILY PO 08/23/25 10:00 09/07/25 10:08 81 MG Epoetin Andrew-epbx 10,000 unit MWF [place] 08/22/25 15:45 UNV Sevelamer HCl 800 mg TIDWM PO 08/22/25 18:00 09/07/25 12:47 800 MG Sodium Bicarbonate 1,300 mg TID PO 08/23/25 14:00 09/07/25 14:09 1,300 MG Carvedilol 25 mg Q12HR PO 08/23/25 22:00 09/06/25 22:32 25 MG Clonidine HCl 0.1 mg BID PRN PO 08/25/25 22:00 08/29/25 22:21 0.1 MG Clopidogrel Bisulfate 75 mg DAILY PO 08/26/25 10:00 09/14/25 23:00 09/06/25 09:26 75 MG Epoetin Andrew-epbx 10,000 unit MWF@2100 [place] 09/07/25 21:00 Examination: LUNGS:Normal, CVS:Normal, MSK:Normal laboratory and microbiology Laboratory Tests 09/05/25 05:16 Test 09/05/25 05:16 Range/Units Serum Glucose 85 74-106 mg/dL Microbiology Date/Time Source Procedure Growth Status 08/22/25 13:29 Blood Blood Culture - Final NO GROWTH AFTER 5 DAYS OF INCUBATION. 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
[2025-09-07] MEDS: EPOETIN ALFA-EPBX 10,000 UNIT/1ML VIAL SC SCH (23:36)
[2025-09-08] VITALS (8 sets, daily range): BP systolic 112–145; BP diastolic 65–78; PULSE 70–87; RESP 16–19; TEMP 97.4–99.6; O2SAT 93–100
--- NOTE | 2025-09-08 01:12 | DVHPN2 ---
Progress Note - Dictate Date Seen: Sep 07, 2025 Medical Necessity Reason Pt with a Central, PICC or Fol: No Subjective Patient was seen and evaluated in follow up. No overnight events. Patient received HD today. VS are stable. BS are WNL. Telemetry reviewed. vital signs Vital Sign Date Time Temp Pulse Resp B/P (MAP) Pulse Ox O2 Delivery O2 Flow Rate FiO2 09/07/25 13:00 98.1 79 17 136/76 (96) 99 98.1 09/07/25 08:00 Room Air* 0 21 Total Intake and Output 09/06/25 09/06/25 09/07/25 14:59 22:59 06:59 Intake Total 380 ml 1400 ml Output Total 930 ml Balance 380 ml 470 ml medications Current Medications Medications Dose Ordered Sig/Britta Route Start Time Stop Time Status Last Admin Dose Admin Famotidine 10 mg DAILY IV 08/20/25 10:00 09/07/25 10:09 10 MG Dextrose 50 ml UD PRN IV 08/20/25 05:15 Sodium Chloride 10 ml Q8HR IV 08/20/25 06:00 09/07/25 12:52 10 ML Ondansetron HCl 4 mg Q4HP PRN IV 08/20/25 05:15 Nitroglycerin 0.4 mg Q5MINP PRN SL 08/20/25 05:15 Hydralazine HCl 10 mg Q6HP PRN IV 08/20/25 05:15 08/29/25 20:44 10 MG Amlodipine Besylate 10 mg DAILY PO 08/20/25 10:00 09/06/25 09:25 10 MG Atorvastatin Calcium 40 mg HS PO 08/21/25 22:00 09/06/25 22:31 40 MG Bumetanide 1 mg BIDD IV 08/21/25 18:00 09/07/25 05:37 1 MG Docusate Sodium 100 mg BID PO 08/21/25 22:00 09/06/25 22:31 100 MG Diagnostic Test (Pha) 1 strip Q6HR 08/21/25 18:00 09/07/25 12:29 1 STRIP Insulin Human Regular Q6HR SC 08/21/25 18:00 09/04/25 00:00 2 UNITS Hydralazine HCl 25 mg Q6HR PO 08/22/25 12:00 09/07/25 05:38 25 MG Ferrous Sulfate 325 mg BIDWM PO 08/22/25 18:00 09/07/25 10:08 325 MG Epoetin Andrew-epbx 10,000 unit MWF [place] 08/22/25 13:00 09/05/25 09:17 10,000 UNIT Aspirin 81 mg DAILY PO 08/23/25 10:00 09/07/25 10:08 81 MG Epoetin Andrew-epbx 10,000 unit MWF [place] 08/22/25 15:45 UNV Sevelamer HCl 800 mg TIDWM PO 08/22/25 18:00 09/07/25 12:47 800 MG Sodium Bicarbonate 1,300 mg TID PO 08/23/25 14:00 09/07/25 14:09 1,300 MG Carvedilol 25 mg Q12HR PO 08/23/25 22:00 09/06/25 22:32 25 MG Clonidine HCl 0.1 mg BID PRN PO 08/25/25 22:00 08/29/25 22:21 0.1 MG Clopidogrel Bisulfate 75 mg DAILY PO 08/26/25 10:00 09/14/25 23:00 09/06/25 09:26 75 MG objective GENERAL: Alert and oriented x 3. No acute distress. EYES: PERRL, EOMI. Anicteric. HENT: Moist mucous membranes. LUNGS: Clear to auscultation bilaterally. CARDIOVASCULAR: Regular rate and rhythm. ABDOMEN: Soft, non-tender and non-distended. EXTREMITIES: No edema. NEUROLOGIC: No focal neurological deficits. SKIN: Warm, dry. laboratory and microbiology Laboratory Tests 09/05/25 05:16 Test 09/05/25 05:16 Range/Units Serum Glucose 85 74-106 mg/dL Problem List Acute on chronic CHF. NSTEMI likely type 2 NV. Hypertensive emergency. GISSELL on CKD. Medication noncompliance. Acute hypoxic respiratory failure, multifocal pneumonia. Cardiomyopathy. Acute pontine stroke with dysarthria, left facial weakness, left hemiplegia. Chronic left hemispheres stroke. Assessment/Plan Continued all current supportive medical care. Amlodipine, Coreg, Clonidine, Hydralazine. Aspirin, Lipitor, Plavix. Diuretics with Bumex. Morphine for pain management. Additional plan as per the hospital course. Dietary Evaluation Review Comments: Nutrition Recommendation: 1) [facility] + renal standard diet 2) Nephro-marcial 1 tab daily 3) Monitor PO intake, lab values, weight trend, and I/O Expected Outcomes/Goals: Intake to meet >75% estimated needs Lab values to improve FU 3-5 days Plan discussed with: Patient RAMIN OLIVIER MD Sep 07, 2025 14:40
[2025-09-08] MEDS: SODIUM CHL 0.9% 1000 ML BAG XX ONE (02:59)
--- NOTE | 2025-09-08 14:48 | DVHPN2 ---
Progress Note Date Seen: Sep 08, 2025 Medical Necessity Reason Pt with a Central, PICC or Fol: No Subjective Patient reports: No new complaints Other Systems: Patient seen and examined by myself today in follow-up Objective vital signs Vital Sign Date Time Temp Pulse Resp B/P (MAP) Pulse Ox O2 Delivery O2 Flow Rate FiO2 09/08/25 12:51 99.6 73 18 132/71 (91) 99 99.6 09/08/25 07:59 Room Air* 0 21 Total Intake and Output 09/07/25 09/07/25 09/08/25 15:00 23:00 07:00 Intake Total 200 ml 600 ml 850 ml Output Total 400 ml 150 ml Balance 200 ml 200 ml 700 ml medications Current Medications Medications Dose Ordered Sig/Britta Route Start Time Stop Time Status Last Admin Dose Admin Famotidine 10 mg DAILY IV 08/20/25 10:00 09/08/25 09:56 10 MG Dextrose 50 ml UD PRN IV 08/20/25 05:15 Sodium Chloride 10 ml Q8HR IV 08/20/25 06:00 09/08/25 14:37 10 ML Ondansetron HCl 4 mg Q4HP PRN IV 08/20/25 05:15 Nitroglycerin 0.4 mg Q5MINP PRN SL 08/20/25 05:15 Hydralazine HCl 10 mg Q6HP PRN IV 08/20/25 05:15 08/29/25 20:44 10 MG Amlodipine Besylate 10 mg DAILY PO 08/20/25 10:00 09/08/25 09:58 10 MG Atorvastatin Calcium 40 mg HS PO 08/21/25 22:00 09/07/25 22:37 40 MG Bumetanide 1 mg BIDD IV 08/21/25 18:00 09/08/25 06:06 1 MG Docusate Sodium 100 mg BID PO 08/21/25 22:00 09/08/25 09:59 100 MG Diagnostic Test (Pha) 1 strip Q6HR 08/21/25 18:00 09/08/25 12:08 1 STRIP Insulin Human Regular Q6HR SC 08/21/25 18:00 09/07/25 23:58 2 UNITS Hydralazine HCl 25 mg Q6HR PO 08/22/25 12:00 09/08/25 12:07 25 MG Ferrous Sulfate 325 mg BIDWM PO 08/22/25 18:00 09/08/25 08:16 325 MG Aspirin 81 mg DAILY PO 08/23/25 10:00 09/08/25 09:59 81 MG Epoetin Andrew-epbx 10,000 unit MWF [place] 08/22/25 15:45 UNV Sevelamer HCl 800 mg TIDWM PO 08/22/25 18:00 09/08/25 12:07 800 MG Sodium Bicarbonate 1,300 mg TID PO 08/23/25 14:00 09/08/25 14:37 1,300 MG Carvedilol 25 mg Q12HR PO 08/23/25 22:00 09/08/25 09:59 25 MG Clonidine HCl 0.1 mg BID PRN PO 08/25/25 22:00 08/29/25 22:21 0.1 MG Clopidogrel Bisulfate 75 mg DAILY PO 08/26/25 10:00 09/14/25 23:00 09/08/25 09:56 75 MG Epoetin Andrew-epbx 10,000 unit MWF@2100 [place] 09/07/25 21:00 09/07/25 23:36 10,000 UNIT Examination: LUNGS:Normal, CVS:Normal, MSK:Normal laboratory and microbiology Laboratory Tests 09/05/25 05:16 Test 09/05/25 05:16 Range/Units Serum Glucose 85 74-106 mg/dL Microbiology Date/Time Source Procedure Growth Status 08/22/25 13:29 Blood Blood Culture - Final NO GROWTH AFTER 5 DAYS OF INCUBATION. 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
--- NOTE | 2025-09-08 15:05 | DVHPN2 ---
Subjective In bed feeling well Reviewed: Care Plan, H&P Changes from previous H/P or p: No Changes General: Per HPI Eyes: No Pain, No Vision change, No Conjunctivae inflammation, No Eyelid inflammation, No Other, No Redness ENT: No Ear pain, No Ear discharge, No Nose pain, No Nose discharge, No Nose congestion, No Mouth pain, No Mouth swelling, No Throat pain, No Throat swelling, No Other Cardiovascular: No Chest Pain, No Palpitations, No Orthopnea, No Paroxysmal Noc. Dyspnea, No Edema, No Lt Headedness, No Other Respiratory: No Cough, No Dry; Shortness of breath; No SOB with excertion, No Wheezing, No Hemoptysis, No Pleuritic Pain, No Sputum; Other (SOB at rest) Gastrointestinal: No Nausea, No Vomiting, No Abdominal Pain, No Diarrhea, No Constipation, No Melena, No Hematochezia, No Other Genitourinary: No Dysuria, No Frequency, No Incontinence, No Hematuria, No Retention, No Other Musculoskeletal: No other, No neck pain, No shoulder pain, No arm pain, No back pain, No hand pain, No leg pain, No foot pain Skin: No Rash, No Lesions, No Jaundice, No Bruising, No Other Objective Vitals Vital Signs Date Time Temp Pulse Resp B/P (MAP) Pulse Ox O2 Delivery O2 Flow Rate FiO2 09/08/25 12:51 99.6 73 18 132/71 (91) 99 99.6 09/08/25 07:59 Room Air* 0 21 Intake/Output Intake and Output 09/08/25 07:00 Intake Total 1650 ml Output Total 550 ml Balance 1100 ml Intake Oral 1650 ml Output Urine Total 550 ml General Appearance: Alert, Oriented X3 Lungs: Clear to auscultation Cardiovascular: Regular rate, Normal S1, Normal S2 Abdomen: Normal bowel sounds Medications Current Medications Medications Dose Ordered Sig/Britta Route Start Time Stop Time Status Last Admin Dose Admin Famotidine 10 mg DAILY IV 08/20/25 10:00 09/08/25 09:56 10 MG Dextrose 50 ml UD PRN IV 08/20/25 05:15 Sodium Chloride 10 ml Q8HR IV 08/20/25 06:00 09/08/25 14:37 10 ML Ondansetron HCl 4 mg Q4HP PRN IV 08/20/25 05:15 Nitroglycerin 0.4 mg Q5MINP PRN SL 08/20/25 05:15 Hydralazine HCl 10 mg Q6HP PRN IV 08/20/25 05:15 08/29/25 20:44 10 MG Amlodipine Besylate 10 mg DAILY PO 08/20/25 10:00 09/08/25 09:58 10 MG Atorvastatin Calcium 40 mg HS PO 08/21/25 22:00 09/07/25 22:37 40 MG Bumetanide 1 mg BIDD IV 08/21/25 18:00 09/08/25 06:06 1 MG Docusate Sodium 100 mg BID PO 08/21/25 22:00 09/08/25 09:59 100 MG Diagnostic Test (Pha) 1 strip Q6HR 08/21/25 18:00 09/08/25 12:08 1 STRIP Insulin Human Regular Q6HR SC 08/21/25 18:00 09/07/25 23:58 2 UNITS Hydralazine HCl 25 mg Q6HR PO 08/22/25 12:00 09/08/25 12:07 25 MG Ferrous Sulfate 325 mg BIDWM PO 08/22/25 18:00 09/08/25 08:16 325 MG Aspirin 81 mg DAILY PO 08/23/25 10:00 09/08/25 09:59 81 MG Epoetin Andrew-epbx 10,000 unit MWF [place] 08/22/25 15:45 UNV Sevelamer HCl 800 mg TIDWM PO 08/22/25 18:00 09/08/25 12:07 800 MG Sodium Bicarbonate 1,300 mg TID PO 08/23/25 14:00 09/08/25 14:37 1,300 MG Carvedilol 25 mg Q12HR PO 08/23/25 22:00 09/08/25 09:59 25 MG Clonidine HCl 0.1 mg BID PRN PO 08/25/25 22:00 08/29/25 22:21 0.1 MG Clopidogrel Bisulfate 75 mg DAILY PO 08/26/25 10:00 09/14/25 23:00 09/08/25 09:56 75 MG Epoetin Andrew-epbx 10,000 unit MWF@2100 [place] 09/07/25 21:00 09/07/25 23:36 10,000 UNIT Laboratory Results Laboratory Tests 09/05/25 05:16 Urinalysis Test 08/20/25 00:06 08/22/25 12:21 Urine Color Colorless (Yellow) Urine Clarity Clear (Clear) Urine pH 6.5 (5.0-9.0) Urine Specific [place] 1.009 (1.001-1.035) Urine Protein 2+ (Negative) H Urine Ketones Negative (Negative) Urine Blood 2+ /uL (Negative) H Urine Nitrite Negative (Negative) Urine Bilirubin Negative (Negative) Urine Urobilinogen Normal mg/dL (Negative) Urine Leukocyte Esterase Negative /uL (Negative) Urine RBC 2 /hpf (0 - 3) Urine Microscopic WBC 1 /HPF (0-3) Urine Squamous Epithelial Cells None seen /hpf (<5) Urine Bacteria None seen /hpf (None Seen) Urine Glucose 3+ mg/dL (Normal) H Urine Creatinine 91.09 mg/dL (30.0-125.0) Urine Sodium 34 mmol/L (40-220) L Urine Total Protein 229.4 mg/dL (1-14) H Microbiology Microbiology Date/Time Source Procedure Growth Status 08/22/25 13:29 Blood Blood Culture - Final NO GROWTH AFTER 5 DAYS OF INCUBATION. Complete 08/20/25 18:49 Nose MRSA Screen - Final Complete Assessment/Plan Assessment/Plan 55-year-old male with a known history of congestive heart failure with systolic dysfunction, diabetes mellitus type 2, hypertension, dyslipidemia, homelessness who initially presented to the hospital with a respiratory distress found to have acute hypoxic respiratory failure suspected secondary to congestive heart failure with systolic dysfunction/multifocal pneumonia. Patient's hospital course was eventful for acute CVA with a MRI evidence of infarct in the right kuldip. 1. Acute hypoxic respiratory failure secondary to acute CHF exacerbation with systolic dysfunction as well as multifocal pneumonia 2. Acute CHF exacerbation with systolic dysfunction with the EF of 25% 3. Multifocal pneumonia 4. Moderate/severe pulmonary hypertension 5. Acute CVA with PONTINE infarct in the right-sided kuldip, with a left-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 6. AKA with a underlying CKD, progressing to end-stage renal disease, tunneled dialysis catheter will be placed, currently hemodialysis via Alonzo catheter 7. Previous history of CVA with a mild left residual deficit 8. NSTEMI type 2 suspect secondary to acute CHF exacerbation 9. 1/2 Gram-negative bacteremia with coag-negative staph, suspect contamination 10. Hypertension, stable -DIALYSIS PER RENAL -aspirin, statin, continue IV diuretics, continue IV antibiotics -repeat blood cultures, strict I&Os, daily weight. Dispo: Pending HD placement Plan discussed with: Patient Date of Service: Sep 08, 2025 Billing Provider: EDMUNDO REYNA MD Common Visit Codes: [id number] INP/OBS CARE(HIGH) EDMUNDO REYNA MD Sep 08, 2025 15:05
--- NOTE | 2025-09-08 18:58 | DVHPN2 ---
Progress Note - Dictate Date Seen: Sep 08, 2025 Medical Necessity Reason Pt with a Central, PICC or Fol: No Subjective Patient was seen and evaluated in follow up. Patient denies any complaints, reports feeling well today, Patient is afebrile. BS are WNL. Telemetry reviewed. vital signs Vital Sign Date Time Temp Pulse Resp B/P (MAP) Pulse Ox O2 Delivery O2 Flow Rate FiO2 09/08/25 12:51 99.6 73 18 132/71 (91) 99 99.6 09/07/25 20:00 Room Air* 0 21 Total Intake and Output 09/07/25 09/07/25 09/08/25 15:00 23:00 07:00 Intake Total 200 ml 600 ml 850 ml Output Total 400 ml 150 ml Balance 200 ml 200 ml 700 ml medications Current Medications Medications Dose Ordered Sig/Britta Route Start Time Stop Time Status Last Admin Dose Admin Famotidine 10 mg DAILY IV 08/20/25 10:00 09/08/25 09:56 10 MG Dextrose 50 ml UD PRN IV 08/20/25 05:15 Sodium Chloride 10 ml Q8HR IV 08/20/25 06:00 09/08/25 06:04 10 ML Ondansetron HCl 4 mg Q4HP PRN IV 08/20/25 05:15 Nitroglycerin 0.4 mg Q5MINP PRN SL 08/20/25 05:15 Hydralazine HCl 10 mg Q6HP PRN IV 08/20/25 05:15 08/29/25 20:44 10 MG Amlodipine Besylate 10 mg DAILY PO 08/20/25 10:00 09/08/25 09:58 10 MG Atorvastatin Calcium 40 mg HS PO 08/21/25 22:00 09/07/25 22:37 40 MG Bumetanide 1 mg BIDD IV 08/21/25 18:00 09/08/25 06:06 1 MG Docusate Sodium 100 mg BID PO 08/21/25 22:00 09/08/25 09:59 100 MG Diagnostic Test (Pha) 1 strip Q6HR 08/21/25 18:00 09/08/25 12:08 1 STRIP Insulin Human Regular Q6HR SC 08/21/25 18:00 09/07/25 23:58 2 UNITS Hydralazine HCl 25 mg Q6HR PO 08/22/25 12:00 09/08/25 12:07 25 MG Ferrous Sulfate 325 mg BIDWM PO 08/22/25 18:00 09/08/25 08:16 325 MG Aspirin 81 mg DAILY PO 08/23/25 10:00 09/08/25 09:59 81 MG Epoetin Andrew-epbx 10,000 unit MWF [place] 08/22/25 15:45 UNV Sevelamer HCl 800 mg TIDWM PO 08/22/25 18:00 09/08/25 12:07 800 MG Sodium Bicarbonate 1,300 mg TID PO 08/23/25 14:00 09/08/25 06:04 1,300 MG Carvedilol 25 mg Q12HR PO 08/23/25 22:00 09/08/25 09:59 25 MG Clonidine HCl 0.1 mg BID PRN PO 08/25/25 22:00 08/29/25 22:21 0.1 MG Clopidogrel Bisulfate 75 mg DAILY PO 08/26/25 10:00 09/14/25 23:00 09/08/25 09:56 75 MG Epoetin Andrew-epbx 10,000 unit MWF@2100 [place] 09/07/25 21:00 09/07/25 23:36 10,000 UNIT objective GENERAL: Alert and oriented x 3. No acute distress. EYES: PERRL, EOMI. Anicteric. HENT: Moist mucous membranes. LUNGS: Clear to auscultation bilaterally. CARDIOVASCULAR: Regular rate and rhythm. ABDOMEN: Soft, non-tender and non-distended. EXTREMITIES: No edema. NEUROLOGIC: No focal neurological deficits. SKIN: Warm, dry. laboratory and microbiology Laboratory Tests 09/05/25 05:16 Test 09/05/25 05:16 Range/Units Serum Glucose 85 74-106 mg/dL Problem List Acute on chronic CHF. NSTEMI likely type 2 [place]. Hypertensive emergency. GISSELL on CKD. Medication noncompliance. Acute hypoxic respiratory failure, multifocal pneumonia. Cardiomyopathy. Acute pontine stroke with dysarthria, left facial weakness, left hemiplegia. Chronic left hemispheres stroke. Assessment/Plan Continued all current supportive medical care. Amlodipine, Coreg, Clonidine, Hydralazine. Aspirin, Lipitor, Plavix. Diuretics with Bumex. Morphine for pain management. Additional plan as per the hospital course. Dietary Evaluation Review Comments: Nutrition Recommendation: 1) CCHO 75gm + renal standard diet 2) Nephro-marcial 1 tab daily 3) Monitor PO intake, lab values, weight trend, and I/O Expected Outcomes/Goals: Intake to meet >75% estimated needs Lab values to improve FU 3-5 days Plan discussed with: Patient RAMIN OLIVIER MD Sep 08, 2025 13:30
--- NOTE | 2025-09-08 21:24 | DVHPN2 ---
Progress Note - Dictate Date Seen: Sep 08, 2025 Medical Necessity Reason Pt with a Central, PICC or Fol: No Subjective Mr. Thomas is a 55 years old right-handed gentleman with a history of hypertension, diabetes, congestive heart failure, COPD, asthma, the patient was admitted on 08/19/2025 with a chief complaint of shortness breath, but he was has other complaints I have seen and examined the patient, talked to his nurse. He is doing fine, no obvious improvement in the left hemiparesis. No new complaints UDS, 08/20/2025: Negative WBC/HB/PLT/MCV, 08/25/2025: 5.2/10.5/160/91 BUN/CR, 08/19/2025: 49/9.09, 08/21/2025: 65/9.36, 08/25/2025: 106/9.55 HCO3, 08/19/2025:18 , 08/20/2025: 19. Lactic acid, 08/19/2025: 5.3 Liver function tests, 08/21/2025: Unremarkable TG/HDL/LDL/HDL, 08/20/2025: 42/141/86/35 Echocardiogram, 08/20/2025: DILATED LV AND IS MODERATELY HYPOKINETIC LV EF IS ONLT 25% DYSKINESIS OF IVS NORMAL VALVES MODERATE DEGREE PULMONARY HYPERTENSION RVSP IS 45 MM OF HG AND IS MODERATELY HIGH NO EFFUSION Extremity Venous study, 08/25/2025: Thrombus basilic vein and cephalic vein Carotid Doppler, 08/26/2025: Right carotid system not evaluated due to overlying bandaging and IJ line. Left carotid system demonstrates no hemodynamically significant stenosis. Chest x-ray, 08/19/2025: Multifocal pneumonia throughout both lungs CT head, 08/21/2025: 1. No acute territorial infarct, intracranial hemorrhage, or mass effect. 2. Age-related involutional changes. Chronic ischemic changes as detailed. 3. If clinical symptoms persist, MRI may be beneficial in further evaluation MRI head, 08/22/2025: Acute infarct right kuldip measuring 2.1 cm. Left parietal encephalomalacia vital signs Vital Sign Date Time Temp Pulse Resp B/P (MAP) Pulse Ox O2 Delivery O2 Flow Rate FiO2 09/08/25 18:12 124/71 09/08/25 16:54 99.2 77 16 98 99.2 09/08/25 07:59 Room Air* 0 21 Total Intake and Output 09/07/25 09/07/25 09/08/25 15:00 23:00 07:00 Intake Total 200 ml 600 ml 850 ml Output Total 400 ml 150 ml Balance 200 ml 200 ml 700 ml medications Current Medications Medications Dose Ordered Sig/Britta Route Start Time Stop Time Status Last Admin Dose Admin Famotidine 10 mg DAILY IV 08/20/25 10:00 09/08/25 09:56 10 MG Dextrose 50 ml UD PRN IV 08/20/25 05:15 Sodium Chloride 10 ml Q8HR IV 08/20/25 06:00 09/08/25 14:37 10 ML Ondansetron HCl 4 mg Q4HP PRN IV 08/20/25 05:15 Nitroglycerin 0.4 mg Q5MINP PRN SL 08/20/25 05:15 Hydralazine HCl 10 mg Q6HP PRN IV 08/20/25 05:15 08/29/25 20:44 10 MG Amlodipine Besylate 10 mg DAILY PO 08/20/25 10:00 09/08/25 09:58 10 MG Atorvastatin Calcium 40 mg HS PO 08/21/25 22:00 09/07/25 22:37 40 MG Bumetanide 1 mg BIDD IV 08/21/25 18:00 09/08/25 18:12 1 MG Docusate Sodium 100 mg BID PO 08/21/25 22:00 09/08/25 09:59 100 MG Diagnostic Test (Pha) 1 strip Q6HR 08/21/25 18:00 09/08/25 18:13 1 STRIP Insulin Human Regular Q6HR SC 08/21/25 18:00 09/07/25 23:58 2 UNITS Hydralazine HCl 25 mg Q6HR PO 08/22/25 12:00 09/08/25 18:13 25 MG Ferrous Sulfate 325 mg BIDWM PO 08/22/25 18:00 09/08/25 18:12 325 MG Aspirin 81 mg DAILY PO 08/23/25 10:00 09/08/25 09:59 81 MG Epoetin Andrew-epbx 10,000 unit MWF [place] 08/22/25 15:45 UNV Sevelamer HCl 800 mg TIDWM PO 08/22/25 18:00 09/08/25 18:13 800 MG Sodium Bicarbonate 1,300 mg TID PO 08/23/25 14:00 09/08/25 14:37 1,300 MG Carvedilol 25 mg Q12HR PO 08/23/25 22:00 09/08/25 09:59 25 MG Clonidine HCl 0.1 mg BID PRN PO 08/25/25 22:00 08/29/25 22:21 0.1 MG Clopidogrel Bisulfate 75 mg DAILY PO 08/26/25 10:00 09/14/25 23:00 09/08/25 09:56 75 MG Epoetin Andrew-epbx 10,000 unit MWF@2100 [place] 09/07/25 21:00 09/07/25 23:36 10,000 UNIT objective General: the patient is well developed and nourished. No acute distress. MENTAL STATUS: Awake and alert. Oriented to person, place, time SPEECH, LANGUAGE, HIGHER CORTICAL FUNCTION: no aphasia he has has mild dysarthria CRANIAL NERVES: Pupils are equal, round and reactive. EOMs full and conjugate. Facial sensation intact in all three divisions bilaterally. Mandibular strength intact. Left facial weakness of upper motor neuron pattern SENSATION: Sensation to touch and pinprick is normal. MOTOR: Normal tone in the upper and lower extremity. Normal muscle bulk. No fasciculations. No abnormal movements or posturing. Muscle strength of the major groups in the right extremities is 5/5. Muscle strength of the major groups in the left extremities is: Arm: 2-3/5 with gripping stronger, le/5. REFLEXES: Deep tendon reflexes are symmetrical. No pathological reflexes. CEREBELLAR/COORDINATION: Finger to nose is normal in the right hand GAIT/STATION: deferred laboratory and microbiology Laboratory Tests 09/05/25 05:16 Test 09/05/25 05:16 Range/Units Serum Glucose 85 74-106 mg/dL Problem List Acute pontine stroke with dysarthria, left facial weakness, left hemiplegia Chronic left hemispheres stroke Sleep-related breathing disorder Kidney failure Acute respiratory failure Congestive heart failure Assessment/Plan Monitoring Supportive treatment Telemetry AMANDA, he refused Aspirin 81 mg daily Plavix 75 mg daily for 21 days Lipitor 40 mg daily Oxygen Hemodialysis Nephrology on case Cardiology on case Address sleep-related breathing disorder later I have discussed with him about stroke risk facts, secondary stroke prevention This medical document was created using an electronic medical record system with DTT dictation system. Although this document has been carefully reviewed, there may still be some phonetic and typographical errors. These areas are purely typographical due to imperfections of the software programs, and do not reflect any compromise in the patient's medical care. Prognosis poor Dietary Evaluation Review Comments: Nutrition Recommendation: 1) CCHO 75gm + renal standard diet 2) Nephro-marcial 1 tab daily 3) Monitor PO intake, lab values, weight trend, and I/O Expected Outcomes/Goals: Intake to meet >75% estimated needs Lab values to improve FU 3-5 days Plan discussed with: Patient, Other CORAZON ALVARADO MD Sep 08, 2025 21:24
[2025-09-09] VITALS (9 sets, daily range): BP systolic 117–150; BP diastolic 22–83; PULSE 70–86; RESP 16–20; TEMP 97.8–98.6; O2SAT 95–100
--- NOTE | 2025-09-09 12:03 | DVHPN2 ---
Progress Note Date Seen: Sep 09, 2025 Medical Necessity Reason Pt with a Central, PICC or Fol: No Subjective Patient reports: No new complaints Other Systems: Patient seen and examined by myself today in follow-up Patient examined hemodialysis, blood pressure stable Objective vital signs Vital Sign Date Time Temp Pulse Resp B/P (MAP) Pulse Ox O2 Delivery O2 Flow Rate FiO2 09/09/25 09:00 98.6 80 20 124/76 (92) 99 98.6 09/09/25 07:59 Room Air* 0 21 Total Intake and Output 09/08/25 09/08/25 09/09/25 15:00 23:00 07:00 Intake Total 630 ml 1080 ml 0 ml Output Total 1000 ml Balance 630 ml 80 ml 0 ml medications Current Medications Medications Dose Ordered Sig/Britta Route Start Time Stop Time Status Last Admin Dose Admin Famotidine 10 mg DAILY IV 08/20/25 10:00 09/09/25 09:40 10 MG Dextrose 50 ml UD PRN IV 08/20/25 05:15 Sodium Chloride 10 ml Q8HR IV 08/20/25 06:00 09/09/25 05:21 10 ML Ondansetron HCl 4 mg Q4HP PRN IV 08/20/25 05:15 Nitroglycerin 0.4 mg Q5MINP PRN SL 08/20/25 05:15 Hydralazine HCl 10 mg Q6HP PRN IV 08/20/25 05:15 08/29/25 20:44 10 MG Amlodipine Besylate 10 mg DAILY PO 08/20/25 10:00 09/08/25 09:58 10 MG Atorvastatin Calcium 40 mg HS PO 08/21/25 22:00 09/08/25 22:29 40 MG Bumetanide 1 mg BIDD IV 08/21/25 18:00 09/09/25 05:21 1 MG Docusate Sodium 100 mg BID PO 08/21/25 22:00 09/09/25 09:40 100 MG Diagnostic Test (Pha) 1 strip Q6HR 08/21/25 18:00 09/09/25 05:21 1 STRIP Insulin Human Regular Q6HR SC 08/21/25 18:00 09/09/25 00:37 2 UNITS Hydralazine HCl 25 mg Q6HR PO 08/22/25 12:00 09/09/25 05:21 25 MG Ferrous Sulfate 325 mg BIDWM PO 08/22/25 18:00 09/09/25 07:59 325 MG Aspirin 81 mg DAILY PO 08/23/25 10:00 09/09/25 10:56 81 MG Epoetin Andrew-epbx 10,000 unit MWF [place] 08/22/25 15:45 UNV Sevelamer HCl 800 mg TIDWM PO 08/22/25 18:00 09/09/25 07:59 800 MG Sodium Bicarbonate 1,300 mg TID PO 08/23/25 14:00 09/09/25 05:21 1,300 MG Carvedilol 25 mg Q12HR PO 08/23/25 22:00 09/08/25 22:30 25 MG Clonidine HCl 0.1 mg BID PRN PO 08/25/25 22:00 08/29/25 22:21 0.1 MG Clopidogrel Bisulfate 75 mg DAILY PO 08/26/25 10:00 09/14/25 23:00 09/09/25 10:56 75 MG Epoetin Andrew-epbx 10,000 unit MWF@2100 [place] 09/07/25 21:00 09/07/25 23:36 10,000 UNIT Examination: LUNGS:Normal, CVS:Normal, MSK:Normal laboratory and microbiology Laboratory Tests 09/05/25 05:16 Test 09/05/25 05:16 Range/Units Serum Glucose 85 74-106 mg/dL Microbiology Date/Time Source Procedure Growth Status 08/22/25 13:29 Blood Blood Culture - Final NO GROWTH AFTER 5 DAYS OF INCUBATION. 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 drug safety for outpatient hemodialysis chair time at [facility] dialysis We will continue to follow up Plan discussed with: Patient My Orders My Orders Orders - TC AMATO MD Procedure Category Date Status Time Hemodialysis Orders ORDERS 09/09/25 Transmitted 07:00 Dialysis Nursing LINNETTE 09/09/25 In Process Message 07:00 Document Fluid Input LINNETTE 09/09/25 In Process And Outpu 07:00 Epoetin Andrew-Epbx PHA 09/09/25 In Process (Retacrit) 21:00 Dietary Evaluation Review Comments: Nutrition Recommendation: 1) CCHO 75gm + renal standard diet 2) Nephro-marcial 1 tab daily 3) Monitor PO intake, lab values, weight trend, and I/O Expected Outcomes/Goals: Intake to meet >75% estimated needs Lab values to improve FU 3-5 days TC AMATO MD Sep 09, 2025 12:03
[2025-09-09 12:58] LABS: Hematocrit 28.5 % (41.0-53.0); Hemoglobin 9.4 g/dL (13.5-17.5); Mean Corpuscular Hemoglobin 29.9 pg (28.0-32.0); Mean Corpuscular Volume 91.1 fL (80.0-100.0); Nucleated Red Blood Cells % 0.1 %
[2025-09-09 13:14] LABS: Albumin 3.8 g/dL (3.2-4.8); Anion Gap 12 (5-15); BUN/Creatinine Ratio 8.3 (10.0-20.0); Calcium 9.2 mg/dL (8.7-10.4); Carbon Dioxide 28 mmol/L (20-31); Potassium 4.3 mmol/L (3.5-5.1); Sodium 138 mmol/L (136-145); Total Protein 6.8 g/dL (5.7-8.2)
[2025-09-09 13:15] LABS: Bilirubin, Total 0.5 mg/dL (0.2-1.0)
[2025-09-09 13:16] LABS: Alanine Aminotransferase 82 U/L (7-40); Alkaline Phosphatase 164 U/L (46-116); Blood Urea Nitrogen 59 mg/dL (9-23); Chloride 98 mmol/L (98-107); Glucose 116 mg/dL (74-106)
--- NOTE | 2025-09-09 15:47 | DVHPN2 ---
Subjective In bed feeling well Reviewed: Care Plan, H&P Changes from previous H/P or p: No Changes General: Per HPI Eyes: No Pain, No Vision change, No Conjunctivae inflammation, No Eyelid inflammation, No Other, No Redness ENT: No Ear pain, No Ear discharge, No Nose pain, No Nose discharge, No Nose congestion, No Mouth pain, No Mouth swelling, No Throat pain, No Throat swelling, No Other Cardiovascular: No Chest Pain, No Palpitations, No Orthopnea, No Paroxysmal Noc. Dyspnea, No Edema, No Lt Headedness, No Other Respiratory: No Cough, No Dry; Shortness of breath; No SOB with excertion, No Wheezing, No Hemoptysis, No Pleuritic Pain, No Sputum; Other (SOB at rest) Gastrointestinal: No Nausea, No Vomiting, No Abdominal Pain, No Diarrhea, No Constipation, No Melena, No Hematochezia, No Other Genitourinary: No Dysuria, No Frequency, No Incontinence, No Hematuria, No Retention, No Other Musculoskeletal: No other, No neck pain, No shoulder pain, No arm pain, No back pain, No hand pain, No leg pain, No foot pain Skin: No Rash, No Lesions, No Jaundice, No Bruising, No Other Objective Vitals Vital Signs Date Time Temp Pulse Resp B/P (MAP) Pulse Ox O2 Delivery O2 Flow Rate FiO2 09/09/25 13:00 98.6 77 20 138/22 (60) 97 98.6 09/09/25 07:59 Room Air* 0 21 Intake/Output Intake and Output 09/09/25 05:00 Intake Total 1710 ml Output Total 1000 ml Balance 710 ml Intake Oral 1710 ml Output Urine Total 1000 ml # Bowel Movements 1 General Appearance: Alert, Oriented X3 Lungs: Clear to auscultation Cardiovascular: Regular rate, Normal S1, Normal S2 Abdomen: Normal bowel sounds Medications Current Medications Medications Dose Ordered Sig/Britta Route Start Time Stop Time Status Last Admin Dose Admin Famotidine 10 mg DAILY IV 08/20/25 10:00 09/09/25 09:40 10 MG Dextrose 50 ml UD PRN IV 08/20/25 05:15 Sodium Chloride 10 ml Q8HR IV 08/20/25 06:00 09/09/25 14:43 10 ML Ondansetron HCl 4 mg Q4HP PRN IV 08/20/25 05:15 Nitroglycerin 0.4 mg Q5MINP PRN SL 08/20/25 05:15 Hydralazine HCl 10 mg Q6HP PRN IV 08/20/25 05:15 08/29/25 20:44 10 MG Amlodipine Besylate 10 mg DAILY PO 08/20/25 10:00 09/08/25 09:58 10 MG Atorvastatin Calcium 40 mg HS PO 08/21/25 22:00 09/08/25 22:29 40 MG Bumetanide 1 mg BIDD IV 08/21/25 18:00 09/09/25 05:21 1 MG Docusate Sodium 100 mg BID PO 08/21/25 22:00 09/09/25 09:40 100 MG Diagnostic Test (Pha) 1 strip Q6HR 08/21/25 18:00 09/09/25 12:20 1 STRIP Insulin Human Regular Q6HR SC 08/21/25 18:00 09/09/25 00:37 2 UNITS Hydralazine HCl 25 mg Q6HR PO 08/22/25 12:00 09/09/25 05:21 25 MG Ferrous Sulfate 325 mg BIDWM PO 08/22/25 18:00 09/09/25 07:59 325 MG Aspirin 81 mg DAILY PO 08/23/25 10:00 09/09/25 10:56 81 MG Epoetin Andrew-epbx 10,000 unit MWF [place] 08/22/25 15:45 UNV Sevelamer HCl 800 mg TIDWM PO 08/22/25 18:00 09/09/25 12:33 800 MG Sodium Bicarbonate 1,300 mg TID PO 08/23/25 14:00 09/09/25 14:53 1,300 MG Carvedilol 25 mg Q12HR PO 08/23/25 22:00 09/08/25 22:30 25 MG Clonidine HCl 0.1 mg BID PRN PO 08/25/25 22:00 08/29/25 22:21 0.1 MG Clopidogrel Bisulfate 75 mg DAILY PO 08/26/25 10:00 09/14/25 23:00 09/09/25 10:56 75 MG Epoetin Andrew-epbx 10,000 unit MWF@2100 [place] 09/07/25 21:00 09/07/25 23:36 10,000 UNIT Laboratory Results Laboratory Tests 09/09/25 12:15 Chemistry Test 09/09/25 12:15 Albumin 3.8 g/dL (3.2-4.8) Calcium Level 9.2 mg/dL (8.7-10.4) Total Protein 6.8 g/dL (5.7-8.2) LFT Test 09/09/25 12:15 Alanine Aminotransferase (ALT) 82 U/L (7-40) H Alkaline Phosphatase 164 U/L (46-116) H Aspartate Amino Transferase (AST) 36 U/L (13-40) Total Bilirubin 0.5 mg/dL (0.2-1.0) Urinalysis Test 08/20/25 00:06 08/22/25 12:21 Urine Color Colorless (Yellow) Urine Clarity Clear (Clear) Urine pH 6.5 (5.0-9.0) Urine Specific [place] 1.009 (1.001-1.035) Urine Protein 2+ (Negative) H Urine Ketones Negative (Negative) Urine Blood 2+ /uL (Negative) H Urine Nitrite Negative (Negative) Urine Bilirubin Negative (Negative) Urine Urobilinogen Normal mg/dL (Negative) Urine Leukocyte Esterase Negative /uL (Negative) Urine RBC 2 /hpf (0 - 3) Urine Microscopic WBC 1 /HPF (0-3) Urine Squamous Epithelial Cells None seen /hpf (<5) Urine Bacteria None seen /hpf (None Seen) Urine Glucose 3+ mg/dL (Normal) H Urine Creatinine 91.09 mg/dL (30.0-125.0) Urine Sodium 34 mmol/L (40-220) L Urine Total Protein 229.4 mg/dL (1-14) H Microbiology Microbiology Date/Time Source Procedure Growth Status 08/22/25 13:29 Blood Blood Culture - Final NO GROWTH AFTER 5 DAYS OF INCUBATION. Complete 08/20/25 18:49 Nose MRSA Screen - Final Complete Assessment/Plan Assessment/Plan 55-year-old male with a known history of congestive heart failure with systolic dysfunction, diabetes mellitus type 2, hypertension, dyslipidemia, homelessness who initially presented to the hospital with a respiratory distress found to have acute hypoxic respiratory failure suspected secondary to congestive heart failure with systolic dysfunction/multifocal pneumonia. Patient's hospital course was eventful for acute CVA with a MRI evidence of infarct in the right kuldip. 1. Acute hypoxic respiratory failure secondary to acute CHF exacerbation with systolic dysfunction as well as multifocal pneumonia 2. Acute CHF exacerbation with systolic dysfunction with the EF of 25% 3. Multifocal pneumonia 4. Moderate/severe pulmonary hypertension 5. Acute CVA with PONTINE infarct in the right-sided kuldip, with a left-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 6. AKA with a underlying CKD, progressing to end-stage renal disease, tunneled dialysis catheter will be placed, currently hemodialysis via Al[place] catheter 7. Previous history of CVA with a mild left residual deficit 8. NSTEMI type 2 suspect secondary to acute CHF exacerbation 9. 1/2 Gram-negative bacteremia with coag-negative staph, suspect contamination 10. Hypertension, stable -DIALYSIS PER RENAL -aspirin, statin, continue IV diuretics, continue IV antibiotics -repeat blood cultures, strict I&Os, daily weight. Dispo: Pending HD placement Plan discussed with: Patient Date of Service: Sep 09, 2025 Billing Provider: EDMUNDO REYNA MD Common Visit Codes: [id number] INP/OBS CARE(HIGH) EDMUNDO REYNA MD Sep 09, 2025 15:47
[2025-09-09] MEDS: SODIUM CHL 0.9% 1000 ML BAG XX ONE (18:46)
--- NOTE | 2025-09-09 23:34 | DVHPN2 ---
Progress Note - Dictate Date Seen: Sep 09, 2025 Medical Necessity Reason Pt with a Central, PICC or Fol: No Subjective Patient was seen and evaluated in follow up. Patient is resting in bed. No obvious improvement in the left hemiparesis. BS are WNL. Telemetry reviewed. vital signs Vital Sign Date Time Temp Pulse Resp B/P (MAP) Pulse Ox O2 Delivery O2 Flow Rate FiO2 09/09/25 09:00 98.6 80 20 124/76 (92) 99 98.6 09/09/25 07:59 Room Air* 0 21 Total Intake and Output 09/08/25 09/08/25 09/09/25 15:00 23:00 07:00 Intake Total 630 ml 1080 ml 0 ml Output Total 1000 ml Balance 630 ml 80 ml 0 ml medications Current Medications Medications Dose Ordered Sig/Britta Route Start Time Stop Time Status Last Admin Dose Admin Famotidine 10 mg DAILY IV 08/20/25 10:00 09/09/25 09:40 10 MG Dextrose 50 ml UD PRN IV 08/20/25 05:15 Sodium Chloride 10 ml Q8HR IV 08/20/25 06:00 09/09/25 05:21 10 ML Ondansetron HCl 4 mg Q4HP PRN IV 08/20/25 05:15 Nitroglycerin 0.4 mg Q5MINP PRN SL 08/20/25 05:15 Hydralazine HCl 10 mg Q6HP PRN IV 08/20/25 05:15 08/29/25 20:44 10 MG Amlodipine Besylate 10 mg DAILY PO 08/20/25 10:00 09/08/25 09:58 10 MG Atorvastatin Calcium 40 mg HS PO 08/21/25 22:00 09/08/25 22:29 40 MG Bumetanide 1 mg BIDD IV 08/21/25 18:00 09/09/25 05:21 1 MG Docusate Sodium 100 mg BID PO 08/21/25 22:00 09/09/25 09:40 100 MG Diagnostic Test (Pha) 1 strip Q6HR 08/21/25 18:00 09/09/25 12:20 1 STRIP Insulin Human Regular Q6HR SC 08/21/25 18:00 09/09/25 00:37 2 UNITS Hydralazine HCl 25 mg Q6HR PO 08/22/25 12:00 09/09/25 05:21 25 MG Ferrous Sulfate 325 mg BIDWM PO 08/22/25 18:00 09/09/25 07:59 325 MG Aspirin 81 mg DAILY PO 08/23/25 10:00 09/09/25 10:56 81 MG Epoetin Andrew-epbx 10,000 unit MWF [place] 08/22/25 15:45 UNV Sevelamer HCl 800 mg TIDWM PO 08/22/25 18:00 09/09/25 12:33 800 MG Sodium Bicarbonate 1,300 mg TID PO 08/23/25 14:00 09/09/25 05:21 1,300 MG Carvedilol 25 mg Q12HR PO 08/23/25 22:00 09/08/25 22:30 25 MG Clonidine HCl 0.1 mg BID PRN PO 08/25/25 22:00 08/29/25 22:21 0.1 MG Clopidogrel Bisulfate 75 mg DAILY PO 08/26/25 10:00 09/14/25 23:00 09/09/25 10:56 75 MG Epoetin Andrew-epbx 10,000 unit MWF@2100 [place] 09/07/25 21:00 09/07/25 23:36 10,000 UNIT objective GENERAL: Alert and oriented x 3. No acute distress. EYES: PERRL, EOMI. Anicteric. HENT: Moist mucous membranes. LUNGS: Clear to auscultation bilaterally. CARDIOVASCULAR: Regular rate and rhythm. ABDOMEN: Soft, non-tender and non-distended. EXTREMITIES: No edema. NEUROLOGIC: No focal neurological deficits. SKIN: Warm, dry. laboratory and microbiology Test 09/09/25 12:15 Range/Units Serum Glucose Pending Problem List Acute on chronic CHF. NSTEMI likely type 2 [place]. Hypertensive emergency. GISSELL on CKD. Medication noncompliance. Acute hypoxic respiratory failure, multifocal pneumonia. Cardiomyopathy. Acute pontine stroke with dysarthria, left facial weakness, left hemiplegia. Chronic left hemispheres stroke. Assessment/Plan Continued all current supportive medical care. Amlodipine, Coreg, Clonidine, Hydralazine. Aspirin, Lipitor, Plavix. Diuretics with Bumex. Morphine for pain management. Additional plan as per the hospital course. Dietary Evaluation Review Comments: Nutrition Recommendation: 1) [facility] standard diet 2) Nephro-marcial 1 tab daily 3) Monitor PO intake, lab values, weight trend, and I/O Expected Outcomes/Goals: Intake to meet >75% estimated needs Lab values to improve FU 3-5 days Plan discussed with: Patient RAMIN OLIVIER MD Sep 09, 2025 12:52
[2025-09-10] VITALS (8 sets, daily range): BP systolic 129–143; BP diastolic 72–93; PULSE 68–84; RESP 16–20; TEMP 97.3–98.4; O2SAT 95–100
--- NOTE | 2025-09-10 11:43 | DVHPN2 ---
Progress Note Date Seen: Sep 10, 2025 Medical Necessity Reason Pt with a Central, PICC or Fol: No Subjective Other Systems: Patient seen and examined by myself today in follow-up Objective vital signs Vital Sign Date Time Temp Pulse Resp B/P (MAP) Pulse Ox O2 Delivery O2 Flow Rate FiO2 09/10/25 10:25 72 139/82 09/10/25 09:00 98.4 20 95 98.4 09/10/25 08:00 Room Air* 0 21 Total Intake and Output 09/09/25 09/09/25 09/10/25 15:00 23:00 07:00 Intake Total 230 ml 335 ml 800 ml Output Total 650 ml Balance 230 ml 335 ml 150 ml medications Current Medications Medications Dose Ordered Sig/Britta Route Start Time Stop Time Status Last Admin Dose Admin Famotidine 10 mg DAILY IV 08/20/25 10:00 09/09/25 09:40 10 MG Dextrose 50 ml UD PRN IV 08/20/25 05:15 Sodium Chloride 10 ml Q8HR IV 08/20/25 06:00 09/09/25 22:00 10 ML Ondansetron HCl 4 mg Q4HP PRN IV 08/20/25 05:15 Nitroglycerin 0.4 mg Q5MINP PRN SL 08/20/25 05:15 Hydralazine HCl 10 mg Q6HP PRN IV 08/20/25 05:15 08/29/25 20:44 10 MG Amlodipine Besylate 10 mg DAILY PO 08/20/25 10:00 09/10/25 10:24 10 MG Atorvastatin Calcium 40 mg HS PO 08/21/25 22:00 09/09/25 22:24 40 MG Bumetanide 1 mg BIDD IV 08/21/25 18:00 09/09/25 05:21 1 MG Docusate Sodium 100 mg BID PO 08/21/25 22:00 09/10/25 10:24 100 MG Diagnostic Test (Pha) 1 strip Q6HR 08/21/25 18:00 09/10/25 05:41 1 STRIP Insulin Human Regular Q6HR SC 08/21/25 18:00 09/10/25 00:35 2 UNITS Hydralazine HCl 25 mg Q6HR PO 08/22/25 12:00 09/10/25 05:36 25 MG Ferrous Sulfate 325 mg BIDWM PO 08/22/25 18:00 09/10/25 08:40 325 MG Aspirin 81 mg DAILY PO 08/23/25 10:00 09/10/25 10:26 81 MG Epoetin Andrew-epbx 10,000 unit MWF [place] 08/22/25 15:45 UNV Sevelamer HCl 800 mg TIDWM PO 08/22/25 18:00 09/10/25 08:40 800 MG Sodium Bicarbonate 1,300 mg TID PO 08/23/25 14:00 09/10/25 05:35 1,300 MG Carvedilol 25 mg Q12HR PO 08/23/25 22:00 09/10/25 10:25 25 MG Clonidine HCl 0.1 mg BID PRN PO 08/25/25 22:00 08/29/25 22:21 0.1 MG Clopidogrel Bisulfate 75 mg DAILY PO 08/26/25 10:00 09/14/25 23:00 09/09/25 10:56 75 MG Epoetin Andrew-epbx 10,000 unit MWF@2100 [place] 09/07/25 21:00 09/09/25 22:25 10,000 UNIT laboratory and microbiology Laboratory Tests 09/09/25 12:15 Test 09/09/25 12:15 Range/Units Serum Glucose 116 H 74-106 mg/dL Microbiology Date/Time Source Procedure Growth Status 08/22/25 13:29 Blood Blood Culture - Final NO GROWTH AFTER 5 DAYS OF INCUBATION. 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
--- NOTE | 2025-09-10 14:35 | DVHPN2 ---
Subjective In bed feeling well Reviewed: Care Plan, H&P Changes from previous H/P or p: No Changes General: Per HPI Eyes: No Pain, No Vision change, No Conjunctivae inflammation, No Eyelid inflammation, No Other, No Redness ENT: No Ear pain, No Ear discharge, No Nose pain, No Nose discharge, No Nose congestion, No Mouth pain, No Mouth swelling, No Throat pain, No Throat swelling, No Other Cardiovascular: No Chest Pain, No Palpitations, No Orthopnea, No Paroxysmal Noc. Dyspnea, No Edema, No Lt Headedness, No Other Respiratory: No Cough, No Dry; Shortness of breath; No SOB with excertion, No Wheezing, No Hemoptysis, No Pleuritic Pain, No Sputum; Other (SOB at rest) Gastrointestinal: No Nausea, No Vomiting, No Abdominal Pain, No Diarrhea, No Constipation, No Melena, No Hematochezia, No Other Genitourinary: No Dysuria, No Frequency, No Incontinence, No Hematuria, No Retention, No Other Musculoskeletal: No other, No neck pain, No shoulder pain, No arm pain, No back pain, No hand pain, No leg pain, No foot pain Skin: No Rash, No Lesions, No Jaundice, No Bruising, No Other Objective Vitals Vital Signs Date Time Temp Pulse Resp B/P (MAP) Pulse Ox O2 Delivery O2 Flow Rate FiO2 09/10/25 12:50 98.4 68 20 133/88 (103) 96 98.4 09/10/25 08:00 Room Air* 0 21 Intake/Output Intake and Output 09/10/25 07:00 Intake Total 1365 ml Output Total 650 ml Balance 715 ml Intake Oral 1365 ml Output Urine Total 650 ml # Bowel Movements 1 General Appearance: Alert, Oriented X3 Lungs: Clear to auscultation Cardiovascular: Regular rate, Normal S1, Normal S2 Abdomen: Normal bowel sounds Medications Current Medications Medications Dose Ordered Sig/Britta Route Start Time Stop Time Status Last Admin Dose Admin Famotidine 10 mg DAILY IV 08/20/25 10:00 09/09/25 09:40 10 MG Dextrose 50 ml UD PRN IV 08/20/25 05:15 Sodium Chloride 10 ml Q8HR IV 08/20/25 06:00 09/09/25 22:00 10 ML Ondansetron HCl 4 mg Q4HP PRN IV 08/20/25 05:15 Nitroglycerin 0.4 mg Q5MINP PRN SL 08/20/25 05:15 Hydralazine HCl 10 mg Q6HP PRN IV 08/20/25 05:15 08/29/25 20:44 10 MG Amlodipine Besylate 10 mg DAILY PO 08/20/25 10:00 09/10/25 10:24 10 MG Atorvastatin Calcium 40 mg HS PO 08/21/25 22:00 09/09/25 22:24 40 MG Bumetanide 1 mg BIDD IV 08/21/25 18:00 09/09/25 05:21 1 MG Docusate Sodium 100 mg BID PO 08/21/25 22:00 09/10/25 10:24 100 MG Diagnostic Test (Pha) 1 strip Q6HR 08/21/25 18:00 09/10/25 12:22 1 STRIP Insulin Human Regular Q6HR SC 08/21/25 18:00 09/10/25 12:27 2 UNITS Hydralazine HCl 25 mg Q6HR PO 08/22/25 12:00 09/10/25 12:27 25 MG Ferrous Sulfate 325 mg BIDWM PO 08/22/25 18:00 09/10/25 08:40 325 MG Aspirin 81 mg DAILY PO 08/23/25 10:00 09/10/25 10:26 81 MG Epoetin Andrew-epbx 10,000 unit MWF [place] 08/22/25 15:45 UNV Sevelamer HCl 800 mg TIDWM PO 08/22/25 18:00 09/10/25 12:26 800 MG Sodium Bicarbonate 1,300 mg TID PO 08/23/25 14:00 09/10/25 13:59 1,300 MG Carvedilol 25 mg Q12HR PO 08/23/25 22:00 09/10/25 10:25 25 MG Clonidine HCl 0.1 mg BID PRN PO 08/25/25 22:00 08/29/25 22:21 0.1 MG Clopidogrel Bisulfate 75 mg DAILY PO 08/26/25 10:00 09/14/25 23:00 09/10/25 11:41 75 MG Epoetin Andrew-epbx 10,000 unit MWF@2100 [place] 09/07/25 21:00 09/09/25 22:25 10,000 UNIT Laboratory Results Laboratory Tests 09/09/25 12:15 Urinalysis Test 08/20/25 00:06 08/22/25 12:21 Urine Color Colorless (Yellow) Urine Clarity Clear (Clear) Urine pH 6.5 (5.0-9.0) Urine Specific [place] 1.009 (1.001-1.035) Urine Protein 2+ (Negative) H Urine Ketones Negative (Negative) Urine Blood 2+ /uL (Negative) H Urine Nitrite Negative (Negative) Urine Bilirubin Negative (Negative) Urine Urobilinogen Normal mg/dL (Negative) Urine Leukocyte Esterase Negative /uL (Negative) Urine RBC 2 /hpf (0 - 3) Urine Microscopic WBC 1 /HPF (0-3) Urine Squamous Epithelial Cells None seen /hpf (<5) Urine Bacteria None seen /hpf (None Seen) Urine Glucose 3+ mg/dL (Normal) H Urine Creatinine 91.09 mg/dL (30.0-125.0) Urine Sodium 34 mmol/L (40-220) L Urine Total Protein 229.4 mg/dL (1-14) H Microbiology Microbiology Date/Time Source Procedure Growth Status 08/22/25 13:29 Blood Blood Culture - Final NO GROWTH AFTER 5 DAYS OF INCUBATION. Complete 08/20/25 18:49 Nose MRSA Screen - Final Complete Assessment/Plan Assessment/Plan 55-year-old male with a known history of congestive heart failure with systolic dysfunction, diabetes mellitus type 2, hypertension, dyslipidemia, homelessness who initially presented to the hospital with a respiratory distress found to have acute hypoxic respiratory failure suspected secondary to congestive heart failure with systolic dysfunction/multifocal pneumonia. Patient's hospital course was eventful for acute CVA with a MRI evidence of infarct in the right kuldip. 1. Acute hypoxic respiratory failure secondary to acute CHF exacerbation with systolic dysfunction as well as multifocal pneumonia 2. Acute CHF exacerbation with systolic dysfunction with the EF of 25% 3. Multifocal pneumonia 4. Moderate/severe pulmonary hypertension 5. Acute CVA with PONTINE infarct in the right-sided kuldip, with a left-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 6. AKA with a underlying CKD, progressing to end-stage renal disease, tunneled dialysis catheter will be placed, currently hemodialysis via [place] catheter 7. Previous history of CVA with a mild left residual deficit 8. NSTEMI type 2 suspect secondary to acute CHF exacerbation 9. 1/2 Gram-negative bacteremia with coag-negative staph, suspect contamination 10. Hypertension, stable -DIALYSIS PER RENAL -aspirin, statin, continue IV diuretics, continue IV antibiotics -repeat blood cultures, strict I&Os, daily weight. Dispo: Pending HD placement Plan discussed with: Patient Date of Service: Sep 10, 2025 Billing Provider: EDMUNDO REYNA MD Common Visit Codes: [id number] INP/OBS CARE(HIGH) EDMUNDO REYNA MD Sep 10, 2025 14:35
--- NOTE | 2025-09-10 14:40 | DVHPN2 ---
Progress Note - Dictate Date Seen: Sep 10, 2025 Medical Necessity Reason Pt with a Central, PICC or Fol: No Subjective Patient was seen and evaluated in follow up. Patient does not voice any current complaints. Per RN,the patient is refusing IV access. BUN 59, STAIR BUILDER 7.12, ALT 82. Telemetry reviewed. vital signs Vital Sign Date Time Temp Pulse Resp B/P (MAP) Pulse Ox O2 Delivery O2 Flow Rate FiO2 09/10/25 12:27 155/68 09/10/25 10:25 72 09/10/25 09:00 98.4 20 95 98.4 09/10/25 08:00 Room Air* 0 21 Total Intake and Output 09/09/25 09/09/25 09/10/25 15:00 23:00 07:00 Intake Total 230 ml 335 ml 800 ml Output Total 650 ml Balance 230 ml 335 ml 150 ml medications Current Medications Medications Dose Ordered Sig/Britta Route Start Time Stop Time Status Last Admin Dose Admin Famotidine 10 mg DAILY IV 08/20/25 10:00 09/09/25 09:40 10 MG Dextrose 50 ml UD PRN IV 08/20/25 05:15 Sodium Chloride 10 ml Q8HR IV 08/20/25 06:00 09/09/25 22:00 10 ML Ondansetron HCl 4 mg Q4HP PRN IV 08/20/25 05:15 Nitroglycerin 0.4 mg Q5MINP PRN SL 08/20/25 05:15 Hydralazine HCl 10 mg Q6HP PRN IV 08/20/25 05:15 08/29/25 20:44 10 MG Amlodipine Besylate 10 mg DAILY PO 08/20/25 10:00 09/10/25 10:24 10 MG Atorvastatin Calcium 40 mg HS PO 08/21/25 22:00 09/09/25 22:24 40 MG Bumetanide 1 mg BIDD IV 08/21/25 18:00 09/09/25 05:21 1 MG Docusate Sodium 100 mg BID PO 08/21/25 22:00 09/10/25 10:24 100 MG Diagnostic Test (Pha) 1 strip Q6HR 08/21/25 18:00 09/10/25 12:22 1 STRIP Insulin Human Regular Q6HR SC 08/21/25 18:00 09/10/25 12:27 2 UNITS Hydralazine HCl 25 mg Q6HR PO 08/22/25 12:00 09/10/25 12:27 25 MG Ferrous Sulfate 325 mg BIDWM PO 08/22/25 18:00 09/10/25 08:40 325 MG Aspirin 81 mg DAILY PO 08/23/25 10:00 09/10/25 10:26 81 MG Epoetin Andrew-epbx 10,000 unit MWF [place] 08/22/25 15:45 UNV Sevelamer HCl 800 mg TIDWM PO 08/22/25 18:00 09/10/25 12:26 800 MG Sodium Bicarbonate 1,300 mg TID PO 08/23/25 14:00 09/10/25 05:35 1,300 MG Carvedilol 25 mg Q12HR PO 08/23/25 22:00 09/10/25 10:25 25 MG Clonidine HCl 0.1 mg BID PRN PO 08/25/25 22:00 08/29/25 22:21 0.1 MG Clopidogrel Bisulfate 75 mg DAILY PO 08/26/25 10:00 09/14/25 23:00 09/10/25 11:41 75 MG Epoetin Andrew-epbx 10,000 unit MWF@2100 [place] 09/07/25 21:00 09/09/25 22:25 10,000 UNIT objective GENERAL: Alert and oriented x 3. No acute distress. EYES: PERRL, EOMI. Anicteric. HENT: Moist mucous membranes. LUNGS: Clear to auscultation bilaterally. CARDIOVASCULAR: Regular rate and rhythm. ABDOMEN: Soft, non-tender and non-distended. EXTREMITIES: No edema. NEUROLOGIC: No focal neurological deficits. SKIN: Warm, dry. laboratory and microbiology Laboratory Tests 09/09/25 12:15 Test 09/09/25 12:15 Range/Units Serum Glucose 116 H 74-106 mg/dL Problem List Acute on chronic CHF. NSTEMI likely type 2 [place]. Hypertensive emergency. GISSELL on CKD. Medication noncompliance. Acute hypoxic respiratory failure, multifocal pneumonia. Cardiomyopathy. Acute pontine stroke with dysarthria, left facial weakness, left hemiplegia. Chronic left hemispheres stroke. Assessment/Plan Continued all current supportive medical care. Amlodipine, Coreg, Clonidine, Hydralazine. Aspirin, Lipitor, Plavix. Diuretics with Bumex. Morphine for pain management. Additional plan as per the hospital course. Dietary Evaluation Review Comments: Nutrition Recommendation: 1) CCHO 75gm + renal standard diet 2) Nephro-marcial 1 tab daily 3) Monitor PO intake, lab values, weight trend, and I/O Expected Outcomes/Goals: Intake to meet >75% estimated needs Lab values to improve FU 3-5 days Plan discussed with: Patient RAMIN OLIVIER MD Sep 10, 2025 12:50
--- NOTE | 2025-09-10 23:56 | DVHPN2 ---
Progress Note - Dictate Date Seen: Sep 10, 2025 Medical Necessity Reason Pt with a Central, PICC or Fol: No Subjective Mr. Thomas is a 55 years old right-handed gentleman with a history of hypertension, diabetes, congestive heart failure, COPD, asthma, the patient was admitted on 08/19/2025 with a chief complaint of shortness breath, but he was has other complaints I have seen and examined the patient, talked to his nurse. No improvement in the left hemiparesis. No new complaints UDS, 08/20/2025: Negative WBC/HB/PLT/MCV, 08/25/2025: 5.2/10.5/160/91 BUN/CR, 08/19/2025: 49/9.09, 08/21/2025: 65/9.36, 08/25/2025: 106/9.55 HCO3, 08/19/2025:18 , 08/20/2025: 19. Lactic acid, 08/19/2025: 5.3 Liver function tests, 08/21/2025: Unremarkable TG/HDL/LDL/HDL, 08/20/2025: 42/141/86/35 Echocardiogram, 08/20/2025: DILATED LV AND IS MODERATELY HYPOKINETIC LV EF IS ONLT 25% DYSKINESIS OF IVS NORMAL VALVES MODERATE DEGREE PULMONARY HYPERTENSION RVSP IS 45 MM OF HG AND IS MODERATELY HIGH NO EFFUSION Extremity Venous study, 08/25/2025: Thrombus basilic vein and cephalic vein Carotid Doppler, 08/26/2025: Right carotid system not evaluated due to overlying bandaging and IJ line. Left carotid system demonstrates no hemodynamically significant stenosis. Chest x-ray, 08/19/2025: Multifocal pneumonia throughout both lungs CT head, 08/21/2025: 1. No acute territorial infarct, intracranial hemorrhage, or mass effect. 2. Age-related involutional changes. Chronic ischemic changes as detailed. 3. If clinical symptoms persist, MRI may be beneficial in further evaluation MRI head, 08/22/2025: Acute infarct right kuldip measuring 2.1 cm. Left parietal encephalomalacia vital signs Vital Sign Date Time Temp Pulse Resp B/P (MAP) Pulse Ox O2 Delivery O2 Flow Rate FiO2 09/10/25 22:07 74 132/74 09/10/25 21:00 97.3 17 99 97.3 09/10/25 20:21 Room Air* 0 21 Total Intake and Output 09/09/25 09/09/25 09/10/25 15:00 23:00 07:00 Intake Total 230 ml 335 ml 800 ml Output Total 650 ml Balance 230 ml 335 ml 150 ml medications Current Medications Medications Dose Ordered Sig/Britta Route Start Time Stop Time Status Last Admin Dose Admin Famotidine 10 mg DAILY IV 08/20/25 10:00 09/09/25 09:40 10 MG Dextrose 50 ml UD PRN IV 08/20/25 05:15 Sodium Chloride 10 ml Q8HR IV 08/20/25 06:00 09/09/25 22:00 10 ML Ondansetron HCl 4 mg Q4HP PRN IV 08/20/25 05:15 Nitroglycerin 0.4 mg Q5MINP PRN SL 08/20/25 05:15 Hydralazine HCl 10 mg Q6HP PRN IV 08/20/25 05:15 08/29/25 20:44 10 MG Amlodipine Besylate 10 mg DAILY PO 08/20/25 10:00 09/10/25 10:24 10 MG Atorvastatin Calcium 40 mg HS PO 08/21/25 22:00 09/10/25 22:07 40 MG Bumetanide 1 mg BIDD IV 08/21/25 18:00 09/09/25 05:21 1 MG Docusate Sodium 100 mg BID PO 08/21/25 22:00 09/10/25 22:08 100 MG Diagnostic Test (Pha) 1 strip Q6HR 08/21/25 18:00 09/10/25 18:00 1 STRIP Insulin Human Regular Q6HR SC 08/21/25 18:00 09/10/25 12:27 2 UNITS Hydralazine HCl 25 mg Q6HR PO 08/22/25 12:00 09/10/25 18:01 25 MG Ferrous Sulfate 325 mg BIDWM PO 08/22/25 18:00 09/10/25 18:00 325 MG Aspirin 81 mg DAILY PO 08/23/25 10:00 09/10/25 10:26 81 MG Epoetin Andrew-epbx 10,000 unit MWF [place] 08/22/25 15:45 UNV Sevelamer HCl 800 mg TIDWM PO 08/22/25 18:00 09/10/25 18:00 800 MG Sodium Bicarbonate 1,300 mg TID PO 08/23/25 14:00 09/10/25 22:08 1,300 MG Carvedilol 25 mg Q12HR PO 08/23/25 22:00 09/10/25 22:07 25 MG Clonidine HCl 0.1 mg BID PRN PO 08/25/25 22:00 08/29/25 22:21 0.1 MG Clopidogrel Bisulfate 75 mg DAILY PO 08/26/25 10:00 09/14/25 23:00 09/10/25 11:41 75 MG Epoetin Andrew-epbx 10,000 unit MWF@2100 [place] 09/07/25 21:00 09/09/25 22:25 10,000 UNIT objective General: the patient is well developed and nourished. No acute distress. MENTAL STATUS: Awake and alert. Oriented to person, place, time SPEECH, LANGUAGE, HIGHER CORTICAL FUNCTION: no aphasia he has has mild dysarthria CRANIAL NERVES: Pupils are equal, round and reactive. EOMs full and conjugate. Facial sensation intact in all three divisions bilaterally. Mandibular strength intact. Left facial weakness of upper motor neuron pattern SENSATION: Sensation to touch and pinprick is normal. MOTOR: Normal tone in the upper and lower extremity. Normal muscle bulk. No fasciculations. No abnormal movements or posturing. Muscle strength of the major groups in the right extremities is 5/5. Muscle strength of the major groups in the left extremities is: Arm: 2-3/5 with gripping stronger, le/5. REFLEXES: Deep tendon reflexes are symmetrical. No pathological reflexes. CEREBELLAR/COORDINATION: Finger to nose is normal in the right hand GAIT/STATION: deferred laboratory and microbiology Laboratory Tests 09/09/25 12:15 Test 09/09/25 12:15 Range/Units Serum Glucose 116 H 74-106 mg/dL Problem List Acute pontine stroke with dysarthria, left facial weakness, left hemiplegia Chronic left hemispheres stroke Sleep-related breathing disorder Kidney failure Acute respiratory failure Congestive heart failure Assessment/Plan Monitoring Supportive treatment Telemetry AMANDA, he refused Aspirin 81 mg daily Plavix 75 mg daily for 21 days Lipitor 40 mg daily Oxygen Hemodialysis Nephrology on case Cardiology on case Address sleep-related breathing disorder later I have discussed with him about stroke risk facts, secondary stroke prevention This medical document was created using an electronic medical record system with [email or web address] dictation system. Although this document has been carefully reviewed, there may still be some phonetic and typographical errors. These areas are purely typographical due to imperfections of the software programs, and do not reflect any compromise in the patient's medical care. Prognosis poor Dietary Evaluation Review Comments: Nutrition Recommendation: 1) CCHO 75gm + renal standard diet 2) Nephro-marcial 1 tab daily 3) Monitor PO intake, lab values, weight trend, and I/O Expected Outcomes/Goals: Intake to meet >75% estimated needs Lab values to improve FU 3-5 days Plan discussed with: Patient, Other CORAZON ALVARADO MD Sep 10, 2025 23:56
[2025-09-11] VITALS (8 sets, daily range): BP systolic 127–148; BP diastolic 68–87; PULSE 69–81; RESP 16–95; TEMP 97.8–98.9; O2SAT 95–100
--- NOTE | 2025-09-11 12:56 | DVHPN2 ---
Progress Note Date Seen: Sep 11, 2025 Medical Necessity Reason Pt with a Central, PICC or Fol: No Subjective Patient reports: No new complaints Other Systems: Patient seen and examined by myself today in follow-up Objective vital signs Vital Sign Date Time Temp Pulse Resp B/P (MAP) Pulse Ox O2 Delivery O2 Flow Rate FiO2 09/11/25 12:21 142/86 09/11/25 09:20 73 09/11/25 09:00 98.9 18 100 98.9 09/11/25 08:10 Room Air* 0 21 Total Intake and Output 09/10/25 09/10/25 09/11/25 15:00 23:00 07:00 Intake Total 0 ml 300 ml Balance 0 ml 300 ml medications Current Medications Medications Dose Ordered Sig/Britta Route Start Time Stop Time Status Last Admin Dose Admin Famotidine 10 mg DAILY IV 08/20/25 10:00 09/09/25 09:40 10 MG Dextrose 50 ml UD PRN IV 08/20/25 05:15 Sodium Chloride 10 ml Q8HR IV 08/20/25 06:00 09/09/25 22:00 10 ML Ondansetron HCl 4 mg Q4HP PRN IV 08/20/25 05:15 Nitroglycerin 0.4 mg Q5MINP PRN SL 08/20/25 05:15 Hydralazine HCl 10 mg Q6HP PRN IV 08/20/25 05:15 08/29/25 20:44 10 MG Amlodipine Besylate 10 mg DAILY PO 08/20/25 10:00 09/11/25 08:16 10 MG Atorvastatin Calcium 40 mg HS PO 08/21/25 22:00 09/10/25 22:07 40 MG Bumetanide 1 mg BIDD IV 08/21/25 18:00 09/09/25 05:21 1 MG Docusate Sodium 100 mg BID PO 08/21/25 22:00 09/11/25 08:15 100 MG Diagnostic Test (Pha) 1 strip Q6HR 08/21/25 18:00 09/11/25 12:15 1 STRIP Insulin Human Regular Q6HR SC 08/21/25 18:00 09/11/25 00:23 2 UNITS Hydralazine HCl 25 mg Q6HR PO 08/22/25 12:00 09/11/25 12:21 25 MG Ferrous Sulfate 325 mg BIDWM PO 08/22/25 18:00 09/11/25 08:14 325 MG Aspirin 81 mg DAILY PO 08/23/25 10:00 09/11/25 08:15 81 MG Epoetin Andrew-epbx 10,000 unit MWF [place] 08/22/25 15:45 UNV Sevelamer HCl 800 mg TIDWM PO 08/22/25 18:00 09/11/25 12:19 800 MG Sodium Bicarbonate 1,300 mg TID PO 08/23/25 14:00 09/11/25 06:13 1,300 MG Carvedilol 25 mg Q12HR PO 08/23/25 22:00 09/11/25 08:20 25 MG Clonidine HCl 0.1 mg BID PRN PO 08/25/25 22:00 08/29/25 22:21 0.1 MG Clopidogrel Bisulfate 75 mg DAILY PO 08/26/25 10:00 09/14/25 23:00 09/11/25 08:17 75 MG Epoetin Andrew-epbx 10,000 unit MWF@2100 [place] 09/07/25 21:00 09/09/25 22:25 10,000 UNIT Examination: LUNGS:Normal, CVS:Normal, MSK:Normal laboratory and microbiology Laboratory Tests 09/09/25 12:15 Test 09/09/25 12:15 Range/Units Serum Glucose 116 H 74-106 mg/dL Microbiology Date/Time Source Procedure Growth Status 08/22/25 13:29 Blood Blood Culture - Final NO GROWTH AFTER 5 DAYS OF INCUBATION. 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
--- NOTE | 2025-09-11 14:42 | DVHPN2 ---
Subjective In bed feeling well Reviewed: Care Plan, H&P Changes from previous H/P or p: No Changes General: Per HPI Eyes: No Pain, No Vision change, No Conjunctivae inflammation, No Eyelid inflammation, No Other, No Redness ENT: No Ear pain, No Ear discharge, No Nose pain, No Nose discharge, No Nose congestion, No Mouth pain, No Mouth swelling, No Throat pain, No Throat swelling, No Other Cardiovascular: No Chest Pain, No Palpitations, No Orthopnea, No Paroxysmal Noc. Dyspnea, No Edema, No Lt Headedness, No Other Respiratory: No Cough, No Dry; Shortness of breath; No SOB with excertion, No Wheezing, No Hemoptysis, No Pleuritic Pain, No Sputum; Other (SOB at rest) Gastrointestinal: No Nausea, No Vomiting, No Abdominal Pain, No Diarrhea, No Constipation, No Melena, No Hematochezia, No Other Genitourinary: No Dysuria, No Frequency, No Incontinence, No Hematuria, No Retention, No Other Musculoskeletal: No other, No neck pain, No shoulder pain, No arm pain, No back pain, No hand pain, No leg pain, No foot pain Skin: No Rash, No Lesions, No Jaundice, No Bruising, No Other Objective Vitals Vital Signs Date Time Temp Pulse Resp B/P (MAP) Pulse Ox O2 Delivery O2 Flow Rate FiO2 09/11/25 12:21 142/86 09/11/25 09:20 73 09/11/25 09:00 98.9 18 100 98.9 09/11/25 08:10 Room Air* 0 21 Intake/Output Intake and Output 09/11/25 05:00 Intake Total 0 ml Balance 0 ml Intake Oral 0 ml General Appearance: Alert, Oriented X3 Lungs: Clear to auscultation Cardiovascular: Regular rate, Normal S1, Normal S2 Abdomen: Normal bowel sounds Medications Current Medications Medications Dose Ordered Sig/Britta Route Start Time Stop Time Status Last Admin Dose Admin Famotidine 10 mg DAILY IV 08/20/25 10:00 09/09/25 09:40 10 MG Dextrose 50 ml UD PRN IV 08/20/25 05:15 Sodium Chloride 10 ml Q8HR IV 08/20/25 06:00 09/09/25 22:00 10 ML Ondansetron HCl 4 mg Q4HP PRN IV 08/20/25 05:15 Nitroglycerin 0.4 mg Q5MINP PRN SL 08/20/25 05:15 Hydralazine HCl 10 mg Q6HP PRN IV 08/20/25 05:15 08/29/25 20:44 10 MG Amlodipine Besylate 10 mg DAILY PO 08/20/25 10:00 09/11/25 08:16 10 MG Atorvastatin Calcium 40 mg HS PO 08/21/25 22:00 09/10/25 22:07 40 MG Bumetanide 1 mg BIDD IV 08/21/25 18:00 09/09/25 05:21 1 MG Docusate Sodium 100 mg BID PO 08/21/25 22:00 09/11/25 08:15 100 MG Diagnostic Test (Pha) 1 strip Q6HR 08/21/25 18:00 09/11/25 12:15 1 STRIP Insulin Human Regular Q6HR SC 08/21/25 18:00 09/11/25 00:23 2 UNITS Hydralazine HCl 25 mg Q6HR PO 08/22/25 12:00 09/11/25 12:21 25 MG Ferrous Sulfate 325 mg BIDWM PO 08/22/25 18:00 09/11/25 08:14 325 MG Aspirin 81 mg DAILY PO 08/23/25 10:00 09/11/25 08:15 81 MG Epoetin Andrew-epbx 10,000 unit MWF [place] 08/22/25 15:45 UNV Sevelamer HCl 800 mg TIDWM PO 08/22/25 18:00 09/11/25 12:19 800 MG Sodium Bicarbonate 1,300 mg TID PO 08/23/25 14:00 09/11/25 13:33 1,300 MG Carvedilol 25 mg Q12HR PO 08/23/25 22:00 09/11/25 08:20 25 MG Clonidine HCl 0.1 mg BID PRN PO 08/25/25 22:00 08/29/25 22:21 0.1 MG Clopidogrel Bisulfate 75 mg DAILY PO 08/26/25 10:00 09/14/25 23:00 09/11/25 08:17 75 MG Epoetin Andrew-epbx 10,000 unit MWF@2100 [place] 09/07/25 21:00 09/09/25 22:25 10,000 UNIT Laboratory Results Laboratory Tests 09/09/25 12:15 Urinalysis Test 08/20/25 00:06 08/22/25 12:21 Urine Color Colorless (Yellow) Urine Clarity Clear (Clear) Urine pH 6.5 (5.0-9.0) Urine Specific [place] 1.009 (1.001-1.035) Urine Protein 2+ (Negative) H Urine Ketones Negative (Negative) Urine Blood 2+ /uL (Negative) H Urine Nitrite Negative (Negative) Urine Bilirubin Negative (Negative) Urine Urobilinogen Normal mg/dL (Negative) Urine Leukocyte Esterase Negative /uL (Negative) Urine RBC 2 /hpf (0 - 3) Urine Microscopic WBC 1 /HPF (0-3) Urine Squamous Epithelial Cells None seen /hpf (<5) Urine Bacteria None seen /hpf (None Seen) Urine Glucose 3+ mg/dL (Normal) H Urine Creatinine 91.09 mg/dL (30.0-125.0) Urine Sodium 34 mmol/L (40-220) L Urine Total Protein 229.4 mg/dL (1-14) H Microbiology Microbiology Date/Time Source Procedure Growth Status 08/22/25 13:29 Blood Blood Culture - Final NO GROWTH AFTER 5 DAYS OF INCUBATION. Complete 08/20/25 18:49 Nose MRSA Screen - Final Complete Assessment/Plan Assessment/Plan 55-year-old male with a known history of congestive heart failure with systolic dysfunction, diabetes mellitus type 2, hypertension, dyslipidemia, homelessness who initially presented to the hospital with a respiratory distress found to have acute hypoxic respiratory failure suspected secondary to congestive heart failure with systolic dysfunction/multifocal pneumonia. Patient's hospital course was eventful for acute CVA with a MRI evidence of infarct in the right kuldip. 1. Acute hypoxic respiratory failure secondary to acute CHF exacerbation with systolic dysfunction as well as multifocal pneumonia 2. Acute CHF exacerbation with systolic dysfunction with the EF of 25% 3. Multifocal pneumonia 4. Moderate/severe pulmonary hypertension 5. Acute CVA with PONTINE infarct in the right-sided kuldip, with a left-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 6. AKA with a underlying CKD, progressing to end-stage renal disease, tunneled dialysis catheter will be placed, currently hemodialysis via Alonzo catheter 7. Previous history of CVA with a mild left residual deficit 8. NSTEMI type 2 suspect secondary to acute CHF exacerbation 9. 1/2 Gram-negative bacteremia with coag-negative staph, suspect contamination 10. Hypertension, stable -DIALYSIS PER RENAL -aspirin, statin, continue IV diuretics, continue IV antibiotics -repeat blood cultures, strict I&Os, daily weight. Dispo: Pending HD placement Plan discussed with: Patient Date of Service: Sep 11, 2025 Billing Provider: EDMUNDO REYNA MD Common Visit Codes: [id number] INP/OBS CARE(HIGH) EDMUNDO REYNA MD Sep 11, 2025 14:42
--- NOTE | 2025-09-11 23:50 | DVHPN2 ---
Progress Note - Dictate Date Seen: Sep 11, 2025 Medical Necessity Reason Pt with a Central, PICC or Fol: No Subjective Patient was seen and evaluated in follow up. Patient does not voice any complaints. Reports feeling well. BS are in the 150's. Telemetry reviewed. vital signs Vital Sign Date Time Temp Pulse Resp B/P (MAP) Pulse Ox O2 Delivery O2 Flow Rate FiO2 09/11/25 12:21 142/86 09/11/25 09:20 73 09/11/25 09:00 98.9 18 100 98.9 09/11/25 08:10 Room Air* 0 21 Total Intake and Output 09/10/25 09/10/25 09/11/25 15:00 23:00 07:00 Intake Total 0 ml 300 ml Balance 0 ml 300 ml medications Current Medications Medications Dose Ordered Sig/Britta Route Start Time Stop Time Status Last Admin Dose Admin Famotidine 10 mg DAILY IV 08/20/25 10:00 09/09/25 09:40 10 MG Dextrose 50 ml UD PRN IV 08/20/25 05:15 Sodium Chloride 10 ml Q8HR IV 08/20/25 06:00 09/09/25 22:00 10 ML Ondansetron HCl 4 mg Q4HP PRN IV 08/20/25 05:15 Nitroglycerin 0.4 mg Q5MINP PRN SL 08/20/25 05:15 Hydralazine HCl 10 mg Q6HP PRN IV 08/20/25 05:15 08/29/25 20:44 10 MG Amlodipine Besylate 10 mg DAILY PO 08/20/25 10:00 09/11/25 08:16 10 MG Atorvastatin Calcium 40 mg HS PO 08/21/25 22:00 09/10/25 22:07 40 MG Bumetanide 1 mg BIDD IV 08/21/25 18:00 09/09/25 05:21 1 MG Docusate Sodium 100 mg BID PO 08/21/25 22:00 09/11/25 08:15 100 MG Diagnostic Test (Pha) 1 strip Q6HR 08/21/25 18:00 09/11/25 12:15 1 STRIP Insulin Human Regular Q6HR SC 08/21/25 18:00 09/11/25 00:23 2 UNITS Hydralazine HCl 25 mg Q6HR PO 08/22/25 12:00 09/11/25 12:21 25 MG Ferrous Sulfate 325 mg BIDWM PO 08/22/25 18:00 09/11/25 08:14 325 MG Aspirin 81 mg DAILY PO 08/23/25 10:00 09/11/25 08:15 81 MG Epoetin Andrew-epbx 10,000 unit MWF [place] 08/22/25 15:45 UNV Sevelamer HCl 800 mg TIDWM PO 08/22/25 18:00 09/11/25 12:19 800 MG Sodium Bicarbonate 1,300 mg TID PO 08/23/25 14:00 09/11/25 13:33 1,300 MG Carvedilol 25 mg Q12HR PO 08/23/25 22:00 09/11/25 08:20 25 MG Clonidine HCl 0.1 mg BID PRN PO 08/25/25 22:00 08/29/25 22:21 0.1 MG Clopidogrel Bisulfate 75 mg DAILY PO 08/26/25 10:00 09/14/25 23:00 09/11/25 08:17 75 MG Epoetin Andrew-epbx 10,000 unit MWF@2100 [place] 09/07/25 21:00 09/09/25 22:25 10,000 UNIT objective GENERAL: Alert and oriented x 3. No acute distress. EYES: PERRL, EOMI. Anicteric. HENT: Moist mucous membranes. LUNGS: Clear to auscultation bilaterally. CARDIOVASCULAR: Regular rate and rhythm. ABDOMEN: Soft, non-tender and non-distended. EXTREMITIES: No edema. NEUROLOGIC: No focal neurological deficits. SKIN: Warm, dry. laboratory and microbiology Laboratory Tests 09/09/25 12:15 Test 09/09/25 12:15 Range/Units Serum Glucose 116 H 74-106 mg/dL Problem List Acute on chronic CHF. NSTEMI likely type 2 [place]. Hypertensive emergency. GISSELL on CKD. Medication noncompliance. Acute hypoxic respiratory failure, multifocal pneumonia. Cardiomyopathy. Acute pontine stroke with dysarthria, left facial weakness, left hemiplegia. Chronic left hemispheres stroke. Assessment/Plan Continued all current supportive medical care. Amlodipine, Coreg, Clonidine, Hydralazine. Aspirin, Lipitor, Plavix. Diuretics with Bumex. Morphine for pain management. Additional plan as per the hospital course. Dietary Evaluation Review Comments: Nutrition Recommendation: 1) CCHO 75gm + renal standard diet 2) Nephro-marcial 1 tab daily 3) Monitor PO intake, lab values, weight trend, and I/O Expected Outcomes/Goals: Intake to meet >75% estimated needs Lab values to improve FU 3-5 days Plan discussed with: Patient RAMIN OLIVIER MD Sep 11, 2025 14:00
[2025-09-12] VITALS (8 sets, daily range): BP systolic 112–155; BP diastolic 58–80; PULSE 71–83; RESP 16–19; TEMP 97.7–98.4; O2SAT 96–100
[2025-09-12] MEDS: SODIUM CHL 0.9% 1000 ML BAG XX ONE (12:21)
--- NOTE | 2025-09-12 15:47 | DVHPN2 ---
Subjective In bed feeling well Reviewed: Care Plan, H&P Changes from previous H/P or p: No Changes General: Per HPI Eyes: No Pain, No Vision change, No Conjunctivae inflammation, No Eyelid inflammation, No Other, No Redness ENT: No Ear pain, No Ear discharge, No Nose pain, No Nose discharge, No Nose congestion, No Mouth pain, No Mouth swelling, No Throat pain, No Throat swelling, No Other Cardiovascular: No Chest Pain, No Palpitations, No Orthopnea, No Paroxysmal Noc. Dyspnea, No Edema, No Lt Headedness, No Other Respiratory: No Cough, No Dry; Shortness of breath; No SOB with excertion, No Wheezing, No Hemoptysis, No Pleuritic Pain, No Sputum; Other (SOB at rest) Gastrointestinal: No Nausea, No Vomiting, No Abdominal Pain, No Diarrhea, No Constipation, No Melena, No Hematochezia, No Other Genitourinary: No Dysuria, No Frequency, No Incontinence, No Hematuria, No Retention, No Other Musculoskeletal: No other, No neck pain, No shoulder pain, No arm pain, No back pain, No hand pain, No leg pain, No foot pain Skin: No Rash, No Lesions, No Jaundice, No Bruising, No Other Objective Vitals Vital Signs Date Time Temp Pulse Resp B/P (MAP) Pulse Ox O2 Delivery O2 Flow Rate FiO2 09/12/25 13:24 154/89 09/12/25 13:00 97.8 82 19 99 97.8 09/12/25 08:10 Room Air* 0 21 Intake/Output Intake and Output 09/12/25 05:00 Intake Total 950 ml Output Total 800 ml Balance 150 ml Intake Oral 950 ml Output Urine Total 800 ml General Appearance: Alert, Oriented X3 Lungs: Clear to auscultation Cardiovascular: Regular rate, Normal S1, Normal S2 Abdomen: Normal bowel sounds Medications Current Medications Medications Dose Ordered Sig/Britta Route Start Time Stop Time Status Last Admin Dose Admin Famotidine 10 mg DAILY IV 08/20/25 10:00 09/09/25 09:40 10 MG Dextrose 50 ml UD PRN IV 08/20/25 05:15 Sodium Chloride 10 ml Q8HR IV 08/20/25 06:00 09/09/25 22:00 10 ML Ondansetron HCl 4 mg Q4HP PRN IV 08/20/25 05:15 Nitroglycerin 0.4 mg Q5MINP PRN SL 08/20/25 05:15 Hydralazine HCl 10 mg Q6HP PRN IV 08/20/25 05:15 08/29/25 20:44 10 MG Amlodipine Besylate 10 mg DAILY PO 08/20/25 10:00 09/11/25 08:16 10 MG Atorvastatin Calcium 40 mg HS PO 08/21/25 22:00 09/11/25 21:20 40 MG Bumetanide 1 mg BIDD IV 08/21/25 18:00 09/09/25 05:21 1 MG Docusate Sodium 100 mg BID PO 08/21/25 22:00 09/12/25 08:23 100 MG Diagnostic Test (Pha) 1 strip Q6HR 08/21/25 18:00 09/12/25 04:57 1 STRIP Insulin Human Regular Q6HR SC 08/21/25 18:00 09/11/25 00:23 2 UNITS Hydralazine HCl 25 mg Q6HR PO 08/22/25 12:00 09/12/25 13:24 25 MG Ferrous Sulfate 325 mg BIDWM PO 08/22/25 18:00 09/12/25 08:22 325 MG Aspirin 81 mg DAILY PO 08/23/25 10:00 09/12/25 08:23 81 MG Epoetin Andrew-epbx 10,000 unit MWF [place] 08/22/25 15:45 UNV Sevelamer HCl 800 mg TIDWM PO 08/22/25 18:00 09/12/25 13:23 800 MG Sodium Bicarbonate 1,300 mg TID PO 08/23/25 14:00 09/12/25 13:23 1,300 MG Carvedilol 25 mg Q12HR PO 08/23/25 22:00 09/11/25 21:20 25 MG Clonidine HCl 0.1 mg BID PRN PO 08/25/25 22:00 08/29/25 22:21 0.1 MG Clopidogrel Bisulfate 75 mg DAILY PO 08/26/25 10:00 09/14/25 23:00 09/12/25 08:23 75 MG Epoetin Andrew-epbx 10,000 unit MWF@2100 [place] 09/07/25 21:00 09/09/25 22:25 10,000 UNIT Laboratory Results Laboratory Tests 09/09/25 12:15 Urinalysis Test 08/20/25 00:06 08/22/25 12:21 Urine Color Colorless (Yellow) Urine Clarity Clear (Clear) Urine pH 6.5 (5.0-9.0) Urine Specific [place] 1.009 (1.001-1.035) Urine Protein 2+ (Negative) H Urine Ketones Negative (Negative) Urine Blood 2+ /uL (Negative) H Urine Nitrite Negative (Negative) Urine Bilirubin Negative (Negative) Urine Urobilinogen Normal mg/dL (Negative) Urine Leukocyte Esterase Negative /uL (Negative) Urine RBC 2 /hpf (0 - 3) Urine Microscopic WBC 1 /HPF (0-3) Urine Squamous Epithelial Cells None seen /hpf (<5) Urine Bacteria None seen /hpf (None Seen) Urine Glucose 3+ mg/dL (Normal) H Urine Creatinine 91.09 mg/dL (30.0-125.0) Urine Sodium 34 mmol/L (40-220) L Urine Total Protein 229.4 mg/dL (1-14) H Microbiology Microbiology Date/Time Source Procedure Growth Status 08/22/25 13:29 Blood Blood Culture - Final NO GROWTH AFTER 5 DAYS OF INCUBATION. Complete 08/20/25 18:49 Nose MRSA Screen - Final Complete Assessment/Plan Assessment/Plan 55-year-old male with a known history of congestive heart failure with systolic dysfunction, diabetes mellitus type 2, hypertension, dyslipidemia, homelessness who initially presented to the hospital with a respiratory distress found to have acute hypoxic respiratory failure suspected secondary to congestive heart failure with systolic dysfunction/multifocal pneumonia. Patient's hospital course was eventful for acute CVA with a MRI evidence of infarct in the right kuldip. 1. Acute hypoxic respiratory failure secondary to acute CHF exacerbation with systolic dysfunction as well as multifocal pneumonia 2. Acute CHF exacerbation with systolic dysfunction with the EF of 25% 3. Multifocal pneumonia 4. Moderate/severe pulmonary hypertension 5. Acute CVA with PONTINE infarct in the right-sided kuldip, with a left-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 6. AKA with a underlying CKD, progressing to end-stage renal disease, tunneled dialysis catheter will be placed, currently hemodialysis via Alonzo catheter 7. Previous history of CVA with a mild left residual deficit 8. NSTEMI type 2 suspect secondary to acute CHF exacerbation 9. 1/2 Gram-negative bacteremia with coag-negative staph, suspect contamination 10. Hypertension, stable -DIALYSIS PER RENAL -aspirin, statin, continue IV diuretics, continue IV antibiotics -repeat blood cultures, strict I&Os, daily weight. Dispo: Pending HD placement Plan discussed with: Patient Date of Service: Sep 12, 2025 Billing Provider: EDMUNDO REYNA MD Common Visit Codes: [id number] INP/OBS CARE(HIGH) EDMUNDO REYNA MD Sep 12, 2025 15:47
--- NOTE | 2025-09-12 17:29 | DVHPN2 ---
Progress Note - Dictate Date Seen: Sep 12, 2025 Medical Necessity Reason Pt with a Central, PICC or Fol: No Subjective Patient was seen and evaluated in follow up. No overnight events. Patient denies any complaints. Patient planned to receive dialysis today. Telemetry reviewed. vital signs Vital Sign Date Time Temp Pulse Resp B/P (MAP) Pulse Ox O2 Delivery O2 Flow Rate FiO2 09/12/25 13:24 154/89 09/12/25 13:00 97.8 82 19 99 97.8 09/12/25 08:10 Room Air* 0 21 Total Intake and Output 09/11/25 09/11/25 09/12/25 15:00 23:00 07:00 Intake Total 650 ml 250 ml Output Total 800 ml Balance -150 ml 250 ml medications Current Medications Medications Dose Ordered Sig/Britta Route Start Time Stop Time Status Last Admin Dose Admin Famotidine 10 mg DAILY IV 08/20/25 10:00 09/09/25 09:40 10 MG Dextrose 50 ml UD PRN IV 08/20/25 05:15 Sodium Chloride 10 ml Q8HR IV 08/20/25 06:00 09/09/25 22:00 10 ML Ondansetron HCl 4 mg Q4HP PRN IV 08/20/25 05:15 Nitroglycerin 0.4 mg Q5MINP PRN SL 08/20/25 05:15 Hydralazine HCl 10 mg Q6HP PRN IV 08/20/25 05:15 08/29/25 20:44 10 MG Amlodipine Besylate 10 mg DAILY PO 08/20/25 10:00 09/11/25 08:16 10 MG Atorvastatin Calcium 40 mg HS PO 08/21/25 22:00 09/11/25 21:20 40 MG Bumetanide 1 mg BIDD IV 08/21/25 18:00 09/09/25 05:21 1 MG Docusate Sodium 100 mg BID PO 08/21/25 22:00 09/12/25 08:23 100 MG Diagnostic Test (Pha) 1 strip Q6HR 08/21/25 18:00 09/12/25 04:57 1 STRIP Insulin Human Regular Q6HR SC 08/21/25 18:00 09/11/25 00:23 2 UNITS Hydralazine HCl 25 mg Q6HR PO 08/22/25 12:00 09/12/25 13:24 25 MG Ferrous Sulfate 325 mg BIDWM PO 08/22/25 18:00 09/12/25 08:22 325 MG Aspirin 81 mg DAILY PO 08/23/25 10:00 09/12/25 08:23 81 MG Epoetin Andrew-epbx 10,000 unit MWF [place] 08/22/25 15:45 UNV Sevelamer HCl 800 mg TIDWM PO 08/22/25 18:00 09/12/25 13:23 800 MG Sodium Bicarbonate 1,300 mg TID PO 08/23/25 14:00 09/12/25 13:23 1,300 MG Carvedilol 25 mg Q12HR PO 08/23/25 22:00 09/11/25 21:20 25 MG Clonidine HCl 0.1 mg BID PRN PO 08/25/25 22:00 08/29/25 22:21 0.1 MG Clopidogrel Bisulfate 75 mg DAILY PO 08/26/25 10:00 09/14/25 23:00 09/12/25 08:23 75 MG Epoetin Andrew-epbx 10,000 unit MWF@2100 [place] 09/07/25 21:00 09/09/25 22:25 10,000 UNIT objective GENERAL: Alert and oriented x 3. No acute distress. EYES: PERRL, EOMI. Anicteric. HENT: Moist mucous membranes. LUNGS: Clear to auscultation bilaterally. CARDIOVASCULAR: Regular rate and rhythm. ABDOMEN: Soft, non-tender and non-distended. EXTREMITIES: No edema. NEUROLOGIC: No focal neurological deficits. SKIN: Warm, dry. laboratory and microbiology Laboratory Tests 09/09/25 12:15 Test 09/09/25 12:15 Range/Units Serum Glucose 116 H 74-106 mg/dL Problem List Acute on chronic CHF. NSTEMI likely type 2 [place]. Hypertensive emergency. GISSELL on CKD. Medication noncompliance. Acute hypoxic respiratory failure, multifocal pneumonia. Cardiomyopathy. Acute pontine stroke with dysarthria, left facial weakness, left hemiplegia. Chronic left hemispheres stroke. Assessment/Plan Continued all current supportive medical care. Amlodipine, Coreg, Clonidine, Hydralazine. Aspirin, Lipitor, Plavix. Diuretics with Bumex. IV Hydralazine for SBP >150. Additional plan as per the hospital course. Dietary Evaluation Review Comments: Nutrition Recommendation: 1) CCHO 75gm + renal standard diet 2) Nephro-marcial 1 tab daily 3) Monitor PO intake, lab values, weight trend, and I/O Expected Outcomes/Goals: Intake to meet >75% estimated needs Lab values to improve FU 3-5 days Plan discussed with: Patient RAMIN OLIVIER MD Sep 12, 2025 17:29
[2025-09-12] MEDS: EPOETIN ALFA-EPBX 10,000 UNIT/1ML VIAL SC ONE (21:36)
[2025-09-13] VITALS (8 sets, daily range): BP systolic 123–155; BP diastolic 74–82; PULSE 70–82; RESP 17–18; TEMP 96.4–98.6; O2SAT 95–99
--- NOTE | 2025-09-13 12:24 | DVHPN2 ---
Subjective In bed feeling well Reviewed: Care Plan, H&P Changes from previous H/P or p: No Changes General: Per HPI Eyes: No Pain, No Vision change, No Conjunctivae inflammation, No Eyelid inflammation, No Other, No Redness ENT: No Ear pain, No Ear discharge, No Nose pain, No Nose discharge, No Nose congestion, No Mouth pain, No Mouth swelling, No Throat pain, No Throat swelling, No Other Cardiovascular: No Chest Pain, No Palpitations, No Orthopnea, No Paroxysmal Noc. Dyspnea, No Edema, No Lt Headedness, No Other Respiratory: No Cough, No Dry; Shortness of breath; No SOB with excertion, No Wheezing, No Hemoptysis, No Pleuritic Pain, No Sputum; Other (SOB at rest) Gastrointestinal: No Nausea, No Vomiting, No Abdominal Pain, No Diarrhea, No Constipation, No Melena, No Hematochezia, No Other Genitourinary: No Dysuria, No Frequency, No Incontinence, No Hematuria, No Retention, No Other Musculoskeletal: No other, No neck pain, No shoulder pain, No arm pain, No back pain, No hand pain, No leg pain, No foot pain Skin: No Rash, No Lesions, No Jaundice, No Bruising, No Other Objective Vitals Vital Signs Date Time Temp Pulse Resp B/P (MAP) Pulse Ox O2 Delivery O2 Flow Rate FiO2 09/13/25 09:22 74 155/78 09/13/25 09:00 96.4 18 99 96.4 09/13/25 08:05 Room Air* 0 21 Intake/Output Intake and Output 09/13/25 07:00 Intake Total 1210 ml Output Total 600 ml Balance 610 ml Intake Oral 1210 ml Output Urine Total 600 ml General Appearance: Alert, Oriented X3 Lungs: Clear to auscultation Cardiovascular: Regular rate, Normal S1, Normal S2 Abdomen: Normal bowel sounds Medications Current Medications Medications Dose Ordered Sig/Britta Route Start Time Stop Time Status Last Admin Dose Admin Famotidine 10 mg DAILY IV 08/20/25 10:00 09/09/25 09:40 10 MG Dextrose 50 ml UD PRN IV 08/20/25 05:15 Sodium Chloride 10 ml Q8HR IV 08/20/25 06:00 09/09/25 22:00 10 ML Ondansetron HCl 4 mg Q4HP PRN IV 08/20/25 05:15 Nitroglycerin 0.4 mg Q5MINP PRN SL 08/20/25 05:15 Hydralazine HCl 10 mg Q6HP PRN IV 08/20/25 05:15 08/29/25 20:44 10 MG Amlodipine Besylate 10 mg DAILY PO 08/20/25 10:00 09/13/25 08:21 10 MG Atorvastatin Calcium 40 mg HS PO 08/21/25 22:00 09/12/25 21:25 40 MG Bumetanide 1 mg BIDD IV 08/21/25 18:00 09/09/25 05:21 1 MG Docusate Sodium 100 mg BID PO 08/21/25 22:00 09/13/25 08:19 100 MG Diagnostic Test (Pha) 1 strip Q6HR 08/21/25 18:00 09/13/25 04:57 1 STRIP Insulin Human Regular Q6HR SC 08/21/25 18:00 09/12/25 18:02 3 UNITS Hydralazine HCl 25 mg Q6HR PO 08/22/25 12:00 09/13/25 05:02 25 MG Ferrous Sulfate 325 mg BIDWM PO 08/22/25 18:00 09/13/25 08:20 325 MG Aspirin 81 mg DAILY PO 08/23/25 10:00 09/13/25 08:20 81 MG Epoetin Andrew-epbx 10,000 unit MWF [place] 08/22/25 15:45 UNV Sevelamer HCl 800 mg TIDWM PO 08/22/25 18:00 09/13/25 08:19 800 MG Sodium Bicarbonate 1,300 mg TID PO 08/23/25 14:00 09/13/25 04:57 1,300 MG Carvedilol 25 mg Q12HR PO 08/23/25 22:00 09/13/25 08:22 25 MG Clonidine HCl 0.1 mg BID PRN PO 08/25/25 22:00 08/29/25 22:21 0.1 MG Clopidogrel Bisulfate 75 mg DAILY PO 08/26/25 10:00 09/14/25 23:00 09/13/25 08:21 75 MG Epoetin Andrew-epbx 10,000 unit MWF@2100 [place] 09/07/25 21:00 09/09/25 22:25 10,000 UNIT Laboratory Results Laboratory Tests 09/09/25 12:15 Urinalysis Test 08/20/25 00:06 08/22/25 12:21 Urine Color Colorless (Yellow) Urine Clarity Clear (Clear) Urine pH 6.5 (5.0-9.0) Urine Specific Adrian 1.009 (1.001-1.035) Urine Protein 2+ (Negative) H Urine Ketones Negative (Negative) Urine Blood 2+ /uL (Negative) H Urine Nitrite Negative (Negative) Urine Bilirubin Negative (Negative) Urine Urobilinogen Normal mg/dL (Negative) Urine Leukocyte Esterase Negative /uL (Negative) Urine RBC 2 /hpf (0 - 3) Urine Microscopic WBC 1 /HPF (0-3) Urine Squamous Epithelial Cells None seen /hpf (<5) Urine Bacteria None seen /hpf (None Seen) Urine Glucose 3+ mg/dL (Normal) H Urine Creatinine 91.09 mg/dL (30.0-125.0) Urine Sodium 34 mmol/L (40-220) L Urine Total Protein 229.4 mg/dL (1-14) H Microbiology Microbiology Date/Time Source Procedure Growth Status 08/22/25 13:29 Blood Blood Culture - Final NO GROWTH AFTER 5 DAYS OF INCUBATION. Complete 08/20/25 18:49 Nose MRSA Screen - Final Complete Assessment/Plan Assessment/Plan 55-year-old male with a known history of congestive heart failure with systolic dysfunction, diabetes mellitus type 2, hypertension, dyslipidemia, homelessness who initially presented to the hospital with a respiratory distress found to have acute hypoxic respiratory failure suspected secondary to congestive heart failure with systolic dysfunction/multifocal pneumonia. Patient's hospital course was eventful for acute CVA with a MRI evidence of infarct in the right kuldip. 1. Acute hypoxic respiratory failure secondary to acute CHF exacerbation with systolic dysfunction as well as multifocal pneumonia 2. Acute CHF exacerbation with systolic dysfunction with the EF of 25% 3. Multifocal pneumonia 4. Moderate/severe pulmonary hypertension 5. Acute CVA with PONTINE infarct in the right-sided kuldip, with a left-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 6. AKA with a underlying CKD, progressing to end-stage renal disease, tunneled dialysis catheter will be placed, currently hemodialysis via Alonzo catheter 7. Previous history of CVA with a mild left residual deficit 8. NSTEMI type 2 suspect secondary to acute CHF exacerbation 9. 1/2 Gram-negative bacteremia with coag-negative staph, suspect contamination 10. Hypertension, stable -DIALYSIS PER RENAL -aspirin, statin, continue IV diuretics, continue IV antibiotics -repeat blood cultures, strict I&Os, daily weight. Dispo: Pending HD placement. Insurance approval Plan discussed with: Patient My Orders Orders - EDMUNDO REYNA MD Procedure Category Date Status Time Pt Request For Service PT 09/13/25 Logged 10:55 Date of Service: Sep 13, 2025 Billing Provider: EDMUNDO REYNA MD Common Visit Codes: [id number] INP/OBS CARE(HIGH) EDMUNDO REYNA MD Sep 13, 2025 12:24
--- NOTE | 2025-09-13 13:22 | DVHPN2 ---
Progress Note - Dictate Date Seen: Sep 13, 2025 Medical Necessity Reason Pt with a Central, PICC or Fol: No Subjective Patient awake, seen earlier this morning vital signs Vital Sign Date Time Temp Pulse Resp B/P (MAP) Pulse Ox O2 Delivery O2 Flow Rate FiO2 09/13/25 12:29 155/78 09/13/25 09:22 74 09/13/25 09:00 96.4 18 99 96.4 09/13/25 08:05 Room Air* 0 21 Total Intake and Output 09/12/25 09/12/25 09/13/25 15:00 23:00 07:00 Intake Total 480 ml 730 ml Output Total 600 ml Balance 480 ml 130 ml medications Current Medications Medications Dose Ordered Sig/Britta Route Start Time Stop Time Status Last Admin Dose Admin Famotidine 10 mg DAILY IV 08/20/25 10:00 09/09/25 09:40 10 MG Dextrose 50 ml UD PRN IV 08/20/25 05:15 Sodium Chloride 10 ml Q8HR IV 08/20/25 06:00 09/09/25 22:00 10 ML Ondansetron HCl 4 mg Q4HP PRN IV 08/20/25 05:15 Nitroglycerin 0.4 mg Q5MINP PRN SL 08/20/25 05:15 Hydralazine HCl 10 mg Q6HP PRN IV 08/20/25 05:15 08/29/25 20:44 10 MG Amlodipine Besylate 10 mg DAILY PO 08/20/25 10:00 09/13/25 08:21 10 MG Atorvastatin Calcium 40 mg HS PO 08/21/25 22:00 09/12/25 21:25 40 MG Bumetanide 1 mg BIDD IV 08/21/25 18:00 09/09/25 05:21 1 MG Docusate Sodium 100 mg BID PO 08/21/25 22:00 09/13/25 08:19 100 MG Diagnostic Test (Pha) 1 strip Q6HR 08/21/25 18:00 09/13/25 12:00 1 STRIP Insulin Human Regular Q6HR SC 08/21/25 18:00 09/12/25 18:02 3 UNITS Hydralazine HCl 25 mg Q6HR PO 08/22/25 12:00 09/13/25 12:29 25 MG Ferrous Sulfate 325 mg BIDWM PO 08/22/25 18:00 09/13/25 08:20 325 MG Aspirin 81 mg DAILY PO 08/23/25 10:00 09/13/25 08:20 81 MG Epoetin Andrew-epbx 10,000 unit MWF [place] 08/22/25 15:45 UNV Sevelamer HCl 800 mg TIDWM PO 08/22/25 18:00 09/13/25 12:27 800 MG Sodium Bicarbonate 1,300 mg TID PO 08/23/25 14:00 09/13/25 04:57 1,300 MG Carvedilol 25 mg Q12HR PO 08/23/25 22:00 09/13/25 08:22 25 MG Clonidine HCl 0.1 mg BID PRN PO 08/25/25 22:00 08/29/25 22:21 0.1 MG Clopidogrel Bisulfate 75 mg DAILY PO 08/26/25 10:00 09/14/25 23:00 09/13/25 08:21 75 MG Epoetin Andrew-epbx 10,000 unit MWF@2100 [place] 09/07/25 21:00 09/09/25 22:25 10,000 UNIT objective Gen: nad heent: nc/at, mmm lungs: cta anteriorly cvs: no rub abd: soft, bowel sounds audible ext: no edema skin: no rash neuro: alert and oriented laboratory and microbiology Laboratory Tests 09/09/25 12:15 Test 09/09/25 12:15 Range/Units Serum Glucose 116 H 74-106 mg/dL Assessment/Plan Acute kidney injury hemodynamically mediated in the setting of hypertensive emergency CKD 5 with progression to ESRD Acute CVA w/ new deficits hypertensive emergency HTN NSTEMI with congestive heart failure EF of 25% Anemia due to chronic kidney disease - repeat bmp - dialysis tentatively 09/14 Dietary Evaluation Review Comments: Nutrition Recommendation: 1) CCHO 75gm + renal standard diet 2) Nephro-marcial 1 tab daily 3) Monitor PO intake, lab values, weight trend, and I/O Expected Outcomes/Goals: Intake to meet >75% estimated needs Lab values to improve FU 3-5 days Plan discussed with: KIM Winston MD Sep 13, 2025 13:22
[2025-09-13 15:46] LABS: Potassium 4.8 mmol/L (3.5-5.1); Sodium 138 mmol/L (136-145)
[2025-09-13 15:47] LABS: Anion Gap 11 (5-15); Calcium 9.4 mg/dL (8.7-10.4); Carbon Dioxide 31 mmol/L (20-31)
[2025-09-13 15:52] LABS: BUN/Creatinine Ratio 8.2 (10.0-20.0)
[2025-09-13 15:53] LABS: Blood Urea Nitrogen 61 mg/dL (9-23); Chloride 96 mmol/L (98-107); Glucose 133 mg/dL (74-106)
--- NOTE | 2025-09-13 21:43 | DVHPN2 ---
Progress Note - Dictate Date Seen: Sep 13, 2025 Medical Necessity Reason Pt with a Central, PICC or Fol: No Subjective Patient was seen and evaluated in follow up. No overnight events. BUN 61, Crt7.46. Telemetry reviewed. vital signs Vital Sign Date Time Temp Pulse Resp B/P (MAP) Pulse Ox O2 Delivery O2 Flow Rate FiO2 09/13/25 12:29 155/78 09/13/25 09:22 74 09/13/25 09:00 96.4 18 99 96.4 09/13/25 08:05 Room Air* 0 21 Total Intake and Output 09/12/25 09/12/25 09/13/25 15:00 23:00 07:00 Intake Total 480 ml 730 ml Output Total 600 ml Balance 480 ml 130 ml medications Current Medications Medications Dose Ordered Sig/Britta Route Start Time Stop Time Status Last Admin Dose Admin Famotidine 10 mg DAILY IV 08/20/25 10:00 09/09/25 09:40 10 MG Dextrose 50 ml UD PRN IV 08/20/25 05:15 Sodium Chloride 10 ml Q8HR IV 08/20/25 06:00 09/09/25 22:00 10 ML Ondansetron HCl 4 mg Q4HP PRN IV 08/20/25 05:15 Nitroglycerin 0.4 mg Q5MINP PRN SL 08/20/25 05:15 Hydralazine HCl 10 mg Q6HP PRN IV 08/20/25 05:15 08/29/25 20:44 10 MG Amlodipine Besylate 10 mg DAILY PO 08/20/25 10:00 09/13/25 08:21 10 MG Atorvastatin Calcium 40 mg HS PO 08/21/25 22:00 09/12/25 21:25 40 MG Bumetanide 1 mg BIDD IV 08/21/25 18:00 09/09/25 05:21 1 MG Docusate Sodium 100 mg BID PO 08/21/25 22:00 09/13/25 08:19 100 MG Diagnostic Test (Pha) 1 strip Q6HR 08/21/25 18:00 09/13/25 12:00 1 STRIP Insulin Human Regular Q6HR SC 08/21/25 18:00 09/12/25 18:02 3 UNITS Hydralazine HCl 25 mg Q6HR PO 08/22/25 12:00 09/13/25 12:29 25 MG Ferrous Sulfate 325 mg BIDWM PO 08/22/25 18:00 09/13/25 08:20 325 MG Aspirin 81 mg DAILY PO 08/23/25 10:00 09/13/25 08:20 81 MG Epoetin Andrew-epbx 10,000 unit MWF [place] 08/22/25 15:45 UNV Sevelamer HCl 800 mg TIDWM PO 08/22/25 18:00 09/13/25 12:27 800 MG Sodium Bicarbonate 1,300 mg TID PO 08/23/25 14:00 09/13/25 14:30 1,300 MG Carvedilol 25 mg Q12HR PO 08/23/25 22:00 09/13/25 08:22 25 MG Clonidine HCl 0.1 mg BID PRN PO 08/25/25 22:00 08/29/25 22:21 0.1 MG Clopidogrel Bisulfate 75 mg DAILY PO 08/26/25 10:00 09/14/25 23:00 09/13/25 08:21 75 MG Epoetin Andrew-epbx 10,000 unit MWF@2100 [place] 09/07/25 21:00 09/09/25 22:25 10,000 UNIT objective GENERAL: Alert and oriented x 3. No acute distress. EYES: PERRL, EOMI. Anicteric. HENT: Moist mucous membranes. LUNGS: Clear to auscultation bilaterally. CARDIOVASCULAR: Regular rate and rhythm. ABDOMEN: Soft, non-tender and non-distended. EXTREMITIES: No edema. NEUROLOGIC: No focal neurological deficits. SKIN: Warm, dry. laboratory and microbiology Laboratory Tests 09/09/25 12:15 Test 09/09/25 12:15 Range/Units Serum Glucose 116 H 74-106 mg/dL Problem List Acute on chronic CHF. NSTEMI likely type 2 AK. Hypertensive emergency. GISSELL on CKD. Medication noncompliance. Acute hypoxic respiratory failure, multifocal pneumonia. Cardiomyopathy. Acute pontine stroke with dysarthria, left facial weakness, left hemiplegia. Chronic left hemispheres stroke. Assessment/Plan Continued all current supportive medical care. Amlodipine, Coreg, Clonidine, Hydralazine. Aspirin, Lipitor, Plavix. Diuretics with Bumex. IV Hydralazine for SBP >150. Additional plan as per the hospital course. Dietary Evaluation Review Comments: Nutrition Recommendation: 1) CCHO 75gm + renal standard diet 2) Nephro-marcial 1 tab daily 3) Monitor PO intake, lab values, weight trend, and I/O Expected Outcomes/Goals: Intake to meet >75% estimated needs Lab values to improve FU 3-5 days Plan discussed with: Patient RAMIN OLIVIER MD Sep 13, 2025 14:40
--- NOTE | 2025-09-13 23:01 | DVHPN2 ---
Progress Note - Dictate Date Seen: Sep 13, 2025 Medical Necessity Reason Pt with a Central, PICC or Fol: No Subjective Mr. Thomas is a 55 years old right-handed gentleman with a history of hypertension, diabetes, congestive heart failure, COPD, asthma, the patient was admitted on 08/19/2025 with a chief complaint of shortness breath, but he was has other complaints I have seen and examined the patient, talked to his nurse. No obvious improvement in the left hemiparesis. No new complaints UDS, 08/20/2025: Negative WBC/HB/PLT/MCV, 08/25/2025: 5.2/10.5/160/91 BUN/CR, 08/19/2025: 49/9.09, 08/21/2025: 65/9.36, 08/25/2025: 106/9.55 HCO3, 08/19/2025:18 , 08/20/2025: 19. Lactic acid, 08/19/2025: 5.3 Liver function tests, 08/21/2025: Unremarkable TG/HDL/LDL/HDL, 08/20/2025: 42/141/86/35 Echocardiogram, 08/20/2025: DILATED LV AND IS MODERATELY HYPOKINETIC LV EF IS ONLT 25% DYSKINESIS OF IVS NORMAL VALVES MODERATE DEGREE PULMONARY HYPERTENSION RVSP IS 45 MM OF HG AND IS MODERATELY HIGH NO EFFUSION Extremity Venous study, 08/25/2025: Thrombus basilic vein and cephalic vein Carotid Doppler, 08/26/2025: Right carotid system not evaluated due to overlying bandaging and IJ line. Left carotid system demonstrates no hemodynamically significant stenosis. Chest x-ray, 08/19/2025: Multifocal pneumonia throughout both lungs CT head, 08/21/2025: 1. No acute territorial infarct, intracranial hemorrhage, or mass effect. 2. Age-related involutional changes. Chronic ischemic changes as detailed. 3. If clinical symptoms persist, MRI may be beneficial in further evaluation MRI head, 08/22/2025: Acute infarct right kuldip measuring 2.1 cm. Left parietal encephalomalacia vital signs Vital Sign Date Time Temp Pulse Resp B/P (MAP) Pulse Ox O2 Delivery O2 Flow Rate FiO2 09/13/25 22:15 73 146/84 09/13/25 21:00 98.4 17 98 98.4 09/13/25 20:00 Room Air* 0 21 Total Intake and Output 09/12/25 09/12/25 09/13/25 15:00 23:00 07:00 Intake Total 480 ml 730 ml Output Total 600 ml Balance 480 ml 130 ml medications Current Medications Medications Dose Ordered Sig/Britta Route Start Time Stop Time Status Last Admin Dose Admin Famotidine 10 mg DAILY IV 08/20/25 10:00 09/09/25 09:40 10 MG Dextrose 50 ml UD PRN IV 08/20/25 05:15 Sodium Chloride 10 ml Q8HR IV 08/20/25 06:00 09/09/25 22:00 10 ML Ondansetron HCl 4 mg Q4HP PRN IV 08/20/25 05:15 Nitroglycerin 0.4 mg Q5MINP PRN SL 08/20/25 05:15 Hydralazine HCl 10 mg Q6HP PRN IV 08/20/25 05:15 08/29/25 20:44 10 MG Amlodipine Besylate 10 mg DAILY PO 08/20/25 10:00 09/13/25 08:21 10 MG Atorvastatin Calcium 40 mg HS PO 08/21/25 22:00 09/13/25 21:00 40 MG Bumetanide 1 mg BIDD IV 08/21/25 18:00 09/09/25 05:21 1 MG Docusate Sodium 100 mg BID PO 08/21/25 22:00 09/13/25 21:00 100 MG Diagnostic Test (Pha) 1 strip Q6HR 08/21/25 18:00 09/13/25 17:39 1 STRIP Insulin Human Regular Q6HR SC 08/21/25 18:00 09/12/25 18:02 3 UNITS Hydralazine HCl 25 mg Q6HR PO 08/22/25 12:00 09/13/25 17:39 25 MG Ferrous Sulfate 325 mg BIDWM PO 08/22/25 18:00 09/13/25 17:20 325 MG Aspirin 81 mg DAILY PO 08/23/25 10:00 09/13/25 08:20 81 MG Epoetin Andrew-epbx 10,000 unit MWF [place] 08/22/25 15:45 UNV Sevelamer HCl 800 mg TIDWM PO 08/22/25 18:00 09/13/25 17:19 800 MG Sodium Bicarbonate 1,300 mg TID PO 08/23/25 14:00 09/13/25 21:00 1,300 MG Carvedilol 25 mg Q12HR PO 08/23/25 22:00 09/13/25 21:00 25 MG Clonidine HCl 0.1 mg BID PRN PO 08/25/25 22:00 08/29/25 22:21 0.1 MG Clopidogrel Bisulfate 75 mg DAILY PO 08/26/25 10:00 09/14/25 23:00 09/13/25 08:21 75 MG Epoetin Andrew-epbx 10,000 unit MWF@2100 [place] 09/07/25 21:00 09/09/25 22:25 10,000 UNIT objective General: the patient is well developed and nourished. No acute distress. MENTAL STATUS: Awake and alert. Oriented to person, place, time SPEECH, LANGUAGE, HIGHER CORTICAL FUNCTION: no aphasia he has has mild dysarthria CRANIAL NERVES: Pupils are equal, round and reactive. EOMs full and conjugate. Facial sensation intact in all three divisions bilaterally. Mandibular strength intact. Left facial weakness of upper motor neuron pattern SENSATION: Sensation to touch and pinprick is normal. MOTOR: Normal tone in the upper and lower extremity. Normal muscle bulk. No fasciculations. No abnormal movements or posturing. Muscle strength of the major groups in the right extremities is 5/5. Muscle strength of the major groups in the left extremities is: Arm: 2-3/5 with gripping stronger, le/5. REFLEXES: Deep tendon reflexes are symmetrical. No pathological reflexes. CEREBELLAR/COORDINATION: Finger to nose is normal in the right hand GAIT/STATION: deferred laboratory and microbiology Laboratory Tests 09/13/25 15:24 09/09/25 12:15 Test 09/13/25 15:24 Range/Units Serum Glucose 133 H 74-106 mg/dL Problem List Acute pontine stroke with dysarthria, left facial weakness, left hemiplegia Chronic left hemispheres stroke Sleep-related breathing disorder Kidney failure Acute respiratory failure Congestive heart failure Assessment/Plan Monitoring Supportive treatment Telemetry AMANDA, he refused Aspirin 81 mg daily Plavix 75 mg daily for 21 days Lipitor 40 mg daily Oxygen Hemodialysis Nephrology on case Cardiology on case Address sleep-related breathing disorder later I have discussed with him about stroke risk facts, secondary stroke prevention This medical document was created using an electronic medical record system with [employer] dictation system. Although this document has been carefully reviewed, there may still be some phonetic and typographical errors. These areas are purely typographical due to imperfections of the software programs, and do not reflect any compromise in the patient's medical care. Prognosis poor Dietary Evaluation Review Comments: Nutrition Recommendation: 1) CCHO 75gm + renal standard diet 2) Nephro-marcial 1 tab daily 3) Monitor PO intake, lab values, weight trend, and I/O Expected Outcomes/Goals: Intake to meet >75% estimated needs Lab values to improve FU 3-5 days Plan discussed with: Other CORAZON ALVARADO MD Sep 13, 2025 23:01
[2025-09-14] VITALS (8 sets, daily range): BP systolic 111–158; BP diastolic 64–88; PULSE 74–83; RESP 16–18; TEMP 98–98.7; O2SAT 96–100
--- NOTE | 2025-09-14 17:21 | DVHPN2 ---
Subjective In bed feeling well Reviewed: Care Plan, H&P Changes from previous H/P or p: No Changes General: Per HPI Eyes: No Pain, No Vision change, No Conjunctivae inflammation, No Eyelid inflammation, No Other, No Redness ENT: No Ear pain, No Ear discharge, No Nose pain, No Nose discharge, No Nose congestion, No Mouth pain, No Mouth swelling, No Throat pain, No Throat swelling, No Other Cardiovascular: No Chest Pain, No Palpitations, No Orthopnea, No Paroxysmal Noc. Dyspnea, No Edema, No Lt Headedness, No Other Respiratory: No Cough, No Dry; Shortness of breath; No SOB with excertion, No Wheezing, No Hemoptysis, No Pleuritic Pain, No Sputum; Other (SOB at rest) Gastrointestinal: No Nausea, No Vomiting, No Abdominal Pain, No Diarrhea, No Constipation, No Melena, No Hematochezia, No Other Genitourinary: No Dysuria, No Frequency, No Incontinence, No Hematuria, No Retention, No Other Musculoskeletal: No other, No neck pain, No shoulder pain, No arm pain, No back pain, No hand pain, No leg pain, No foot pain Skin: No Rash, No Lesions, No Jaundice, No Bruising, No Other Objective Vitals Vital Signs Date Time Temp Pulse Resp B/P (MAP) Pulse Ox O2 Delivery O2 Flow Rate FiO2 09/14/25 13:00 98.5 83 18 158/80 (106) 97 98.5 09/14/25 08:00 Room Air* 0 21 Intake/Output Intake and Output 09/14/25 05:00 Intake Total 1666 ml Output Total 600 ml Balance 1066 ml Intake Oral 1666 ml Output Urine Total 600 ml # Voids 1 General Appearance: Alert, Oriented X3 Lungs: Clear to auscultation Cardiovascular: Regular rate, Normal S1, Normal S2 Abdomen: Normal bowel sounds Medications Current Medications Medications Dose Ordered Sig/Britta Route Start Time Stop Time Status Last Admin Dose Admin Famotidine 10 mg DAILY IV 08/20/25 10:00 09/09/25 09:40 10 MG Dextrose 50 ml UD PRN IV 08/20/25 05:15 Sodium Chloride 10 ml Q8HR IV 08/20/25 06:00 09/09/25 22:00 10 ML Ondansetron HCl 4 mg Q4HP PRN IV 08/20/25 05:15 Nitroglycerin 0.4 mg Q5MINP PRN SL 08/20/25 05:15 Hydralazine HCl 10 mg Q6HP PRN IV 08/20/25 05:15 08/29/25 20:44 10 MG Amlodipine Besylate 10 mg DAILY PO 08/20/25 10:00 09/13/25 08:21 10 MG Atorvastatin Calcium 40 mg HS PO 08/21/25 22:00 09/13/25 21:00 40 MG Bumetanide 1 mg BIDD IV 08/21/25 18:00 09/09/25 05:21 1 MG Docusate Sodium 100 mg BID PO 08/21/25 22:00 09/14/25 11:19 100 MG Diagnostic Test (Pha) 1 strip Q6HR 08/21/25 18:00 09/14/25 12:40 1 STRIP Insulin Human Regular Q6HR SC 08/21/25 18:00 09/12/25 18:02 3 UNITS Hydralazine HCl 25 mg Q6HR PO 08/22/25 12:00 09/14/25 12:40 25 MG Ferrous Sulfate 325 mg BIDWM PO 08/22/25 18:00 09/14/25 08:07 325 MG Aspirin 81 mg DAILY PO 08/23/25 10:00 09/14/25 11:19 81 MG Epoetin Andrew-epbx 10,000 unit MWF [place] 08/22/25 15:45 UNV Sevelamer HCl 800 mg TIDWM PO 08/22/25 18:00 09/14/25 12:39 800 MG Sodium Bicarbonate 1,300 mg TID PO 08/23/25 14:00 09/14/25 15:36 1,300 MG Carvedilol 25 mg Q12HR PO 08/23/25 22:00 09/13/25 21:00 25 MG Clonidine HCl 0.1 mg BID PRN PO 08/25/25 22:00 08/29/25 22:21 0.1 MG Clopidogrel Bisulfate 75 mg DAILY PO 08/26/25 10:00 09/14/25 23:00 09/14/25 11:21 75 MG Epoetin Andrew-epbx 10,000 unit MWF@2100 [place] 09/07/25 21:00 09/09/25 22:25 10,000 UNIT Laboratory Results Laboratory Tests 09/09/25 12:15 09/13/25 15:24 Urinalysis Test 08/20/25 00:06 08/22/25 12:21 Urine Color Colorless (Yellow) Urine Clarity Clear (Clear) Urine pH 6.5 (5.0-9.0) Urine Specific [place] 1.009 (1.001-1.035) Urine Protein 2+ (Negative) H Urine Ketones Negative (Negative) Urine Blood 2+ /uL (Negative) H Urine Nitrite Negative (Negative) Urine Bilirubin Negative (Negative) Urine Urobilinogen Normal mg/dL (Negative) Urine Leukocyte Esterase Negative /uL (Negative) Urine RBC 2 /hpf (0 - 3) Urine Microscopic WBC 1 /HPF (0-3) Urine Squamous Epithelial Cells None seen /hpf (<5) Urine Bacteria None seen /hpf (None Seen) Urine Glucose 3+ mg/dL (Normal) H Urine Creatinine 91.09 mg/dL (30.0-125.0) Urine Sodium 34 mmol/L (40-220) L Urine Total Protein 229.4 mg/dL (1-14) H Microbiology Microbiology Date/Time Source Procedure Growth Status 08/22/25 13:29 Blood Blood Culture - Final NO GROWTH AFTER 5 DAYS OF INCUBATION. Complete 08/20/25 18:49 Nose MRSA Screen - Final Complete Assessment/Plan Assessment/Plan 55-year-old male with a known history of congestive heart failure with systolic dysfunction, diabetes mellitus type 2, hypertension, dyslipidemia, homelessness who initially presented to the hospital with a respiratory distress found to have acute hypoxic respiratory failure suspected secondary to congestive heart failure with systolic dysfunction/multifocal pneumonia. Patient's hospital course was eventful for acute CVA with a MRI evidence of infarct in the right kuldip. 1. Acute hypoxic respiratory failure secondary to acute CHF exacerbation with systolic dysfunction as well as multifocal pneumonia 2. Acute CHF exacerbation with systolic dysfunction with the EF of 25% 3. Multifocal pneumonia 4. Moderate/severe pulmonary hypertension 5. Acute CVA with PONTINE infarct in the right-sided kuldip, with a left-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 6. AKA with a underlying CKD, progressing to end-stage renal disease, tunneled dialysis catheter will be placed, currently hemodialysis via Alonzo catheter 7. Previous history of CVA with a mild left residual deficit 8. NSTEMI type 2 suspect secondary to acute CHF exacerbation 9. 1/2 Gram-negative bacteremia with coag-negative staph, suspect contamination 10. Hypertension, stable -DIALYSIS PER RENAL -aspirin, statin, continue IV diuretics, continue IV antibiotics -repeat blood cultures, strict I&Os, daily weight. Dispo: Pending HD placement. Insurance approval PT eval>SNF placement Plan discussed with: Patient My Orders Orders - EDMUNDO REYNA MD Procedure Category Date Status Time * [employer] CONS 09/14/25 Transmitted Consult Date of Service: Sep 14, 2025 Billing Provider: EDMUNDO REYNA MD Common Visit Codes: [id number] INP/OBS CARE(HIGH) EDMUNDO REYNA MD Sep 14, 2025 17:21
--- NOTE | 2025-09-14 19:31 | DVHPN2 ---
Progress Note - Dictate Date Seen: Sep 14, 2025 Medical Necessity Reason Pt with a Central, PICC or Fol: No Subjective Patient awake, seen earlier this evening. vital signs Vital Sign Date Time Temp Pulse Resp B/P (MAP) Pulse Ox O2 Delivery O2 Flow Rate FiO2 09/14/25 17:00 98.6 76 18 150/81 (104) 99 98.6 09/14/25 08:00 Room Air* 0 21 Total Intake and Output 09/13/25 09/13/25 09/14/25 15:00 23:00 07:00 Intake Total 200 ml 736 ml Output Total 0 ml Balance 200 ml 736 ml medications Current Medications Medications Dose Ordered Sig/Britta Route Start Time Stop Time Status Last Admin Dose Admin Famotidine 10 mg DAILY IV 08/20/25 10:00 09/09/25 09:40 10 MG Dextrose 50 ml UD PRN IV 08/20/25 05:15 Sodium Chloride 10 ml Q8HR IV 08/20/25 06:00 09/09/25 22:00 10 ML Ondansetron HCl 4 mg Q4HP PRN IV 08/20/25 05:15 Nitroglycerin 0.4 mg Q5MINP PRN SL 08/20/25 05:15 Hydralazine HCl 10 mg Q6HP PRN IV 08/20/25 05:15 08/29/25 20:44 10 MG Amlodipine Besylate 10 mg DAILY PO 08/20/25 10:00 09/13/25 08:21 10 MG Atorvastatin Calcium 40 mg HS PO 08/21/25 22:00 09/13/25 21:00 40 MG Bumetanide 1 mg BIDD IV 08/21/25 18:00 09/09/25 05:21 1 MG Docusate Sodium 100 mg BID PO 08/21/25 22:00 09/14/25 11:19 100 MG Diagnostic Test (Pha) 1 strip Q6HR 08/21/25 18:00 09/14/25 18:00 1 STRIP Insulin Human Regular Q6HR SC 08/21/25 18:00 09/12/25 18:02 3 UNITS Hydralazine HCl 25 mg Q6HR PO 08/22/25 12:00 09/14/25 12:40 25 MG Ferrous Sulfate 325 mg BIDWM PO 08/22/25 18:00 09/14/25 18:53 325 MG Aspirin 81 mg DAILY PO 08/23/25 10:00 09/14/25 11:19 81 MG Epoetin Andrew-epbx 10,000 unit MWF [place] 08/22/25 15:45 UNV Sevelamer HCl 800 mg TIDWM PO 08/22/25 18:00 09/14/25 18:52 800 MG Sodium Bicarbonate 1,300 mg TID PO 08/23/25 14:00 09/14/25 15:36 1,300 MG Carvedilol 25 mg Q12HR PO 08/23/25 22:00 09/13/25 21:00 25 MG Clonidine HCl 0.1 mg BID PRN PO 08/25/25 22:00 08/29/25 22:21 0.1 MG Clopidogrel Bisulfate 75 mg DAILY PO 08/26/25 10:00 09/14/25 23:00 09/14/25 11:21 75 MG Epoetin Andrew-epbx 10,000 unit MWF@2100 [place] 09/07/25 21:00 09/09/25 22:25 10,000 UNIT objective Gen: nad heent: nc/at, mmm lungs: cta anteriorly cvs: no rub abd: soft, bowel sounds audible ext: no edema skin: no rash neuro: alert and oriented laboratory and microbiology Laboratory Tests 09/13/25 15:24 09/09/25 12:15 Test 09/13/25 15:24 Range/Units Serum Glucose 133 H 74-106 mg/dL Assessment/Plan Acute kidney injury hemodynamically mediated in the setting of hypertensive emergency CKD 5 with progression to ESRD Acute CVA w/ new deficits hypertensive emergency HTN NSTEMI with congestive heart failure EF of 25% Anemia due to chronic kidney disease - dialysis September 15 - noted plans for possible discharge - discussed plan of care with patient Dietary Evaluation Review Comments: Nutrition Recommendation: 1) CCHO 75gm + renal standard diet 2) Nephro-marcial 1 tab daily 3) Monitor PO intake, lab values, weight trend, and I/O Expected Outcomes/Goals: Intake to meet >75% estimated needs Lab values to improve FU 3-5 days Plan discussed with: Patient KIM WARNER MD Sep 14, 2025 19:31
--- NOTE | 2025-09-14 23:54 | DVHPN2 ---
Progress Note - Dictate Date Seen: Sep 14, 2025 Medical Necessity Reason Pt with a Central, PICC or Fol: No Subjective Patient was seen and evaluated in follow up. No overnight events. Patient does not voice any complaints. BS are WNL. Telemetry reviewed. vital signs Vital Sign Date Time Temp Pulse Resp B/P (MAP) Pulse Ox O2 Delivery O2 Flow Rate FiO2 09/14/25 12:40 135/80 09/14/25 09:00 98.2 75 18 97 98.2 09/14/25 08:00 Room Air* 0 21 Total Intake and Output 09/13/25 09/13/25 09/14/25 15:00 23:00 07:00 Intake Total 200 ml 736 ml Output Total 0 ml Balance 200 ml 736 ml medications Current Medications Medications Dose Ordered Sig/Britta Route Start Time Stop Time Status Last Admin Dose Admin Famotidine 10 mg DAILY IV 08/20/25 10:00 09/09/25 09:40 10 MG Dextrose 50 ml UD PRN IV 08/20/25 05:15 Sodium Chloride 10 ml Q8HR IV 08/20/25 06:00 09/09/25 22:00 10 ML Ondansetron HCl 4 mg Q4HP PRN IV 08/20/25 05:15 Nitroglycerin 0.4 mg Q5MINP PRN SL 08/20/25 05:15 Hydralazine HCl 10 mg Q6HP PRN IV 08/20/25 05:15 08/29/25 20:44 10 MG Amlodipine Besylate 10 mg DAILY PO 08/20/25 10:00 09/13/25 08:21 10 MG Atorvastatin Calcium 40 mg HS PO 08/21/25 22:00 09/13/25 21:00 40 MG Bumetanide 1 mg BIDD IV 08/21/25 18:00 09/09/25 05:21 1 MG Docusate Sodium 100 mg BID PO 08/21/25 22:00 09/14/25 11:19 100 MG Diagnostic Test (Pha) 1 strip Q6HR 08/21/25 18:00 09/14/25 12:40 1 STRIP Insulin Human Regular Q6HR SC 08/21/25 18:00 09/12/25 18:02 3 UNITS Hydralazine HCl 25 mg Q6HR PO 08/22/25 12:00 09/14/25 12:40 25 MG Ferrous Sulfate 325 mg BIDWM PO 08/22/25 18:00 09/14/25 08:07 325 MG Aspirin 81 mg DAILY PO 08/23/25 10:00 09/14/25 11:19 81 MG Epoetin Andrew-epbx 10,000 unit MWF [place] 08/22/25 15:45 UNV Sevelamer HCl 800 mg TIDWM PO 08/22/25 18:00 09/14/25 12:39 800 MG Sodium Bicarbonate 1,300 mg TID PO 08/23/25 14:00 09/14/25 05:31 1,300 MG Carvedilol 25 mg Q12HR PO 08/23/25 22:00 09/13/25 21:00 25 MG Clonidine HCl 0.1 mg BID PRN PO 08/25/25 22:00 08/29/25 22:21 0.1 MG Clopidogrel Bisulfate 75 mg DAILY PO 08/26/25 10:00 09/14/25 23:00 09/14/25 11:21 75 MG Epoetin Andrew-epbx 10,000 unit MWF@2100 [place] 09/07/25 21:00 09/09/25 22:25 10,000 UNIT objective GENERAL: Alert and oriented x 3. No acute distress. EYES: PERRL, EOMI. Anicteric. HENT: Moist mucous membranes. LUNGS: Clear to auscultation bilaterally. CARDIOVASCULAR: Regular rate and rhythm. ABDOMEN: Soft, non-tender and non-distended. EXTREMITIES: No edema. NEUROLOGIC: No focal neurological deficits. SKIN: Warm, dry. laboratory and microbiology Laboratory Tests 09/13/25 15:24 09/09/25 12:15 Test 09/13/25 15:24 Range/Units Serum Glucose 133 H 74-106 mg/dL Problem List Acute on chronic CHF. NSTEMI likely type 2 [place]. Hypertensive emergency. GISSELL on CKD. Medication noncompliance. Acute hypoxic respiratory failure, multifocal pneumonia. Cardiomyopathy. Acute pontine stroke with dysarthria, left facial weakness, left hemiplegia. Chronic left hemispheres stroke. Assessment/Plan Continued all current supportive medical care. Amlodipine, Coreg, Clonidine, Hydralazine. Aspirin, Lipitor, Plavix. Diuretics with Bumex. IV Hydralazine for SBP >150. Additional plan as per the hospital course. Dietary Evaluation Review Comments: Nutrition Recommendation: 1) CCHO 75gm + renal standard diet 2) Nephro-marcial 1 tab daily 3) Monitor PO intake, lab values, weight trend, and I/O Expected Outcomes/Goals: Intake to meet >75% estimated needs Lab values to improve FU 3-5 days Plan discussed with: Patient RAMIN OLIVIER MD Sep 14, 2025 12:50
[2025-09-15] VITALS (9 sets, daily range): BP systolic 135–166; BP diastolic 75–91; PULSE 75–113; RESP 14–20; TEMP 97.4–98.4; O2SAT 97–99
--- NOTE | 2025-09-15 13:28 | DVHPN2 ---
Subjective In bed feeling well Reviewed: Care Plan, H&P Changes from previous H/P or p: No Changes General: Per HPI Eyes: No Pain, No Vision change, No Conjunctivae inflammation, No Eyelid inflammation, No Other, No Redness ENT: No Ear pain, No Ear discharge, No Nose pain, No Nose discharge, No Nose congestion, No Mouth pain, No Mouth swelling, No Throat pain, No Throat swelling, No Other Cardiovascular: No Chest Pain, No Palpitations, No Orthopnea, No Paroxysmal Noc. Dyspnea, No Edema, No Lt Headedness, No Other Respiratory: No Cough, No Dry; Shortness of breath; No SOB with excertion, No Wheezing, No Hemoptysis, No Pleuritic Pain, No Sputum; Other (SOB at rest) Gastrointestinal: No Nausea, No Vomiting, No Abdominal Pain, No Diarrhea, No Constipation, No Melena, No Hematochezia, No Other Genitourinary: No Dysuria, No Frequency, No Incontinence, No Hematuria, No Retention, No Other Musculoskeletal: No other, No neck pain, No shoulder pain, No arm pain, No back pain, No hand pain, No leg pain, No foot pain Skin: No Rash, No Lesions, No Jaundice, No Bruising, No Other Objective Vitals Vital Signs Date Time Temp Pulse Resp B/P (MAP) Pulse Ox O2 Delivery O2 Flow Rate FiO2 09/15/25 12:25 98.1 80 20 140/79 (99) 98 98.1 09/15/25 08:00 Room Air* 0 21 Intake/Output Intake and Output 09/15/25 07:00 Intake Total 1100 ml Output Total 1600 ml Balance -500 ml Intake Oral 1100 ml Output Urine Total 1600 ml # Bowel Movements 1 General Appearance: Alert, Oriented X3 Lungs: Clear to auscultation Cardiovascular: Regular rate, Normal S1, Normal S2 Abdomen: Normal bowel sounds Medications Current Medications Medications Dose Ordered Sig/Britta Route Start Time Stop Time Status Last Admin Dose Admin Famotidine 10 mg DAILY IV 08/20/25 10:00 09/09/25 09:40 10 MG Dextrose 50 ml UD PRN IV 08/20/25 05:15 Sodium Chloride 10 ml Q8HR IV 08/20/25 06:00 09/09/25 22:00 10 ML Ondansetron HCl 4 mg Q4HP PRN IV 08/20/25 05:15 Nitroglycerin 0.4 mg Q5MINP PRN SL 08/20/25 05:15 Hydralazine HCl 10 mg Q6HP PRN IV 08/20/25 05:15 08/29/25 20:44 10 MG Amlodipine Besylate 10 mg DAILY PO 08/20/25 10:00 09/15/25 09:30 10 MG Atorvastatin Calcium 40 mg HS PO 08/21/25 22:00 09/14/25 22:45 40 MG Bumetanide 1 mg BIDD IV 08/21/25 18:00 09/09/25 05:21 1 MG Docusate Sodium 100 mg BID PO 08/21/25 22:00 09/15/25 09:30 100 MG Diagnostic Test (Pha) 1 strip Q6HR 08/21/25 18:00 09/15/25 12:03 1 STRIP Insulin Human Regular Q6HR SC 08/21/25 18:00 09/14/25 23:48 2 UNITS Hydralazine HCl 25 mg Q6HR PO 08/22/25 12:00 09/15/25 12:01 25 MG Ferrous Sulfate 325 mg BIDWM PO 08/22/25 18:00 09/15/25 07:52 325 MG Aspirin 81 mg DAILY PO 08/23/25 10:00 09/15/25 09:29 81 MG Epoetin Andrew-epbx 10,000 unit MWF [place] 08/22/25 15:45 UNV Sevelamer HCl 800 mg TIDWM PO 08/22/25 18:00 09/15/25 12:01 800 MG Sodium Bicarbonate 1,300 mg TID PO 08/23/25 14:00 09/15/25 05:32 1,300 MG Carvedilol 25 mg Q12HR PO 08/23/25 22:00 09/15/25 09:29 25 MG Clonidine HCl 0.1 mg BID PRN PO 08/25/25 22:00 08/29/25 22:21 0.1 MG Epoetin Andrew-epbx 10,000 unit MWF@2100 [place] 09/07/25 21:00 09/14/25 22:46 10,000 UNIT Laboratory Results Laboratory Tests 09/09/25 12:15 09/13/25 15:24 Urinalysis Test 08/20/25 00:06 08/22/25 12:21 Urine Color Colorless (Yellow) Urine Clarity Clear (Clear) Urine pH 6.5 (5.0-9.0) Urine Specific [place] 1.009 (1.001-1.035) Urine Protein 2+ (Negative) H Urine Ketones Negative (Negative) Urine Blood 2+ /uL (Negative) H Urine Nitrite Negative (Negative) Urine Bilirubin Negative (Negative) Urine Urobilinogen Normal mg/dL (Negative) Urine Leukocyte Esterase Negative /uL (Negative) Urine RBC 2 /hpf (0 - 3) Urine Microscopic WBC 1 /HPF (0-3) Urine Squamous Epithelial Cells None seen /hpf (<5) Urine Bacteria None seen /hpf (None Seen) Urine Glucose 3+ mg/dL (Normal) H Urine Creatinine 91.09 mg/dL (30.0-125.0) Urine Sodium 34 mmol/L (40-220) L Urine Total Protein 229.4 mg/dL (1-14) H Microbiology Microbiology Date/Time Source Procedure Growth Status 08/22/25 13:29 Blood Blood Culture - Final NO GROWTH AFTER 5 DAYS OF INCUBATION. Complete 08/20/25 18:49 Nose MRSA Screen - Final Complete Assessment/Plan Assessment/Plan 55-year-old male with a known history of congestive heart failure with systolic dysfunction, diabetes mellitus type 2, hypertension, dyslipidemia, homelessness who initially presented to the hospital with a respiratory distress found to have acute hypoxic respiratory failure suspected secondary to congestive heart failure with systolic dysfunction/multifocal pneumonia. Patient's hospital course was eventful for acute CVA with a MRI evidence of infarct in the right kuldip. 1. Acute hypoxic respiratory failure secondary to acute CHF exacerbation with systolic dysfunction as well as multifocal pneumonia 2. Acute CHF exacerbation with systolic dysfunction with the EF of 25% 3. Multifocal pneumonia 4. Moderate/severe pulmonary hypertension 5. Acute CVA with PONTINE infarct in the right-sided kuldip, with a left-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 6. AKA with a underlying CKD, progressing to end-stage renal disease, tunneled dialysis catheter will be placed, currently hemodialysis via Alonzo catheter 7. Previous history of CVA with a mild left residual deficit 8. NSTEMI type 2 suspect secondary to acute CHF exacerbation 9. 1/2 Gram-negative bacteremia with coag-negative staph, suspect contamination 10. Hypertension, stable -DIALYSIS PER RENAL -aspirin, statin, continue IV diuretics, continue IV antibiotics -repeat blood cultures, strict I&Os, daily weight. Dispo: Pending HD placement. Insurance approval PT eval>SNF placement Plan discussed with: Patient Date of Service: Sep 15, 2025 Billing Provider: EDMUNDO REYNA MD Common Visit Codes: [id number] INP/OBS CARE(HIGH) EDMUNDO REYNA MD Sep 15, 2025 13:28
--- NOTE | 2025-09-15 16:55 | DVHPN2 ---
Progress Note - Dictate Date Seen: Sep 15, 2025 Medical Necessity Reason Pt with a Central, PICC or Fol: No Subjective Denies shortness of breath vital signs Vital Sign Date Time Temp Pulse Resp B/P (MAP) Pulse Ox O2 Delivery O2 Flow Rate FiO2 09/15/25 16:51 98.4 91 18 160/75 (103) 98 98.4 09/15/25 08:00 Room Air* 0 21 Total Intake and Output 09/14/25 09/14/25 09/15/25 15:00 23:00 07:00 Intake Total 1000 ml 100 ml Output Total 800 ml 800 ml Balance 200 ml -700 ml medications Current Medications Medications Dose Ordered Sig/Britta Route Start Time Stop Time Status Last Admin Dose Admin Famotidine 10 mg DAILY IV 08/20/25 10:00 09/09/25 09:40 10 MG Dextrose 50 ml UD PRN IV 08/20/25 05:15 Sodium Chloride 10 ml Q8HR IV 08/20/25 06:00 09/09/25 22:00 10 ML Ondansetron HCl 4 mg Q4HP PRN IV 08/20/25 05:15 Nitroglycerin 0.4 mg Q5MINP PRN SL 08/20/25 05:15 Hydralazine HCl 10 mg Q6HP PRN IV 08/20/25 05:15 08/29/25 20:44 10 MG Amlodipine Besylate 10 mg DAILY PO 08/20/25 10:00 09/15/25 09:30 10 MG Atorvastatin Calcium 40 mg HS PO 08/21/25 22:00 09/14/25 22:45 40 MG Bumetanide 1 mg BIDD IV 08/21/25 18:00 09/09/25 05:21 1 MG Docusate Sodium 100 mg BID PO 08/21/25 22:00 09/15/25 09:30 100 MG Diagnostic Test (Pha) 1 strip Q6HR 08/21/25 18:00 09/15/25 12:03 1 STRIP Insulin Human Regular Q6HR SC 08/21/25 18:00 09/14/25 23:48 2 UNITS Hydralazine HCl 25 mg Q6HR PO 08/22/25 12:00 09/15/25 12:01 25 MG Ferrous Sulfate 325 mg BIDWM PO 08/22/25 18:00 09/15/25 07:52 325 MG Aspirin 81 mg DAILY PO 08/23/25 10:00 09/15/25 09:29 81 MG Epoetin Andrew-epbx 10,000 unit MWF [place] 08/22/25 15:45 UNV Sevelamer HCl 800 mg TIDWM PO 08/22/25 18:00 09/15/25 12:01 800 MG Sodium Bicarbonate 1,300 mg TID PO 08/23/25 14:00 09/15/25 05:32 1,300 MG Carvedilol 25 mg Q12HR PO 08/23/25 22:00 09/15/25 09:29 25 MG Clonidine HCl 0.1 mg BID PRN PO 08/25/25 22:00 08/29/25 22:21 0.1 MG Epoetin Andrew-epbx 10,000 unit MWF@2100 [place] 09/07/25 21:00 09/14/25 22:46 10,000 UNIT objective Gen: nad heent: nc/at, mmm lungs: cta anteriorly cvs: no rub abd: soft, bowel sounds audible ext: no edema skin: no rash neuro: alert and oriented laboratory and microbiology Laboratory Tests 09/13/25 15:24 09/09/25 12:15 Test 09/13/25 15:24 Range/Units Serum Glucose 133 H 74-106 mg/dL Assessment/Plan Acute kidney injury hemodynamically mediated in the setting of hypertensive emergency CKD 5 with progression to ESRD Acute CVA w/ new deficits hypertensive emergency HTN NSTEMI with congestive heart failure EF of 25% Anemia due to chronic kidney disease - dialysis today - clinically stable for discharge from Nephrology perspective Dietary Evaluation Review Comments: Nutrition Recommendation: 1) CCHO 75gm + renal standard diet 2) Nephro-marcial 1 tab daily 3) Monitor PO intake, lab values, weight trend, and I/O Expected Outcomes/Goals: Intake to meet >75% estimated needs Lab values to improve FU 3-5 days Plan discussed with: Other KIM WARNER MD Sep 15, 2025 16:55
--- NOTE | 2025-09-15 20:52 | DVHPN2 ---
Progress Note - Dictate Date Seen: Sep 15, 2025 Medical Necessity Reason Pt with a Central, PICC or Fol: No Subjective Patient was seen and evaluated in follow up. Patient reports feeling well. Patient denies ay complaints today. BS remain WNL. Telemetry reviewed. vital signs Vital Sign Date Time Temp Pulse Resp B/P (MAP) Pulse Ox O2 Delivery O2 Flow Rate FiO2 09/15/25 12:01 155/75 09/15/25 09:29 70 09/15/25 09:00 98.0 20 98 98.0 09/15/25 08:00 Room Air* 0 21 Total Intake and Output 09/14/25 09/14/25 09/15/25 15:00 23:00 07:00 Intake Total 1000 ml 100 ml Output Total 800 ml 800 ml Balance 200 ml -700 ml medications Current Medications Medications Dose Ordered Sig/Britta Route Start Time Stop Time Status Last Admin Dose Admin Famotidine 10 mg DAILY IV 08/20/25 10:00 09/09/25 09:40 10 MG Dextrose 50 ml UD PRN IV 08/20/25 05:15 Sodium Chloride 10 ml Q8HR IV 08/20/25 06:00 09/09/25 22:00 10 ML Ondansetron HCl 4 mg Q4HP PRN IV 08/20/25 05:15 Nitroglycerin 0.4 mg Q5MINP PRN SL 08/20/25 05:15 Hydralazine HCl 10 mg Q6HP PRN IV 08/20/25 05:15 08/29/25 20:44 10 MG Amlodipine Besylate 10 mg DAILY PO 08/20/25 10:00 09/15/25 09:30 10 MG Atorvastatin Calcium 40 mg HS PO 08/21/25 22:00 09/14/25 22:45 40 MG Bumetanide 1 mg BIDD IV 08/21/25 18:00 09/09/25 05:21 1 MG Docusate Sodium 100 mg BID PO 08/21/25 22:00 09/15/25 09:30 100 MG Diagnostic Test (Pha) 1 strip Q6HR 08/21/25 18:00 09/15/25 05:33 1 STRIP Insulin Human Regular Q6HR SC 08/21/25 18:00 09/14/25 23:48 2 UNITS Hydralazine HCl 25 mg Q6HR PO 08/22/25 12:00 09/15/25 12:01 25 MG Ferrous Sulfate 325 mg BIDWM PO 08/22/25 18:00 09/15/25 07:52 325 MG Aspirin 81 mg DAILY PO 08/23/25 10:00 09/15/25 09:29 81 MG Epoetin Andrew-epbx 10,000 unit MWF [place] 08/22/25 15:45 UNV Sevelamer HCl 800 mg TIDWM PO 08/22/25 18:00 09/15/25 12:01 800 MG Sodium Bicarbonate 1,300 mg TID PO 08/23/25 14:00 09/15/25 05:32 1,300 MG Carvedilol 25 mg Q12HR PO 08/23/25 22:00 09/15/25 09:29 25 MG Clonidine HCl 0.1 mg BID PRN PO 08/25/25 22:00 08/29/25 22:21 0.1 MG Epoetin Andrew-epbx 10,000 unit MWF@2100 [place] 09/07/25 21:00 09/14/25 22:46 10,000 UNIT objective GENERAL: Alert and oriented x 3. No acute distress. EYES: PERRL, EOMI. Anicteric. HENT: Moist mucous membranes. LUNGS: Clear to auscultation bilaterally. CARDIOVASCULAR: Regular rate and rhythm. ABDOMEN: Soft, non-tender and non-distended. EXTREMITIES: No edema. NEUROLOGIC: No focal neurological deficits. SKIN: Warm, dry. laboratory and microbiology Laboratory Tests 09/13/25 15:24 09/09/25 12:15 Test 09/13/25 15:24 Range/Units Serum Glucose 133 H 74-106 mg/dL Problem List Acute on chronic CHF. NSTEMI likely type 2 [place]. Hypertensive emergency. GISSELL on CKD. Medication noncompliance. Acute hypoxic respiratory failure, multifocal pneumonia. Cardiomyopathy. Acute pontine stroke with dysarthria, left facial weakness, left hemiplegia. Chronic left hemispheres stroke. Assessment/Plan Continued all current supportive medical care. Amlodipine, Coreg, Clonidine, Hydralazine. Aspirin, Lipitor. Diuretics with Bumex. IV Hydralazine for SBP >150. Additional plan as per the hospital course. Dietary Evaluation Review Comments: [facility] Recommendation: [facility] standard [facility] 2) Nephro-marcial 1 tab daily 3) Monitor PO intake, lab values, weight trend, and I/O Expected Outcomes/Goals: Intake to meet >75% estimated needs Lab values to improve FU 3-5 days Plan discussed with: Patient RAMIN OLIVIER MD Sep 15, 2025 12:04
[2025-09-15] MEDS: ACETAMINOPHEN 325 MG TAB PO PRN (22:50)
[2025-09-16] VITALS (8 sets, daily range): BP systolic 107–137; BP diastolic 69–87; PULSE 75–99; RESP 16–20; TEMP 98–99.2; O2SAT 95–98
--- NOTE | 2025-09-16 14:23 | DVHPN2 ---
Progress Note Date Seen: Sep 16, 2025 Medical Necessity Reason Pt with a Central, PICC or Fol: No Subjective Patient reports: No new complaints, Feels better Objective vital signs Vital Sign Date Time Temp Pulse Resp B/P (MAP) Pulse Ox O2 Delivery O2 Flow Rate FiO2 09/16/25 09:09 108 149/86 09/16/25 09:00 99.2 17 96 99.2 09/16/25 08:00 Room Air* 0 21 Total Intake and Output 09/15/25 09/15/25 09/16/25 15:00 23:00 07:00 Intake Total 320 ml 360 ml Output Total 480 ml Balance 320 ml -120 ml medications Current Medications Medications Dose Ordered Sig/Britta Route Start Time Stop Time Status Last Admin Dose Admin Famotidine 10 mg DAILY IV 08/20/25 10:00 09/09/25 09:40 10 MG Dextrose 50 ml UD PRN IV 08/20/25 05:15 Sodium Chloride 10 ml Q8HR IV 08/20/25 06:00 09/16/25 05:25 10 ML Ondansetron HCl 4 mg Q4HP PRN IV 08/20/25 05:15 Nitroglycerin 0.4 mg Q5MINP PRN SL 08/20/25 05:15 Hydralazine HCl 10 mg Q6HP PRN IV 08/20/25 05:15 08/29/25 20:44 10 MG Amlodipine Besylate 10 mg DAILY PO 08/20/25 10:00 09/16/25 09:09 10 MG Atorvastatin Calcium 40 mg HS PO 08/21/25 22:00 09/15/25 20:42 40 MG Bumetanide 1 mg BIDD IV 08/21/25 18:00 09/09/25 05:21 1 MG Docusate Sodium 100 mg BID PO 08/21/25 22:00 09/16/25 09:09 100 MG Diagnostic Test (Pha) 1 strip Q6HR 08/21/25 18:00 09/16/25 05:37 1 STRIP Insulin Human Regular Q6HR SC 08/21/25 18:00 09/14/25 23:48 2 UNITS Hydralazine HCl 25 mg Q6HR PO 08/22/25 12:00 09/16/25 05:28 25 MG Ferrous Sulfate 325 mg BIDWM PO 08/22/25 18:00 09/16/25 09:09 325 MG Aspirin 81 mg DAILY PO 08/23/25 10:00 09/16/25 09:10 81 MG Epoetin Andrew-epbx 10,000 unit MWF [place] 08/22/25 15:45 UNV Sevelamer HCl 800 mg TIDWM PO 08/22/25 18:00 09/16/25 09:08 800 MG Sodium Bicarbonate 1,300 mg TID PO 08/23/25 14:00 09/16/25 05:28 1,300 MG Carvedilol 25 mg Q12HR PO 08/23/25 22:00 09/16/25 09:09 25 MG Clonidine HCl 0.1 mg BID PRN PO 08/25/25 22:00 08/29/25 22:21 0.1 MG Epoetin Andrew-epbx 10,000 unit MWF@2100 [place] 09/07/25 21:00 09/14/25 22:46 10,000 UNIT Acetaminophen 650 mg Q6HP PRN PO 09/15/25 21:45 09/15/25 22:50 650 MG Examination Gen:Appears stated age, NAD Lungs: Bilateral air entry, no rales Heart: RRR, normal S1 and S2 Ext: No edema Neuro: Alert and oriented x 4 laboratory and microbiology Laboratory Tests 09/13/25 15:24 09/09/25 12:15 Test 09/13/25 15:24 Range/Units Serum Glucose 133 H 74-106 mg/dL Microbiology Date/Time Source Procedure Growth Status 08/22/25 13:29 Blood Blood Culture - Final NO GROWTH AFTER 5 DAYS OF INCUBATION. Complete 08/20/25 18:49 Nose MRSA Screen - Final Complete Labs and/or images reviewed: Labs reviewed by me Problem List/Assessment/Plan Problem List/Assessment/Plan IMP Acute kidney injury hemodynamically mediated in the setting of hypertensive emergency CKD 5 with progression to ESRD Acute CVA w/ new deficits hypertensive emergency HTN NSTEMI with congestive heart failure EF of 25% Anemia due to chronic kidney disease REC -Will reevaluate daily for [employer] needs -BMP in am -Strict I&Os -Blood pressure control -We will continue to follow Case discussed with Dr. Hilario Bishop Plan discussed with: Patient Dietary Evaluation Review Comments: Nutrition Recommendation: 1) CCHO 75gm + renal standard diet 2) Nephro-marcial 1 tab daily 3) Monitor PO intake, lab values, weight trend, and I/O Expected Outcomes/Goals: Intake to meet >75% estimated needs Lab values to improve FU 3-5 days LARISSA FIGUEROA Sep 16, 2025 14:23
--- NOTE | 2025-09-16 17:13 | DVHPN2 ---
Subjective In bed feeling well Reviewed: Care Plan, H&P Changes from previous H/P or p: No Changes General: Per HPI Eyes: No Pain, No Vision change, No Conjunctivae inflammation, No Eyelid inflammation, No Other, No Redness ENT: No Ear pain, No Ear discharge, No Nose pain, No Nose discharge, No Nose congestion, No Mouth pain, No Mouth swelling, No Throat pain, No Throat swelling, No Other Cardiovascular: No Chest Pain, No Palpitations, No Orthopnea, No Paroxysmal Noc. Dyspnea, No Edema, No Lt Headedness, No Other Respiratory: No Cough, No Dry; Shortness of breath; No SOB with excertion, No Wheezing, No Hemoptysis, No Pleuritic Pain, No Sputum; Other (SOB at rest) Gastrointestinal: No Nausea, No Vomiting, No Abdominal Pain, No Diarrhea, No Constipation, No Melena, No Hematochezia, No Other Genitourinary: No Dysuria, No Frequency, No Incontinence, No Hematuria, No Retention, No Other Musculoskeletal: No other, No neck pain, No shoulder pain, No arm pain, No back pain, No hand pain, No leg pain, No foot pain Skin: No Rash, No Lesions, No Jaundice, No Bruising, No Other Objective Vitals Vital Signs Date Time Temp Pulse Resp B/P (MAP) Pulse Ox O2 Delivery O2 Flow Rate FiO2 09/16/25 14:43 139/77 09/16/25 10:09 95 09/16/25 09:00 99.2 17 96 99.2 09/16/25 08:00 Room Air* 0 21 Intake/Output Intake and Output 09/16/25 05:00 Intake Total 680 ml Output Total 480 ml Balance 200 ml Intake Oral 680 ml Output Urine Total 480 ml # Bowel Movements 1 General Appearance: Alert, Oriented X3 Lungs: Clear to auscultation Cardiovascular: Regular rate, Normal S1, Normal S2 Abdomen: Normal bowel sounds Medications Current Medications Medications Dose Ordered Sig/Britta Route Start Time Stop Time Status Last Admin Dose Admin Famotidine 10 mg DAILY IV 08/20/25 10:00 09/09/25 09:40 10 MG Dextrose 50 ml UD PRN IV 08/20/25 05:15 Sodium Chloride 10 ml Q8HR IV 08/20/25 06:00 09/16/25 15:11 10 ML Ondansetron HCl 4 mg Q4HP PRN IV 08/20/25 05:15 Nitroglycerin 0.4 mg Q5MINP PRN SL 08/20/25 05:15 Hydralazine HCl 10 mg Q6HP PRN IV 08/20/25 05:15 08/29/25 20:44 10 MG Amlodipine Besylate 10 mg DAILY PO 08/20/25 10:00 09/16/25 09:09 10 MG Atorvastatin Calcium 40 mg HS PO 08/21/25 22:00 09/15/25 20:42 40 MG Bumetanide 1 mg BIDD IV 08/21/25 18:00 09/09/25 05:21 1 MG Docusate Sodium 100 mg BID PO 08/21/25 22:00 09/16/25 09:09 100 MG Diagnostic Test (Pha) 1 strip Q6HR 08/21/25 18:00 09/16/25 12:00 1 STRIP Insulin Human Regular Q6HR SC 08/21/25 18:00 09/14/25 23:48 2 UNITS Hydralazine HCl 25 mg Q6HR PO 08/22/25 12:00 09/16/25 14:43 25 MG Ferrous Sulfate 325 mg BIDWM PO 08/22/25 18:00 09/16/25 09:09 325 MG Aspirin 81 mg DAILY PO 08/23/25 10:00 09/16/25 09:10 81 MG Epoetin Andrew-epbx 10,000 unit MWF [place] 08/22/25 15:45 UNV Sevelamer HCl 800 mg TIDWM PO 08/22/25 18:00 09/16/25 14:43 800 MG Sodium Bicarbonate 1,300 mg TID PO 08/23/25 14:00 09/16/25 15:11 1,300 MG Carvedilol 25 mg Q12HR PO 08/23/25 22:00 09/16/25 09:09 25 MG Clonidine HCl 0.1 mg BID PRN PO 08/25/25 22:00 08/29/25 22:21 0.1 MG Epoetin Andrew-epbx 10,000 unit MWF@2100 [place] 09/07/25 21:00 09/14/25 22:46 10,000 UNIT Acetaminophen 650 mg Q6HP PRN PO 09/15/25 21:45 09/15/25 22:50 650 MG Laboratory Results Laboratory Tests 09/09/25 12:15 09/13/25 15:24 Urinalysis Test 08/20/25 00:06 08/22/25 12:21 Urine Color Colorless (Yellow) Urine Clarity Clear (Clear) Urine pH 6.5 (5.0-9.0) Urine Specific Chambers 1.009 (1.001-1.035) Urine Protein 2+ (Negative) H Urine Ketones Negative (Negative) Urine Blood 2+ /uL (Negative) H Urine Nitrite Negative (Negative) Urine Bilirubin Negative (Negative) Urine Urobilinogen Normal mg/dL (Negative) Urine Leukocyte Esterase Negative /uL (Negative) Urine RBC 2 /hpf (0 - 3) Urine Microscopic WBC 1 /HPF (0-3) Urine Squamous Epithelial Cells None seen /hpf (<5) Urine Bacteria None seen /hpf (None Seen) Urine Glucose 3+ mg/dL (Normal) H Urine Creatinine 91.09 mg/dL (30.0-125.0) Urine Sodium 34 mmol/L (40-220) L Urine Total Protein 229.4 mg/dL (1-14) H Microbiology Microbiology Date/Time Source Procedure Growth Status 08/22/25 13:29 Blood Blood Culture - Final NO GROWTH AFTER 5 DAYS OF INCUBATION. Complete 08/20/25 18:49 Nose MRSA Screen - Final Complete Assessment/Plan Assessment/Plan 55-year-old male with a known history of congestive heart failure with systolic dysfunction, diabetes mellitus type 2, hypertension, dyslipidemia, homelessness who initially presented to the hospital with a respiratory distress found to have acute hypoxic respiratory failure suspected secondary to congestive heart failure with systolic dysfunction/multifocal pneumonia. Patient's hospital course was eventful for acute CVA with a MRI evidence of infarct in the right kuldip. 1. Acute hypoxic respiratory failure secondary to acute CHF exacerbation with systolic dysfunction as well as multifocal pneumonia 2. Acute CHF exacerbation with systolic dysfunction with the EF of 25% 3. Multifocal pneumonia 4. Moderate/severe pulmonary hypertension 5. Acute CVA with PONTINE infarct in the right-sided kuldip, with a left-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 6. AKA with a underlying CKD, progressing to end-stage renal disease, tunneled dialysis catheter will be placed, currently hemodialysis via [place] catheter 7. Previous history of CVA with a mild left residual deficit 8. NSTEMI type 2 suspect secondary to acute CHF exacerbation 9. 1/2 Gram-negative bacteremia with coag-negative staph, suspect contamination 10. Hypertension, stable -DIALYSIS PER RENAL -aspirin, statin, continue IV diuretics, continue IV antibiotics -repeat blood cultures, strict I&Os, daily weight. Dispo: Pending HD placement. Insurance approval PT eval>SNF placement Plan discussed with: Patient Date of Service: Sep 16, 2025 Billing Provider: EDMUNDO REYNA MD Common Visit Codes: [id number] INP/OBS CARE(HIGH) EDMUNDO REYNA MD Sep 16, 2025 17:13
--- NOTE | 2025-09-16 19:30 | DVHPN2 ---
Progress Note - Dictate Date Seen: Sep 16, 2025 Medical Necessity Reason Pt with a Central, PICC or Fol: No Subjective Mr. Thomas is a 55 years old right-handed gentleman with a history of hypertension, diabetes, congestive heart failure, COPD, asthma, the patient was admitted on 08/19/2025 with a chief complaint of shortness breath, but he was has other complaints I have seen and examined the patient, talked to his nurse. No change on physical examination. No new complaints UDS, 08/20/2025: Negative WBC/HB/PLT/MCV, 08/25/2025: 5.2/10.5/160/91 BUN/CR, 08/19/2025: 49/9.09, 08/21/2025: 65/9.36, 08/25/2025: 106/9.55 HCO3, 08/19/2025:18 , 08/20/2025: 19. Lactic acid, 08/19/2025: 5.3 Liver function tests, 08/21/2025: Unremarkable TG/HDL/LDL/HDL, 08/20/2025: 42/141/86/35 Echocardiogram, 08/20/2025: DILATED LV AND IS MODERATELY HYPOKINETIC LV EF IS ONLT 25% DYSKINESIS OF IVS NORMAL VALVES MODERATE DEGREE PULMONARY HYPERTENSION RVSP IS 45 MM OF HG AND IS MODERATELY HIGH NO EFFUSION Extremity Venous study, 08/25/2025: Thrombus basilic vein and cephalic vein Carotid Doppler, 08/26/2025: Right carotid system not evaluated due to overlying bandaging and IJ line. Left carotid system demonstrates no hemodynamically significant stenosis. Chest x-ray, 08/19/2025: Multifocal pneumonia throughout both lungs CT head, 08/21/2025: 1. No acute territorial infarct, intracranial hemorrhage, or mass effect. 2. Age-related involutional changes. Chronic ischemic changes as detailed. 3. If clinical symptoms persist, MRI may be beneficial in further evaluation MRI head, 08/22/2025: Acute infarct right kuldip measuring 2.1 cm. Left parietal encephalomalacia vital signs Vital Sign Date Time Temp Pulse Resp B/P (MAP) Pulse Ox O2 Delivery O2 Flow Rate FiO2 09/16/25 18:32 113/72 09/16/25 17:00 98.4 86 19 98 98.4 09/16/25 08:00 Room Air* 0 21 Total Intake and Output 09/15/25 09/15/25 09/16/25 15:00 23:00 07:00 Intake Total 320 ml 360 ml Output Total 480 ml Balance 320 ml -120 ml medications Current Medications Medications Dose Ordered Sig/Britta Route Start Time Stop Time Status Last Admin Dose Admin Famotidine 10 mg DAILY IV 08/20/25 10:00 09/09/25 09:40 10 MG Dextrose 50 ml UD PRN IV 08/20/25 05:15 Sodium Chloride 10 ml Q8HR IV 08/20/25 06:00 09/16/25 15:11 10 ML Ondansetron HCl 4 mg Q4HP PRN IV 08/20/25 05:15 Nitroglycerin 0.4 mg Q5MINP PRN SL 08/20/25 05:15 Hydralazine HCl 10 mg Q6HP PRN IV 08/20/25 05:15 08/29/25 20:44 10 MG Amlodipine Besylate 10 mg DAILY PO 08/20/25 10:00 09/16/25 09:09 10 MG Atorvastatin Calcium 40 mg HS PO 08/21/25 22:00 09/15/25 20:42 40 MG Bumetanide 1 mg BIDD IV 08/21/25 18:00 09/16/25 18:30 1 MG Docusate Sodium 100 mg BID PO 08/21/25 22:00 09/16/25 09:09 100 MG Diagnostic Test (Pha) 1 strip Q6HR 08/21/25 18:00 09/16/25 17:58 1 STRIP Insulin Human Regular Q6HR SC 08/21/25 18:00 09/14/25 23:48 2 UNITS Hydralazine HCl 25 mg Q6HR PO 08/22/25 12:00 09/16/25 18:32 25 MG Ferrous Sulfate 325 mg BIDWM PO 08/22/25 18:00 09/16/25 18:32 325 MG Aspirin 81 mg DAILY PO 08/23/25 10:00 09/16/25 09:10 81 MG Epoetin Andrew-epbx 10,000 unit MWF [place] 08/22/25 15:45 UNV Sevelamer HCl 800 mg TIDWM PO 08/22/25 18:00 09/16/25 18:31 800 MG Sodium Bicarbonate 1,300 mg TID PO 08/23/25 14:00 09/16/25 15:11 1,300 MG Carvedilol 25 mg Q12HR PO 08/23/25 22:00 09/16/25 09:09 25 MG Clonidine HCl 0.1 mg BID PRN PO 08/25/25 22:00 08/29/25 22:21 0.1 MG Epoetin Andrew-epbx 10,000 unit MWF@2100 [place] 09/07/25 21:00 09/14/25 22:46 10,000 UNIT Acetaminophen 650 mg Q6HP PRN PO 09/15/25 21:45 09/15/25 22:50 650 MG objective General: the patient is well developed and nourished. No acute distress. MENTAL STATUS: Awake and alert. Oriented to person, place, time SPEECH, LANGUAGE, HIGHER CORTICAL FUNCTION: no aphasia he has has mild dysarthria CRANIAL NERVES: Pupils are equal, round and reactive. EOMs full and conjugate. Facial sensation intact in all three divisions bilaterally. Mandibular strength intact. Left facial weakness of upper motor neuron pattern SENSATION: Sensation to touch and pinprick is normal. MOTOR: Normal tone in the upper and lower extremity. Normal muscle bulk. No fasciculations. No abnormal movements or posturing. Muscle strength of the major groups in the right extremities is 5/5. Muscle strength of the major groups in the left extremities is: Arm: 2-3/5 with gripping stronger, le/5. REFLEXES: Deep tendon reflexes are symmetrical. No pathological reflexes. CEREBELLAR/COORDINATION: Finger to nose is normal in the right hand GAIT/STATION: deferred laboratory and microbiology Laboratory Tests 09/13/25 15:24 09/09/25 12:15 Test 09/13/25 15:24 Range/Units Serum Glucose 133 H 74-106 mg/dL Problem List Acute pontine stroke with dysarthria, left facial weakness, left hemiplegia Chronic left hemispheres stroke Sleep-related breathing disorder Kidney failure Acute respiratory failure Congestive heart failure Assessment/Plan Monitoring Supportive treatment Telemetry AMANDA, he refused Aspirin 81 mg daily Plavix 75 mg daily for 21 days Lipitor 40 mg daily Oxygen Hemodialysis Nephrology on case Cardiology on case Social service on case Address sleep-related breathing disorder later I have discussed with him about stroke risk facts, secondary stroke prevention This medical document was created using an electronic medical record system with [employer] dictation system. Although this document has been carefully reviewed, there may still be some phonetic and typographical errors. These areas are purely typographical due to imperfections of the software programs, and do not reflect any compromise in the patient's medical care. Prognosis poor Dietary Evaluation Review Comments: Nutrition Recommendation: 1) CCHO 75gm + renal standard diet 2) Nephro-marcial 1 tab daily 3) Monitor PO intake, lab values, weight trend, and I/O Expected Outcomes/Goals: Intake to meet >75% estimated needs Lab values to improve FU 3-5 days Plan discussed with: Patient, Other CORAZON ALVARADO MD Sep 16, 2025 19:30
--- NOTE | 2025-09-16 22:21 | DVHPN2 ---
Progress Note - Dictate Date Seen: Sep 16, 2025 Medical Necessity Reason Pt with a Central, PICC or Fol: No Subjective Patient was seen and evaluated in follow up. No overnight events. Patient has no complaints. Telemetry reviewed. vital signs Vital Sign Date Time Temp Pulse Resp B/P (MAP) Pulse Ox O2 Delivery O2 Flow Rate FiO2 09/16/25 09:09 108 149/86 09/16/25 09:00 99.2 17 96 99.2 09/16/25 08:00 Room Air* 0 21 Total Intake and Output 09/15/25 09/15/25 09/16/25 15:00 23:00 07:00 Intake Total 320 ml 360 ml Output Total 480 ml Balance 320 ml -120 ml medications Current Medications Medications Dose Ordered Sig/Britta Route Start Time Stop Time Status Last Admin Dose Admin Famotidine 10 mg DAILY IV 08/20/25 10:00 09/09/25 09:40 10 MG Dextrose 50 ml UD PRN IV 08/20/25 05:15 Sodium Chloride 10 ml Q8HR IV 08/20/25 06:00 09/16/25 05:25 10 ML Ondansetron HCl 4 mg Q4HP PRN IV 08/20/25 05:15 Nitroglycerin 0.4 mg Q5MINP PRN SL 08/20/25 05:15 Hydralazine HCl 10 mg Q6HP PRN IV 08/20/25 05:15 08/29/25 20:44 10 MG Amlodipine Besylate 10 mg DAILY PO 08/20/25 10:00 09/16/25 09:09 10 MG Atorvastatin Calcium 40 mg HS PO 08/21/25 22:00 09/15/25 20:42 40 MG Bumetanide 1 mg BIDD IV 08/21/25 18:00 09/09/25 05:21 1 MG Docusate Sodium 100 mg BID PO 08/21/25 22:00 09/16/25 09:09 100 MG Diagnostic Test (Pha) 1 strip Q6HR 08/21/25 18:00 09/16/25 05:37 1 STRIP Insulin Human Regular Q6HR SC 08/21/25 18:00 09/14/25 23:48 2 UNITS Hydralazine HCl 25 mg Q6HR PO 08/22/25 12:00 09/16/25 05:28 25 MG Ferrous Sulfate 325 mg BIDWM PO 08/22/25 18:00 09/16/25 09:09 325 MG Aspirin 81 mg DAILY PO 08/23/25 10:00 09/16/25 09:10 81 MG Epoetin Andrew-epbx 10,000 unit MWF [place] 08/22/25 15:45 UNV Sevelamer HCl 800 mg TIDWM PO 08/22/25 18:00 09/16/25 09:08 800 MG Sodium Bicarbonate 1,300 mg TID PO 08/23/25 14:00 09/16/25 05:28 1,300 MG Carvedilol 25 mg Q12HR PO 08/23/25 22:00 09/16/25 09:09 25 MG Clonidine HCl 0.1 mg BID PRN PO 08/25/25 22:00 08/29/25 22:21 0.1 MG Epoetin Andrew-epbx 10,000 unit MWF@2100 [place] 09/07/25 21:00 09/14/25 22:46 10,000 UNIT Acetaminophen 650 mg Q6HP PRN PO 09/15/25 21:45 09/15/25 22:50 650 MG objective GENERAL: Alert and oriented x 3. No acute distress. EYES: PERRL, EOMI. Anicteric. HENT: Moist mucous membranes. LUNGS: Clear to auscultation bilaterally. CARDIOVASCULAR: Regular rate and rhythm. ABDOMEN: Soft, non-tender and non-distended. EXTREMITIES: No edema. NEUROLOGIC: No focal neurological deficits. SKIN: Warm, dry. laboratory and microbiology Laboratory Tests 09/13/25 15:24 09/09/25 12:15 Test 09/13/25 15:24 Range/Units Serum Glucose 133 H 74-106 mg/dL Problem List Acute on chronic CHF. NSTEMI likely type 2 [place]. Hypertensive emergency. GISSELL on CKD. Medication noncompliance. Acute hypoxic respiratory failure, multifocal pneumonia. Cardiomyopathy. Acute pontine stroke with dysarthria, left facial weakness, left hemiplegia. Chronic left hemispheres stroke. Assessment/Plan Continued all current supportive medical care. Amlodipine, Coreg, Clonidine, Hydralazine. Aspirin, Lipitor. Diuretics with Bumex. IV Hydralazine for SBP >150. Additional plan as per the hospital course. Dietary Evaluation Review Comments: Nutrition Recommendation: 1[facility] 2) Nephro-marcial 1 tab daily 3) Monitor PO intake, lab values, weight trend, and I/O Expected Outcomes/Goals: Intake to meet >75% estimated needs Lab values to improve FU 3-5 days Plan discussed with: Patient RAMIN OLIVIER MD Sep 16, 2025 13:06
[2025-09-17] VITALS (8 sets, daily range): BP systolic 109–137; BP diastolic 59–77; PULSE 58–87; RESP 14–20; TEMP 97.9–99.1; O2SAT 90–100
[2025-09-17 06:41] LABS: Anion Gap 16 (5-15); Carbon Dioxide 27 mmol/L (20-31); Potassium 4.7 mmol/L (3.5-5.1); Sodium 137 mmol/L (136-145)
[2025-09-17 06:42] LABS: Calcium 9.6 mg/dL (8.7-10.4)
[2025-09-17 06:47] LABS: BUN/Creatinine Ratio 5.7 (10.0-20.0); Blood Urea Nitrogen 52 mg/dL (9-23); Chloride 94 mmol/L (98-107); Glucose 83 mg/dL (74-106)
--- NOTE | 2025-09-17 13:21 | DVHPN2 ---
Progress Note Date Seen: Sep 17, 2025 Medical Necessity Reason Pt with a Central, PICC or Fol: No Subjective Patient reports: No new complaints Objective vital signs Vital Sign Date Time Temp Pulse Resp B/P (MAP) Pulse Ox O2 Delivery O2 Flow Rate FiO2 09/17/25 12:41 97.9 72 18 137/76 (96) 90 97.9 09/17/25 08:00 Room Air* 0 21 Total Intake and Output 09/16/25 09/16/25 09/17/25 15:00 23:00 07:00 Intake Total 425 ml 500 ml Balance 425 ml 500 ml medications Current Medications Medications Dose Ordered Sig/Britta Route Start Time Stop Time Status Last Admin Dose Admin Famotidine 10 mg DAILY IV 08/20/25 10:00 09/09/25 09:40 10 MG Dextrose 50 ml UD PRN IV 08/20/25 05:15 Sodium Chloride 10 ml Q8HR IV 08/20/25 06:00 09/16/25 15:11 10 ML Ondansetron HCl 4 mg Q4HP PRN IV 08/20/25 05:15 Nitroglycerin 0.4 mg Q5MINP PRN SL 08/20/25 05:15 Hydralazine HCl 10 mg Q6HP PRN IV 08/20/25 05:15 08/29/25 20:44 10 MG Amlodipine Besylate 10 mg DAILY PO 08/20/25 10:00 09/17/25 10:25 10 MG Atorvastatin Calcium 40 mg HS PO 08/21/25 22:00 09/16/25 22:05 40 MG Bumetanide 1 mg BIDD IV 08/21/25 18:00 09/09/25 05:21 1 MG Docusate Sodium 100 mg BID PO 08/21/25 22:00 09/17/25 10:24 100 MG Diagnostic Test (Pha) 1 strip Q6HR 08/21/25 18:00 09/17/25 12:27 1 STRIP Insulin Human Regular Q6HR SC 08/21/25 18:00 09/14/25 23:48 2 UNITS Hydralazine HCl 25 mg Q6HR PO 08/22/25 12:00 09/17/25 12:27 25 MG Ferrous Sulfate 325 mg BIDWM PO 08/22/25 18:00 09/17/25 08:22 325 MG Aspirin 81 mg DAILY PO 08/23/25 10:00 09/17/25 10:26 81 MG Epoetin Andrew-epbx 10,000 unit MWF [place] 08/22/25 15:45 UNV Sevelamer HCl 800 mg TIDWM PO 08/22/25 18:00 09/17/25 12:27 800 MG Sodium Bicarbonate 1,300 mg TID PO 08/23/25 14:00 09/17/25 06:22 1,300 MG Carvedilol 25 mg Q12HR PO 08/23/25 22:00 09/17/25 10:24 25 MG Clonidine HCl 0.1 mg BID PRN PO 08/25/25 22:00 08/29/25 22:21 0.1 MG Acetaminophen 650 mg Q6HP PRN PO 09/15/25 21:45 09/15/25 22:50 650 MG Epoetin Andrew-epbx 10,000 unit TUTHSA@2100 [place] 09/17/25 21:00 Examination Gen: Appears stated age, NAD Heart: RRR, normal S1 and S2 Lungs: Bilateral air entry, no rales Ext: No edema Neuro: alert and oriented x 4 laboratory and microbiology Laboratory Tests 09/17/25 05:30 09/09/25 12:15 Test 09/17/25 05:30 Range/Units Serum Glucose 83 74-106 mg/dL Microbiology Date/Time Source Procedure Growth Status 08/22/25 13:29 Blood Blood Culture - Final NO GROWTH AFTER 5 DAYS OF INCUBATION. Complete 08/20/25 18:49 Nose MRSA Screen - Final Complete Labs and/or images reviewed: Labs reviewed by me Problem List/Assessment/Plan Problem List/Assessment/Plan IMP Acute kidney injury hemodynamically mediated in the setting of hypertensive emergency CKD 5 with progression to ESRD Acute CVA w/ new deficits hypertensive emergency HTN NSTEMI with congestive heart failure EF of 25% Anemia due to chronic kidney disease REC -HD tentatively today -BMP in am -Strict I&Os -Blood pressure control -We will continue to follow Case discussed with Dr. Hilario Bishop Plan discussed with: Patient Dietary Evaluation Review Comments: Nutrition Recommendation: 1) CCHO 75gm + renal standard diet 2) Nephro-marcial 1 tab daily 3) Monitor PO intake, lab values, weight trend, and I/O Expected Outcomes/Goals: Intake to meet >75% estimated needs Lab values to improve FU 3-5 days LARISSA FIGUEROA Sep 17, 2025 13:21
--- NOTE | 2025-09-17 13:21 | DVHPN2 ---
Subjective In bed feeling well Reviewed: Care Plan, H&P Changes from previous H/P or p: No Changes General: Per HPI Eyes: No Pain, No Vision change, No Conjunctivae inflammation, No Eyelid inflammation, No Other, No Redness ENT: No Ear pain, No Ear discharge, No Nose pain, No Nose discharge, No Nose congestion, No Mouth pain, No Mouth swelling, No Throat pain, No Throat swelling, No Other Cardiovascular: No Chest Pain, No Palpitations, No Orthopnea, No Paroxysmal Noc. Dyspnea, No Edema, No Lt Headedness, No Other Respiratory: No Cough, No Dry; Shortness of breath; No SOB with excertion, No Wheezing, No Hemoptysis, No Pleuritic Pain, No Sputum; Other (SOB at rest) Gastrointestinal: No Nausea, No Vomiting, No Abdominal Pain, No Diarrhea, No Constipation, No Melena, No Hematochezia, No Other Genitourinary: No Dysuria, No Frequency, No Incontinence, No Hematuria, No Retention, No Other Musculoskeletal: No other, No neck pain, No shoulder pain, No arm pain, No back pain, No hand pain, No leg pain, No foot pain Skin: No Rash, No Lesions, No Jaundice, No Bruising, No Other Objective Vitals Vital Signs Date Time Temp Pulse Resp B/P (MAP) Pulse Ox O2 Delivery O2 Flow Rate FiO2 09/17/25 12:41 97.9 72 18 137/76 (96) 90 97.9 09/17/25 08:00 Room Air* 0 21 Intake/Output Intake and Output 09/17/25 07:00 Intake Total 925 ml Balance 925 ml Intake Oral 925 ml # Voids 4 # Bowel Movements 1 General Appearance: Alert, Oriented X3 Lungs: Clear to auscultation Cardiovascular: Regular rate, Normal S1, Normal S2 Abdomen: Normal bowel sounds Medications Current Medications Medications Dose Ordered Sig/Britta Route Start Time Stop Time Status Last Admin Dose Admin Famotidine 10 mg DAILY IV 08/20/25 10:00 09/09/25 09:40 10 MG Dextrose 50 ml UD PRN IV 08/20/25 05:15 Sodium Chloride 10 ml Q8HR IV 08/20/25 06:00 09/16/25 15:11 10 ML Ondansetron HCl 4 mg Q4HP PRN IV 08/20/25 05:15 Nitroglycerin 0.4 mg Q5MINP PRN SL 08/20/25 05:15 Hydralazine HCl 10 mg Q6HP PRN IV 08/20/25 05:15 08/29/25 20:44 10 MG Amlodipine Besylate 10 mg DAILY PO 08/20/25 10:00 09/17/25 10:25 10 MG Atorvastatin Calcium 40 mg HS PO 08/21/25 22:00 09/16/25 22:05 40 MG Bumetanide 1 mg BIDD IV 08/21/25 18:00 09/09/25 05:21 1 MG Docusate Sodium 100 mg BID PO 08/21/25 22:00 09/17/25 10:24 100 MG Diagnostic Test (Pha) 1 strip Q6HR 08/21/25 18:00 09/17/25 12:27 1 STRIP Insulin Human Regular Q6HR SC 08/21/25 18:00 09/14/25 23:48 2 UNITS Hydralazine HCl 25 mg Q6HR PO 08/22/25 12:00 09/17/25 12:27 25 MG Ferrous Sulfate 325 mg BIDWM PO 08/22/25 18:00 09/17/25 08:22 325 MG Aspirin 81 mg DAILY PO 08/23/25 10:00 09/17/25 10:26 81 MG Epoetin Andrew-epbx 10,000 unit MWF [place] 08/22/25 15:45 UNV Sevelamer HCl 800 mg TIDWM PO 08/22/25 18:00 09/17/25 12:27 800 MG Sodium Bicarbonate 1,300 mg TID PO 08/23/25 14:00 09/17/25 06:22 1,300 MG Carvedilol 25 mg Q12HR PO 08/23/25 22:00 09/17/25 10:24 25 MG Clonidine HCl 0.1 mg BID PRN PO 08/25/25 22:00 08/29/25 22:21 0.1 MG Acetaminophen 650 mg Q6HP PRN PO 09/15/25 21:45 09/15/25 22:50 650 MG Epoetin Andrew-epbx 10,000 unit TUTHSA@2100 [place] 09/17/25 21:00 Laboratory Results Laboratory Tests 09/09/25 12:15 09/17/25 05:30 Chemistry Test 09/17/25 05:30 Calcium Level 9.6 mg/dL (8.7-10.4) Urinalysis Test 08/20/25 00:06 08/22/25 12:21 Urine Color Colorless (Yellow) Urine Clarity Clear (Clear) Urine pH 6.5 (5.0-9.0) Urine Specific [place] 1.009 (1.001-1.035) Urine Protein 2+ (Negative) H Urine Ketones Negative (Negative) Urine Blood 2+ /uL (Negative) H Urine Nitrite Negative (Negative) Urine Bilirubin Negative (Negative) Urine Urobilinogen Normal mg/dL (Negative) Urine Leukocyte Esterase Negative /uL (Negative) Urine RBC 2 /hpf (0 - 3) Urine Microscopic WBC 1 /HPF (0-3) Urine Squamous Epithelial Cells None seen /hpf (<5) Urine Bacteria None seen /hpf (None Seen) Urine Glucose 3+ mg/dL (Normal) H Urine Creatinine 91.09 mg/dL (30.0-125.0) Urine Sodium 34 mmol/L (40-220) L Urine Total Protein 229.4 mg/dL (1-14) H Microbiology Microbiology Date/Time Source Procedure Growth Status 08/22/25 13:29 Blood Blood Culture - Final NO GROWTH AFTER 5 DAYS OF INCUBATION. Complete 08/20/25 18:49 Nose MRSA Screen - Final Complete Assessment/Plan Assessment/Plan 55-year-old male with a known history of congestive heart failure with systolic dysfunction, diabetes mellitus type 2, hypertension, dyslipidemia, homelessness who initially presented to the hospital with a respiratory distress found to have acute hypoxic respiratory failure suspected secondary to congestive heart failure with systolic dysfunction/multifocal pneumonia. Patient's hospital course was eventful for acute CVA with a MRI evidence of infarct in the right kuldip. 1. Acute hypoxic respiratory failure secondary to acute CHF exacerbation with systolic dysfunction as well as multifocal pneumonia 2. Acute CHF exacerbation with systolic dysfunction with the EF of 25% 3. Multifocal pneumonia 4. Moderate/severe pulmonary hypertension 5. Acute CVA with PONTINE infarct in the right-sided kuldip, with a left-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 6. AKA with a underlying CKD, progressing to end-stage renal disease, tunneled dialysis catheter will be placed, currently hemodialysis via [place] catheter 7. Previous history of CVA with a mild left residual deficit 8. NSTEMI type 2 suspect secondary to acute CHF exacerbation 9. 1/2 Gram-negative bacteremia with coag-negative staph, suspect contamination 10. Hypertension, stable -DIALYSIS PER RENAL -aspirin, statin, continue IV diuretics, continue IV antibiotics -repeat blood cultures, strict I&Os, daily weight. Dispo: Pending HD placement. Insurance approval PT eval>SNF placement Plan discussed with: Patient Date of Service: Sep 17, 2025 Billing Provider: EDMUNDO REYNA MD Common Visit Codes: [id number] INP/OBS CARE(HIGH) EDMUNDO REYNA MD Sep 17, 2025 13:21
[2025-09-17] MEDS: FAMOTIDINE 20 MG TAB PO ONE (14:43)
[2025-09-17] MEDS: BUMETANIDE 1 MG TAB PO SCH (17:59)
[2025-09-17] MEDS: EPOETIN ALFA-EPBX 10,000 UNIT/1ML VIAL SC SCH (22:02)
--- NOTE | 2025-09-17 23:00 | DVHPN2 ---
Progress Note - Dictate Date Seen: Sep 17, 2025 Medical Necessity Reason Pt with a Central, PICC or Fol: No Subjective Patient was seen and evaluated in follow up. 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 CM is arranging SNF placement at [facility]. Telemetry reviewed. vital signs Vital Sign Date Time Temp Pulse Resp B/P (MAP) Pulse Ox O2 Delivery O2 Flow Rate FiO2 09/17/25 12:41 97.9 72 18 137/76 (96) 90 97.9 09/17/25 08:00 Room Air* 0 21 Total Intake and Output 09/16/25 09/16/25 09/17/25 15:00 23:00 07:00 Intake Total 425 ml 500 ml Balance 425 ml 500 ml medications Current Medications Medications Dose Ordered Sig/Britta Route Start Time Stop Time Status Last Admin Dose Admin Dextrose 50 ml UD PRN IV 08/20/25 05:15 Sodium Chloride 10 ml Q8HR IV 08/20/25 06:00 09/16/25 15:11 10 ML Ondansetron HCl 4 mg Q4HP PRN IV 08/20/25 05:15 Nitroglycerin 0.4 mg Q5MINP PRN SL 08/20/25 05:15 Hydralazine HCl 10 mg Q6HP PRN IV 08/20/25 05:15 08/29/25 20:44 10 MG Amlodipine Besylate 10 mg DAILY PO 08/20/25 10:00 09/17/25 10:25 10 MG Atorvastatin Calcium 40 mg HS PO 08/21/25 22:00 09/16/25 22:05 40 MG Docusate Sodium 100 mg BID PO 08/21/25 22:00 09/17/25 10:24 100 MG Diagnostic Test (Pha) 1 strip Q6HR 08/21/25 18:00 09/17/25 12:27 1 STRIP Insulin Human Regular Q6HR SC 08/21/25 18:00 09/14/25 23:48 2 UNITS Hydralazine HCl 25 mg Q6HR PO 08/22/25 12:00 09/17/25 12:27 25 MG Ferrous Sulfate 325 mg BIDWM PO 08/22/25 18:00 09/17/25 08:22 325 MG Aspirin 81 mg DAILY PO 08/23/25 10:00 09/17/25 10:26 81 MG Epoetin Andrew-epbx 10,000 unit MWF PR 08/22/25 15:45 UNV Sevelamer HCl 800 mg TIDWM PO 08/22/25 18:00 09/17/25 12:27 800 MG Sodium Bicarbonate 1,300 mg TID PO 08/23/25 14:00 09/17/25 06:22 1,300 MG Carvedilol 25 mg Q12HR PO 08/23/25 22:00 09/17/25 10:24 25 MG Clonidine HCl 0.1 mg BID PRN PO 08/25/25 22:00 08/29/25 22:21 0.1 MG Acetaminophen 650 mg Q6HP PRN PO 09/15/25 21:45 09/15/25 22:50 650 MG Epoetin Andrew-epbx 10,000 unit TUTHSA@2100 PR 09/17/25 21:00 Bumetanide 1 mg BIDD PO 09/17/25 18:00 UNV objective GENERAL: Alert and oriented x 3. No acute distress. EYES: PERRL, EOMI. Anicteric. HENT: Moist mucous membranes. LUNGS: Clear to auscultation bilaterally. CARDIOVASCULAR: Regular rate and rhythm. ABDOMEN: Soft, non-tender and non-distended. EXTREMITIES: No edema. NEUROLOGIC: No focal neurological deficits. SKIN: Warm, dry. laboratory and microbiology Laboratory Tests 09/17/25 05:30 09/09/25 12:15 Test 09/17/25 05:30 Range/Units Serum Glucose 83 74-106 mg/dL Problem List Acute on chronic CHF. NSTEMI likely type 2 [place]. Hypertensive emergency. GISSELL on CKD. Medication noncompliance. Acute hypoxic respiratory failure, multifocal pneumonia. Cardiomyopathy. Acute pontine stroke with dysarthria, left facial weakness, left hemiplegia. Chronic left hemispheres stroke. Assessment/Plan Continued all current supportive medical care. Amlodipine, Coreg, Clonidine, Hydralazine. Aspirin, Lipitor. Diuretics with Bumex. IV Hydralazine for SBP >150. Additional plan as per the hospital course. Dietary Evaluation Review Comments: Nutrition Recommendation: 1) CCHO 75gm + renal standard diet 2) Nephro-marcial 1 tab daily 3) Monitor PO intake, lab values, weight trend, and I/O Expected Outcomes/Goals: Intake to meet >75% estimated needs Lab values to improve FU 3-5 days Plan discussed with: Patient RAMIN OLIVIER MD Sep 17, 2025 14:12
[2025-09-18] VITALS (8 sets, daily range): BP systolic 127–145; BP diastolic 72–81; PULSE 74–83; RESP 17–20; TEMP 98.1–98.6; O2SAT 94–98
[2025-09-18 08:07] LABS: Anion Gap 14 (5-15); Carbon Dioxide 28 mmol/L (20-31); Potassium 4.2 mmol/L (3.5-5.1)
[2025-09-18 08:09] LABS: Calcium 9.1 mg/dL (8.7-10.4)
[2025-09-18 08:10] LABS: Chloride 93 mmol/L (98-107); Sodium 135 mmol/L (136-145)
[2025-09-18 08:13] LABS: BUN/Creatinine Ratio 6.5 (10.0-20.0); Glucose 99 mg/dL (74-106)
[2025-09-18 08:16] LABS: Blood Urea Nitrogen 51 mg/dL (9-23)
[2025-09-18] MEDS ORDERED: ATOR20TA50 PO (11:22)
[2025-09-18] MEDS ORDERED: AML5T PO (11:22)
[2025-09-18] MEDS ORDERED: FER325T PO (11:22)
[2025-09-18] MEDS ORDERED: HYDR25TA87 PO (11:22)
[2025-09-18] MEDS ORDERED: BUM1T PO (11:22)
[2025-09-18] MEDS ORDERED: SODI650T PO (11:22)
[2025-09-18] MEDS ORDERED: SEVE800T7 PO (11:22)
[2025-09-18] MEDS ORDERED: ASPI-325 PO (11:22)
--- NOTE | 2025-09-18 12:22 | DVHPN2 ---
Progress Note Date Seen: Sep 18, 2025 Medical Necessity Reason Pt with a Central, PICC or Fol: No Subjective Patient reports: No new complaints Objective vital signs Vital Sign Date Time Temp Pulse Resp B/P (MAP) Pulse Ox O2 Delivery O2 Flow Rate FiO2 09/18/25 09:50 78 133/72 09/18/25 08:57 98.4 18 98 98.4 09/17/25 20:00 Room Air* 0 21 Total Intake and Output 09/17/25 09/17/25 09/18/25 15:00 23:00 07:00 Intake Total 800 ml 210 ml Output Total 300 ml Balance 800 ml -90 ml medications Current Medications Medications Dose Ordered Sig/Britta Route Start Time Stop Time Status Last Admin Dose Admin Dextrose 50 ml UD PRN IV 08/20/25 05:15 Sodium Chloride 10 ml Q8HR IV 08/20/25 06:00 09/16/25 15:11 10 ML Ondansetron HCl 4 mg Q4HP PRN IV 08/20/25 05:15 Nitroglycerin 0.4 mg Q5MINP PRN SL 08/20/25 05:15 Hydralazine HCl 10 mg Q6HP PRN IV 08/20/25 05:15 08/29/25 20:44 10 MG Amlodipine Besylate 10 mg DAILY PO 08/20/25 10:00 09/18/25 09:49 10 MG Atorvastatin Calcium 40 mg HS PO 08/21/25 22:00 09/17/25 22:02 40 MG Docusate Sodium 100 mg BID PO 08/21/25 22:00 09/17/25 10:24 100 MG Diagnostic Test (Pha) 1 strip Q6HR 08/21/25 18:00 09/18/25 06:25 1 STRIP Insulin Human Regular Q6HR SC 08/21/25 18:00 09/14/25 23:48 2 UNITS Hydralazine HCl 25 mg Q6HR PO 08/22/25 12:00 09/18/25 06:25 25 MG Ferrous Sulfate 325 mg BIDWM PO 08/22/25 18:00 09/18/25 08:18 325 MG Aspirin 81 mg DAILY PO 08/23/25 10:00 09/18/25 09:49 81 MG Epoetin Andrew-epbx 10,000 unit MWF [place] 08/22/25 15:45 UNV Sevelamer HCl 800 mg TIDWM PO 08/22/25 18:00 09/17/25 14:43 800 MG Sodium Bicarbonate 1,300 mg TID PO 08/23/25 14:00 09/18/25 06:23 1,300 MG Carvedilol 25 mg Q12HR PO 08/23/25 22:00 09/18/25 09:50 25 MG Clonidine HCl 0.1 mg BID PRN PO 08/25/25 22:00 08/29/25 22:21 0.1 MG Acetaminophen 650 mg Q6HP PRN PO 09/15/25 21:45 09/18/25 06:24 650 MG Epoetin Andrew-epbx 10,000 unit TUTHSA@2100 [place] 09/17/25 21:00 09/17/25 22:02 10,000 UNIT Bumetanide 1 mg BIDD PO 09/17/25 18:00 09/18/25 06:25 1 MG Examination Gen: NAD HEENT: PERRLA, mucous membranes moist Heart: RRR, normal S1 and S2 Lungs: Bilateral air entry, no rales Ext: No edema Neuro: awake and alert laboratory and microbiology Laboratory Tests 09/18/25 07:26 09/09/25 12:15 Test 09/18/25 07:26 Range/Units Serum Glucose 99 74-106 mg/dL Microbiology Date/Time Source Procedure Growth Status 08/22/25 13:29 Blood Blood Culture - Final NO GROWTH AFTER 5 DAYS OF INCUBATION. 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 Hilario Bishop Plan discussed with: Patient Dietary Evaluation Review Comments: Nutrition Recommendation: 1) CCHO 75gm + renal standard diet 2) Nephro-marcial 1 tab daily 3) Monitor PO intake, lab values, weight trend, and I/O Expected Outcomes/Goals: Intake to meet >75% estimated needs Lab values to improve FU 3-5 days LARISSA FIGUEROA Sep 18, 2025 12:22
--- NOTE | 2025-09-18 19:31 | DVHPN2 ---
Progress Note - Dictate Date Seen: Sep 18, 2025 Medical Necessity Reason Pt with a Central, PICC or Fol: No Subjective Patient was seen and evaluated in follow up. Patient resting in bed. CL 93,BUN 51, SPECTROSCOPIST 7.86. Telemetry reviewed. vital signs Vital Sign Date Time Temp Pulse Resp B/P (MAP) Pulse Ox O2 Delivery O2 Flow Rate FiO2 09/18/25 09:50 78 133/72 09/18/25 08:57 98.4 18 98 98.4 09/17/25 20:00 Room Air* 0 21 Total Intake and Output 09/17/25 09/17/25 09/18/25 15:00 23:00 07:00 Intake Total 800 ml 210 ml Output Total 300 ml Balance 800 ml -90 ml medications Current Medications Medications Dose Ordered Sig/Britta Route Start Time Stop Time Status Last Admin Dose Admin Dextrose 50 ml UD PRN IV 08/20/25 05:15 Sodium Chloride 10 ml Q8HR IV 08/20/25 06:00 09/16/25 15:11 10 ML Ondansetron HCl 4 mg Q4HP PRN IV 08/20/25 05:15 Nitroglycerin 0.4 mg Q5MINP PRN SL 08/20/25 05:15 Hydralazine HCl 10 mg Q6HP PRN IV 08/20/25 05:15 08/29/25 20:44 10 MG Amlodipine Besylate 10 mg DAILY PO 08/20/25 10:00 09/18/25 09:49 10 MG Atorvastatin Calcium 40 mg HS PO 08/21/25 22:00 09/17/25 22:02 40 MG Docusate Sodium 100 mg BID PO 08/21/25 22:00 09/17/25 10:24 100 MG Diagnostic Test (Pha) 1 strip Q6HR 08/21/25 18:00 09/18/25 06:25 1 STRIP Insulin Human Regular Q6HR SC 08/21/25 18:00 09/14/25 23:48 2 UNITS Hydralazine HCl 25 mg Q6HR PO 08/22/25 12:00 09/18/25 06:25 25 MG Ferrous Sulfate 325 mg BIDWM PO 08/22/25 18:00 09/18/25 08:18 325 MG Aspirin 81 mg DAILY PO 08/23/25 10:00 09/18/25 09:49 81 MG Epoetin Andrew-epbx 10,000 unit MWF [place] 08/22/25 15:45 UNV Sevelamer HCl 800 mg TIDWM PO 08/22/25 18:00 09/17/25 14:43 800 MG Sodium Bicarbonate 1,300 mg TID PO 08/23/25 14:00 09/18/25 06:23 1,300 MG Carvedilol 25 mg Q12HR PO 08/23/25 22:00 09/18/25 09:50 25 MG Clonidine HCl 0.1 mg BID PRN PO 08/25/25 22:00 08/29/25 22:21 0.1 MG Acetaminophen 650 mg Q6HP PRN PO 09/15/25 21:45 09/18/25 06:24 650 MG Epoetin Andrew-epbx 10,000 unit TUTHSA@2100 [place] 09/17/25 21:00 09/17/25 22:02 10,000 UNIT Bumetanide 1 mg BIDD PO 09/17/25 18:00 09/18/25 06:25 1 MG objective GENERAL: Alert and oriented x 3. No acute distress. EYES: PERRL, EOMI. Anicteric. HENT: Moist mucous membranes. LUNGS: Clear to auscultation bilaterally. CARDIOVASCULAR: Regular rate and rhythm. ABDOMEN: Soft, non-tender and non-distended. EXTREMITIES: No edema. NEUROLOGIC: No focal neurological deficits. SKIN: Warm, dry. laboratory and microbiology Laboratory Tests 09/18/25 07:26 09/09/25 12:15 Test 09/18/25 07:26 Range/Units Serum Glucose 99 74-106 mg/dL Problem List Acute on chronic CHF. NSTEMI likely type 2 [place]. Hypertensive emergency. GISSELL on CKD. Medication noncompliance. Acute hypoxic respiratory failure, multifocal pneumonia. Cardiomyopathy. Acute pontine stroke with dysarthria, left facial weakness, left hemiplegia. Chronic left hemispheres stroke. Assessment/Plan Continued all current supportive medical care. Amlodipine, Coreg, Clonidine, Hydralazine. Aspirin, Lipitor. Diuretics with Bumex. IV Hydralazine for SBP >150. Additional plan as per the hospital course. Dietary Evaluation Review Comments: Nutrition Recommendation: 1) CCHO 75gm + renal standard diet 2) Nephro-marcial 1 tab daily 3) Monitor PO intake, lab values, weight trend, and I/O Expected Outcomes/Goals: Intake to meet >75% estimated needs Lab values to improve FU 3-5 days Plan discussed with: Patient RAMIN OLIVIER MD Sep 18, 2025 14:42
[2025-09-19 01:00] VITALS: BP 130/65; PULSE 76; RESP 17; TEMP 98.6; O2SAT 99
[2025-09-19 05:00] VITALS: BP 135/75; PULSE 71; RESP 18; TEMP 98.2; O2SAT 98
[2025-09-19 06:48] LABS: Anion Gap 16 (5-15); Carbon Dioxide 28 mmol/L (20-31); Potassium 4.2 mmol/L (3.5-5.1)
[2025-09-19 06:49] LABS: Chloride 91 mmol/L (98-107); Sodium 135 mmol/L (136-145)
[2025-09-19 06:52] LABS: Calcium 8.6 mg/dL (8.7-10.4)
[2025-09-19 06:54] LABS: BUN/Creatinine Ratio 8.5 (10.0-20.0); Glucose 81 mg/dL (74-106)
[2025-09-19 06:56] LABS: Blood Urea Nitrogen 76 mg/dL (9-23)
[2025-09-19] MEDS: EPOETIN ALFA-EPBX 10,000 UNIT/1ML VIAL SC ONE (07:41)
[2025-09-19] MEDS: SODIUM CHL 0.9% 1000 ML BAG XX ONE (07:42)
[2025-09-19 08:00] VITALS: PULSE 73; PULSE 74; RESP 16; O2SAT 98
[2025-09-19 09:00] VITALS: BP 107/71; PULSE 74; RESP 16; TEMP 98.3; O2SAT 98
--- NOTE | 2025-09-19 10:15 | DVHPN2 ---
Progress Note Date Seen: Sep 19, 2025 Medical Necessity Reason Pt with a Central, PICC or Fol: Yes The following are medically ne: Central Line (hd catheter) Objective vital signs Vital Sign Date Time Temp Pulse Resp B/P (MAP) Pulse Ox O2 Delivery O2 Flow Rate FiO2 09/19/25 09:15 75 129/77 09/19/25 09:14 98.3 09/19/25 09:00 16 98 09/18/25 20:00 Room Air* 0 21 Total Intake and Output 09/18/25 09/18/25 09/19/25 15:00 23:00 07:00 Intake Total 336 ml 240 ml 640 ml Output Total 350 ml Balance 336 ml 240 ml 290 ml medications Current Medications Medications Dose Ordered Sig/Britta Route Start Time Stop Time Status Last Admin Dose Admin Amlodipine Besylate 10 mg DAILY PO 08/20/25 10:00 09/19/25 09:15 10 MG Atorvastatin Calcium 40 mg HS PO 08/21/25 22:00 09/18/25 22:03 40 MG Docusate Sodium 100 mg BID PO 08/21/25 22:00 09/18/25 22:03 100 MG Diagnostic Test (Pha) 1 strip Q6HR 08/21/25 18:00 09/19/25 05:27 1 STRIP Insulin Human Regular Q6HR SC 08/21/25 18:00 09/18/25 23:52 3 UNITS Hydralazine HCl 25 mg Q6HR PO 08/22/25 12:00 09/19/25 05:32 25 MG Ferrous Sulfate 325 mg BIDWM PO 08/22/25 18:00 09/19/25 09:14 325 MG Aspirin 81 mg DAILY PO 08/23/25 10:00 09/19/25 09:14 81 MG Epoetin Andrew-epbx 10,000 unit MWF [place] 08/22/25 15:45 UNV Sevelamer HCl 800 mg TIDWM PO 08/22/25 18:00 09/19/25 09:14 800 MG Sodium Bicarbonate 1,300 mg TID PO 08/23/25 14:00 09/19/25 05:31 1,300 MG Carvedilol 25 mg Q12HR PO 08/23/25 22:00 09/19/25 09:15 25 MG Clonidine HCl 0.1 mg BID PRN PO 08/25/25 22:00 08/29/25 22:21 0.1 MG Acetaminophen 650 mg Q6HP PRN PO 09/15/25 21:45 09/19/25 09:14 650 MG Epoetin Andrew-epbx 10,000 unit TUTHSA@2100 [place] 09/17/25 21:00 09/17/25 22:02 10,000 UNIT Bumetanide 1 mg BIDD PO 09/17/25 18:00 09/19/25 05:32 1 MG Examination: GENERAL:Abnormal, CVS:Normal, NEURO:Abnormal laboratory and microbiology Laboratory Tests 09/19/25 05:48 09/09/25 12:15 Test 09/19/25 05:48 Range/Units Serum Glucose 81 74-106 mg/dL Microbiology Date/Time Source Procedure Growth Status 08/22/25 13:29 Blood Blood Culture - Final NO GROWTH AFTER 5 DAYS OF INCUBATION. Complete 08/20/25 18:49 Nose MRSA Screen - Final Complete Problem List/Assessment/Plan Problem List/Assessment/Plan ESRD Acute CVA hypertensive emergency HTN NSTEMI with congestive heart failure EF of 25% Anemia due to chronic kidney disease HD friday P.o. medications Coreg, amlodipine, p.o. hydralazine ALEXANDRU agents Diuretic therapy Cardiology Plan discussed with: Patient Dietary Evaluation Review Comments: Nutrition Recommendation: 1) CCHO 75gm + renal standard diet 2) Nephro-marcial 1 tab daily 3) Monitor PO intake, lab values, weight trend, and I/O Expected Outcomes/Goals: Intake to meet >75% estimated needs Lab values to improve FU 3-5 days CYNTHIA ORDAZ MD Sep 19, 2025 10:15
[2025-09-19 12:41] VITALS: BP 129/88; PULSE 75; RESP 18; TEMP 98.4; O2SAT 98
--- NOTE | 2025-09-19 13:28 | DVHPN2 ---
Subjective In bed feeling well Reviewed: Care Plan, H&P Changes from previous H/P or p: No Changes General: Per HPI Eyes: No Pain, No Vision change, No Conjunctivae inflammation, No Eyelid inflammation, No Other, No Redness ENT: No Ear pain, No Ear discharge, No Nose pain, No Nose discharge, No Nose congestion, No Mouth pain, No Mouth swelling, No Throat pain, No Throat swelling, No Other Cardiovascular: No Chest Pain, No Palpitations, No Orthopnea, No Paroxysmal Noc. Dyspnea, No Edema, No Lt Headedness, No Other Respiratory: No Cough, No Dry; Shortness of breath; No SOB with excertion, No Wheezing, No Hemoptysis, No Pleuritic Pain, No Sputum; Other (SOB at rest) Gastrointestinal: No Nausea, No Vomiting, No Abdominal Pain, No Diarrhea, No Constipation, No Melena, No Hematochezia, No Other Genitourinary: No Dysuria, No Frequency, No Incontinence, No Hematuria, No Retention, No Other Musculoskeletal: No other, No neck pain, No shoulder pain, No arm pain, No back pain, No hand pain, No leg pain, No foot pain Skin: No Rash, No Lesions, No Jaundice, No Bruising, No Other Objective Vitals Vital Signs Date Time Temp Pulse Resp B/P (MAP) Pulse Ox O2 Delivery O2 Flow Rate FiO2 09/19/25 12:41 98.4 75 18 129/88 (102) 98 98.4 09/19/25 08:00 Room Air* 0 21 Intake/Output Intake and Output 09/19/25 07:00 Intake Total 1216 ml Output Total 350 ml Balance 866 ml Intake Oral 1216 ml Output Urine Total 350 ml General Appearance: Alert, Oriented X3 Lungs: Clear to auscultation Cardiovascular: Regular rate, Normal S1, Normal S2 Abdomen: Normal bowel sounds Medications Current Medications Medications Dose Ordered Sig/Britta Route Start Time Stop Time Status Last Admin Dose Admin Atorvastatin Calcium 40 mg HS PO 08/21/25 22:00 09/18/25 22:03 40 MG Docusate Sodium 100 mg BID PO 08/21/25 22:00 09/18/25 22:03 100 MG Diagnostic Test (Pha) 1 strip Q6HR 08/21/25 18:00 09/19/25 12:14 1 STRIP Insulin Human Regular Q6HR SC 08/21/25 18:00 09/18/25 23:52 3 UNITS Hydralazine HCl 25 mg Q6HR PO 08/22/25 12:00 09/19/25 12:14 25 MG Ferrous Sulfate 325 mg BIDWM PO 08/22/25 18:00 09/19/25 09:14 325 MG Aspirin 81 mg DAILY PO 08/23/25 10:00 09/19/25 09:14 81 MG Epoetin Andrew-epbx 10,000 unit MWF [place] 08/22/25 15:45 UNV Sevelamer HCl 800 mg TIDWM PO 08/22/25 18:00 09/19/25 12:14 800 MG Sodium Bicarbonate 1,300 mg TID PO 08/23/25 14:00 09/19/25 05:31 1,300 MG Carvedilol 25 mg Q12HR PO 08/23/25 22:00 09/19/25 09:15 25 MG Clonidine HCl 0.1 mg BID PRN PO 08/25/25 22:00 08/29/25 22:21 0.1 MG Acetaminophen 650 mg Q6HP PRN PO 09/15/25 21:45 09/19/25 09:14 650 MG Epoetin Andrew-epbx 10,000 unit TUTHSA@2100 [place] 09/17/25 21:00 09/17/25 22:02 10,000 UNIT Bumetanide 1 mg BIDD PO 09/17/25 18:00 09/19/25 05:32 1 MG Laboratory Results Laboratory Tests 09/09/25 12:15 09/19/25 05:48 Chemistry Test 09/19/25 05:48 Calcium Level 8.6 mg/dL (8.7-10.4) L Urinalysis Test 08/20/25 00:06 08/22/25 12:21 Urine Color Colorless (Yellow) Urine Clarity Clear (Clear) Urine pH 6.5 (5.0-9.0) Urine Specific [place] 1.009 (1.001-1.035) Urine Protein 2+ (Negative) H Urine Ketones Negative (Negative) Urine Blood 2+ /uL (Negative) H Urine Nitrite Negative (Negative) Urine Bilirubin Negative (Negative) Urine Urobilinogen Normal mg/dL (Negative) Urine Leukocyte Esterase Negative /uL (Negative) Urine RBC 2 /hpf (0 - 3) Urine Microscopic WBC 1 /HPF (0-3) Urine Squamous Epithelial Cells None seen /hpf (<5) Urine Bacteria None seen /hpf (None Seen) Urine Glucose 3+ mg/dL (Normal) H Urine Creatinine 91.09 mg/dL (30.0-125.0) Urine Sodium 34 mmol/L (40-220) L Urine Total Protein 229.4 mg/dL (1-14) H Microbiology Microbiology Date/Time Source Procedure Growth Status 08/22/25 13:29 Blood Blood Culture - Final NO GROWTH AFTER 5 DAYS OF INCUBATION. Complete 08/20/25 18:49 Nose MRSA Screen - Final Complete Assessment/Plan Assessment/Plan 55-year-old male with a known history of congestive heart failure with systolic dysfunction, diabetes mellitus type 2, hypertension, dyslipidemia, homelessness who initially presented to the hospital with a respiratory distress found to have acute hypoxic respiratory failure suspected secondary to congestive heart failure with systolic dysfunction/multifocal pneumonia. Patient's hospital course was eventful for acute CVA with a MRI evidence of infarct in the right kuldip. 1. Acute hypoxic respiratory failure secondary to acute CHF exacerbation with systolic dysfunction as well as multifocal pneumonia 2. Acute CHF exacerbation with systolic dysfunction with the EF of 25% 3. Multifocal pneumonia 4. Moderate/severe pulmonary hypertension 5. Acute CVA with PONTINE infarct in the right-sided kuldip, with a left-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 6. AKA with a underlying CKD, progressing to end-stage renal disease, tunneled dialysis catheter will be placed, currently hemodialysis via Alonzo catheter 7. Previous history of CVA with a mild left residual deficit 8. NSTEMI type 2 suspect secondary to acute CHF exacerbation 9. 1/2 Gram-negative bacteremia with coag-negative staph, suspect contamination 10. Hypertension, stable -DIALYSIS PER RENAL -aspirin, statin, continue IV diuretics, continue IV antibiotics -repeat blood cultures, strict I&Os, daily weight. Dispo: Pending HD placement. Insurance approval PT eval>SNF placement Plan discussed with: Patient Date of Service: Sep 18, 2025 Billing Provider: EDMUNDO REYNA MD Common Visit Codes: [id number] INP/OBS CARE(HIGH) EDMUNDO REYNA MD Sep 19, 2025 13:28
--- NOTE | 2025-09-19 15:36 | DVHDS2 ---
Discharge Summary Date of Admission Aug 20, 2025 at 05:02 Date of Discharge: Sep 19, 2025 Labs/Diagnostic Data: Laboratory Results Test 09/19/25 05:48 09/19/25 05:23 09/09/25 12:15 09/05/25 05:16 Sodium Level 135 mmol/L (136-145) Potassium Level 4.2 mmol/L (3.5-5.1) Chloride Level 91 mmol/L (98-107) Carbon Dioxide Level 28 mmol/L (20-31) Anion Gap 16 (5-15) Blood Urea Nitrogen 76 mg/dL (9-23) Creatinine 8.98 mg/dL (0.700-1.30) Glomerular Filtration Rate Calc 6 mL/min (>90) BUN/Creatinine Ratio 8.5 (10.0-20.0) Serum Glucose 81 mg/dL (74-106) Calcium Level 8.6 mg/dL (8.7-10.4) POC Glucose 95 mg/dl (70-106) White Blood Count 4.3 10^3/uL (4.4-10.8) Red Blood Count 3.13 10^6/uL (4.5-5.90) Hemoglobin 9.4 g/dL (13.5-17.5) Hematocrit 28.5 % (41.0-53.0) Mean Corpuscular Volume 91.1 fL (80.0-100.0) Mean Corpuscular Hemoglobin 29.9 pg (28.0-32.0) Mean Corpuscular Hemoglobin Concent 32.8 g/dL (32.0-36.0) Red Cell Distribution Width 14.9 % (11.8-14.3) Platelet Count 75 10^3/uL (140-450) Mean Platelet Volume 8.2 fL (6.9-10.8) Neutrophils (%) (Auto) 64.3 % (37.0-80.0) Lymphocytes (%) (Auto) 23.0 % (10.0-50.0) Monocytes (%) (Auto) 9.3 % (0.0-12.0) Eosinophils (%) (Auto) 2.3 % (0.0-7.0) Basophils (%) (Auto) 1.1 % (0.0-2.0) Neutrophils # (Auto) 2.8 10 ^3/uL (1.6-8.6) Lymphocytes # (Auto) 1.0 10 ^3/uL (0.4-5.4) Monocytes # (Auto) 0.4 10 ^3/uL (0-1.3) Eosinophils # (Auto) 0.1 10 ^3/uL (0-0.8) Basophils # (Auto) 0 10 ^3/uL (0-0.2) Nucleated Red Blood Cells 0.1 % Total Bilirubin 0.5 mg/dL (0.2-1.0) Aspartate Amino Transferase (AST) 36 U/L (13-40) Alanine Aminotransferase (ALT) 82 U/L (7-40) Alkaline Phosphatase 164 U/L (46-116) Total Protein 6.8 g/dL (5.7-8.2) Albumin 3.8 g/dL (3.2-4.8) Phosphorus Level 5.0 mg/dL (2.4-5.1) Test 08/30/25 04:00 08/26/25 02:55 08/22/25 13:29 08/22/25 12:21 Prothrombin Time 11.4 sec (9.3-11.8) Prothrombin Time INR 1.08 (0.9-1.15) Activated Partial Thromboplast Time 29.1 SEC (24.5-34.5) Iron Level 48 ug/dL (65-175) Total Iron Binding Capacity 211 ug/dL (250-425) Percent Iron Saturation 22.7 % (20-55) Ferritin 217.9 ng/mL (22-322) Hepatitis B Surface Antigen Negative (Negative) Urine Creatinine 91.09 mg/dL (30.0-125.0) Urine Sodium 34 mmol/L (40-220) Urine Total Protein 229.4 mg/dL (1-14) Test 08/21/25 04:50 08/20/25 18:49 08/20/25 05:58 08/20/25 01:53 Magnesium Level 2.1 mg/dL (1.6-2.6) Influenza Type A Antigen Negative (Negative) Influenza Type B Antigen Negative (Negative) SARS-CoV-2 Antigen (Rapid) Negative (NEGATIVE) Triglycerides Level 42 mg/dL (< 150) Cholesterol Level 141 mg/dL (< 200) LDL Cholesterol 86 mg/dL (< 100) HDL Cholesterol 45 mg/dL (40-59) Troponin I High Sensitivity 242 ng/L (</=54) Test 08/20/25 01:21 08/20/25 00:20 08/20/25 00:06 08/19/25 23:05 Lactic Acid Level 1.5 mmol/L (0.4-2.0) Blood Gas Specimen Type Venous Blood Gas Sample Site Vbg - n/a Blood Gas Patient Temperature 37.0 Arterial Blood Date Drawn [id number] Mike Test Yes Venous Blood pH 7.259 (7.320-7.430) Venous Blood pCO2 at Patient Temp 38.1 mmHg (38.0-54.0) Venous Blood pO2 at Patient Temp 41.8 mmHg (23.0-48.0) Venous Blood HCO3 16.7 mmol/L (22.0-29.0) Venous Blood Base Excess -9.7 mmol/L (-2.0-3.0) Blood Gas Modality Mask - bipap FiO2 % 50.0 Blood Gas EPAP 5 Blood Gas IPAP 15 Urine Color Colorless (Yellow) Urine Clarity Clear (Clear) Urine pH 6.5 (5.0-9.0) Urine Specific [place] 1.009 (1.001-1.035) Urine Protein 2+ (Negative) Urine Ketones Negative (Negative) Urine Blood 2+ /uL (Negative) Urine Nitrite Negative (Negative) Urine Bilirubin Negative (Negative) Urine Urobilinogen Normal mg/dL (Negative) Urine Leukocyte Esterase Negative /uL (Negative) Urine RBC 2 /hpf (0 - 3) Urine Microscopic WBC 1 /HPF (0-3) Urine Squamous Epithelial Cells None seen /hpf (<5) Urine Bacteria None seen /hpf (None Seen) Urine Glucose 3+ mg/dL (Normal) Urine Opiates Screen Neg (NEGATIVE) Urine Fentanyl Screen Neg (NEGATIVE) Urine Barbiturates Screen Neg (NEGATIVE) Urine Phencyclidine Screen Neg (NEGATIVE) Urine Amphetamines Screen Neg (NEGATIVE) Urine Benzodiazepines Screen Neg (NEGATIVE) Urine Cocaine Screen Neg (NEGATIVE) Urine Cannabinoids Screen Neg (NEGATIVE) B-Type Natriuretic Peptide 2127.06 pg/mL (0-100) Other Laboratory Tests 09/19/25 05:48 09/09/25 12:15 Brief Hx & Hospital Course: 55-year-old male with past medical history of DM, hypertension, CHF, COPD, CVA, and asthma who presented to [facility] ED with complaint of shortness of breaths.Patient reports that he has been experiencing difficulty breathing, increased work of breathing, getting worse that EMS were called. When EMS arrived on the scene, patient was desaturating at 43% on air, placed on non- rebreather and improved to 65%, was then given breathing treatment and placed on oxygen at 6 L/min and O2 saturation improved to 90% EN route to our facility ED. Patient was seen and evaluated in the ED, laboratory data shows WBC 8.8, hemoglobin 9.5, hematocrit 29.7, platelets 173, sodium 143, potassium 4.7, BUN 49, creatinine 9.09, GFR 6, glucose 170, calcium 8.4, BNP 2127.06, troponin 241, AST 43, ALT 33, blood pressure 228/134 trending down to 149/97, heart rate 82, temperature 98.0 F, O2 saturation 99% on BiPAP. Chest x-ray revealing multifocal pneumonia throughout both lungs. Patient was started on IV antibiotic regimen azithromycin, started on nitroglycerin drip, please see medication orders section in the computer. On my assessment, patient denied chest pain, no headache, dizziness, diaphoresis, currently on BiPAP, no diarrhea, nausea, vomiting, fever, no chills. Patient was admitted for further evaluation and medical management. During hospital new onset ESRD started on HD and got better. He was also treated for pneumonia Condition at Discharge: Good Final Diagnosis/Problems List 1. Acute hypoxic respiratory failure secondary to acute CHF exacerbation with systolic dysfunction as well as multifocal pneumonia 2. Acute CHF exacerbation with systolic dysfunction with the EF of 25% 3. Multifocal pneumonia 4. Moderate/severe pulmonary hypertension 5. Acute CVA with PONTINE infarct in the right-sided kuldip, with a left-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 6. AKA with a underlying CKD, progressing to end-stage renal disease, tunneled dialysis catheter will be placed, currently hemodialysis via Alonzo catheter 7. Previous history of CVA with a mild left residual deficit 8. NSTEMI type 2 suspect secondary to acute CHF exacerbation 9. 1/2 Gram-negative bacteremia with coag-negative staph, suspect contamination 10. Hypertension, stable Discharge Disposition: [facility] Facility Discharge Instruct/Medications Diet: Renal Activity: No Restrictions, As Tolerated Follow Up/Referral: PCP in 7 days Medications: MAR Scheduled Amlodipine Besylate (Norvasc Tablet), 10 MG PO DAILY Aspirin (Aspirin Low Dose), 81 MG PO DAILY Atorvastatin Calcium (Atorvastatin Calcium), 40 MG PO DAILY Atorvastatin Calcium (Atorvastatin Calcium), 40 MG PO HS Azithromycin (Zithromax Z-Osmany), 250 MG PO DAILY Bumetanide (Bumex Tablet), 1 MG PO BIDD Carvedilol (Carvedilol), 25 MG PO BID Dapagliflozin Propanediol (Farxiga), 10 MG PO DAILY Ferrous Sulfate (Ferrous Sulfate), 325 MG PO BIDWM Hydralazine HCl (Hydralazine HCl), 25 MG PO Q6HR Hydralazine Hcl (Hydralazine Hcl), 100 MG PO TID Prednisone (Prednisone), 60 MG PO DAILY Sevelamer Hydrochloride (Renagel), 800 MG PO TIDWM Sodium Bicarbonate (Sodium Bicarbonate), 1,300 MG PO TID Scheduled PRN Albuterol Sulfate (Albuterol Sulfate Hfa), 2 PUFF IN Q4HPRN PRN Discontinued Medications Amlodipine Besylate (Amlodipine Besylate), 5 MG PO DAILY Furosemide (Furosemide), 20 MG PO DAILY Discharge Statement: "Patient was advised to return to the ER or call 911 if any headaches, dizziness, shortness of breath, chest pain, abdominal pain, bleeding, fevers, or worsening of medical condition. Patient was counseled about treatment plan, medications, possible side effects, patientverbalized understanding. All questions were answered to the best of my ability. This discharge took greater then 30 minutes in planning, reviewing documentation, counseling the patient, and discussing with other team members." ASSESSMENT ASSESSMENT Assessment ESRD ON HD Date of Service: Sep 19, 2025 Billing Provider: EDMUNDO REYNA MD Common Visit Codes: [id number] DISCH DAY >30min EDMUNDO REYNA MD Sep 19, 2025 15:36
--- NOTE | 2025-09-20 01:16 | DVHPN2 ---
Progress Note - Dictate Date Seen: Sep 19, 2025 Medical Necessity Reason Pt with a Central, PICC or Fol: Yes The following are medically ne: Central Line (hd catheter) Subjective Patient was seen and evaluated in follow up. Patient has no new complaints at this time. Patient denies any cardiac symptoms. Patient is cardiac stable for discharge. Telemetry reviewed. vital signs Vital Sign Date Time Temp Pulse Resp B/P (MAP) Pulse Ox O2 Delivery O2 Flow Rate FiO2 09/19/25 12:41 98.4 75 18 129/88 (102) 98 98.4 09/19/25 08:00 Room Air* 0 21 medications Current Medications Medications Dose Ordered Sig/Britta Route Start Time Stop Time Status Last Admin Dose Admin Epoetin Andrew-epbx 10,000 unit MWF [place] 08/22/25 15:45 UNV objective GENERAL: Alert and oriented x 3. No acute distress. EYES: PERRL, EOMI. Anicteric. HENT: Moist mucous membranes. LUNGS: Clear to auscultation bilaterally. CARDIOVASCULAR: Regular rate and rhythm. ABDOMEN: Soft, non-tender and non-distended. EXTREMITIES: No edema. NEUROLOGIC: No focal neurological deficits. SKIN: Warm, dry. laboratory and microbiology Laboratory Tests 09/19/25 05:48 09/09/25 12:15 Test 09/19/25 05:48 Range/Units Serum Glucose 81 74-106 mg/dL Problem List Acute on chronic CHF. NSTEMI likely type 2 MS. Hypertensive emergency. GISSELL on CKD. Medication noncompliance. Acute hypoxic respiratory failure, multifocal pneumonia. Cardiomyopathy. Acute pontine stroke with dysarthria, left facial weakness, left hemiplegia. Chronic left hemispheres stroke. Assessment/Plan Continued all current supportive medical care. Amlodipine, Coreg, Clonidine, Hydralazine. Aspirin, Lipitor. Diuretics with Bumex. IV Hydralazine for SBP >150. Additional plan as per the hospital course. Dietary Evaluation Review Comments: Nutrition Recommendation: 1) CCHO 75gm + renal standard diet 2) Nephro-marcial 1 tab daily 3) Monitor PO intake, lab values, weight trend, and I/O Expected Outcomes/Goals: Intake to meet >75% estimated needs Lab values to improve FU 3-5 days Plan discussed with: Patient RAMIN OLIVIER MD Sep 20, 2025 01:16
== END 2025-09-19 16:00 | DRG 45 ==
LOC: EDBD 22:50 → ER 22:50 → OVERFLOW 08-20 05:02 → TELE-WESTW 08-20 05:14 → OVERFLOW 08-20 05:14 → TELE-WESTW 08-22 20:59
PROVIDERS: ADMIT Hospitalist; ATTEND Hospitalist
PROC: 5A09357 Assistance with Respiratory Ventilation, Less than 24 Consecutive Hours, Continuous Positive Airway Pressure (ICD-10-PCS; principal; 2025-08-19)
PROC: 5A09357 Assistance with Respiratory Ventilation, Less than 24 Consecutive Hours, Continuous Positive Airway Pressure (ICD-10-PCS; 2025-08-20)
PROC: 05HM33Z Insertion of Infusion Device into Right Internal Jugular Vein, Percutaneous Approach (ICD-10-PCS; 2025-08-25)
PROC: B543ZZA Ultrasonography of Right Jugular Veins, Guidance (ICD-10-PCS; 2025-08-25)
PROC: 5A1D70Z Performance of Urinary Filtration, Intermittent, Less than 6 Hours Per Day (ICD-10-PCS; 2025-08-26)
PROC: 0JH63XZ Insertion of Tunneled Vascular Access Device into Chest Subcutaneous Tissue and Fascia, Percutaneous Approach (ICD-10-PCS; 2025-08-29)
PROC: 02H633Z Insertion of Infusion Device into Right Atrium, Percutaneous Approach (ICD-10-PCS; 2025-08-29)
PROC: B548ZZA Ultrasonography of Superior Vena Cava, Guidance (ICD-10-PCS; 2025-08-29)
PROC: B518ZZA Fluoroscopy of Superior Vena Cava, Guidance (ICD-10-PCS; 2025-08-29)
PROC: 5A1D70Z Performance of Urinary Filtration, Intermittent, Less than 6 Hours Per Day (ICD-10-PCS; 2025-08-30)
PROC: 5A1D70Z Performance of Urinary Filtration, Intermittent, Less than 6 Hours Per Day (ICD-10-PCS; 2025-09-01)
PROC: 5A1D70Z Performance of Urinary Filtration, Intermittent, Less than 6 Hours Per Day (ICD-10-PCS; 2025-09-04)
PROC: 5A1D70Z Performance of Urinary Filtration, Intermittent, Less than 6 Hours Per Day (ICD-10-PCS; 2025-09-07)
PROC: 5A1D70Z Performance of Urinary Filtration, Intermittent, Less than 6 Hours Per Day (ICD-10-PCS; 2025-09-09)
PROC: 5A1D70Z Performance of Urinary Filtration, Intermittent, Less than 6 Hours Per Day (ICD-10-PCS; 2025-09-12)
PROC: 5A1D70Z Performance of Urinary Filtration, Intermittent, Less than 6 Hours Per Day (ICD-10-PCS; 2025-09-15)
PROC: 5A1D70Z Performance of Urinary Filtration, Intermittent, Less than 6 Hours Per Day (ICD-10-PCS; 2025-09-19)
DX: I63.29 Cerebral infarction due to unspecified occlusion or stenosis of other precerebral arteries (principal); J96.01 Acute respiratory failure with hypoxia; I13.2 Hypertensive heart and chronic kidney disease with heart failure and with stage 5 chronic kidney disease, or end stage renal disease; I50.23 Acute on chronic systolic (congestive) heart failure; I16.1 Hypertensive emergency; G81.94 Hemiplegia, unspecified affecting left nondominant side; J18.9 Pneumonia, unspecified organism; I21.A1 Myocardial infarction type 2; I27.20 Pulmonary hypertension, unspecified; N18.6 End stage renal disease; J44.0 Chronic obstructive pulmonary disease with (acute) lower respiratory infection; Z99.2 Dependence on renal dialysis; N17.9 Acute kidney failure, unspecified; Z79.02 Long term (current) use of antithrombotics/antiplatelets; D63.1 Anemia in chronic kidney disease; E11.22 Type 2 diabetes mellitus with diabetic chronic kidney disease; G93.89 Other specified disorders of brain; I82.612 Acute embolism and thrombosis of superficial veins of left upper extremity; I42.9 Cardiomyopathy, unspecified; Z20.822 Contact with and (suspected) exposure to COVID-19; R47.1 Dysarthria and anarthria; E78.5 Hyperlipidemia, unspecified; R29.810 Facial weakness; Z59.00 Homelessness unspecified; Z79.82 Long term (current) use of aspirin; Z79.899 Other long term (current) drug therapy; Z83.3 Family history of diabetes mellitus; Z86.73 Personal history of transient ischemic attack (TIA), and cerebral infarction without residual deficits; Z91.148 Patient's other noncompliance with medication regimen for other reason
CPT/HCPCS: 36415; 36556; 36558; 36600; 70450; 70551; 71045; 76775; 77001; 80048; 80053; 80061; 80307; 81001; 82570; 82728; 82805; 82962; 83540; 83550; 83605; 83735; 83880; 84100; 84156; 84300; 84484; 85014; 85018; 85025; 85610; 85730; 86850; 86900; 86901; 87040; 87077; 87081; 87186; 87340; 87426; 87804; 90935; 93005; 93306; 93886; 93971; 94640; 94660; 96365; 96375; 97110; 97116; 97163; 97530; 99152; 99291; 99292; C1894; G0378; J1642; J1815; J2250; J2405; J2543; J3490